=== PATIENT | male | born 1935 | race Caucasian/White ===

== ENCOUNTER 2017-08-23 09:46 | Emergency (ER) | payer MEDICARE, BC ==
[2017-08-23] MEDS ORDERED: Magnesium Citrate 300 ML BOT ONE (11:44)
[2017-08-23] MEDS ORDERED: Magnesium Citrate 300 ML BOT PO SCH (11:45)
== END 2017-08-23 13:17 | disposition home or self-care (01) ==
LOC: ERS 09:46
DX: K59.00 Constipation, unspecified (principal); I25.10 Atherosclerotic heart disease of native coronary artery without angina pectoris; I48.91 Unspecified atrial fibrillation; E03.9 Hypothyroidism, unspecified; E78.5 Hyperlipidemia, unspecified; I10 Essential (primary) hypertension; M19.90 Unspecified osteoarthritis, unspecified site; I49.9 Cardiac arrhythmia, unspecified; Z87.891 Personal history of nicotine dependence
CPT/HCPCS: 94640; J7620

== ENCOUNTER 2017-12-28 08:56 | Emergency (ER) | payer MEDICARE, BC ==
[2017-12-28 09:49] LABS: ALT (SGPT) 29 U/L (8-55); AST (SGOT) 28 U/L (5-34); Albumin 4.2 g/dL (3.4-4.8); Alkaline Phosphatase 105 U/L (40-150); Anion Gap 13 mmol/L (10-20); BUN (Urea Nitrogen) 25 mg/dL (8.4-25.7); Bilirubin, Total 0.7 mg/dL (0.2-1.2); CK (CPK) 53 U/L (30-200); Calc. Creatinine Clearance 0 mL/min (70-130); Calcium 9.9 mg/dL (7.8-10.44); Carbon Dioxide 31 mmol/L (23-31); Chloride 98 mmol/L (98-107); Estimated GFR-MDRD 57; Globulin 3.4 g/dL (2.4-3.5); Glucose 101 mg/dL (83-110); Potassium 5.4 mmol/L (3.5-5.1); Protein, Total 7.6 g/dL (5.8-8.1); Sodium 137 mmol/L (136-145)
[2017-12-28 09:52] LABS: CKMB 1.7 ng/mL (0-6.6); Troponin I Less than 0.010 ng/mL (< 0.028)
--- NOTE | 2017-12-28 09:54 | RAD ---
CHEST ONE VIEW: History: Dyspnea. Comparison: 05-05-16 FINDINGS: Heart size is enlarged. Tracheostomy is in place. Scarring in the right lung apex. Mild ectasia of the distal thoracic aorta. No acute osseous abnormality. IMPRESSION: Unchanged examination. No acute intrathoracic abnormality. POS: [facility]
== END 2017-12-28 10:39 | disposition home or self-care (01) ==
LOC: ERS 08:56
DX: J95.00 Unspecified tracheostomy complication (principal); E11.9 Type 2 diabetes mellitus without complications; J44.9 Chronic obstructive pulmonary disease, unspecified; E66.9 Obesity, unspecified; I25.10 Atherosclerotic heart disease of native coronary artery without angina pectoris; I48.91 Unspecified atrial fibrillation; E03.9 Hypothyroidism, unspecified; E78.5 Hyperlipidemia, unspecified; I10 Essential (primary) hypertension; M19.90 Unspecified osteoarthritis, unspecified site; G47.30 Sleep apnea, unspecified; Z87.891 Personal history of nicotine dependence
CPT/HCPCS: 71045; 80053; 82553; 83880; 84484; 93005; 94640; J7620

== ENCOUNTER 2018-05-09 21:20 | Inpatient (IN) | payer MEDICARE, BC ==
--- NOTE | 2018-05-09 22:23 | RAD ---
CHEST ONE VIEW: HISTORY: Dyspnea. COMPARISON: 12/28/2017 FINDINGS: Stable tracheostomy. Slight elongation of the aorta. There is an enlarged cardiac silhouette. The pulmonary vessels are slightly prominent. Partial obscuration of the right heart border, suggesting a middle lobe infiltrate. No pneumothorax or osseous abnormalities. IMPRESSION: Middle lobe infiltrate. POS: [facility]
[2018-05-09 22:36] LABS: #Eosinphils 0.1 thou/uL (0.0-0.7); #Lymphocytes 1.6 thou/uL (1.20-3.40); #Monocytes 0.8 thou/uL (0.11-0.59); #Neutrophils 5.2 thou/uL (1.40-6.50); %Basophils 0.3 % (0.0-1.0); %Eosinophils 1.7 % (0.0-10.0); %Lymphocytes 20.5 % (21.0-51.0); %Monocytes 9.9 % (0.0-10.0); %Neutrophils 67.7 % (42.0-75.0); Hemoglobin 14.4 g/dL (14.0-18.0); Mean Corpuscular HGB CONC 32.4 g/dL (32.0-36.0); Mean Corpuscular Hemoglobin 29.1 pg (27.0-31.0); Mean Corpuscular Volume 89.9 fL (78.0-98.0); Mean Platelet Volume 8.2 fL (7.4-10.4); Platelet Count 190 thou/uL (130-400); RBC Distribution Width 13.2 % (11.5-14.5); Red Blood Cell (RBC) Count 4.94 mill/uL (4.70-6.10); White Blood Cell (WBC) Count 7.6 thou/uL (4.8-10.8)
[2018-05-09 22:39] LABS: PTT 29.8 SEC (22.9-36.1); Prothrombin Time 13.7 SEC (12.0-14.7)
[2018-05-09 22:55] LABS: ALT (SGPT) 21 U/L (8-55); AST (SGOT) 26 U/L (5-34); Albumin 3.9 g/dL (3.4-4.8); Alkaline Phosphatase 116 U/L (40-150); Anion Gap 15 mmol/L (10-20); BUN (Urea Nitrogen) 23 mg/dL (8.4-25.7); Bilirubin, Total 0.3 mg/dL (0.2-1.2); Calc. Creatinine Clearance 0 mL/min (70-130); Calcium 9.7 mg/dL (7.8-10.44); Carbon Dioxide 25 mmol/L (23-31); Chloride 100 mmol/L (98-107); Estimated GFR-MDRD 38; Globulin 3.3 g/dL (2.4-3.5); Glucose 97 mg/dL (83-110); Potassium 4.8 mmol/L (3.5-5.1); Protein, Total 7.2 g/dL (5.8-8.1); Sodium 135 mmol/L (136-145)
[2018-05-09 22:59] LABS: CKMB 2.1 ng/mL (0-6.6); Troponin I Less than 0.010 ng/mL (< 0.028)
[2018-05-09] MEDS ORDERED: Senokot S 8.6-50 MG TAB PO PRN (23:07)
[2018-05-09] MEDS ORDERED: cloNIDine 0.1 MG TAB PO PRN (23:07)
[2018-05-09] MEDS ORDERED: Bisacodyl 5 MG TAB PO PRN (23:07)
[2018-05-09] MEDS ORDERED: Acetaminophen 325 MG TAB PO PRN (23:07)
[2018-05-09] MEDS ORDERED: hydrALAZINE 20 MG/ML VIAL SLOW IVP PRN (23:07)
[2018-05-09] MEDS ORDERED: Ondansetron PF 4 MG/2 ML Vial IVP PRN ×2 (23:07)
[2018-05-09] MEDS ORDERED: Diabetic Tussin 200 MG/10 ML UDCUP PO PRN (23:07)
[2018-05-09] MEDS ORDERED: Benzonatate 100 MG CAP PO PRN (23:07)
[2018-05-09] MEDS ORDERED: Bisacodyl 10 MG SUPP PR PRN (23:07)
[2018-05-09] MEDS ORDERED: Nitroglycerin 0.4 MG TAB (25 Tab Bottle) SL PRN (23:07)
[2018-05-09] MEDS ORDERED: cefTRIAXone\\ROCEPHIN 1 GM in Sodium Chloride 0.9% 100 ML IVPB SCH (23:15)
[2018-05-09] MEDS ORDERED: Azithromycin 500 MG in Sodium Chloride 0.9% 250 ML 250 ML IVPB SCH (23:59)
[2018-05-10] MEDS ORDERED: Docusate 100 MG CAP PO PRN (00:46)
--- NOTE | 2018-05-10 00:55 | PDOC.EVN ---
Event Note - Event Note Event Note: H&P dictated #[id number].
--- NOTE | 2018-05-10 01:53 | HP ---
DATE OF ADMISSION: 05/09/2018 PRIMARY CARE PHYSICIAN: Dr. Black. CHIEF COMPLAINT: Shortness of breath. HISTORY OF PRESENT ILLNESS: Mr. 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 History is mainly obtained by the patient himself and electronic medical records have been reviewed. Case has been discussed with admitting ER physician. Mr. Bailey reports that he has been having some worsening shortness of breath for the last day or so. Other than that, history is limited. The patient does not elaborate much and is having a hard time s peaking, because of the tracheostomy status. He also complains of constipation 2 of weeks' duration. He denies any chest pain. He denies any dysuria, frequency, or urgency. He denies any diarrhea. He denies any fever, chills, or sick contacts. He has some mild cough. Upon presentation to the emergency room, he was hemodynamically stable, otherwise, with oxygen satura tion of 93% on room air. His temperature was 98.1. He underwent a general evaluation, and the chest x-ray showed right middle lobe infiltrate. He received IV antibiotics in the form of azithromycin a nd Rocephin in the emergency room and is now being admitted for pneumonia. He is, otherwise, hemodyn amically stable. He has chronic respiratory failure and uses oxygen throughout the night, but is on room air in the da y. He also reports that he uses DuoNeb every 4 hours [id number] at home. He was noticed to have worsening swelling and lower extremity redness. He states that his legs are a lways swollen and somewhat red, but could not tell me if this is worse than his normal. He also reports that he sees Dr. Metzger in the Pul[facility]ology [facility] and feels that his tracheostomy also needs to be changed. PAST MEDICAL HISTORY: 1. Chronic respiratory failure on home oxygen that he uses at nighttime. 2. Status post tracheostomy in 2010 for obstructive sleep apnea. 3. Coronary artery disease, status post stent placement in 2003. 4. Hypertension. 5. Hypothyroidism. 6. Morbid obesity. 7. Paroxysmal atrial fibrillation. 8. History of NSVT secondary to electrolyte abnormality. 9. Anxiety. 10. Chronic venous stasis of the legs. 11. COPD. 12. History of Clostridium difficile in 2013. 13. Chronic kidney disease, stage 3. PAST SURGICAL HISTORY: 1. Tracheostomy. 2. PEG tube placement with subsequent removal. 3. Cholecystectomy. 4. Cardiac catheterization and stent placement in 2003. 5. Endoscopy. ALLERGIES: No known medication allergies. CURRENT HOME MEDICATIONS: Not updated. SOCIAL HISTORY: The patient does not have the medications with him and nothing in the computer. FAMILY HISTORY: No significant family history for premature coronary artery disease or stroke. He h as multiple family members with asthma and bronchitis. CODE STATUS: FULL CODE. Discussed with the patient. ALLERGIES: No known medication allergies. REVIEW OF SYSTEMS: The following complete review of systems was negative, unless otherwise mentioned in the HPI or below: Constitutional: Weight loss or gain, ability to conduct usual activities. Sk in: Rash, itching. Eyes: Double vision, pain. ENT/Mouth: Nose bleeding, neck stiffness, pain, te nderness. Cardiovascular: Palpitations, dyspnea on exertion, orthopnea. Respiratory: Shortness of breath, wheezing, cough, hemoptysis, fever, or night sweats. Gastrointestinal: Poor appetite, abdo evelyne pain, heartburn, nausea, vomiting, constipation, or diarrhea. Genitourinary: Urgency, frequen cy, dysuria, nocturia. Musculoskeletal: Pain, swelling. Neurologic/Psychiatric: Anxiety, depressi on. Allergy/Immunologic: Skin rash, bleeding tendency. A 12-point review of systems is done and it is negative except for those mentioned in the history and physical. LABORATORY EXAMINATION: CBC is unremarkable. PT, PTT, INR are unremarkable. Serum chemistry shows sodium of 135, BUN 23, creatinine 1.71. Lactic acid normal. Cardiac enzymes normal. BNP normal. C hest x-ray, by my review, shows right middle lobe infiltrate. PHYSICAL EXAMINATION: VITAL SIGNS: Upon presentation, blood pressure 110/75, pulse of 79, respirations 28, temperature 98. 1, saturating 93%-100% on room air after suctioning. GENERAL EXAMINATION: In no acute distress. Awake, alert, oriented x3. He has some thick secretions coming out from his tracheostomy. HEENT EXAMINATION: Mucous membrane is moist and pink. No oropharyngeal exudate or erythema. Head i s normocephalic and atraumatic. Pupils equal and reactive to light and accommodation. Extraocular m ovement intact. NECK: Supple without any lymphadenopathy, JVD, or bruit. Tracheostomy is in place, which looks tg n and healthy. CHEST: Clear to auscultation bilaterally with diffuse scant wheezes bilaterally. HEART: Rate and rhythm are regular without any murmurs, rubs, or gallops. ABDOMEN: Obese, soft, nontender, nondistended, positive bowel sounds. EXTREMITIES: Show bilateral nonpitting edema extending all the way up to his midcalf with extensive warmth and redness of bilateral lower extremities. Some superficial excoriations also noticed on the legs. NEUROLOGICAL EXAMINATION: Nonfocal. SKIN: Free of any rashes or bruises. Feels warm and dry to touch. PSYCHIATRIC: Normal affect. IMPRESSION AND PLAN: 1. Acute on chronic hypoxic respiratory failure. Mr. Bailey will be admitted for pneumonia as a cause of acute on chronic hypoxic respiratory failure. He will be given broad-spectrum IV antibiotics to cover for both pneumonia as well as possible lower extremity cellulitis. Blood cultures have been ob tained and we will follow the results. We will also obtain a viral PCR. We will continue him on Duo Neb as at home and add Dulera as well as p.r.n. nebulizers. We will consult his kinesiotherapist, Dr. Micky freire, while in the hospital. Frequent suctioning of the tracheostomy will be provided. He will be o n incentive spirometry, and we will add Mucinex as well. 2. Bilateral lower extremity cellulitis. We will start him on vancomycin and Zosyn. He does have c hronic lower extremity venostasis. 3. Acute on chronic renal insufficiency, mildly elevated troponin above the baseline. We will resus citate him gently with IV fluids. Avoid any nephrotoxic medications. 4. History of paroxysmal atrial fibrillation. Reconcile home medications once settled in. The khushboo ent, I think, was supposed to be on Multaq. 5. Chronic obstructive pulmonary disease without any acute exacerbation. Continue nebulizers every 4 hours as he does at home. 6. History of coronary artery disease. Restart home medications once confirmed. 7. History of hypertension. Restart home medications if the blood pressure starts to go up high. W e will use p.r.n. antihypertensives for now, as the home medications remain non-reconciled. 8. Code status: FULL CODE, discussed with the patient. 9. Deep venous thrombosis and gastrointestinal prophylaxis and supportive care and p.r.n. medication s. DISPOSITION: Mr. Bailey is hemodynamically stable and currently being admitted to the hospital for pne umonia and possible lower extremity cellulitis. Estimated length of stay at this time is at least 2- 3 midnights. Further management will depend upon his clinical course.
[2018-05-10] MEDS ORDERED: Piperacillin/Tazobactam 3.375 GM in Sodium Chloride 0.9% 100 ML IVPB SCH (02:00)
[2018-05-10] MEDS: Sodium Chloride 0.9% 1,000 ML IV SCH ×3 (02:55→21:48)
[2018-05-10 03:56] VITALS: BMI 39.2
[2018-05-10] MEDS ORDERED: VANCOMYCIN IVPB PRN (04:01)
[2018-05-10 05:02] LABS: #Eosinphils 0.1 thou/uL (0.0-0.7); #Lymphocytes 1.8 thou/uL (1.20-3.40); #Monocytes 0.7 thou/uL (0.11-0.59); #Neutrophils 4.3 thou/uL (1.40-6.50); %Basophils 0.3 % (0.0-1.0); %Eosinophils 1.8 % (0.0-10.0); %Lymphocytes 25.5 % (21.0-51.0); %Monocytes 10.4 % (0.0-10.0); Hemoglobin 12.5 g/dL (14.0-18.0); Mean Corpuscular HGB CONC 31.2 g/dL (32.0-36.0); Mean Corpuscular Hemoglobin 28.3 pg (27.0-31.0); Mean Corpuscular Volume 90.5 fL (78.0-98.0); Mean Platelet Volume 8.4 fL (7.4-10.4); Platelet Count 171 thou/uL (130-400); Red Blood Cell (RBC) Count 4.44 mill/uL (4.70-6.10)
[2018-05-10 05:20] LABS: Anion Gap 12 mmol/L (10-20); BUN (Urea Nitrogen) 22 mg/dL (8.4-25.7); Calc. Creatinine Clearance 76 mL/min (70-130); Calcium 8.9 mg/dL (7.8-10.44); Carbon Dioxide 28 mmol/L (23-31); Chloride 101 mmol/L (98-107); Estimated GFR-MDRD 48; Glucose 94 mg/dL (83-110); Potassium 3.7 mmol/L (3.5-5.1); Sodium 137 mmol/L (136-145)
[2018-05-10] MEDS: Mometasone/Formoterol 120 PUFF INHALER INH SCH ×2 (06:44→18:55)
[2018-05-10] MEDS: Famotidine 20 MG TAB PO SCH (08:02)
[2018-05-10] MEDS: guaiFENesin ER 600 MG TAB PO SCH ×2 (08:02→20:06)
[2018-05-10] MEDS: Amoxicillin/Potassium Clav 875 MG TAB PO SCH ×2 (08:02→20:05)
[2018-05-10] MEDS: Heparin 5,000 UNITS/ML VIAL SC SCH ×2 (08:02→20:06)
[2018-05-10] MEDS ORDERED: Vancomycin HCl 1 GM in Premix Bag 1 BAG IVPB SCH (09:00)
[2018-05-10] MEDS ORDERED: Albuterol Sulfate 2.5 mg/3 ml Neb NEB PRN (10:03)
[2018-05-10] MEDS ORDERED: Clindamycin/D5W 300 MG/50 ML BAG IVPB SCH ×2 (10:05→14:00)
[2018-05-10] MEDS ORDERED: Lorazepam 1 MG TAB PO PRN (10:06)
[2018-05-10] MEDS ORDERED: Polyethylene Glycol 3350 17 GM Packet PO SCH (10:15)
[2018-05-10] MEDS ORDERED: guaiFENesin ER 600 MG TAB PO SCH ×3 (10:15→21:00)
--- NOTE | 2018-05-10 12:27 | CON ---
DATE OF CONSULTATION: 05/10/2018 Mr. Bailey is an 82-year-old male I have known for many years. He presents with complaints of cough and chest congestion for 3 days. He has a chronic indwelling tracheostomy related to an episode of respiratory failure many years ago. We have tried capping his trachs and he does very poorly with dyspnea on exertion. He has a significant component of deconditioning. He actually did very well with exercise for quite some time, but has not been exercising as much over the last few years and has gained some of his weight back. His truly is the one that led to his survival once he was out of the Critical Care Unit as she was very supportive and encouraged him to build up his strength. PAST MEDICAL HISTORY: 1. Remarkable for obstructive sleep apnea. 2. Coronary artery disease. 3. Chronic indwelling tracheostomy after an episode of respiratory failure. 4. History of coronary stenting in 2003. 5. Hypothyroidism. 6. Hypertension. 7. Atrial fibrillation. 8. History of anxiety. 9. Chronic lower extremity edema. 10. History of Clostridium difficile colitis in 2012. 11. Chronic kidney disease. 12. History of a PEG, which has been removed. 13. History of a cholecystectomy. SOCIAL HISTORY: He is no longer a smoker, does not drink. Never used drugs. FAMILY HISTORY: Negative for lung disease at an early age. REVIEW OF SYSTEMS: Ten point review of systems completed, otherwise negative. He denies fever. PHYSICAL EXAMINATION: GENERAL: He presents with complaints of cough and chest congestion for 3 days. VITAL SIGNS: He is afebrile, heart rate 63, respiratory rate is 18, oximetry is 96. Blood pressure 100/63. HEENT: Pupils are equal. Sclerae is anicteric. NECK: Supple. His tracheostomy is without erythema. LUNGS: Remarkable for faint wheezes. HEART: Regular rhythm, no S3. There is a grade 2/6 systolic murmur. ABDOMEN: Soft and nontender. EXTREMITIES: Without clubbing, cyanosis, or edema. LABORATORY DATA: White count 7, hemoglobin 12.5, platelets 171,000. Sodium 137 , potassium 3.7, chloride 101, bicarbonate 20, BUN 22, creatinine 1.4. Chest radiograph is hazy on the cardiac border on the right, suggestive of either mucus plugging or pneumonia in this area. IMPRESSION: Asthmatic bronchitis versus pneumonia. His radiograph clears rapidly. This would argue for abnormalities related to mucus plugging. In any event, he will receive antibiotics, steroids, nebulizer treatments. His antibiotics can be switched to p.o. antibiotics given his rapid clinical improvement. We will change out his tracheostomy while he is in the hospital this admission. I do not feel that this is an MRSA infection, so his vancomycin will be discontinued. He will benefit from some Solu-Medrol for a day or two. This is a 50 minute consult, with greater than 50% of the time was spent coordinating care on the unit. LYDIA
[2018-05-10] MEDS: Clindamycin/D5W 900 MG in Premix Bag 1 BAG IVPB SCH ×2 (14:48→21:47)
[2018-05-10] MEDS: Atorvastatin Calcium 10 MG TAB PO SCH (20:06)
[2018-05-10] MEDS: Montelukast Sodium 10 mg Tablet PO SCH (20:06)
[2018-05-11] MEDS: Levothyroxine Sodium 25 MCG TAB PO SCH (04:58)
[2018-05-11] MEDS: Clindamycin/D5W 900 MG in Premix Bag 1 BAG IVPB SCH ×3 (04:58→20:15)
[2018-05-11 05:35] LABS: #Lymphocytes 1.1 thou/uL (1.20-3.40); #Monocytes 0.6 thou/uL (0.11-0.59); #Neutrophils 5.4 thou/uL (1.40-6.50); %Basophils 0.5 % (0.0-1.0); %Eosinophils 0.3 % (0.0-10.0); %Neutrophils 76.2 % (42.0-75.0); Hemoglobin 12.5 g/dL (14.0-18.0); Mean Corpuscular HGB CONC 30.6 g/dL (32.0-36.0); Mean Corpuscular Hemoglobin 27.9 pg (27.0-31.0); Mean Corpuscular Volume 91.2 fL (78.0-98.0); Mean Platelet Volume 8.7 fL (7.4-10.4); Platelet Count 186 thou/uL (130-400); RBC Distribution Width 13.1 % (11.5-14.5); Red Blood Cell (RBC) Count 4.47 mill/uL (4.70-6.10); White Blood Cell (WBC) Count 7.1 thou/uL (4.8-10.8)
[2018-05-11 05:41] LABS: Anion Gap 10 mmol/L (10-20); BUN (Urea Nitrogen) 17 mg/dL (8.4-25.7); Calc. Creatinine Clearance 111 mL/min (70-130); Calcium 9.3 mg/dL (7.8-10.44); Carbon Dioxide 29 mmol/L (23-31); Chloride 104 mmol/L (98-107); Estimated GFR-MDRD 75; Glucose 108 mg/dL (83-110); Magnesium 2.4 mg/dL (1.6-2.6); Potassium 4.1 mmol/L (3.5-5.1); Sodium 139 mmol/L (136-145)
[2018-05-11] MEDS: Mometasone/Formoterol 120 PUFF INHALER INH SCH ×2 (06:48→22:19)
[2018-05-11] MEDS ORDERED: Vancomycin HCl 1.5 GM in Sodium Chloride 0.9% 250 ML 300 ML IVPB SCH (08:00)
[2018-05-11] MEDS: Polyethylene Glycol 3350 17 GM Packet PO SCH (09:16)
[2018-05-11] MEDS: Furosemide 40 MG TAB PO SCH (09:17)
[2018-05-11] MEDS: guaiFENesin ER 600 MG TAB PO SCH ×2 (09:17→20:12)
[2018-05-11] MEDS: Aspirin 81 mg Enteric Coated Tablet PO SCH (09:18)
[2018-05-11] MEDS: Spironolactone 25 MG TAB PO SCH (09:18)
[2018-05-11] MEDS: Famotidine 20 MG TAB PO SCH (09:18)
[2018-05-11] MEDS: Amoxicillin/Potassium Clav 875 MG TAB PO SCH ×2 (09:18→20:12)
[2018-05-11] MEDS: Heparin 5,000 UNITS/ML VIAL SC SCH ×2 (09:19→20:20)
[2018-05-11] MEDS: Terbinafine 1% 30 GM TUBE TOP SCH (09:32)
--- NOTE | 2018-05-11 15:44 | PRG ---
DATE OF SERVICE: 05/11/2018 SUBJECTIVE: Mr. Bailey says he feels much better. OBJECTIVE: VITALS: He is afebrile, heart rate is in the 80s, respiratory rate is 20, oximetry is 100%. LUNGS: Clear today. HEART: Regular rhythm. ABDOMEN: Soft. EXTREMITIES: wrapped. LABORATORY DATA: White count 7.1, hemoglobin 12.5, platelets 186. Electrolytes are normal. IMPRESSION: 1. Asthmatic bronchitis. 2. Severe underlying obstructive lung disease. 3. Sleep apnea. 4. Status post tracheostomy. He will have this for life. 5. Obesity. He lost a significant amount of weight after his critical illness but has gained most o f it back. 6. Chronic lower extremity stasis plus or minus cellulitis. We will continue with supportive care. He does have diastolic dysfunction that combined with his obe sity and his COPD likely explains his lower extremity edema. This is aggravated by sedentary nature. He has a normal systolic ejection fraction. I will continue to follow him while he is in the [facility]. I will change his tracheostomy prior to discharge. He does have moderate mitral regurgitation but he will never be a candidate for valve replacement.
[2018-05-11] MEDS: Sodium Chloride 0.9% 1,000 ML IV SCH (17:26)
[2018-05-11] MEDS ORDERED: Clopidogrel Bisulfate 75 MG TAB ONE (19:16)
[2018-05-11] MEDS: Atorvastatin Calcium 10 MG TAB PO SCH (20:12)
[2018-05-11] MEDS: Montelukast Sodium 10 mg Tablet PO SCH (20:12)
[2018-05-12] MEDS: Levothyroxine Sodium 25 MCG TAB PO SCH (05:29)
[2018-05-12] MEDS: Clindamycin/D5W 900 MG in Premix Bag 1 BAG IVPB SCH ×3 (05:29→20:19)
[2018-05-12] MEDS: Sodium Chloride 0.9% 1,000 ML IV SCH ×3 (05:31→20:20)
[2018-05-12] MEDS: Mometasone/Formoterol 120 PUFF INHALER INH SCH ×2 (07:03→19:19)
[2018-05-12] MEDS: Heparin 5,000 UNITS/ML VIAL SC SCH ×2 (08:15→20:22)
[2018-05-12] MEDS: Polyethylene Glycol 3350 17 GM Packet PO SCH (08:15)
[2018-05-12] MEDS: Amoxicillin/Potassium Clav 875 MG TAB PO SCH ×2 (08:15→20:20)
[2018-05-12] MEDS: Spironolactone 25 MG TAB PO SCH (08:15)
[2018-05-12] MEDS: guaiFENesin ER 600 MG TAB PO SCH ×2 (08:15→20:20)
[2018-05-12] MEDS: Aspirin 81 mg Enteric Coated Tablet PO SCH (08:15)
[2018-05-12] MEDS: Furosemide 40 MG TAB PO SCH (08:16)
[2018-05-12] MEDS: Famotidine 20 MG TAB PO SCH (08:16)
[2018-05-12] MEDS: Terbinafine 1% 30 GM TUBE TOP SCH (08:17)
--- NOTE | 2018-05-12 09:15 | PRG ---
DATE OF SERVICE: 05/12/2018 Mr. Bailey says he is feeling better. We discussed calorie counting and weight loss again. PHYSICAL EXAMINATION: VITAL SIGNS: He is afebrile, heart rate 53, respiratory rate is 20, oximetry is 92, blood pressure 1 08/59. LUNGS: Clear. HEART: Regular rhythm. ABDOMEN: Protuberant, nontender. EXTREMITIES: Extremities are wrapped. LABORATORY: No new lab today. IMPRESSION: 1. Asthmatic bronchitis, clinically better. 2. Status post tracheostomy, which he will have for life. 3. Diastolic dysfunction. 4. Moderate mitral regurgitation. PLAN: Hopefully, home tomorrow. We will plan on changing his trach tomorrow prior to discharge.
--- NOTE | 2018-05-12 10:13 | PQF ---
CLINICAL DOCUMENTATION IMPROVEMENT CLARIFICATION FORM: ICD-10 Updated PLEASE DO AN ADDENDUM TO THE PROGRESS NOTE WITH ANY DOCUMENTATION UPDATES OR ADDITIONS AND CARRY THROUGH TO DC SUMMARY. THANK YOU. DATE: 05/12 ATTN: DR. RAVI WEBER Please exercise your independent, professional judgment in responding to the clarification form. Clinical indicators are provided on the bottom of this form for your review. Please check appropriate box(s): Conflicting documentation was noted in the Medical Record, please clarify if patient is being treated/monitored for: [ ] RML PNEUMONIA [ ] ASTHMATIC BRONCHITIS [ ] Other diagnosis [ ] Unable to determine For continuity of documentation, please document condition throughout progress notes and discharge summary. Thank You. CLINICAL INDICATORS - SIGNS / SYMPTOMS/ LABS ER PHYSICIAN DOCUMENTATION 05/09: PNEUMONIA, COPD H&P DOCUMENTATION 05/09: HX OF PRESENT ILLNESS: ...HE UNDERWENT A GENERAL EVALUATION IN ED, AND THE CXR SHOWED R MIDDLE LOBE INFILTRATE. IMPRESSION/ PLAN: 1) ...HE WILL BE ADMITTED FOR PNEUMONIA PULMONOLOGY CONSULT 05/10: ASTHMATIC BRONCHITIS VS PNEUMONIA; PN 05/11 & 05/12: ASTHMATIC BRONCHITIS CXR 05/09: FINDINGS: PARTIAL OBSCURATION OF RIGHT HEART BORDER, SUGGESTING MIDDLE LOBE INFILTRATE. IMPRESSION: MIDDLE LOBE INFILTRATE RISK FACTORS: TRACHEOSTOMY W/THICK SECRETIONS COPD TREATMENT: IV ANTIBIOTICS (CLINDAMYCIN 05/10- PRESENT; AZITHROMYCIN & ROCEPHIN 05/09; VANCOMYCIN & ZOSYN 05/10_ IVF (NS 05/10 - PRESENT) THANK YOU! Maureen (This form is maintained as a part of the permanent medical record) 2014 [employer]. All Rights Reserved Maureen Kemp RN, BSN [email or web address] Office: [phone] [facility]
--- NOTE | 2018-05-12 10:26 | PQF ---
CLINICAL DOCUMENTATION IMPROVEMENT CLARIFICATION FORM: ICD-10 Updated PLEASE DO AN ADDENDUM TO THE PROGRESS NOTE WITH ANY DOCUMENTATION UPDATES OR ADDITIONS AND CARRY THROUGH TO DC SUMMARY. THANK YOU. DATE: 05/12 ATTN: DR. RAVI WEBER Please exercise your independent, professional judgment in responding to the clarification form. Clinical indicators are provided on the bottom of this form for your review. Please check appropriate box(s): [ ] Acute on Chronic Renal Failure Stage 3 [ ] CKD Stage 3 without ARF/LEONA [ ] Other diagnosis [ ] Unable to determine Acute Renal Failure/Acute Kidney Failure defined as: Increases in SCr by (>) 0.3 mg/dl within 48 hours OR- Increases in SCr by (>) 1.5 times baseline, known or presumed to have occurred within the prior 7 days OR- Urine volume < 0.5 ml/kg/hour for 6 hours (KDIGO supplement 2012 for RIFLE/MORENA criteria) For continuity of documentation, please document condition throughout progress notes and discharge summary. Thank You. CLINICAL INDICATORS - SIGNS / SYMPTOMS / LABS BUN: 23 CR: 1.71 GFR: 38 (05/09) 22 1.40 48 (05/10) 17 0.96 75 (05/11) H&P DOCUMENTATION 05/09: PAST MEDICAL HX: 13) CKD STAGE 3; IMPRESSION & PLAN: 3) ACUTE ON CHRONIC RENAL INSUFFICIENCY. WE WILL RESUSCITATE HIM GENTLY WITH IVF RISK FACTORS: CKD 3 DM II, HTN TREATMENTS: IVF (NS 05/09 - PRESENT) SERIAL LAB THANK YOU! Maureen (This form is maintained as a part of the permanent medical record) 2014 [employer]. All Rights Reserved Maureen Kmep RN, BSN [email or web address] Office: [phone] [facility]
--- NOTE | 2018-05-12 10:42 | PQF ---
CLINICAL DOCUMENTATION IMPROVEMENT CLARIFICATION FORM: ICD-10 Updated PLEASE DO AN ADDENDUM TO THE PROGRESS NOTE WITH ANY DOCUMENTATION UPDATES OR ADDITIONS AND CARRY THROUGH TO DC SUMMARY. THANK YOU. DATE: 05/12 ATTN: DR. RAVI WEBER Please exercise your independent, professional judgment in responding to the clarification form. Clinical indicators are provided on the bottom of this form for your review. Please check appropriate box(s): [ ] Aspiration Pneumonia [ ] Aspiration Bronchitis [ ] Empirically treating Gram Negative Pneumonia [ ] Other diagnosis [ ] Unable to determine For continuity of documentation, please document condition throughout progress notes and discharge summary. Thank You. CLINICAL INDICATORS - SIGNS / SYMPTOMS / LABS ER PRESENTATION 05/09: INCREASING SOB W/NONPRODUCTIVE COUGH RR: 22-28 MODERATE RESPIRATORY DISTRESS, SPEAKING IN 2-3 WORD SENTENCES ER PHYSICIAN DIAGNOSES: PNEUMONIA, COPD CXR 05/09: FINDINGS: OBSCURATION OF RIGHT HEART BORDER, SUGGESTING A MIDDLE LOBE INFILTRATE. IMPRESSION: MIDDLE LOBE INFILTRATE H&P DOCUMENTATION 05/09: HX PRESENT ILLNESS: WORSENING SOB FOR LAST DAY OR SO. ...HE UNDERWENT A GENERAL EVAL IN ED & CXR SHOWED RIGHT MIDDLE LOBE INFILTRATE. PAST MEDICAL HX: S/P TRACHEOSTOMY FOR WALI PHYSICAL EXAM: HE HAS SOME THICK SECRETIONS COMING OUT FROM HIS TRACHEOSTOMY. IMPRESSION & PLAN: 1) ...WILL BE ADMITTED FOR PNEUMONIA CAUSE OF ACUTE ON CHRONIC HYPOXIC RESPIRATORY FAILURE RISK FACTORS: TRACHEOSTOMY W/THICK SECRETIONS OBESITY COPD TREATMENTS: IV ANTIBIOTICS (CLINDAMYCIN 05/10 -PRESENT; AZITHROMYCIN & ROCEPHIN IN ED; ZOSYN & VANCOMYCIN 05/10) PULMONARY CONSULT THANK YOU! Maureen (This form is maintained as a part of the permanent medical record) 2014 [employer]. All Rights Reserved Maureen Kemp RN, BSN [email or web address] Office: [phone] [facility]
[2018-05-12] MEDS: Montelukast Sodium 10 mg Tablet PO SCH (20:20)
[2018-05-12] MEDS: Atorvastatin Calcium 10 MG TAB PO SCH (20:20)
[2018-05-13] MEDS: Clindamycin/D5W 900 MG in Premix Bag 1 BAG IVPB SCH (05:29)
[2018-05-13] MEDS: Levothyroxine Sodium 25 MCG TAB PO SCH (05:29)
[2018-05-13] MEDS: Mometasone/Formoterol 120 PUFF INHALER INH SCH (07:53)
[2018-05-13] MEDS: Famotidine 20 MG TAB PO SCH (10:06)
[2018-05-13] MEDS: guaiFENesin ER 600 MG TAB PO SCH (10:07)
[2018-05-13] MEDS: Spironolactone 25 MG TAB PO SCH (10:07)
[2018-05-13] MEDS: Amoxicillin/Potassium Clav 875 MG TAB PO SCH (10:07)
[2018-05-13] MEDS: Aspirin 81 mg Enteric Coated Tablet PO SCH (10:07)
[2018-05-13] MEDS: Furosemide 40 MG TAB PO SCH (10:07)
[2018-05-13] MEDS: Heparin 5,000 UNITS/ML VIAL SC SCH (10:08)
[2018-05-13] MEDS: Terbinafine 1% 30 GM TUBE TOP SCH (10:09)
[2018-05-13] MEDS: Polyethylene Glycol 3350 17 GM Packet PO SCH (10:09)
[2018-05-13 12:41] VITALS: BP 108/68; TEMP 99.8
[2018-05-13] MEDS: Sodium Chloride 0.9% 1,000 ML IV SCH (14:33)
--- NOTE | 2018-05-13 17:06 | PRG ---
DATE OF SERVICE: 05/13/2018 SUBJECTIVE: Mr. Bailey is back to his baseline. He has no complaints. His tracheostomy was changed out to a new #6 nonfenestrated cuffless tracheostomy. OBJECTIVE: VITAL SIGNS: Temperature maximum is 99.8, heart rate is 53, respiratory rate 24, oximetry is 94. LUNGS: Clear. CARDIOVASCULAR: Regular rhythm. ABDOMEN: Soft. IMPRESSION: Asthmatic bronchitis with perhaps an early pneumonia, that would be community acquired. PLAN: Discharge home on prednisone taper, completed his course of antibiotics. His does a grea t job of taking care of him. I will see him in followup in 2-3 months. I have again encouraged him to lose weight, but he absolutely has an inability to do that. His decon ditioning is the biggest factor in his life at this point, in my opinion.
--- NOTE | 2018-05-23 16:11 | EKG ---
Test Reason : Blood Pressure : / mmHG Vent. Rate : 072 BPM Atrial Rate : 072 BPM P-R Int : 206 ms QRS Dur : 084 ms QT Int : 400 ms P-R-T Axes : 087 076 056 degrees QTc Int : 438 ms Normal sinus rhythm Normal ECG Confirmed by ULICES PINEDA ([id number]), story editor YOSEF URIAS ([id number]) on 05/23/2018 4:10:45 PM Referred By: NICHOLAS PINEDA Confirmed By:ULICES PINEDA
== END 2018-05-13 16:14 | disposition home or self-care (01) | DRG 193 ==
LOC: ERS 21:20 → T4-B 23:07
PROVIDERS: ADMIT Internal Medicine; ATTEND Internal Medicine
DX: J18.9 Pneumonia, unspecified organism (principal); J96.21 Acute and chronic respiratory failure with hypoxia; L03.116 Cellulitis of left lower limb; L03.115 Cellulitis of right lower limb; J44.0 Chronic obstructive pulmonary disease with (acute) lower respiratory infection; G47.33 Obstructive sleep apnea (adult) (pediatric); I25.10 Atherosclerotic heart disease of native coronary artery without angina pectoris; I48.0 Paroxysmal atrial fibrillation; Z93.0 Tracheostomy status; Z99.81 Dependence on supplemental oxygen; Z95.5 Presence of coronary angioplasty implant and graft; E03.9 Hypothyroidism, unspecified; E66.01 Morbid (severe) obesity due to excess calories; F41.9 Anxiety disorder, unspecified; I87.8 Other specified disorders of veins; I12.9 Hypertensive chronic kidney disease with stage 1 through stage 4 chronic kidney disease, or unspecified chronic kidney disease; N18.3 Chronic kidney disease, stage 3 (moderate); Z90.49 Acquired absence of other specified parts of digestive tract; N28.9 Disorder of kidney and ureter, unspecified; I05.1 Rheumatic mitral insufficiency
CPT/HCPCS: 36415; 71045; 80048; 80053; 82553; 83605; 83735; 83880; 84484; 85025; 85610; 85730; 87040; 87633; 93005; 93306; 94640; 94664; 96365; 96367; G8978-GP-CM; G8979-GP-CK; G8987-GO-CM; G8988-GO-CJ; J0456; J0696; J1644; J2543; J2920; J3370; J3490; J7050; J7620

== ENCOUNTER 2018-05-19 19:15 | Emergency (ER) | payer MEDICARE, BC ==
[~2018-05-19 19:15] MED LIST: ISOVUE-370 76%-LOCM 1 ML ONE
[2018-05-19 20:18] LABS: #Eosinphils 0.1 thou/uL (0.0-0.7); #Lymphocytes 1.2 thou/uL (1.20-3.40); #Monocytes 1.2 thou/uL (0.11-0.59); #Neutrophils 14.3 thou/uL (1.40-6.50); %Eosinophils 0.3 % (0.0-10.0); %Lymphocytes 7.3 % (21.0-51.0); %Monocytes 7.2 % (0.0-10.0); %Neutrophils 85.1 % (42.0-75.0); Hemoglobin 15.3 g/dL (14.0-18.0); Mean Corpuscular HGB CONC 31.7 g/dL (32.0-36.0); Mean Corpuscular Hemoglobin 28.7 pg (27.0-31.0); Mean Corpuscular Volume 90.5 fL (78.0-98.0); Platelet Count 183 thou/uL (130-400); RBC Distribution Width 13.5 % (11.5-14.5); Red Blood Cell (RBC) Count 5.34 mill/uL (4.70-6.10); White Blood Cell (WBC) Count 16.8 thou/uL (4.8-10.8)
[2018-05-19 20:39] LABS: ALT (SGPT) 19 U/L (8-55); AST (SGOT) 20 U/L (5-34); Albumin 3.9 g/dL (3.4-4.8); Alkaline Phosphatase 96 U/L (40-150); Anion Gap 16 mmol/L (10-20); BUN (Urea Nitrogen) 21 mg/dL (8.4-25.7); Bilirubin, Total 0.7 mg/dL (0.2-1.2); CK (CPK) 39 U/L (30-200); Calc. Creatinine Clearance 0 mL/min (70-130); Calcium 9.3 mg/dL (7.8-10.44); Carbon Dioxide 22 mmol/L (23-31); Chloride 97 mmol/L (98-107); Estimated GFR-MDRD 46; Globulin 3.4 g/dL (2.4-3.5); Glucose 111 mg/dL (83-110); Potassium 4.1 mmol/L (3.5-5.1); Protein, Total 7.3 g/dL (5.8-8.1); Sodium 131 mmol/L (136-145)
[2018-05-19 20:43] LABS: Troponin I 0.011 ng/mL (< 0.028)
--- NOTE | 2018-05-19 21:41 | RAD ---
CHEST TWO VIEWS: 05/19/18 INDICATION: History of pneumonia with fever and shortness of breath. COMPARISON: Prior two view chest radiograph dated 06/22/13 and a chest radiograph dated 05/09/18. FINDINGS: There is stable cardiomegaly. There is a stable tracheostomy tube. No air space consolidation is evid ent. Compression abnormality involving the mid thoracic spine is stable appearing. IMPRESSION: No air space consolidation to suggest pneumonia. Otherwise stable chronic findings as above. POS: [facility]
--- NOTE | 2018-05-19 23:22 | CT ---
CTA OF THE THORAX UTILIZING IV CONTRAST AND 3D REFORMATTED IMAGING 05/19/18 INDICATION: History of pneumonia with fever and shortness of breath. COMPARISON: No CT comparisons of the chest are available. FINDINGS: No central or segmental pulmonary embolus is evident. There are vascular calcifications involving the thoracic aorta and coronary arteries. There is a tracheostomy tube in place. No enlarged lymph nodes are evident. No focal consolidation is evident. There are areas of subsegmental volume loss seen sca ttered throughout both lungs but mostly within the lower lobes. No pleural effusion is evident. The visualized upper abdomen reveals a mild amount of retained stool within the colon. The gallbladde r is surgically absent. Adrenal glands are normal appearing. There is a small exophytic hyperdense le nahomi involving the superior pole left kidney measuring 1.6 cm. This is slightly larger than [facility] of the abdomen and pelvis dated 05/11/13. Compression abnormalities of T6 and T7 are stable to a comparison chest radiograph from 2013. IMPRESSION: 1. No central or segmental pulmonary embolus demonstrated. 2. No air space consolidation to suggest bacterial pneumonia. There are scattered subsegmental a telectasis. 3. Tracheostomy tube. 4. Exophytic hypodense lesion off the superior pole left kidney is incompletely characterized. F ollowup renal ultrasound is recommended for further characterization. POS: [facility]
[2018-05-19 23:57] LABS: Bilirubin Negative (Negative); Blood, Urine Small (Negative); Clarity CLEAR (Clear); Glucose, Urine (Dipstick) Negative (Negative); Leukocyte Moderate (Negative); Nitrite Negative (Negative); Protein, Urine (Dipstick) Trace mg/dL (Neg-Trace); Specific Gravity, Urine 1.036 (1.002-1.036); Urobilinogen 0.2 mg/dL (0.2-1.0); pH, Urine 5.5 (5.0-9.0)
[2018-05-19 23:59] LABS: Bacteria/HPF None Seen HPF (None Seen); Hyaline Casts/LPF 7-10 HYALINE CAST LPF (0-3 Hyaline); Pathc Cast-AUWi Flag 1.45 (0-2.49)
[2018-05-20 00:04] LABS: Renal Epithelial None Seen HPF (0-3); Transitional Epithelial NONE SEEN HPF (0-3)
== END 2018-05-20 00:41 | disposition home or self-care (01) ==
LOC: ERS 19:15
DX: R06.00 Dyspnea, unspecified (principal); E11.9 Type 2 diabetes mellitus without complications; E66.9 Obesity, unspecified; I25.10 Atherosclerotic heart disease of native coronary artery without angina pectoris; E03.9 Hypothyroidism, unspecified; M19.90 Unspecified osteoarthritis, unspecified site; G47.30 Sleep apnea, unspecified; I48.91 Unspecified atrial fibrillation; I10 Essential (primary) hypertension; Z87.891 Personal history of nicotine dependence; Z79.899 Other long term (current) drug therapy; Z79.82 Long term (current) use of aspirin
CPT/HCPCS: 36415; 71046; 71275; 80048; 80061; 80076; 81003; 81015; 82550; 82553; 83036; 83605; 84145; 84484; 85025; 87804; 93005; 94640; J7620

== ENCOUNTER 2018-06-06 06:15 | Inpatient (IN) | payer MEDICARE, BC ==
[2018-06-06] MEDS ORDERED: methylPREDNISolone Sod Succ/PF 125 MG/2 ML VIAL ONE (07:09)
[2018-06-06 07:10] LABS: #Eosinphils 0.1 thou/uL (0.0-0.7); #Lymphocytes 0.8 thou/uL (1.20-3.40); #Monocytes 0.7 thou/uL (0.11-0.59); #Neutrophils 6.2 thou/uL (1.40-6.50); %Basophils 0.2 % (0.0-1.0); %Eosinophils 0.9 % (0.0-10.0); %Lymphocytes 9.8 % (21.0-51.0); %Monocytes 9.1 % (0.0-10.0); %Neutrophils 80.1 % (42.0-75.0); Hemoglobin 14.2 g/dL (14.0-18.0); Mean Corpuscular HGB CONC 32.2 g/dL (32.0-36.0); Mean Corpuscular Hemoglobin 28.7 pg (27.0-31.0); Mean Corpuscular Volume 89.2 fL (78.0-98.0); Mean Platelet Volume 8.6 fL (7.4-10.4); Platelet Count 189 thou/uL (130-400); RBC Distribution Width 13.7 % (11.5-14.5); Red Blood Cell (RBC) Count 4.95 mill/uL (4.70-6.10); White Blood Cell (WBC) Count 7.7 thou/uL (4.8-10.8)
[2018-06-06 07:25] LABS: CKMB 1.4 ng/mL (0-6.6); Troponin I 0.011 ng/mL (< 0.028)
[2018-06-06 07:27] LABS: ALT (SGPT) 24 U/L (8-55); AST (SGOT) 29 U/L (5-34); Albumin 3.9 g/dL (3.4-4.8); Alkaline Phosphatase 114 U/L (40-150); Anion Gap 16 mmol/L (10-20); BUN (Urea Nitrogen) 18 mg/dL (8.4-25.7); Bilirubin, Total 0.7 mg/dL (0.2-1.2); CK (CPK) 82 U/L (30-200); Calc. Creatinine Clearance 0 mL/min (70-130); Calcium 9.2 mg/dL (7.8-10.44); Carbon Dioxide 25 mmol/L (23-31); Chloride 99 mmol/L (98-107); Estimated GFR-MDRD 54; Globulin 3.5 g/dL (2.4-3.5); Glucose 99 mg/dL (83-110); Potassium 4.9 mmol/L (3.5-5.1); Protein, Total 7.4 g/dL (5.8-8.1); Sodium 135 mmol/L (136-145)
[2018-06-06] MEDS ORDERED: Diltiazem 125 MG in Sodium Chloride 0.9% 100 ML IVPB SCH (07:30)
--- NOTE | 2018-06-06 08:43 | RAD ---
PORTABLE CHEST 1 VIEW: Date: 06/06/18 Time: 0653 hours HISTORY: Chest pain. FINDINGS: Comparison made with exam of 05/19/18. Tracheostomy tube remains in place. Heart size is normal. Aorta is tortuous. No focal areas of consol idation, pneumothorax, alton pulmonary edema, or pleural effusions are seen. IMPRESSION: No acute process. POS: [facility]
[2018-06-06 09:11] LABS: Bilirubin Negative (Negative); Blood, Urine Negative (Negative); Clarity CLEAR (Clear); Glucose, Urine (Dipstick) Negative (Negative); Leukocyte Negative (Negative); Nitrite Negative (Negative); Protein, Urine (Dipstick) Trace mg/dL (Neg-Trace); Specific Gravity, Urine 1.021 (1.002-1.036); Urobilinogen 0.2 mg/dL (0.2-1.0); pH, Urine 6.5 (5.0-9.0)
[2018-06-06] MEDS ORDERED: Piperacillin/Tazobactam 4.5 GM VIAL ONE (11:33)
--- NOTE | 2018-06-06 13:30 | CON ---
DATE OF CONSULTATION: 06/06/2018 CONSULTING PHYSICIAN: Hospitalist group. REASON FOR CONSULTATION: Bronchitis/pneumonia. The following encompassed 70 minutes time, of that time, greater than 50% of the time was spent with the patient and/or on the patient's unit in the hospital. HISTORY OF PRESENT ILLNESS: This is an 82-year-old male who sees Dr. Metzger. He was discharged from the hospital less than 1 month ago. Over the last 3 days, he has developed increasing shortness of b reath, mucus production from his tracheostomy, and chills. When he came to the emergency room, he wa s found to be in atrial fibrillation with a rapid ventricular response. I reviewed notes from his last hospitalization. At that time, he was treated with vancomycin and Zos yn for the bronchitis and was sent home with Augmentin. He did complete that prescription. PAST MEDICAL HISTORY: 1. Severe COPD requiring tracheostomy placement back in 2010. 2. WALI. 3. Coronary artery disease. 4. Coronary stent placement for coronary artery disease. 5. Hypothyroidism. 6. Hypertension. 7. Chronic atrial fibrillation. 8. Anxiety. 9. Lower extremity stasis. 10. Clostridium difficile colitis. 11. Chronic kidney disease. 12. History of PEG tube, which has been removed. 13. History of cholecystectomy. SOCIAL HISTORY: Former smoker, does not consume alcohol. Lives at home with his . FAMILY MEDICAL HISTORY: Unremarkable. REVIEW OF SYSTEMS: A 12-point review of systems is otherwise negative. CURRENT MEDICATIONS: Reviewed include albuterol nebulizer 4 times daily, aspirin 81 mg daily, levoth yroxine 25 mcg daily, Singulair 10 mg daily, spironolactone 25 mg daily, atorvastatin 10 mg daily, pr ednisone 20 mg daily, furosemide 40 mg daily, lorazepam 1 mg twice daily as needed. PHYSICAL EXAMINATION: VITAL SIGNS: Temperature 98.3, pulse now 111, blood pressure 141/95, O2 saturation 96%. At the time of his vital signs, he was on Cardizem drip 5 mg per hour. GENERAL: He is an elderly male who looks chronically ill. HEENT: Pupils are reactive. Sclerae anicteric. Oropharynx clear. NECK: Tracheostomy site clean, copious mucus being produced by patient. CARDIOVASCULAR: S1, S2, . No audible murmur. LUNGS: Coarse rhonchi bilaterally. ABDOMEN: Soft, nontender, very obese. EXTREMITIES: He has a bandage over his left anterior tibia where he says he recently bumped his leg getting into a truck. He has chronic venous stasis in both lower extremities from the knees downward . NEUROLOGIC: Grossly intact throughout. LABORATORY DATA: White blood cell count 7.7, hematocrit 44.1, platelet count 189. Sodium 135, potas sium 4.9, chloride 99, CO2 is 25, BUN 18, creatinine 1.3, glucose 99. Troponin 0.01. BNP 65. Album in 3.9. IMAGING: Chest x-ray shows trach in good position, no mass, effusion or infiltrate. ASSESSMENT: 1. Tracheitis. 2. Atrial fibrillation which is chronic, but probably a heightened ventricular response due to curre nt pulmonary issues. 3. Severe deconditioning. PLAN: 1. Given that he was treated with Zosyn during the last admission, I would go ahead and switch him o lilian to the fluoroquinolone such as Levaquin and given vancomycin. If cultures end up being negative, then these antibiotics could be simplified. 2. Add breathing treatments and steroids. 3. Rate control of atrial fibrillation with Cardizem, but I would assume that can be discontinued in the near future. Thank you for the referral. I will inform Dr. Metzger of the patient's admission.
[2018-06-06] MEDS ORDERED: Acetaminophen 325 MG TAB PO PRN (15:04)
[2018-06-06] MEDS ORDERED: Enoxaparin Sodium 80 MG/0.8 ML SYRINGE SC SCH (15:32)
[2018-06-06] MEDS ORDERED: Lorazepam 1 MG TAB PO PRN (15:33)
[2018-06-06 17:04] VITALS: BMI 40.4
[2018-06-06] MEDS: Enoxaparin Sodium 100 MG/ML SYRINGE SC SCH ×2 (17:18→20:54)
[2018-06-06] MEDS ORDERED: Enoxaparin Sodium 100 MG/ML SYRINGE SC SCH (17:30)
[2018-06-06] MEDS ORDERED: Enoxaparin Sodium 30 MG/0.3 ML SYRINGE SC SCH (17:30)
--- NOTE | 2018-06-06 19:24 | CON ---
DATE OF CONSULTATION: 06/06/2018 REASON FOR CONSULTATION: Atrial fibrillation. PRIMARY PROVIDER: . HISTORY OF PRESENT ILLNESS: Mr. Bailey is a pleasant 82-year-old woman who has been seen and evaluated by Dr. Roni Montano in the past. He has had a stent placement in 2003 for an intermediate ramus branch. He has been lost to followup. He recently presented with difficulty breathing. He has a history of a trach in addition to his COPD and severe obstructive sleep apnea. Upon my visit, he has converted back to sinus rhythm. He denie s palpitations or other associated symptoms. No chest pain or pressure noted. PAST MEDICAL HISTORY: COPD, CAD, status post stent placement, atrial fibrillation, chronic kidney di sease, PEG tube placement, cholecystectomy, hypothyroidism, hypertension. SOCIAL HISTORY: No current tobacco or alcohol use. MEDICATIONS: Include albuterol, aspirin, levothyroxine, Singulair, spironolactone, atorvastatin, pre dnisone, Lasix, and lorazepam. REVIEW OF SYSTEMS: Ten-point review of systems is reviewed and is as above, negative. PHYSICAL EXAMINATION: GENERAL: He is morbidly obese. The patient appears his/her stated age. VITAL SIGNS: Blood pressure 137/75, pulse 64, temperature afebrile. NEUROLOGIC: The patient is alert and oriented times 3 with no focal neurologic deficits. HEENT: Sclerae without icterus. Mouth has moist mucous membranes with normal pallor. NECK: No JVD. Carotid upstroke brisk. No bruits bilaterally. LUNGS: Rales and rhonchi noted bilaterally. BACK: No scoliosis or kyphosis. CARDIAC: Regular rate and rhythm with normal S1 and S2. No S3 or S4 noted. No significant rubs, murmurs, thrills, or gallops noted throughout the precordium. PMI is not displaced. There is no parasternal heave. ABDOMEN: Soft, nontender, nondistended. No peritoneal signs present. No hepatosplenomegaly. No abnormal striae. EXTREMITIES: Lower extremities, chronic stasis dermatitis present bilaterally. SKIN: No gross abnormalities. PERTINENT LABS: Hemoglobin 14.2, hematocrit 44.8, platelet count 189. IMPRESSION: 1. Atrial fibrillation, now sinus rhythm. 2. Tracheitis. 3. Pneumonia? 4. Respiratory failure, status post tracheostomy. RECOMMENDATIONS: He is currently on IV Cardizem. He has been supplemented with p.o. Cardizem which I would agree with. Would avoid beta heron therapy due to mild wheezing noted bilaterally. He has been on albuterol treatments in the past. May consider Eliquis. He likely has paroxysmal atrial fi brillation. May also consider a 3-week event recorder once he is improved to assess for paroxysmal a trial fibrillation, then have a medical decision making with patient on how to proceed. Echo with [facility] is currently pending.
[2018-06-06] MEDS: Arformoterol 15 MCG/2 ML NEB NEB SCH (20:03)
[2018-06-06] MEDS: Budesonide 0.5 MG/2 ML NEB INH SCH (20:08)
[2018-06-06] MEDS: Atorvastatin Calcium 10 MG TAB PO SCH (20:53)
[2018-06-06] MEDS: Vancomycin HCl 1 GM in Premix Bag 1 BAG IVPB SCH (20:54)
--- NOTE | 2018-06-06 22:47 | HP ---
CHIEF COMPLAINT: Shortness of breath. HISTORY OF PRESENT ILLNESS: Patient is a very pleasant 82-year-old male who presents to the hospital with complaints of increasing shortness of breath and thick mucus production. Patient stated that soni roberto denies any fevers; however, 03:30 this morning, he had some chills, so he came into the ER for furt her evaluation. When the patient came to the ER, he was found to be in atrial fibrillation with rapi d ventricular response. Patient was initially given IV Cardizem and then was put on a Cardizem drip. PAST MEDICAL HISTORY: 1. History of COPD requiring tracheostomy back in 2010. 2. Obstructive sleep apnea. 3. CAD with stent placement. 4. Hypothyroidism. 5. Hypertension. 6. Anxiety. 7. History of Clostridium difficile colitis. 8. CKD. PAST SURGICAL HISTORY: He has had a PEG tube placement and a cholecystectomy. He also has a history a surgical history of tracheostomy, and cardiac catheterization with stent placement in 2003 and end oscopy. SOCIAL HISTORY: He has a remote history of smoking, but the patient states that he smoked when he wa s younger and then quit 50 years ago. ALLERGIES: He denies any allergies. HOME MEDICATIONS: This is through the list. The patient does not have his home medications, whateve r is in the computer is noted and that is as of the followin. Patient is on Lasix 40 mg daily. 2. Guaifenesin 1200 mg b.i.d. 3. Synthroid 25 mcg daily. 4. Lorazepam 1 mg p.o. b.i.d. 5. Singulair 10 mg q.p.m. 6. Multivitamin 1 p.o. daily. 7. Prednisone 40 mg q.a.m. 8. Spironolactone 25 mg daily. 9. Aspirin 81 mg daily. 10. Atorvastatin 10 mg daily. CODE STATUS: The patient is a FULL CODE. PHYSICAL EXAMINATION: VITAL SIGNS: The patient's temperature is 98.8, heart rate is 69, blood pressure is 140/60. He is 9 3% on a facemask. GENERAL: Patient is awake, alert, oriented x3, does not appear in any distress. CARDIOVASCULAR: S1, S2 present, irregularly irregular. No murmurs or rubs heard. LUNGS: He has got mild expiratory wheezing and mild rhonchi all over. ABDOMEN: Soft. Bowel sounds are present x2. EXTREMITIES: Mild erythema and pedal pulses are present. He does have also lower extremity pitting edema. NEUROLOGIC: Neurologic torres, no focal deficits noted. SKIN: Again, as mentioned chronic bilateral lower extremity changes. LABORATORY DATA: As of the following, WBC of 7.7, hemoglobin of 14.2, hematocrit of 44.1, platelets of 189. Chemistry: Sodium of 135, potassium of 4.9, BUN of 18, creatinine of 1.27. His troponin x1 was negative. Lactic acid was 1.8. IMAGING: He also had a chest x-ray in the ER which did not indicate any acute process. ASSESSMENT AND PLAN: Patient is a very pleasant 82-year-old male who presents to the hospital with c omplaints of shortness of breath and increased thick sputum. 1. Shortness of breath most likely secondary to either a tracheitis. Patient last time was on Zosyn and vancomycin and was sent home on Augmentin. The patient states that he did take his medication a s prescribed. Pulmonology has seen this patient and recommended Levaquin and vancomycin, which I moises l continue, also continue DuoNebs. Also, they have added some prednisone which I agree since given t he patient's wheezing. 2. Atrial fibrillation. Patient's last EKG indicated sinus rhythm, this one indicates atrial fibril lation. The patient's CHADS-VASc score is about 3-4. We will put patient on anticoagulation. He is currently on Cardizem drip. His heart rate is well controlled. The drip is at 5. We will change t his to 120 mg oral Cardizem and turn of the drip and also Cardiology has been consulted. He did have an echocardiogram in April. I do not think I will repeat it. His ejection fraction of 50-55%. 3. Hypertension. We will continue his home medications.
[2018-06-07] MEDS: Levothyroxine Sodium 25 MCG TAB PO SCH (06:08)
[2018-06-07] MEDS: Arformoterol 15 MCG/2 ML NEB NEB SCH ×2 (06:42→19:11)
[2018-06-07] MEDS: Budesonide 0.5 MG/2 ML NEB INH SCH ×2 (06:48→19:10)
[2018-06-07] MEDS: Vancomycin HCl 1 GM in Premix Bag 1 BAG IVPB SCH ×2 (08:32→21:00)
[2018-06-07] MEDS: Enoxaparin Sodium 30 MG/0.3 ML SYRINGE SC SCH ×2 (08:33→21:00)
[2018-06-07] MEDS: Enoxaparin Sodium 100 MG/ML SYRINGE SC SCH ×2 (08:33→21:00)
[2018-06-07] MEDS: Aspirin 81 mg Enteric Coated Tablet PO SCH (08:33)
--- NOTE | 2018-06-07 12:27 | PDOC.PN ---
- Subjective Encounter Start Date: 06/07/18 Encounter Start Time: 11:00 Subjective: pt up in bed feels better today - Objective Resuscitation Status: 06/07/18 11:54 Resuscitation Status Routine Resuscitation Status: FULL: Full Resuscitation Discussed with: Per Physician Documentation Vital Signs & Weight: Vital Signs (12 hours) Temp Pulse Resp BP BP Pulse Ox 06/07/18 11:37 97.9 F 87 24 H 140/83 96 06/07/18 08:33 68 143/85 H 06/07/18 07:51 97.4 F L 61 20 145/85 H 93 L 06/07/18 06:50 93 L 06/07/18 06:49 68 20 93 L 06/07/18 06:48 68 20 93 L 06/07/18 06:42 68 20 93 L 06/07/18 04:00 98.5 F 72 22 H 100/70 92 L 06/07/18 02:44 20 95 Weight Weight 298 lb 4.8 oz I&O: 06/06/18 06/07/18 06/08/18 06:59 06:59 06:59 Intake Total 620 360 Output Total 1050 Balance -430 360 Result Diagrams: 06/06/18 06:32 06/06/18 06:32 Additional Labs: Accuchecks 06/06/18 17:02 POC Glucose 157 H Phys Exam - Physical Examination HEENT: PERRLA, moist MMs, sclera anicteric, TM's clear, oral pharynx no lesions , 2+ tonsils Neck: no nodes, no JVD, supple, full ROM mild exp wheezing Cardiovascular: RRR, no significant murmur, no rub, gallop, irregular Gastrointestinal: soft, non-tender, no distention, positive bowel sounds Dx/Plan (1) Acute and chronic respiratory failure with hypoxia Code(s): J96.21 - ACUTE AND CHRONIC RESPIRATORY FAILURE WITH HYPOXIA Status: Acute (2) CAD (coronary artery disease) Code(s): I25.10 - ATHSCL HEART DISEASE OF [place] CORONARY ARTERY W/O ANG PCTRS Status: Chronic (3) Atrial fibrillation Code(s): I48.91 - UNSPECIFIED ATRIAL FIBRILLATION Status: Acute (4) WALI (obstructive sleep apnea) Code(s): G47.33 - OBSTRUCTIVE SLEEP APNEA (ADULT) (PEDIATRIC) Status: Chronic (5) Tracheobronchitis Code(s): J40 - BRONCHITIS, NOT SPECIFIED ACUTE OR CHRONIC Status: Acute - Plan will continue abx for now -: pt converted to sinus, on lovonox for now will change to po eliquis * . Review of Systems - Review of Systems Cardiovascular: negative: chest pain, palpitations, orthopnea, paroxysmal nocturnal dyspnea, edema, light headedness, other Gastrointestinal: negative: Nausea, Vomiting, Abdominal Pain, Diarrhea, Constipation, Melena, Hematochezia, Other Genitourinary: negative: Dysuria, Frequency, Incontinence, Hematuria, Retention , Other - Medications/Allergies Allergies/Adverse Reactions: Allergies Allergy/AdvReac Type Severity Reaction Status Date / Time No Known Allergies Allergy Verified 06/06/18 16:39 Medications: Current Medications Acetaminophen (Tylenol) 650 mg PO Q4H PRN PRN Reason: Headache/Fever/Mild Pain (1-3) Albuterol/Ipratropium (Duoneb) 3 ml NEB [id number] PRN PRN Reason: SOB &/or Wheezing Last Admin: 06/07/18 06:49 Dose: 3 ml Arformoterol Tartrate (Brovana) 15 mcg NEB BID-RT [facility] Last Admin: 06/07/18 06:42 Dose: 15 mcg Aspirin (Ecotrin) 81 mg PO DAILY [facility] Last Admin: 06/07/18 08:33 Dose: 81 mg Atorvastatin Calcium (Lipitor) 10 mg PO HS [facility] Last Admin: 06/06/18 20:53 Dose: 10 mg Budesonide (Pulmicort Neb Solution) 0.5 mg INH BID-RT [facility] Last Admin: 06/07/18 06:48 Dose: 0.5 mg Diltiazem HCl (Cardizem Cd) 120 mg PO DAILY [facility] Last Admin: 06/07/18 08:33 Dose: 120 mg Enoxaparin Sodium (Lovenox) 100 mg SC 0900,2100 [facility] Last Admin: 06/07/18 08:33 Dose: 100 mg Enoxaparin Sodium (Lovenox) 30 mg SC 0900,2100 [facility] Last Admin: 06/07/18 08:33 Dose: 30 mg Diltiazem HCl 125 mg/ Sodium (Chloride) 125 mls @ 5 mls/hr IVPB INF [facility] Levofloxacin 750 mg/ Device 150 mls @ 100 mls/hr IVPB Q24HR [facility] Last Admin: 06/07/18 12:11 Dose: 150 mls Vancomycin HCl 1 gm/ Device 200 mls @ 200 mls/hr IVPB Q12HR [facility] Last Admin: 06/07/18 08:32 Dose: 200 mls Levothyroxine Sodium (Synthroid) 25 mcg PO 0600 [facility] Last Admin: 06/07/18 06:08 Dose: 25 mcg Lorazepam (Ativan) 1 mg PO BID PRN PRN Reason: Anxiety/Agitation Methylprednisolone Sodium Succinate (Solu-Medrol) 20 mg IVP Q6HR [facility] Last Admin: 06/07/18 12:11 Dose: 20 mg Propafenone HCl (Rythmol) 150 mg PO Q8HR [facility]
[2018-06-07] MEDS: Propafenone HCl 150 MG TAB PO SCH ×2 (14:56→20:59)
--- NOTE | 2018-06-07 18:53 | PRG ---
DATE OF SERVICE: 06/07/2018 SUBJECTIVE: Events have been reviewed. He is in no distress. He says he feels better than he felt yesterday when he came into the hospital. OBJECTIVE: VITAL SIGNS: He is afebrile. Heart rate is in the 60s, respiratory rate is 20, oxygen saturation 94% on a trach collar, blood pressure 123/67. LUNGS: Remarkable for mild rhonchi. HEART: Regular rhythm. ABDOMEN: Soft. EXTREMITIES: Without asymmetry or significant edema. LABORATORY DATA: Has no new lab today. IMPRESSION: 1. Tracheobronchitis. 2. Chronic atrial fibrillation. 3. Deconditioning. It looks like he is off his Cardizem drip. He does not need IV Levaquin after today's dose. He can probably switch to p.o. His steroids probably can be switched to p.o. tomorrow as well. He is on vancomycin. If his cultures remain negative, this will likely be discontinued. He has nothing on his chest radiograph to suggest that he has a pneumonia. I will continue to follow. Job ID: [id number]
[2018-06-07] MEDS: Atorvastatin Calcium 10 MG TAB PO SCH (20:59)
[2018-06-08] MEDS: Levothyroxine Sodium 25 MCG TAB PO SCH (05:43)
[2018-06-08] MEDS: Propafenone HCl 150 MG TAB PO SCH ×3 (05:44→20:52)
[2018-06-08 05:50] LABS: Hemoglobin 12.6 g/dL (14.0-18.0); Platelet Count 193 thou/uL (130-400)
[2018-06-08] MEDS: Arformoterol 15 MCG/2 ML NEB NEB SCH ×2 (07:15→18:25)
[2018-06-08] MEDS: Budesonide 0.5 MG/2 ML NEB INH SCH ×2 (07:16→18:25)
[2018-06-08] MEDS: Aspirin 81 mg Enteric Coated Tablet PO SCH (09:46)
[2018-06-08] MEDS: Enoxaparin Sodium 100 MG/ML SYRINGE SC SCH (09:47)
[2018-06-08] MEDS: Vancomycin HCl 1 GM in Premix Bag 1 BAG IVPB SCH (09:47)
[2018-06-08] MEDS: Enoxaparin Sodium 30 MG/0.3 ML SYRINGE SC SCH (09:47)
--- NOTE | 2018-06-08 14:07 | PDOC.PN ---
- Subjective Encounter Start Date: 06/08/18 Encounter Start Time: 11:15 Subjective: pt up in bed has some sob - Objective Resuscitation Status - Order Detail: 06/07/18 11:54 Resuscitation Status Routine Resuscitation Status: FULL: Full Resuscitation Discussed with: Per Physician Documentation Vital Signs & Weight: Vital Signs (12 hours) Temp Pulse Resp BP Pulse Ox 06/08/18 10:39 58 L 20 06/08/18 09:26 57 L 06/08/18 07:51 98.2 F 53 L 19 122/67 93 L 06/08/18 07:22 92 L 06/08/18 07:15 57 L 24 H 91 L 06/08/18 04:00 97.4 F L 54 L 22 H 132/63 92 L 06/08/18 03:39 94 L Weight Weight 296 lb 8.48 oz I&O: 06/07/18 06/08/18 06/09/18 06:59 06:59 06:59 Intake Total 620 2371 Output Total 1050 1575 Balance -430 796 Result Diagrams: 06/08/18 05:08 06/08/18 05:08 Phys Exam - Physical Examination Neck: no nodes, no JVD, supple, full ROM wheezing all over Cardiovascular: RRR, no significant murmur, no rub, gallop, irregular Gastrointestinal: soft, non-tender, no distention, positive bowel sounds Dx/Plan (1) Acute and chronic respiratory failure with hypoxia Code(s): J96.21 - ACUTE AND CHRONIC RESPIRATORY FAILURE WITH HYPOXIA Status: Acute (2) CAD (coronary artery disease) Code(s): I25.10 - ATHSCL HEART DISEASE OF [place] CORONARY ARTERY W/O ANG PCTRS Status: Chronic (3) Atrial fibrillation Code(s): I48.91 - UNSPECIFIED ATRIAL FIBRILLATION Status: Acute (4) WALI (obstructive sleep apnea) Code(s): G47.33 - OBSTRUCTIVE SLEEP APNEA (ADULT) (PEDIATRIC) Status: Chronic (5) Tracheobronchitis Code(s): J40 - BRONCHITIS, NOT SPECIFIED ACUTE OR CHRONIC Status: Acute - Plan pt is coughing up clear sputum most likely copd exab -: will continue abx and steroids. will discontinue vanco -: pt's lovonox has been changed to eliquis * . Review of Systems - Review of Systems Respiratory: Cough, Shortness of Breath Cardiovascular: negative: chest pain, palpitations, orthopnea, paroxysmal nocturnal dyspnea, edema, light headedness, other Gastrointestinal: negative: Nausea, Vomiting, Abdominal Pain, Diarrhea, Constipation, Melena, Hematochezia, Other Genitourinary: negative: Dysuria, Frequency, Incontinence, Hematuria, Retention , Other - Medications/Allergies Allergies/Adverse Reactions: Allergies Allergy/AdvReac Type Severity Reaction Status Date / Time No Known Allergies Allergy Verified 06/06/18 16:39 Medications: Current Medications Acetaminophen (Tylenol) 650 mg PO Q4H PRN PRN Reason: Headache/Fever/Mild Pain (1-3) Albuterol/Ipratropium (Duoneb) 3 ml NEB [id number] PRN PRN Reason: SOB &/or Wheezing Last Admin: 06/08/18 10:39 Dose: 3 ml Apixaban (Eliquis) 5 mg PO BID [facility] Arformoterol Tartrate (Brovana) 15 mcg NEB BID-RT [facility] Last Admin: 06/08/18 07:15 Dose: 15 mcg Aspirin (Ecotrin) 81 mg PO DAILY [facility] Last Admin: 06/08/18 09:46 Dose: 81 mg Atorvastatin Calcium (Lipitor) 10 mg PO HS [facility] Last Admin: 06/07/18 20:59 Dose: 10 mg Budesonide (Pulmicort Neb Solution) 0.5 mg INH BID-RT [facility] Last Admin: 06/08/18 07:16 Dose: 0.5 mg Diltiazem HCl (Cardizem Cd) 120 mg PO DAILY [facility] Last Admin: 06/08/18 09:26 Dose: 120 mg Levofloxacin 750 mg/ Device 150 mls @ 100 mls/hr IVPB Q24HR [facility] Last Admin: 06/07/18 12:11 Dose: 150 mls Vancomycin HCl 1 gm/ Device 200 mls @ 200 mls/hr IVPB Q12HR [facility] Last Admin: 06/08/18 09:47 Dose: 200 mls Levothyroxine Sodium (Synthroid) 25 mcg PO 0600 [facility] Last Admin: 06/08/18 05:43 Dose: 25 mcg Lorazepam (Ativan) 1 mg PO BID PRN PRN Reason: Anxiety/Agitation Methylprednisolone Sodium Succinate (Solu-Medrol) 20 mg IVP Q6HR [facility] Last Admin: 06/08/18 13:04 Dose: 20 mg Propafenone HCl (Rythmol) 150 mg PO Q8HR [facility] Last Admin: 06/08/18 05:44 Dose: 150 mg
--- NOTE | 2018-06-08 17:29 | PRG ---
DATE OF SERVICE: 06/08/2018 SUBJECTIVE: Mr. Bailey says he is doing better. OBJECTIVE: GENERAL: He is in no distress. VITAL SIGNS: Heart rate is in the 50s, respiratory rate in the teens, oximetry is 98% on trach collar, . LUNGS: Distant clear. HEART: Regular rhythm. ABDOMEN: Soft and nontender. EXTREMITIES: Stasis changes with no erythema. LABORATORY DATA: His cultures remain negative. Hemoglobin was 12.6 down from 14.2. Electrolytes are normal. IMPRESSION: 1. Severe chronic obstructive pulmonary disease. 2. Deconditioning. 3. Previously untreated sleep apnea. 4. Tracheobronchitis. 5. Permanent tracheostomy. 6. Chronic atrial fibrillation. Switching to p.o. medications. Hopefully, he will be a candidate for discharge at some point in the near future. Job ID: [id number] MTDD
[2018-06-08] MEDS: Atorvastatin Calcium 10 MG TAB PO SCH (20:52)
[2018-06-08] MEDS: Apixaban 5 MG TAB PO SCH (21:02)
[2018-06-09] MEDS: Levothyroxine Sodium 25 MCG TAB PO SCH (05:35)
[2018-06-09] MEDS: Propafenone HCl 150 MG TAB PO SCH ×2 (05:37→13:16)
[2018-06-09] MEDS: Budesonide 0.5 MG/2 ML NEB INH SCH (07:27)
[2018-06-09] MEDS: Arformoterol 15 MCG/2 ML NEB NEB SCH (07:29)
[2018-06-09] MEDS: Aspirin 81 mg Enteric Coated Tablet PO SCH (08:01)
[2018-06-09] MEDS: Apixaban 5 MG TAB PO SCH (08:01)
[2018-06-09 12:42] VITALS: TEMP 98.1
[2018-06-09 14:47] VITALS: BP 144/74
--- NOTE | 2018-06-09 23:53 | PRG ---
DATE OF SERVICE: 06/09/2018 SUBJECTIVE: Mr. Bailey looks ready to go home. His thinks he is ready as well. OBJECTIVE: LUNGS: Clear. He is not wheezing. HEART: Regular rhythm. ABDOMEN: Soft and nontender. EXTREMITIES: With stasis changes. PLAN: Recommend 5 more days of Levaquin. Follow up with me in a week to 10 days. He will take prednisone tapering over 2 weeks. Met with the and answered all of her questions. Job ID: [id number]
--- NOTE | 2018-06-10 12:31 | DIS ---
DATE OF ADMISSION: 06/06/2018 DATE OF DISCHARGE: 06/09/2018 DISCHARGE DIAGNOSES: 1. Acute on chronic respiratory failure, secondary to hypoxia, most likely to chronic obstructive pulmonary disease exacerbation. 2. Coronary artery disease. 3. Atrial fibrillation with rapid ventricular response. 4. Obstructive sleep apnea. 5. Possible tracheobronchitis. HOSPITAL COURSE: The patient is an 82-year-old male, who initially presented to the hospital with shortness of breath, increased sputum production, and was found to be mildly hypoxic. The patient has a trach for severe COPD. The patient was seen by Pulmonary, was initially put on broad-spectrum antibiotic, which was tapered down to oral antibiotics. The patient continued to improve throughout the hospital stay. The patient was found to be in AFib RVR, was initially put on a Cardizem drip, which was changed to p.o. Cardizem and was seen by Cardiology. The patient then was put on Rythmol and also put on Eliquis. Since the patient recently had an echo a month ago, echocardiogram was not repeated. His EF was 50% to 55%. The left atrium was mildly dilated and he had mild tricuspid regurgitation. The patient will be discharged home. He will follow up with his research dietitian and Pulmonary as outpatient. MEDICATIONS: His home medications are as of the following; He is on, 1. Eliquis 5 mg b.i.d. 2. Diltiazem 120 mg daily. 3. Levaquin 500 mg daily for 5 days. 4. Prednisone taper for about 2 weeks per Pulmonology. 5. Rythmol 150 mg q.8 hours. 6. Aspirin 81 mg daily. 7. Mucinex 1200 mg q.12 hours. 8. Synthroid 25 mcg daily. 9. DuoNeb 3 mL q.4 hours. 10. Spironolactone 25 mg daily. 11. Atorvastatin 10 mg at bedtime. 12. Lasix 80 mg q.a.m. 13. Singulair 10 mg daily. 14. Multivitamin 1 p.o. daily. 15. Lorazepam 1 p.o. b.i.d. p.r.n. PHYSICAL EXAMINATION: VITAL SIGNS: Temperature of 98.8, , blood pressure 156/70. GENERAL: He is awake, alert, and oriented x3. distress. CV: S1 and S2 present. No murmurs, rubs, or gallops. LUNGS: Mild wheezing heard all over. ABDOMEN: Soft and nontender. Bowel sounds are present x2. EXTREMITIES: Mild lower extremity edema. Pedal pulses are present x2. NEUROVASCULAR: No focal deficits. Again, the patient will be discharged home. He will follow up with his primary care doctor and Cardiology as outpatient. Job ID: [id number]
--- NOTE | 2018-06-11 17:36 | EKG ---
Test Reason : Blood Pressure : / mmHG Vent. Rate : 124 BPM Atrial Rate : 156 BPM P-R Int : 000 ms QRS Dur : 094 ms QT Int : 316 ms P-R-T Axes : 000 077 062 degrees QTc Int : 453 ms Atrial fibrillation with rapid ventricular response Abnormal ECG Confirmed by YOSI WASHINGTON [id number]), scientific editor YOSEF URIAS ([id number]) on 06/11/2018 5:35:47 PM Referred By: Confirmed By:YOSI WASHINGTON
== END 2018-06-09 15:50 | disposition home health service (06) | DRG 189 ==
LOC: ERS 06:15 → ERHOLD 09:00 → 2SE 16:36 → 2NO 06-07 19:46
PROVIDERS: ADMIT Internal Medicine; ATTEND Internal Medicine
DX: J96.21 Acute and chronic respiratory failure with hypoxia (principal); J44.1 Chronic obstructive pulmonary disease with (acute) exacerbation; I25.10 Atherosclerotic heart disease of native coronary artery without angina pectoris; G47.33 Obstructive sleep apnea (adult) (pediatric); E03.9 Hypothyroidism, unspecified; I12.9 Hypertensive chronic kidney disease with stage 1 through stage 4 chronic kidney disease, or unspecified chronic kidney disease; N18.9 Chronic kidney disease, unspecified; I48.0 Paroxysmal atrial fibrillation; Z87.891 Personal history of nicotine dependence; Z79.82 Long term (current) use of aspirin; Z79.899 Other long term (current) drug therapy; Z93.0 Tracheostomy status; Z95.5 Presence of coronary angioplasty implant and graft
CPT/HCPCS: 36415; 36416; 71045; 80053; 81003; 82550; 82553; 82565; 83605; 83880; 84484; 85014; 85018; 85025; 85049; 87040; 87070; 87149; 87205; 93005; 94640; 94760; G8978-GP-CL; G8978-GP-CM; G8979-GP-CJ; G8979-GP-CL; J1650; J1956; J2543; J2920; J2930; J3370; J7050; J7620; J7626

== ENCOUNTER 2018-06-22 16:39 | Inpatient (IN) | payer MEDICARE, BC ==
[2018-06-22 17:17] LABS: Bilirubin Negative (Negative); Blood, Urine Negative (Negative); Clarity CLEAR (Clear); Glucose, Urine (Dipstick) Negative (Negative); Leukocyte Negative (Negative); Nitrite Negative (Negative); Protein, Urine (Dipstick) Negative (Neg-Trace); Specific Gravity, Urine 1.012 (1.002-1.036); Urobilinogen 0.2 mg/dL (0.2-1.0)
[2018-06-22 17:24] LABS: #Eosinphils 0.1 thou/uL (0.0-0.7); #Lymphocytes 1.2 thou/uL (1.20-3.40); #Monocytes 1.1 thou/uL (0.11-0.59); %Basophils 0.1 % (0.0-1.0); %Eosinophils 0.5 % (0.0-10.0); %Lymphocytes 7.8 % (21.0-51.0); %Monocytes 7.3 % (0.0-10.0); %Neutrophils 84.3 % (42.0-75.0); Hemoglobin 10.9 g/dL (14.0-18.0); Mean Corpuscular HGB CONC 31.3 g/dL (32.0-36.0); Mean Corpuscular Hemoglobin 29.3 pg (27.0-31.0); Mean Corpuscular Volume 93.8 fL (78.0-98.0); Mean Platelet Volume 7.6 fL (7.4-10.4); Platelet Count 242 thou/uL (130-400); RBC Distribution Width 17.3 % (11.5-14.5); Red Blood Cell (RBC) Count 3.71 mill/uL (4.70-6.10); White Blood Cell (WBC) Count 15.4 thou/uL (4.8-10.8)
[2018-06-22 17:43] LABS: ALT (SGPT) 17 U/L (8-55); AST (SGOT) 22 U/L (5-34); Albumin 3.3 g/dL (3.4-4.8); Alkaline Phosphatase 68 U/L (40-150); Anion Gap 15 mmol/L (10-20); BUN (Urea Nitrogen) 25 mg/dL (8.4-25.7); Bilirubin, Total 1.1 mg/dL (0.2-1.2); Calc. Creatinine Clearance 0 mL/min (70-130); Calcium 9.1 mg/dL (7.8-10.44); Carbon Dioxide 26 mmol/L (23-31); Chloride 97 mmol/L (98-107); Estimated GFR-MDRD 52; Globulin 3.1 g/dL (2.4-3.5); Glucose 108 mg/dL (83-110); Potassium 4.8 mmol/L (3.5-5.1); Protein, Total 6.4 g/dL (5.8-8.1); Sodium 133 mmol/L (136-145)
[2018-06-22] MEDS ORDERED: cefTRIAXone\\ROCEPHIN 2 GM VIAL ONE (18:14)
[2018-06-22] MEDS ORDERED: Azithromycin 500 MG VIAL ONE (18:14)
[2018-06-22] MEDS ORDERED: Albuterol Sulfate 2.5 mg/3 ml Neb ONE ×2 (18:20→20:09)
--- NOTE | 2018-06-22 18:58 | RAD ---
UPRIGHT CHEST ONE VIEW: 06/22/18 HISTORY: 82-year-old male with history of cough and chest pain and shortness of breath with history of a-fib. COMPARISON: 06/06/18 FINDINGS: Tracheostomy tube in place. Old granulomatous disease. Mild stable increased markings bilaterally, ev idence for some chronic change. IMPRESSION: Mild stable linear and chronic lung changes. Old granulomatous disease. tracheostomy tube in place an d stable. Atherosclerosis of the aorta with ectasia. POS: [facility]
[2018-06-22] MEDS ORDERED: methylPREDNISolone Sod Succ/PF 125 MG/2 ML VIAL ONE (19:21)
[2018-06-22] MEDS ORDERED: Magnesium 2 GM/50 ML BAG (IN WATER) ONE (19:21)
[2018-06-22] MEDS ORDERED: Lorazepam 1 MG TAB PO PRN (21:46)
[2018-06-22] MEDS ORDERED: Senokot S 8.6-50 MG TAB PO PRN (21:47)
[2018-06-22] MEDS ORDERED: Zolpidem Tartrate 5 MG TAB PO PRN (21:47)
[2018-06-22] MEDS ORDERED: Bisacodyl 5 MG TAB PO PRN (21:47)
[2018-06-22] MEDS ORDERED: Calcium Carbonate 500 MG ChewTAB PO PRN (21:47)
[2018-06-22] MEDS ORDERED: Ondansetron ODT 4 MG TAB PO PRN (21:47)
[2018-06-22] MEDS ORDERED: Ondansetron PF 4 MG/2 ML Vial IVP PRN (21:47)
[2018-06-22 21:56] LABS: Troponin I 0.012 ng/mL (< 0.028)
[2018-06-22 22:41] VITALS: BMI 39.1
[2018-06-22] MEDS: Propafenone HCl 150 MG TAB PO SCH (22:41)
[2018-06-23 00:33] LABS: Troponin I Less than 0.010 ng/mL (< 0.028)
[2018-06-23 06:01] LABS: #Lymphocytes 0.5 thou/uL (1.20-3.40); #Monocytes 0.1 thou/uL (0.11-0.59); #Neutrophils 8.6 thou/uL (1.40-6.50); %Eosinophils 0.1 % (0.0-10.0); %Lymphocytes 5.4 % (21.0-51.0); %Monocytes 0.7 % (0.0-10.0); %Neutrophils 93.7 % (42.0-75.0); Hemoglobin 10.2 g/dL (14.0-18.0); Mean Corpuscular HGB CONC 32.1 g/dL (32.0-36.0); Mean Corpuscular Hemoglobin 30.2 pg (27.0-31.0); Mean Corpuscular Volume 93.8 fL (78.0-98.0); Mean Platelet Volume 7.5 fL (7.4-10.4); Platelet Count 228 thou/uL (130-400); RBC Distribution Width 17.5 % (11.5-14.5); White Blood Cell (WBC) Count 9.2 thou/uL (4.8-10.8)
[2018-06-23 06:03] LABS: Anion Gap 12 mmol/L (10-20); BUN (Urea Nitrogen) 21 mg/dL (8.4-25.7); BUN/Creatinine Ratio 21.65; Calc. Creatinine Clearance 110 mL/min (70-130); Calcium 8.8 mg/dL (7.8-10.44); Carbon Dioxide 29 mmol/L (23-31); Chloride 99 mmol/L (98-107); Estimated GFR-MDRD 74; Glucose 139 mg/dL (83-110); Phosphorus 3.2 mg/dL (2.3-4.7); Potassium 4.7 mmol/L (3.5-5.1); Sodium 135 mmol/L (136-145)
[2018-06-23] MEDS: Levothyroxine Sodium 25 MCG TAB PO SCH (06:19)
[2018-06-23] MEDS: Propafenone HCl 150 MG TAB PO SCH ×3 (06:19→21:37)
[2018-06-23] MEDS: guaiFENesin ER 600 MG TAB PO SCH ×2 (08:56→20:45)
[2018-06-23] MEDS: Famotidine 20 MG TAB PO SCH (08:56)
[2018-06-23] MEDS: Aspirin 81 mg Enteric Coated Tablet PO SCH (08:56)
[2018-06-23] MEDS: Multivit, Therapeutic 1 TAB PO SCH (08:56)
[2018-06-23] MEDS: Famotidine/PF 20 mg/2ml Vial SLOW IVP SCH (08:56)
[2018-06-23] MEDS ORDERED: Prevnar 13-Val Conj/PF 0.5 ML SYRINGE IM ONE (09:00)
[2018-06-23 09:09] LABS: Hemoglobin 10.8 g/dL (14.0-18.0)
--- NOTE | 2018-06-23 10:09 | HP ---
CHIEF COMPLAINT: Shortness of breath and chest discomfort. HISTORY OF PRESENT ILLNESS: This is an 82-year-old male with past medical history significant for COPD, type 2 diabetes mellitus, status post trach placement, coronary artery disease, cardiomyopathy, atrial fibrillation, status post stents x1, hypothyroidism, hyperlipidemia, hypertension, presenting with shortness of breath and chest discomfort. Per the patient, he has been having some chest tightness and severe shortness of breath. The patient stated that this has been ongoing throughout the day and normally, he uses his nebulizer treatments at home to help him get some relief. However, during this episode of shortness of breath and chest discomfort, he uses nebulizer treatment with little relief and this prompted the patient to come to the ED to be evaluated. The patient stated that the pain that he is experiencing is dull in nature, some tightness and it is associated with some cough productive and the patient states that nothing seem to make the shortness of breath and chest tightness better. Of note, the patient was recently in the hospital and the patient was seen, and the patient was diagnosed with acute on chronic respiratory failure secondary to hypoxia. During the visit, Pulmonology was consulted and the patient was started on broad-spectrum antibiotics. During the course of the visit, the patient also developed atrial fibrillation and RVR, and the patient was started on Cardizem drip. Cardiology was consulted to see the patient and the patient was started on Rythmol and Eliquis. An echo was done, which showed ejection fraction of 50% to 55% during the visit. REVIEW OF SYSTEMS: Positive for cough, shortness of breath, chest discomfort. Otherwise as documented in the HPI. All other systems were reviewed and are negative. PAST MEDICAL HISTORY: Significant for COPD, status post tracheostomy, obstructive sleep apnea, CAD with stents placement, hypothyroidism, hypertension, anxiety, and CKD. FAMILY HISTORY: Reviewed and noncontributory to this visit. PAST SURGICAL HISTORY: The patient had a PEG tube placement and a cholecystectomy, status post tracheostomy, cardiac catheterization with stent placement in 2013. SOCIAL HISTORY: The patient has a remote history of smoking and the patient quit 50 years ago. The patient denies any illicit drug use, and the patient denies any alcohol use. ALLERGIES: THE PATIENT DENIES ANY DRUG ALLERGIES. MEDICATIONS: The patient is on: 1. Lasix. 2. Guaifenesin. 3. Synthroid. 4. Lorazepam. 5. Singulair. 6. Multivitamins. 7. Prednisone. 8. Spironolactone. 9. Aspirin. 10. Atorvastatin. PHYSICAL EXAMINATION: VITAL SIGNS: The patient's blood pressure is 150/88, pulse of 71, respiratory rate of 20, temperature of 97.8, and O2 saturation is 100% on 2 L. GENERAL: The patient is alert and oriented x3, not in acute distress. The patient is lying comfortably in bed. HEENT: Normocephalic and atraumatic. Pupils are equally round and reactive to light. Extraocular movements are intact. No scleral icterus. No conjunctival pallor. Mucous membranes are moist. NECK: The patient has a tracheostomy tube in place. No JVD. Neck is supple. No dehiscence. No discharges. LUNGS: The patient has mild wheezes at the anterior lung haynes bilaterally. CARDIAC: The patient has irregularly irregular heart rate. No murmurs appreciated. ABDOMEN: Soft, nontender, and nondistended. Positive bowel sounds in all quadrants. EXTREMITIES: The patient has 5/5 upper extremity strength with good pulses bilaterally. In the lower extremities, the patient has bilateral lower extremity ecchymosis due to fall. Leg is warm. 3+ edema noted. NEUROLOGIC: Cranial nerves 2 through 12 grossly intact. No neurologic deficits noted. SKIN: The patient does have bilateral lower extremity ecchymosis and some erythema on the leg. LABORATORY DATA: The patient's WBC is 15.4, hemoglobin is 10.9, hematocrit is 34.8, platelet count is 242. Sodium is 133, potassium is 4.8, chloride is 97, creatinine is 1.31, BUN is 25. Troponin is negative at 0.010. Urinalysis is negative. ASSESSMENT AND PLAN: This is an 82-year-old male being admitted for: 1. Acute respiratory failure, hypoxemic. At this point, the patient has been started on DuoNebs and Solu-Medrol. We will continue oxygenation and we will continue to monitor the patient's respirations. 2. Chronic obstructive pulmonary disease exacerbation. Currently, the patient is receiving DuoNeb treatments and oxygenation. We will continue to monitor the patient. 3. Bilateral lower extremity cellulitis. We have started the patient on vancomycin. We will monitor the patient's lower extremities very closely, and we will decide if we want to continue anticoagulation since the patient do have some ecchymosis that is also noted at the lower extremities bilaterally. 4. History of atrial fibrillation, at this point controlled. We will continue the patient on home medications, and we will continue patient on anticoagulation. Cardiology has been consulted. We will follow up with Cardiology's recommendations. 5. Status post tracheostomy. At this point, we will continue the patient on DuoNeb treatments and we will continue to monitor the patient. 6. Coronary artery disease, status post stents, at this point stable. We will continue the patient on current management. 7. Deep venous thrombosis and gastrointestinal prophylaxis. Job ID: [id number]
[2018-06-23] MEDS: Apixaban 5 MG TAB PO SCH ×2 (10:40→20:46)
--- NOTE | 2018-06-23 14:19 | ULT ---
VENOUS DUPLEX SONOGRAM LEFT LOWER EXTREMITY: 06/23/18 HISTORY: Left leg pain and edema. FINDINGS: The left common femoral vein and greater saphenous junction are evaluated along with the femoral, sadia p femoral, popliteal, and posterior tibial veins. There is good color and spectral doppler flow, comp ression, and augmentation. IMPRESSION: No sonographic evidence of DVT left lower extremity. POS: HUGH
--- NOTE | 2018-06-23 14:28 | EKG ---
Test Reason : Blood Pressure : / mmHG Vent. Rate : 116 BPM Atrial Rate : 122 BPM P-R Int : 000 ms QRS Dur : 106 ms QT Int : 336 ms P-R-T Axes : 000 083 064 degrees QTc Int : 467 ms Atrial fibrillation with rapid ventricular response Nonspecific ST and T wave abnormality Abnormal ECG Confirmed by WILLOW KATZ, ELLIE Nolan ([id number]), assistant production editor YOSEF URIAS ([id number]) on 06/23/2018 2:27:48 PM Referred By: Confirmed By:ELLIE DAUGHERTY MD
--- NOTE | 2018-06-23 18:20 | PDOC.PN ---
- Subjective Encounter Start Date: 06/23/18 - Objective Resuscitation Status - Order Detail: 06/22/18 21:47 Resuscitation Status Routine Resuscitation Status: FULL: Full Resuscitation Vital Signs & Weight: Vital Signs (12 hours) Temp Pulse Resp BP BP Pulse Ox 06/23/18 17:01 98.3 F 63 22 H 124/61 95 06/23/18 14:37 79 20 06/23/18 11:49 97.7 F 65 24 H 106/58 L 97 06/23/18 10:41 60 24 H 96 06/23/18 08:13 92 L 06/23/18 08:10 58 L 20 92 L 06/23/18 07:46 96 06/23/18 07:43 96.6 F L 59 L 22 H 100/55 L 96 Weight Admit Weight 296 lb 5 oz Weight 296 lb 5 oz I&O: 06/22/18 06/23/18 06/24/18 06:59 06:59 06:59 Intake Total 800 1020 Output Total 500 625 Balance 300 395 Result Diagrams: 06/23/18 08:48 06/23/18 04:48 Dx/Plan - Plan * .
[2018-06-23] MEDS: Montelukast Sodium 10 mg Tablet PO SCH (20:45)
[2018-06-23] MEDS: Atorvastatin Calcium 10 MG TAB PO SCH (20:46)
--- NOTE | 2018-06-24 01:47 | CON ---
DATE OF CONSULTATION: HISTORY OF PRESENT ILLNESS: Justin Bailey is an 82-year-old white male who had been followed for many years; although, over the past 4 to 5 years, he has not been coming to the office. He was initially seen in October 2003 when he developed chest tightness associated with shortness of breath and fairly significant diaphoresis. His chest discomfort lasted approximately 30 minutes. He went to the emergency room in [place] and continued to have some unusual feelings in his chest. He was given sublingual nitroglycerin with relief of his pain. Pain recurred and he was again given sublingual nitroglycerin and aspirin and transferred for further evaluation. The total duration of his pain was anywhere from 1-1/2 to 2-1/2 hours. EKG revealed normal sinus rhythm with borderline first-degree AV block and borderline intraventricular conduction delay. The MB was 16.9 with the troponin of 5.5. LDL was 134 and he was placed on Zocor. He underwent cardiac catheterization and he had mild anterior hypokinesis with ejection fraction of 50% to 55%. There was diffuse plaquing in the LAD. There was a 99% ramus stenosis, small plaque in the circumflex and mild diffuse disease in the right coronary artery. Express II 2.25 x 8 mm stent was placed in the ramus with reduction from 99% to 0%. There was difficulty in lowering his LDL cholesterol. Simvastatin was increased. Zetia was added. In April 2005, he underwent dobutamine stress echo, which revealed no evidence of ischemia. In March 2006, he underwent adenosine Cardiolite testing, which was probably normal without evidence of ischemia or fixed defect. After that, he never did return to the office for followup and he was not seen from March 2006 until he was hospitalized here again in January 2011. At that time, he had a sodium of 110 and was found to be in atrial fibrillation with controlled ventricular response and over the first night converted to sinus rhythm. He denied any palpitations. Despite being on the CPAP, he continued to have progressive mental status changes, was upgraded to BiPAP, moved to the CCU. He continued to decline and had to be intubated. Ultimately, a tracheostomy was placed. He was placed on Multaq for suppression of his paroxysmal atrial fibrillation. In March 2011, he was hospitalized with acute lower gastrointestinal bleed and respiratory failure. He was hospitalized again in September 2011 with fever of 102, chills, pain in multiple joints, and was found to have methicillin-resistant Staph aureus joint sepsis. He again went into atrial fibrillation during that admission. Ejection fraction was 55% to 60% at that time. He ultimately was transferred to [facility]. He has been hospitalized since that time on multiple occasions for various infections and COPD exacerbation. He was not seen from September 2011 until his most recent admission on June 06, 2018. He developed atrial fibrillation with fast ventricular response and he apparently converted with IV Cardizem. He was still on Multaq at that time; however, his had been told that his insurance would no longer pay for that and during that hospitalization, he was transitioned to propafenone 150 mg t.i.d. and that appeared to suppress his atrial fibrillation. Also due to increased episodes of atrial fibrillation, he was placed on Eliquis 5 mg b.i.d. during that admission. Echo a month before revealed ejection fraction of 50% to 55%. He now is admitted with increased shortness of breath. To me, he denies any chest, arm, neck, or jaw discomfort or chest tightness; although, apparently he was complaining of that when he first arrived. He has also been having episodes of atrial fibrillation with fast ventricular response, although he denies any palpitations, and also on evaluation of his telemetry, he has episodes of atrial flutter and when he converts pauses up to 3.6 seconds. PAST MEDICAL HISTORY: Hypertension, hyperlipidemia, hypothyroidism, hypoventilation obesity, obstructive sleep apnea, COPD, status post tracheostomy, anxiety, and chronic kidney disease. PAST SURGICAL HISTORY: Cholecystectomy, PEG tube placement, stent placement in the ramus, tracheostomy. SOCIAL HISTORY: Smoked one pack per day, but stopped 45 years ago. He does not drink. 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 FAMILY HISTORY: Negative for coronary artery disease. REVIEW OF SYSTEMS: A 12-point review of systems otherwise is unremarkable. PHYSICAL EXAMINATION: VITAL SIGNS: Blood pressure 124/61, pulse of 63. HEENT: PERRL. NECK: Supple. CHEST: Reveals distant, but clear breath sounds. CARDIOVASCULAR: S1 and S2 are normal without any S3, S4, or murmurs. ABDOMEN: Obese. Normal bowel sounds. No tenderness. EXTREMITIES: Revealed chronic stasis changes with 1+ pretibial edema. NEUROLOGIC: Grossly intact. LABORATORY DATA: EKG on presentation revealed atrial fibrillation with fast ventricular response of 116 per minute. He has episodes of atrial flutter as noted above. Hemoglobin 10.8, hematocrit 33.9, white count 9200, platelets 228,000. Sodium 135, potassium 4.7, chloride 99, carbon dioxide 29, BUN 21, creatinine 0.97, glucose 139. Cardiac enzymes x3 are normal. BNP is 77.5. IMPRESSION: 1. Chronic obstructive pulmonary disease exacerbation. 2. Paroxysmal atrial fibrillation as well as now episodes of atrial flutter with a 3.6 second pause at the time of conversion. 3. No evidence of acute coronary syndrome. 4. History of bare-metal stent placement of the ramus in 2003. 5. Hypertension. 6. Hyperlipidemia. 7. Obesity. 8. Former smoker. 9. Obstructive sleep apnea. 10. History of lower gastrointestinal bleed in the past. PLAN: Multaq appeared to control his atrial fibrillation; however, apparently his insurance would no longer cover this. Propafenone will be increased to 225 mg t.i.d. If he continues to have episodes of atrial flutter, then consideration may be given to ablation of this arrhythmia. We will continue to follow the patient with you. Job ID: [id number]
[2018-06-24] MEDS: Acetaminophen 325 MG TAB PO PRN ×2 (01:48→21:08)
[2018-06-24] MEDS: Levothyroxine Sodium 25 MCG TAB PO SCH (05:33)
[2018-06-24] MEDS: Propafenone HCl 150 MG TAB PO SCH ×3 (05:33→21:08)
[2018-06-24] MEDS: Multivit, Therapeutic 1 TAB PO SCH (09:11)
[2018-06-24] MEDS: Apixaban 5 MG TAB PO SCH ×2 (09:11→21:07)
[2018-06-24] MEDS: Furosemide 80 MG TAB PO SCH (09:11)
[2018-06-24] MEDS: Aspirin 81 mg Enteric Coated Tablet PO SCH (09:12)
[2018-06-24] MEDS: guaiFENesin ER 600 MG TAB PO SCH ×2 (09:12→21:07)
[2018-06-24] MEDS: Famotidine/PF 20 mg/2ml Vial SLOW IVP SCH (09:12)
[2018-06-24] MEDS: Famotidine 20 MG TAB PO SCH (09:12)
[2018-06-24 14:19] LABS: #Lymphocytes 0.7 thou/uL (1.20-3.40); #Neutrophils 14.7 thou/uL (1.40-6.50); %Lymphocytes 4.5 % (21.0-51.0); %Monocytes 6.2 % (0.0-10.0); %Neutrophils 89.2 % (42.0-75.0); Hemoglobin 11.5 g/dL (14.0-18.0); Mean Corpuscular Hemoglobin 30.4 pg (27.0-31.0); Mean Corpuscular Volume 95.3 fL (78.0-98.0); Mean Platelet Volume 7.3 fL (7.4-10.4); Platelet Count 240 thou/uL (130-400); RBC Distribution Width 17.8 % (11.5-14.5); Red Blood Cell (RBC) Count 3.76 mill/uL (4.70-6.10); White Blood Cell (WBC) Count 16.5 thou/uL (4.8-10.8)
--- NOTE | 2018-06-24 14:40 | PDOC.PN ---
- Subjective Encounter Start Date: 06/24/18 Encounter Start Time: 10:15 Subjective: pt up in bed no complains - Objective Resuscitation Status - Order Detail: 06/22/18 21:47 Resuscitation Status Routine Resuscitation Status: FULL: Full Resuscitation Vital Signs & Weight: Vital Signs (12 hours) Temp Pulse Resp BP BP BP Pulse Ox 06/24/18 11:52 55 L 24 H 121/61 97 06/24/18 11:47 72 18 06/24/18 09:11 93 125/60 06/24/18 09:10 97.7 F 06/24/18 07:23 94 L 06/24/18 07:19 93 16 06/24/18 07:12 56 L 30 H 125/60 06/24/18 04:19 97.4 F L 55 L 22 H 116/69 93 L Weight Admit Weight 296 lb 5 oz Weight 296 lb 3 oz I&O: 06/23/18 06/24/18 06/25/18 06:59 06:59 06:59 Intake Total 800 1740 Output Total 500 1925 Balance 300 -185 Result Diagrams: 06/24/18 14:11 06/23/18 04:48 Additional Labs: Accuchecks 06/23/18 16:43 POC Glucose 136 H Phys Exam - Physical Examination Neck: no nodes, no JVD, supple, full ROM Cardiovascular: RRR, no significant murmur, no rub, gallop, irregular Gastrointestinal: soft, non-tender, no distention, positive bowel sounds Musculoskeletal: edema present significant ecchymosis to his left lower ext Neurological: non-focal, normal sensation, moves all 4 limbs Dx/Plan (1) Acute and chronic respiratory failure with hypoxia Code(s): J96.21 - ACUTE AND CHRONIC RESPIRATORY FAILURE WITH HYPOXIA Status: Acute (2) Atrial fibrillation Code(s): I48.91 - UNSPECIFIED ATRIAL FIBRILLATION Status: Acute (3) HTN (hypertension) Code(s): I10 - ESSENTIAL (PRIMARY) HYPERTENSION Status: Chronic Qualifiers: Hypertension type: essential hypertension Qualified Code(s): I10 - Essential (primary) hypertension (4) Obesity Code(s): E66.9 - OBESITY, UNSPECIFIED Status: Chronic - Plan will change iv abx to po for possible cellulitis to left lower ext -: doppler to left lower ext no dvt -: pt put on meds for his aflutter per cardio -: will continue his home meds * . Review of Systems - Review of Systems Respiratory: negative: Cough, Dry, Shortness of Breath, Hemoptysis, SOB with Excertion, Pleuritic Pain, Sputum, Wheezing Cardiovascular: negative: chest pain, palpitations, orthopnea, paroxysmal nocturnal dyspnea, edema, light headedness, other Gastrointestinal: negative: Nausea, Vomiting, Abdominal Pain, Diarrhea, Constipation, Melena, Hematochezia, Other Genitourinary: negative: Dysuria, Frequency, Incontinence, Hematuria, Retention , Other - Medications/Allergies Allergies/Adverse Reactions: Allergies Allergy/AdvReac Type Severity Reaction Status Date / Time No Known Allergies Allergy Verified 06/06/18 16:39 Medications: Current Medications Acetaminophen (Tylenol) 650 mg PO Q4H PRN PRN Reason: Headache/Fever/Mild Pain (1-3) Last Admin: 06/24/18 01:48 Dose: 650 mg Albuterol/Ipratropium (Duoneb) 3 ml NEB [id number] [facility] Last Admin: 06/24/18 14:45 Dose: 3 ml Albuterol/Ipratropium (Duoneb) 3 ml NEB Q2H PRN PRN Reason: SOB &/or Wheezing Apixaban (Eliquis) 5 mg PO BID [facility] Last Admin: 06/24/18 09:11 Dose: 5 mg Aspirin (Ecotrin) 81 mg PO DAILY [facility] Last Admin: 06/24/18 09:12 Dose: 81 mg Atorvastatin Calcium (Lipitor) 10 mg PO HS [facility] Last Admin: 06/23/18 20:46 Dose: 10 mg Bisacodyl (Dulcolax) 10 mg PO DAILYPRN PRN PRN Reason: Constipation Calcium Carbonate (Tums) 1,000 mg PO Q4H PRN PRN Reason: Heartburn or Indigestion Diltiazem HCl (Cardizem Cd) 120 mg PO DAILY [facility] Last Admin: 06/24/18 09:11 Dose: 120 mg Doxycycline Hyclate (Vibramycin) 100 mg PO BID [facility] Famotidine (Pepcid) 20 mg SLOW IVP QAM [facility] Last Admin: 06/24/18 09:12 Dose: Not Given Famotidine (Pepcid) 20 mg PO QAM [facility] Last Admin: 06/24/18 09:12 Dose: 20 mg Furosemide (Lasix) 80 mg PO QAM [facility] Last Admin: 06/24/18 09:11 Dose: 80 mg Guaifenesin (Mucinex) 1,200 mg PO Q12HR [facility] Last Admin: 06/24/18 09:12 Dose: 1,200 mg Levothyroxine Sodium (Synthroid) 25 mcg PO 0600 [facility] Last Admin: 06/24/18 05:33 Dose: 25 mcg Lorazepam (Ativan) 1 mg PO BID PRN PRN Reason: Anxiety/Agitation Miscellaneous Medication (Pharmacy To Dose) 1 each IVPB ASDIR PRN PRN Reason: Pharmacy to Dose VANCOMYCIN Montelukast Sodium (Singulair) 10 mg PO QPM [facility] Last Admin: 06/23/18 20:45 Dose: 10 mg Multivitamins (Theragran) 1 tab PO DAILY [facility] Last Admin: 06/24/18 09:11 Dose: 1 tab Ondansetron HCl (Zofran Odt) 4 mg PO Q6H PRN PRN Reason: Nausea/Vomiting Ondansetron HCl (Zofran) 4 mg IVP Q6H PRN PRN Reason: Nausea/Vomiting Prednisone (Prednisone) 40 mg PO QAM-[facility] Propafenone HCl (Rythmol) 225 mg PO Q8HR [facility] Last Admin: 06/24/18 05:33 Dose: 225 mg Senna/Docusate Sodium (Senokot S) 2 tab PO BID PRN PRN Reason: Constipation Sodium Chloride (Flush - Normal Saline) 10 ml IVF Q12HR PRN PRN Reason: Saline Flush Last Admin: 06/24/18 09:11 Dose: 10 ml Sodium Chloride (Flush - Normal Saline) 10 ml IVF PRN PRN PRN Reason: Saline Flush Zolpidem Tartrate (Ambien) 5 mg PO HSPRN PRN PRN Reason: Insomnia
[2018-06-24] MEDS: Atorvastatin Calcium 10 MG TAB PO SCH (21:07)
[2018-06-24] MEDS: Doxycycline 100 MG CAP PO SCH (21:07)
[2018-06-24] MEDS: Montelukast Sodium 10 mg Tablet PO SCH (21:08)
[2018-06-25] MEDS: Levothyroxine Sodium 25 MCG TAB PO SCH (05:33)
[2018-06-25] MEDS: Propafenone HCl 150 MG TAB PO SCH ×3 (05:34→21:49)
[2018-06-25] MEDS ORDERED: predniSONE 20 MG TAB PO SCH (08:00)
[2018-06-25] MEDS ORDERED: Furosemide 80 MG TAB PO SCH (09:00)
[2018-06-25] MEDS: Doxycycline 100 MG CAP PO SCH ×2 (10:28→21:51)
[2018-06-25] MEDS: Famotidine 20 MG TAB PO SCH (10:28)
[2018-06-25] MEDS: Apixaban 5 MG TAB PO SCH ×2 (10:29→21:48)
[2018-06-25] MEDS: Multivit, Therapeutic 1 TAB PO SCH (10:30)
[2018-06-25] MEDS: guaiFENesin ER 600 MG TAB PO SCH ×2 (10:30→21:50)
[2018-06-25] MEDS: Famotidine/PF 20 mg/2ml Vial SLOW IVP SCH (10:30)
[2018-06-25] MEDS: Aspirin 81 mg Enteric Coated Tablet PO SCH (10:30)
[2018-06-25] MEDS: Furosemide 80 MG TAB PO SCH (12:32)
--- NOTE | 2018-06-25 14:48 | PDOC.PN ---
- Subjective Encounter Start Date: 06/25/18 Encounter Start Time: 10:15 Subjective: pt up in bed wants to go home - Objective Resuscitation Status - Order Detail: 06/22/18 21:47 Resuscitation Status Routine Resuscitation Status: FULL: Full Resuscitation Vital Signs & Weight: Vital Signs (12 hours) Temp Pulse Resp BP BP Pulse Ox 06/25/18 14:11 70 18 06/25/18 10:46 60 18 06/25/18 08:00 97.5 F L 55 L 24 H 96/49 L 06/25/18 07:25 70 16 06/25/18 03:50 93 L 06/25/18 03:30 97.8 F 53 L 20 118/58 L 95 Weight Admit Weight 296 lb 5 oz Weight 296 lb I&O: 06/24/18 06/25/18 06/26/18 06:59 06:59 06:59 Intake Total 1740 1230 Output Total 1925 2700 Balance -185 -1470 Result Diagrams: 06/24/18 14:11 06/23/18 04:48 Phys Exam - Physical Examination Respiratory: no wheezing, no rales, no rhonchi, wheezing present, clear to auscultation bilateral Cardiovascular: RRR, no significant murmur, no rub, gallop, irregular Gastrointestinal: soft, non-tender, no distention, positive bowel sounds Musculoskeletal: edema present ecchymosis to bilateral lower ext Dx/Plan (1) Acute and chronic respiratory failure with hypoxia Code(s): J96.21 - ACUTE AND CHRONIC RESPIRATORY FAILURE WITH HYPOXIA Status: Acute (2) Atrial fibrillation Code(s): I48.91 - UNSPECIFIED ATRIAL FIBRILLATION Status: Acute (3) HTN (hypertension) Code(s): I10 - ESSENTIAL (PRIMARY) HYPERTENSION Status: Chronic Qualifiers: Hypertension type: essential hypertension Qualified Code(s): I10 - Essential (primary) hypertension (4) Obesity Code(s): E66.9 - OBESITY, UNSPECIFIED Status: Chronic - Plan pt on propafenone, per cardiology pt to be kept until wednesday -: will monitor hh since his ecchymosis area is significant to his left lower -: ext. doppler of left lower leg no DVT. will conitnue doxy for now for -: prophylactic since his left lower ext was warm on admission. * . Review of Systems - Review of Systems Respiratory: negative: Cough, Dry, Shortness of Breath, Hemoptysis, SOB with Excertion, Pleuritic Pain, Sputum, Wheezing Cardiovascular: negative: chest pain, palpitations, orthopnea, paroxysmal nocturnal dyspnea, edema, light headedness, other Gastrointestinal: negative: Nausea, Vomiting, Abdominal Pain, Diarrhea, Constipation, Melena, Hematochezia, Other Genitourinary: negative: Dysuria, Frequency, Incontinence, Hematuria, Retention , Other - Medications/Allergies Allergies/Adverse Reactions: Allergies Allergy/AdvReac Type Severity Reaction Status Date / Time No Known Allergies Allergy Verified 06/06/18 16:39 Medications: Current Medications Acetaminophen (Tylenol) 650 mg PO Q4H PRN PRN Reason: Headache/Fever/Mild Pain (1-3) Last Admin: 06/24/18 21:08 Dose: 650 mg Albuterol/Ipratropium (Duoneb) 3 ml NEB [id number] [facility] Last Admin: 06/25/18 14:11 Dose: 3 ml Albuterol/Ipratropium (Duoneb) 3 ml NEB Q2H PRN PRN Reason: SOB &/or Wheezing Apixaban (Eliquis) 5 mg PO BID [facility] Last Admin: 06/25/18 10:29 Dose: 5 mg Aspirin (Ecotrin) 81 mg PO DAILY [facility] Last Admin: 06/25/18 10:30 Dose: 81 mg Atorvastatin Calcium (Lipitor) 10 mg PO HS [facility] Last Admin: 06/24/18 21:07 Dose: 10 mg Bisacodyl (Dulcolax) 10 mg PO DAILYPRN PRN PRN Reason: Constipation Calcium Carbonate (Tums) 1,000 mg PO Q4H PRN PRN Reason: Heartburn or Indigestion Diltiazem HCl (Cardizem Cd) 120 mg PO DAILY [facility] Last Admin: 06/25/18 10:28 Dose: 120 mg Doxycycline Hyclate (Vibramycin) 100 mg PO BID [facility] Last Admin: 06/25/18 10:28 Dose: 100 mg Famotidine (Pepcid) 20 mg SLOW IVP QAM [facility] Last Admin: 06/25/18 10:30 Dose: Not Given Famotidine (Pepcid) 20 mg PO [facility] Last Admin: 06/25/18 10:28 Dose: 20 mg Furosemide (Lasix) 40 mg PO QAM [facility] Guaifenesin (Mucinex) 1,200 mg PO Q12HR [facility] Last Admin: 06/25/18 10:30 Dose: 1,200 mg Levothyroxine Sodium (Synthroid) 25 mcg PO 0600 [facility] Last Admin: 06/25/18 05:33 Dose: 25 mcg Lorazepam (Ativan) 1 mg PO BID PRN PRN Reason: Anxiety/Agitation Montelukast Sodium (Singulair) 10 mg PO QPM [facility] Last Admin: 06/24/18 21:08 Dose: 10 mg Multivitamins (Theragran) 1 tab PO DAILY [facility] Last Admin: 06/25/18 10:30 Dose: 1 tab Ondansetron HCl (Zofran Odt) 4 mg PO Q6H PRN PRN Reason: Nausea/Vomiting Ondansetron HCl (Zofran) 4 mg IVP Q6H PRN PRN Reason: Nausea/Vomiting Prednisone (Prednisone) 40 mg PO QAM[facility] Last Admin: 06/25/18 10:29 Dose: 40 mg Propafenone HCl (Rythmol) 225 mg PO Q8HR [facility] Last Admin: 06/25/18 05:34 Dose: 225 mg Senna/Docusate Sodium (Senokot S) 2 tab PO BID PRN PRN Reason: Constipation Sodium Chloride (Flush - Normal Saline) 10 ml IVF Q12HR PRN PRN Reason: Saline Flush Last Admin: 06/24/18 09:11 Dose: 10 ml Sodium Chloride (Flush - Normal Saline) 10 ml IVF PRN PRN PRN Reason: Saline Flush Zolpidem Tartrate (Ambien) 5 mg PO HSPRN PRN PRN Reason: Insomnia
[2018-06-25] MEDS: Montelukast Sodium 10 mg Tablet PO SCH (21:49)
[2018-06-25] MEDS: Atorvastatin Calcium 10 MG TAB PO SCH (21:50)
[2018-06-26] MEDS: Propafenone HCl 150 MG TAB PO SCH ×3 (05:38→21:07)
[2018-06-26] MEDS: Levothyroxine Sodium 25 MCG TAB PO SCH (05:38)
[2018-06-26] MEDS: Aspirin 81 mg Enteric Coated Tablet PO SCH (09:01)
[2018-06-26] MEDS: Apixaban 5 MG TAB PO SCH ×2 (09:01→21:05)
[2018-06-26] MEDS: predniSONE 20 MG TAB PO SCH (09:01)
[2018-06-26] MEDS: Famotidine 20 MG TAB PO SCH (09:02)
[2018-06-26] MEDS: Doxycycline 100 MG CAP PO SCH ×2 (09:02→21:05)
[2018-06-26] MEDS: Furosemide 40 MG TAB PO SCH (09:02)
[2018-06-26] MEDS: Multivit, Therapeutic 1 TAB PO SCH (09:03)
[2018-06-26] MEDS: guaiFENesin ER 600 MG TAB PO SCH ×2 (09:03→21:04)
--- NOTE | 2018-06-26 13:31 | PDOC.PN ---
- Subjective Encounter Start Date: 06/26/18 Encounter Start Time: 13:29 Subjective: BREATHING BETTER, BACK TO HIS BASELINE, ATE WELL AND HAD A GOOD BM - Objective Resuscitation Status - Order Detail: 06/22/18 21:47 Resuscitation Status Routine Resuscitation Status: FULL: Full Resuscitation Vital Signs & Weight: Vital Signs (12 hours) Temp Pulse Resp BP BP Pulse Ox 06/26/18 11:50 97.1 F L 57 L 20 109/56 L 96 06/26/18 10:53 60 16 06/26/18 09:01 130 H 06/26/18 08:45 96 06/26/18 08:00 97.7 F 72 20 142/68 H 97 06/26/18 07:05 60 16 06/26/18 04:00 97.3 F L 61 18 149/70 H 97 06/26/18 02:32 97 Weight Admit Weight 296 lb 5 oz Weight 289 lb 3.2 oz I&O: 06/25/18 06/26/18 06/27/18 06:59 06:59 06:59 Intake Total 1230 480 Output Total 2700 1935 Balance -1470 -1455 Result Diagrams: 06/24/18 14:11 06/23/18 04:48 Phys Exam - Physical Examination HEENT: PERRLA, moist MMs, sclera anicteric, TM's clear, oral pharynx no lesions , 2+ tonsils +TRACH COLLAR DECREASED AIR ENTRY ALL OVER Cardiovascular: no significant murmur, irregular Gastrointestinal: soft, non-tender, no distention, positive bowel sounds Musculoskeletal: edema present Neurological: non-focal, normal sensation, moves all 4 limbs Psychiatric: normal affect, A&O x 3 Skin: no rash, normal turgor, cap refill <2 seconds Dx/Plan (1) Atrial flutter Code(s): I48.92 - UNSPECIFIED ATRIAL FLUTTER Status: Acute Comment: Afib, aflutter, rate control with Propafenone, Diltiazem, continue Eliquis (2) Acute and chronic respiratory failure with hypoxia Code(s): J96.21 - ACUTE AND CHRONIC RESPIRATORY FAILURE WITH HYPOXIA Status: Acute Comment: better now, continue nebs, trach collar (3) Atrial fibrillation Code(s): I48.91 - UNSPECIFIED ATRIAL FIBRILLATION Status: Acute Comment: as aobe, ablation if rate on well controlled (4) COPD exacerbation Code(s): J44.1 - CHRONIC OBSTRUCTIVE PULMONARY DISEASE W (ACUTE) EXACERBATION Status: Acute (5) CAD (coronary artery disease) Code(s): I25.10 - ATHSCL HEART DISEASE OF [place] CORONARY ARTERY W/O ANG PCTRS Status: Chronic Qualifiers: Coronary Disease-Associated Artery/Lesion type: [place] artery Comment: continue statin (6) HTN (hypertension) Code(s): I10 - ESSENTIAL (PRIMARY) HYPERTENSION Status: Chronic Qualifiers: Hypertension type: essential hypertension Qualified Code(s): I10 - Essential (primary) hypertension (7) Obesity Code(s): E66.9 - OBESITY, UNSPECIFIED Status: Chronic (8) Status post tracheostomy Code(s): Z93.0 - TRACHEOSTOMY STATUS Status: Chronic - Plan cont current plan of care, continue antibiotics, respiratory therapy * .
[2018-06-26] MEDS: Montelukast Sodium 10 mg Tablet PO SCH (21:05)
[2018-06-26] MEDS: Atorvastatin Calcium 10 MG TAB PO SCH (21:05)
[2018-06-27] MEDS: Acetaminophen 325 MG TAB PO PRN (00:24)
[2018-06-27] MEDS: Propafenone HCl 150 MG TAB PO SCH ×2 (05:21→15:18)
[2018-06-27] MEDS: Levothyroxine Sodium 25 MCG TAB PO SCH (05:21)
[2018-06-27] MEDS: Apixaban 5 MG TAB PO SCH (09:19)
[2018-06-27] MEDS: predniSONE 20 MG TAB PO SCH (09:19)
[2018-06-27] MEDS: Aspirin 81 mg Enteric Coated Tablet PO SCH (09:19)
[2018-06-27] MEDS: Multivit, Therapeutic 1 TAB PO SCH (09:20)
[2018-06-27] MEDS: Furosemide 40 MG TAB PO SCH (09:20)
[2018-06-27] MEDS: Famotidine 20 MG TAB PO SCH (09:20)
[2018-06-27] MEDS: Doxycycline 100 MG CAP PO SCH (09:20)
[2018-06-27] MEDS: guaiFENesin ER 600 MG TAB PO SCH (09:20)
[2018-06-27 13:20] VITALS: BP 114/59; TEMP 96.4
== END 2018-06-27 20:05 | disposition home or self-care (01) | DRG 189 ==
LOC: ERS 16:39 → 2NO 21:47
PROVIDERS: ADMIT Internal Medicine; ATTEND Internal Medicine
DX: J96.01 Acute respiratory failure with hypoxia (principal); J44.1 Chronic obstructive pulmonary disease with (acute) exacerbation; I48.92 Unspecified atrial flutter; I48.0 Paroxysmal atrial fibrillation; I10 Essential (primary) hypertension; E78.5 Hyperlipidemia, unspecified; Z87.891 Personal history of nicotine dependence; G47.33 Obstructive sleep apnea (adult) (pediatric); J96.21 Acute and chronic respiratory failure with hypoxia; E66.9 Obesity, unspecified; Z68.37 Body mass index [BMI] 37.0-37.9, adult; I25.10 Atherosclerotic heart disease of native coronary artery without angina pectoris; E03.9 Hypothyroidism, unspecified; E78.00 Pure hypercholesterolemia, unspecified; Z93.0 Tracheostomy status
CPT/HCPCS: 36415; 36416; 71045; 80053; 80069; 81003; 83605; 83880; 84484; 85025; 87040; 87804; 90471; 90670; 93005; 93010; 94640; 94644; 94760; 96361; 96365; 96366; 96367; 96375; G0009; J0456; J0696; J2920; J2930; J3370; J7050; J7506; J7611; J7620; S0028

== ENCOUNTER 2018-07-08 12:43 | Emergency (ER) | payer MEDICARE, BC ==
[2018-07-08 13:16] LABS: #Eosinphils 0.2 thou/uL (0.0-0.7); #Lymphocytes 0.9 thou/uL (1.20-3.40); #Monocytes 0.4 thou/uL (0.11-0.59); #Neutrophils 3.5 thou/uL (1.40-6.50); %Basophils 0.2 % (0.0-1.0); %Eosinophils 3.1 % (0.0-10.0); %Lymphocytes 18.4 % (21.0-51.0); %Monocytes 8.5 % (0.0-10.0); %Neutrophils 69.8 % (42.0-75.0); Hemoglobin 10.5 g/dL (14.0-18.0); Mean Corpuscular HGB CONC 32.4 g/dL (32.0-36.0); Mean Corpuscular Hemoglobin 30.8 pg (27.0-31.0); Mean Corpuscular Volume 95.1 fL (78.0-98.0); Mean Platelet Volume 6.6 fL (7.4-10.4); Platelet Count 225 thou/uL (130-400); RBC Distribution Width 16.1 % (11.5-14.5); Red Blood Cell (RBC) Count 3.41 mill/uL (4.70-6.10)
[2018-07-08 13:44] LABS: ALT (SGPT) 11 U/L (8-55); AST (SGOT) 14 U/L (5-34); Albumin 3.1 g/dL (3.4-4.8); Alkaline Phosphatase 92 U/L (40-150); Anion Gap 9 mmol/L (10-20); BUN (Urea Nitrogen) 11 mg/dL (8.4-25.7); Bilirubin, Total 0.5 mg/dL (0.2-1.2); Calc. Creatinine Clearance 0 mL/min (70-130); Calcium 8.8 mg/dL (7.8-10.44); Carbon Dioxide 32 mmol/L (23-31); Chloride 90 mmol/L (98-107); Estimated GFR-MDRD 65; Glucose 91 mg/dL (83-110); Potassium 4.8 mmol/L (3.5-5.1); Protein, Total 6.1 g/dL (5.8-8.1); Sodium 126 mmol/L (136-145)
--- NOTE | 2018-07-08 14:04 | RAD ---
SINGLE VIEW OF THE CHEST: Comparison: 06-22-18 History: Shortness of breath. FINDINGS: Single view of the chest shows an enlarged cardiomediastinal silhouette. The patient is status post t racheostomy which appears in good position. There is no evidence of consolidation, mass, or pleural e ffusion. IMPRESSION: Stable cardiomegaly. POS: [facility]
[2018-07-08] MEDS ORDERED: Levofloxacin 500 mg/D5W 100 ml Premix Bag ONE (14:52)
[2018-07-08] MEDS ORDERED: Furosemide 40 MG/4 ML VIAL ONE (14:52)
--- NOTE | 2018-07-08 18:14 | ULT ---
ULTRASOUND LEFT LOWER EXTREMITY VENOUS DOPPLER: 07/08/18 HISTORY: Pain, swelling, edema. COMPARISON: Ultrasound 06/23/18. TECHNIQUE: Real time alonzo scale, color doppler, and spectral analysis left lower extremity venous system is perf ormed. The common femoral, femoral, proximal portion of the greater saphenous and deep femoral veins were interrogated as well as the popliteal and posterior tibial veins. Normal flow augmentation and compression. IMPRESSION: No deep venous thrombosis. POS: [facility]
== END 2018-07-08 19:46 | disposition home or self-care (01) ==
LOC: ERS 12:43
DX: J44.9 Chronic obstructive pulmonary disease, unspecified (principal); L03.116 Cellulitis of left lower limb; E78.5 Hyperlipidemia, unspecified; E11.9 Type 2 diabetes mellitus without complications; I25.10 Atherosclerotic heart disease of native coronary artery without angina pectoris; I48.91 Unspecified atrial fibrillation; E03.9 Hypothyroidism, unspecified; I10 Essential (primary) hypertension; G47.30 Sleep apnea, unspecified; Z87.891 Personal history of nicotine dependence; Z79.899 Other long term (current) drug therapy; Z79.51 Long term (current) use of inhaled steroids; Z79.82 Long term (current) use of aspirin
CPT/HCPCS: 36415; 71045; 80053; 83605; 83880; 84484; 85025; 93005; 94640; 94760; 96365; 96375; J1940; J1956; J7620

== ENCOUNTER 2018-07-23 21:44 | Inpatient (IN) | payer MEDICARE, BC ==
[2018-07-23 22:12] LABS: #Eosinphils 0.1 thou/uL (0.0-0.7); #Lymphocytes 1.4 thou/uL (1.20-3.40); #Monocytes 0.8 thou/uL (0.11-0.59); #Neutrophils 5.6 thou/uL (1.40-6.50); %Basophils 0.3 % (0.0-1.0); %Eosinophils 0.7 % (0.0-10.0); %Neutrophils 71.1 % (42.0-75.0); Hemoglobin 13.1 g/dL (14.0-18.0); Mean Corpuscular HGB CONC 32.5 g/dL (32.0-36.0); Mean Corpuscular Hemoglobin 30.2 pg (27.0-31.0); Mean Corpuscular Volume 92.9 fL (78.0-98.0); Mean Platelet Volume 7.1 fL (7.4-10.4); Platelet Count 234 thou/uL (130-400); RBC Distribution Width 15.2 % (11.5-14.5); Red Blood Cell (RBC) Count 4.34 mill/uL (4.70-6.10); White Blood Cell (WBC) Count 7.9 thou/uL (4.8-10.8)
[2018-07-23 22:31] LABS: ALT (SGPT) 14 U/L (8-55); AST (SGOT) 15 U/L (5-34); Albumin 3.8 g/dL (3.4-4.8); Alkaline Phosphatase 117 U/L (40-150); Anion Gap 14 mmol/L (10-20); BUN (Urea Nitrogen) 14 mg/dL (8.4-25.7); Bilirubin, Total 0.5 mg/dL (0.2-1.2); Calc. Creatinine Clearance 0 mL/min (70-130); Calcium 9.5 mg/dL (7.8-10.44); Carbon Dioxide 32 mmol/L (23-31); Chloride 84 mmol/L (98-107); Estimated GFR-MDRD 48; Globulin 2.9 g/dL (2.4-3.5); Glucose 103 mg/dL (83-110); Protein, Total 6.7 g/dL (5.8-8.1); Sodium 125 mmol/L (136-145)
--- NOTE | 2018-07-23 22:39 | RAD ---
FRONTAL RADIOGRAPH CHEST: 07/23/18 COMPARISON: 07/08/18 HISTORY: Shortness of breath. FINDINGS: The heart and mediastinal contours stable. Increased liner interstitial density bilaterally. Stable t racheostomy tube. No pneumothorax, pleural fluid, focal consolidation or alveolar edema. Mild elevati on of the left hemidiaphragm. There is atherosclerotic calcification in the aortic arch. IMPRESSION: Chronic findings as detailed above. No focal consolidation or alveolar edema. POS: [facility]
[2018-07-23] MEDS ORDERED: Magnesium 2 GM/50 ML BAG (IN WATER) ONE (23:05)
[2018-07-24 01:50] VITALS: BMI 36.6
[2018-07-24] MEDS ORDERED: Spironolactone 25 MG TAB PO SCH (09:00)
[2018-07-24] MEDS ORDERED: Furosemide 40 MG TAB PO SCH (09:00)
[2018-07-24] MEDS ORDERED: Mometasone/Formoterol 120 PUFF INHALER INH SCH (09:00)
[2018-07-24] MEDS: Apixaban 5 MG TAB PO SCH ×2 (09:48→20:21)
[2018-07-24] MEDS: Aspirin 81 mg Enteric Coated Tablet PO SCH (09:48)
[2018-07-24] MEDS ORDERED: guaiFENesin ER 600 MG TAB PO SCH ×2 (11:04→11:30)
[2018-07-24] MEDS ORDERED: Calcium Carbonate 500 MG ChewTAB PO PRN (11:21)
[2018-07-24] MEDS ORDERED: Senokot S 8.6-50 MG TAB PO PRN (11:21)
[2018-07-24] MEDS ORDERED: Nitroglycerin 0.4 MG TAB (25 Tab Bottle) SL PRN (11:21)
[2018-07-24] MEDS ORDERED: hydrALAZINE 20 MG/ML VIAL SLOW IVP PRN (11:21)
[2018-07-24] MEDS ORDERED: Ondansetron PF 4 MG/2 ML Vial IVP PRN (11:21)
[2018-07-24] MEDS ORDERED: Diabetic Tussin 200 MG/10 ML UDCUP PO PRN (11:21)
[2018-07-24] MEDS ORDERED: Benzonatate 100 MG CAP PO PRN (11:21)
[2018-07-24] MEDS ORDERED: cloNIDine 0.1 MG TAB PO PRN (11:21)
[2018-07-24] MEDS ORDERED: Acetaminophen 500 MG TAB PO PRN (11:21)
[2018-07-24] MEDS ORDERED: Bisacodyl 5 MG TAB PO PRN (11:21)
[2018-07-24] MEDS ORDERED: Sodium Chloride 0.9% 1,000 ML IV SCH (11:30)
--- NOTE | 2018-07-24 12:04 | HP ---
PRIMARY CARE PHYSICIAN: Finesse Black MD CHIEF COMPLAINT: Worsening shortness of breath. HISTORY OF PRESENTING ILLNESS: Mr. Bailey is a very pleasant 82-year-old male with chronic hypoxic respiratory failure with chronic tracheostomy with history of congestive heart failure, COPD, sleep apnea, and coronary artery disease, who presented to the emergency room with 1-day duration of shortness of breath. History is mainly obtained by the patient himself and largely supplemented by his at bedside. The patient is unable to provide most of the history given tracheostomy status. His reported that he has been feeling fine up until yesterday. Yesterday, he started to get more and more short of breath and to help with his breathing, he sat up in his chair all day long. They started to notice that his legs are getting swollen up and they have started to turn red. He denies any increased secretions from his tracheostomy. He denies any fever, chills, or cough. He has been having some wheezing as well. He recently was in the emergency room 10 days ago with complaints of chest pain and coughing up a mucous plug via his tracheostomy. At that ER visit, he was given Levaquin IV and Solu-Medrol as well as Lasix and nebulizers. At that time, he was prescribed Bactroban topical ointment and oral levofloxacin and was diagnosed with left leg cellulitis. He also received a prescription of prednisone at that time. He was discharged from the ER. He had a negative left lower extremity ultrasound done on 07/08/2018. His notices that his left leg redness is improved, but his right leg is more red. However, she also states that his legs are always red. He does have a bruise on the anterior tomlinson just above the erythema when he bumped his foot into something at home. In the emergency room last night, he received IV levofloxacin, vancomycin, inhalers and is now being admitted for respiratory distress, most likely COPD. His chest x-ray was negative for any evidence of infiltrate. PAST MEDICAL HISTORY: 1. Chronic respiratory failure, on home oxygen. 2. Status post tracheostomy in 2010 for sleep apnea. 3. Coronary artery disease, status post stenting in 2003. 4. Hypertension. 5. Hypothyroidism. 6. Morbid obesity. 7. Paroxysmal atrial fibrillation on chronic anticoagulation. 8. Anxiety. 9. Chronic venous stasis of the legs. 10. COPD. 11. History of C. diff in 2012. 12. Chronic kidney disease, stage 3. PAST SURGICAL HISTORY: 1. Tracheostomy. 2. PEG tube placement with subsequent removal. 3. Cholecystectomy. 4. Cardiac catheterization and stenting in 2003. 5. Endoscopy. ALLERGIES: INCLUDE TAMIFLU. HOME MEDICATIONS: As follows; 1. Mucinex 1200 mg p.o. b.i.d. 2. Prednisone 40 mg daily. 3. Singulair 10 mg daily. 4. Eliquis 5 mg p.o. b.i.d. 5. Diltiazem 120 mg daily. 6. Atorvastatin 10 mg daily. 7. Aspirin 81 mg daily. 8. Lasix 80 mg daily. 9. DuoNeb every 2 hours p.r.n. 10. Aldactone 25 mg daily. 11. Propafenone 225 mg every 8 hours. 12. Levothyroxine 25 mcg daily. 13. Lorazepam 1 mg p.o. b.i.d. p.r.n. CODE STATUS: Full code discussed with the patient and his at bedside in detail. REVIEW OF SYSTEMS: A 12-point review of system is done, it is negative except for those mentioned in the history and physical. LABORATORY DATA: CBC shows WBCs of 7.9, hemoglobin 13.1, and platelet count of 234, 71% neutrophils. Serum chemistries; sodium of 125, chloride 84, bicarb 32, and creatinine 1.42. Troponin 0.010 and BNP is 63. DIAGNOSTIC DATA: Chest x-ray by my review shows no evidence of pleural effusion, edema, or infiltrate. A 12-lead EKG by my review shows sinus bradycardia with heart rate of [address] or T-wave changes. PHYSICAL EXAMINATION: VITAL SIGNS: Most recent vital signs; temperature 97.8, pulse of 74, respirations 16, saturating 97% on trach collar, and blood pressure 143/71. GENERAL: No acute distress. Awake, alert, and oriented x3. He is able to talk in small sentences with monosyllabic conversation due to the tracheostomy status. is at bedside. He is awake, alert, and oriented x3. HEENT: Mucous membrane is moist and pink. No oropharyngeal exudate or erythema. Head is normocephalic and atraumatic. Pupils are equal and reactive to light and accommodation. Extraocular movement intact. NECK: Supple without any lymphadenopathy or JVD. Trach collar is in place. Chest shows decreased breath sound at bases. Difficult to auscultate because of body habitus and body position. No obvious wheezes or crackles heard. Rate rhythm is regular without any murmurs or gallops. ABDOMEN: Obese, soft, nontender, and nondistended. Positive bowel sounds. EXTREMITIES: Less erythema to the left lower leg anteriorly, but more erythema and warmth to the right lower extremity. He has +1 pitting edema bilaterally extending mainly in the feet. PSYCHIATRIC: Normal affect. NEUROLOGIC: Nonfocal. IMPRESSION AND PLAN: 1. Acute on chronic hypoxic respiratory failure. I do not see any evidence of fluid overload or pneumonia in this patient. He has history of tracheitis in the past, but at this time he is not exhibiting excessive secretions and was recently treated with oral steroids and oral levofloxacin 10 days ago. At this time, most likely he is having an acute exacerbation of his COPD. We will treat him with IV steroids, Mucinex, incentive spirometry, tracheostomy care as well as nebulizers scheduled and p.r.n. Add Dulera b.i.d. as well. Continue with Singulair. We will request consultation with his cyber security administrator, Dr. Metzger in the morning. 2. Hyponatremia, most likely a sign of dehydration as his creatinine is also bumped up from baseline. We will provide him a gentle IV fluids at a slow rate and hold his Aldactone and Lasix for dehydration for now. Repeat labs in the morning. 3. Acute on chronic kidney insufficiency. Once again, sign and symptom of dehydration for this patient. We will hold the Lasix and provide IV fluids. 4. History of paroxysmal atrial fibrillation. Continue Eliquis and propafenone for now. He appears to be in sinus rhythm on my examination for now. 5. Chronic hypoxic respiratory failure. We will continue the tracheostomy care while in the hospital with oxygen as needed. 6. Right lower extremity cellulitis. His right extremity is definitely warm than his left, and a possibility of cellulitis cannot be excluded. We will treat him with a short course of IV antibiotics and monitor the clinical response. He is not showing any signs or symptoms to suggest sepsis for now. 7. History of coronary artery disease. We will restart his home medications. He is currently on aspirin and statin. 8. Hypothyroidism. Restart levothyroxine. 9. Deep venous thrombosis and gastrointestinal prophylaxis. 10. Code status. Full code discussed with the patient. DISPOSITION: Mr. Bailey is currently being admitted to the hospital with acute COPD exacerbation and right lower extremity cellulitis. Estimated length of stay at this time is at least 2 to 3 midnights. Further management will depend upon his clinical course. Job ID: [id number]
[2018-07-24] MEDS: Piperacillin/Tazobactam 3.375 GM in Sodium Chloride 0.9% 100 ML IVPB SCH ×3 (12:10→23:33)
--- NOTE | 2018-07-24 12:10 | CON ---
DATE OF CONSULTATION: HISTORY OF PRESENT ILLNESS: An 82-year-old morbidly obese gentleman, BMI 36, weight 293, pulse 63, presented to the hospital with increased shortness of breath and cough, unresponsive to usual medications. He has a permanent trach in place. He sees Dr. Metzger in our office on a regular basis. He had a chest x-ray obtained last night, which showed that his trach was in adequate position, but no acute infiltrates were seen. His is at the bedside. He was just recently discharged from the hospital no more than about a month ago. PAST MEDICAL HISTORY: COPD, trach, diabetes, obesity, coronary artery disease, cardiac arrhythmias, hypothyroidism, hyperlipidemia, high cholesterol, hypertension, and sleep apnea. PREVIOUS SURGERIES: Including a PEG and cholecystectomy. HOME MEDICATIONS: 1. Prednisone. 2. Spironolactone 25. 3. Singulair 10. 4. Synthroid 25. 5. Ativan p.r.n. 6. Neb treatments p.r.n. 7. Lasix 80. 8. Cardizem CD 120. 9. Aspirin 81. 10. Eliquis 5 mg. REVIEW OF SYSTEMS: Otherwise, 10-point negative. SOCIAL HISTORY: Alcohol, none; tobacco, none at this stage. PHYSICAL EXAMINATION: GENERAL: He appears to be in no acute distress, sitting in the side of the bed. VITAL SIGNS: Saturations are 95%, pulse 80, temperature 97, and blood pressure 143/75. CHEST: Decreased breath sounds. No wheezing. CARDIAC: Normal S1 and S2. No gallops. ABDOMEN: No masses. LABORATORY DATA: White count 7.9, H and H 13 and 40, and platelet count is normal. Sodium 125, otherwise creatinine 1.42. Lytes normal. Chest x-ray: No acute infiltrates were seen. IMPRESSION: Chronic obstructive pulmonary disease exacerbation, bronchitis, severe deconditioning, major anxiety, and permanent tracheostomy. PLAN: He was started on broad-spectrum antibiotics, which includes vancomycin and Zosyn for presumed cellulitis. He has chronic stasis. I do not see any evidence of cellulitis. On steroids. Notify Dr. Metzger. I will start tapering and deescalate antibiotics over the next several days. Consultation note, 70 minutes, 50% direct patient care. Job ID: [id number]
[2018-07-24] MEDS ORDERED: VANCOMYCIN IVPB PRN (12:49)
--- NOTE | 2018-07-24 14:20 | ULT ---
BILATERAL LOWER EXREMITY ARTERIAL DOPPLER STUDY: Ultrasound Doppler study is performed of the arteries of both lower extremities with color Doppler, s pectral analysis, and velocity recordings. INDICATION: Chronic lower extremity cellulitis with pain and edema. Interrogated arteries of both lower extremities all show normal triphasic waveform with symmetric elise ocities bilaterally. Interrogated arteries include common femoral artery, profunda femoral, superfic ial femoral artery, popliteal artery anterior tibia artery, posterior tibial artery, and proximal destinee ous artery. IMPRESSION: Normal arterial Doppler study to both lower extremities. POS: [facility]
[2018-07-24] MEDS: Propafenone HCl 150 MG TAB PO SCH ×2 (14:42→21:13)
[2018-07-24] MEDS: Mometasone/Formoterol 120 PUFF INHALER INH SCH (18:46)
[2018-07-24] MEDS: Atorvastatin Calcium 10 MG TAB PO SCH (20:21)
[2018-07-24] MEDS: guaiFENesin ER 600 MG TAB PO SCH (20:21)
[2018-07-24] MEDS: Montelukast Sodium 10 mg Tablet PO SCH (20:21)
[2018-07-24] MEDS: Lorazepam 1 MG TAB PO PRN (20:23)
[2018-07-24] MEDS ORDERED: Vancomycin HCl 1 GM in Premix Bag 1 BAG IVPB SCH (21:00)
[2018-07-25] MEDS: Piperacillin/Tazobactam 3.375 GM in Sodium Chloride 0.9% 100 ML IVPB SCH ×4 (05:11→23:45)
[2018-07-25] MEDS: Levothyroxine Sodium 25 MCG TAB PO SCH (05:11)
[2018-07-25] MEDS: Propafenone HCl 150 MG TAB PO SCH ×3 (05:12→21:14)
[2018-07-25] MEDS: Mometasone/Formoterol 120 PUFF INHALER INH SCH ×2 (07:08→18:47)
[2018-07-25] MEDS: Apixaban 5 MG TAB PO SCH ×2 (09:22→21:14)
[2018-07-25] MEDS: guaiFENesin ER 600 MG TAB PO SCH ×2 (09:22→21:14)
[2018-07-25] MEDS: Saccharomyces boulardii 250 MG CAP PO SCH (09:22)
[2018-07-25] MEDS: Aspirin 81 mg Enteric Coated Tablet PO SCH (09:22)
[2018-07-25] MEDS: Lorazepam 1 MG TAB PO PRN (11:44)
--- NOTE | 2018-07-25 15:42 | PDOC.PN ---
- Subjective Encounter Start Date: 07/25/18 Encounter Start Time: 15:30 Subjective: f/u for RLE cellulitis and chronic hypoxic resp failure with trach. Overall -: feels ok. No fever or chills. - Objective Resuscitation Status - Order Detail: 07/24/18 11:16 Resuscitation Status Routine Resuscitation Status: FULL: Full Resuscitation Discussed with: discussed w pt MAR Reviewed: Yes Vital Signs & Weight: Vital Signs (12 hours) Temp Pulse Resp BP BP Pulse Ox Pulse Ox 07/25/18 12:51 65 20 93 L 07/25/18 11:53 97.8 F 67 20 167/86 H 99 07/25/18 11:25 97 07/25/18 09:22 59 L 110/69 07/25/18 08:00 95 07/25/18 07:52 98.5 F 52 L 20 110/69 95 07/25/18 06:57 95 07/25/18 06:54 55 L 20 92 L Pulse Ox 07/25/18 12:51 07/25/18 11:53 07/25/18 11:25 92 L 07/25/18 09:22 07/25/18 08:00 07/25/18 07:52 07/25/18 06:57 07/25/18 06:54 Weight Weight 293 lb 7 oz I&O: 07/24/18 07/25/18 07/26/18 06:59 06:59 06:59 Intake Total 200 660 240 Output Total 800 Balance -600 660 240 Result Diagrams: 07/23/18 22:03 07/23/18 22:03 Additional Labs: Microbiology 12/09/15 03:23 Tracheal Respiratory Culture - Preliminary 12/08/15 20:15 Venous blood - Left Hand Blood Culture - Preliminary Specimen has been received and culture in progress. No Growth to date. 12/08/15 20:04 Venous blood - Right Hand Blood Culture - Preliminary Specimen has been received and culture in progress. No Growth to date. 07/23/18 23:00 Venous blood - Right Hand Blood Culture - Preliminary NO GROWTH AT 48 HOURS 07/23/18 22:55 Venous blood - Right Arm Blood Culture - Preliminary NO GROWTH AT 48 HOURS Laboratory Tests 12/08/15 12/09/15 07/08/18 20:04 04:51 13:04 Sodium 126 L Creatinine 1.09 Phosphorus 4.0 Magnesium 2.4 B-Natriuretic Peptide 80.2 07/23/18 07/23/18 22:03 22:14 Sodium 125 L Creatinine 1.42 H Phosphorus Magnesium B-Natriuretic Peptide 63.7 Radiology Reviewed by me: Yes (LE art dopp - negative) Phys Exam - Physical Examination Constitutional: NAD alert, responsive HEENT: PERRLA, sclera anicteric, oral pharynx no lesions + trach in place Neck: no nodes, no JVD, supple, full ROM diminished in bases, occ wheeze S1, S2 with distant heart sounds Cardiovascular: RRR, no significant murmur, no rub, gallop obese Gastrointestinal: soft, non-tender, no distention, positive bowel sounds R>LLE edema, + erythema bilat, mild warmth Musculoskeletal: pulses present, edema present Neurological: normal sensation, moves all 4 limbs Psychiatric: A&O x 3 Skin: normal turgor, cap refill <2 seconds Dx/Plan (1) Cellulitis of both lower extremities Code(s): L03.115 - CELLULITIS OF RIGHT LOWER LIMB; L03.116 - CELLULITIS OF LEFT LOWER LIMB Status: Acute Comment: Continue Vanc/Zosyn another 24h then de- escalate regimen, elevate LE's while seated (2) Hyponatremia Code(s): E87.1 - HYPO-OSMOLALITY AND HYPONATREMIA Status: Acute Comment: Likley iatrogenic, hold Aldactone, serial monitoring (3) Venous stasis dermatitis of both lower extremities Code(s): I87.2 - VENOUS INSUFFICIENCY (CHRONIC) (PERIPHERAL) Status: Chronic Comment: edema mgmt, Lasix as outpt, local skin care (4) Acute and chronic respiratory failure with hypoxia Code(s): J96.21 - ACUTE AND CHRONIC RESPIRATORY FAILURE WITH HYPOXIA Status: Acute Comment: Stable, continue O2 via trach collar, Duonebs, pulmonary support (5) CKD (chronic kidney disease), stage III Status: Chronic Comment: Avoid nephrotoxic meds and limit contrast exposure, serial creatinine (6) HTN (hypertension) Code(s): I10 - ESSENTIAL (PRIMARY) HYPERTENSION Status: Chronic Qualifiers: Hypertension type: essential hypertension Qualified Code(s): I10 - Essential (primary) hypertension Comment: Resume home BP regimen (7) WALI (obstructive sleep apnea) Code(s): G47.33 - OBSTRUCTIVE SLEEP APNEA (ADULT) (PEDIATRIC) Status: Chronic (8) Status post tracheostomy Code(s): Z93.0 - TRACHEOSTOMY STATUS Status: Chronic Comment: Local trach care - Plan plan discussed w/ family, continue antibiotics, PT/OT, forensic social worker, respiratory therapy Stable currently -: Continue Solumedrol another 24h then de-escalate -: Continue Vanc/Zosyn -: Local wound care to LE's -: AM lab: BMP, CBC * .
--- NOTE | 2018-07-25 20:39 | PRG ---
DATE OF SERVICE: 07/25/2018 SUBJECTIVE: Mr. Bailey says he is feeling better. He wants to know if he can go home. OBJECTIVE: VITAL SIGNS: He is afebrile. Heart rate 64, respiratory rates are in the 20s, oximetry is 95%, on his trach collar, blood pressure 149/77. LUNGS: Clear and distant. HEART: Regular rhythm. ABDOMEN: Soft. IMPRESSION: 1. Chronic obstructive pulmonary disease. 2. Permanent tracheostomy secondary to sleep apnea and severe chronic obstructive pulmonary disease. 3. Chronic obstructive pulmonary disease exacerbation with bronchitis. 4. Severe deconditioning. 5. Significant obesity. His weight plays a major role in his limited reserve and decompensation. This has been explained to him multiple times over the years. He will hopefully be stable for discharge home tomorrow. Job ID: [id number]
[2018-07-25] MEDS: Montelukast Sodium 10 mg Tablet PO SCH (21:14)
[2018-07-25] MEDS: Atorvastatin Calcium 10 MG TAB PO SCH (21:14)
[2018-07-26] MEDS: Propafenone HCl 150 MG TAB PO SCH ×3 (05:21→20:26)
[2018-07-26] MEDS: Levothyroxine Sodium 25 MCG TAB PO SCH (05:21)
[2018-07-26] MEDS: Piperacillin/Tazobactam 3.375 GM in Sodium Chloride 0.9% 100 ML IVPB SCH ×4 (05:21→23:51)
[2018-07-26 07:38] LABS: Anion Gap 10 mmol/L (10-20); BUN (Urea Nitrogen) 15 mg/dL (8.4-25.7); Calc. Creatinine Clearance 125 mL/min (70-130); Carbon Dioxide 32 mmol/L (23-31); Chloride 96 mmol/L (98-107); Estimated GFR-MDRD 87; Glucose 121 mg/dL (83-110); Potassium 4.7 mmol/L (3.5-5.1); Sodium 133 mmol/L (136-145)
[2018-07-26 07:43] LABS: Hemoglobin 11.9 g/dL (14.0-18.0); Mean Corpuscular HGB CONC 31.6 g/dL (32.0-36.0); Mean Corpuscular Hemoglobin 29.7 pg (27.0-31.0); Mean Platelet Volume 7.2 fL (7.4-10.4); Platelet Count 217 thou/uL (130-400); RBC Distribution Width 15.2 % (11.5-14.5); Red Blood Cell (RBC) Count 4.02 mill/uL (4.70-6.10); White Blood Cell (WBC) Count 10.6 thou/uL (4.8-10.8)
[2018-07-26 08:06] LABS: Band 8 % (5-11); Eosinophils 1 % (0-10); Lymphocytes 9 % (21-51); MDiff Complete? YES; Monocytes 4 % (0-10); Neutrophil 76 % (42-75); Platelet Morphology Comment Appears Adequate; Polychromasia SLIGHT = 2-3 cells (100X) (0-2/hpf); Reactive Lymphocytes 2 % (0-10)
[2018-07-26] MEDS: Mometasone/Formoterol 120 PUFF INHALER INH SCH ×2 (09:01→19:22)
[2018-07-26] MEDS: Saccharomyces boulardii 250 MG CAP PO SCH (09:29)
[2018-07-26] MEDS: guaiFENesin ER 600 MG TAB PO SCH ×2 (09:29→20:26)
[2018-07-26] MEDS: Apixaban 5 MG TAB PO SCH ×2 (09:29→20:26)
[2018-07-26] MEDS: Aspirin 81 mg Enteric Coated Tablet PO SCH (09:31)
[2018-07-26] MEDS: Lorazepam 1 MG TAB PO PRN ×2 (10:40→20:27)
--- NOTE | 2018-07-26 10:48 | PRG ---
DATE OF SERVICE: 07/26/2018 SUBJECTIVE: Mr. Bailey says he is ready to go home, although he is more bronchospastic this morning by my exam. OBJECTIVE: VITAL SIGNS: His heart rate is 60, he is afebrile, respiratory rate is 20, oximetry is 95% on trach collar, blood pressure 137/87. LUNGS: Remarkable for diffuse wheezes. HEART: Regular rhythm. ABDOMEN: Soft. LABORATORY DATA: White count 10.6, hemoglobin 11.9, platelets 217,000. Sodium 133, potassium 4.7, chloride 96, bicarb 32, BUN 15, and creatinine 0.84. IMPRESSION: 1. Chronic obstructive pulmonary disease exacerbation, slow to resolve. 2. Hyponatremia, improved. 3. Acute on chronic respiratory failure. 4. Chronic indwelling tracheostomy for both sleep apnea and advanced obstructive lung disease. We capped his trach years ago attempting to decannulate him and he could not tolerate it secondary to increased work of breathing. 5. Obesity and deconditioning, remain a big factor. He probably needs to stay in the hospital another day. His steroid dose will be decreased today. Job ID: [id number]
--- NOTE | 2018-07-26 13:38 | PDOC.PN ---
- Subjective Encounter Start Date: 07/26/18 Encounter Start Time: 13:30 Subjective: f/u for LE cellulitis/venous stasis and hypoxic resp failure with trach. -: States feeling better overall but weak. Appetite ok. No fever. - Objective Resuscitation Status - Order Detail: 07/24/18 11:16 Resuscitation Status Routine Resuscitation Status: FULL: Full Resuscitation Discussed with: discussed w pt MAR Reviewed: Yes Vital Signs & Weight: Vital Signs (12 hours) Temp Pulse Resp BP BP Pulse Ox 07/26/18 12:44 57 L 20 97 07/26/18 12:16 98.6 F 63 20 134/71 97 07/26/18 09:29 62 137/87 07/26/18 08:50 96 07/26/18 08:46 62 16 63 L 07/26/18 08:00 96 07/26/18 07:41 97.9 F 59 L 20 137/87 95 Weight Weight 293 lb 7 oz I&O: 07/25/18 07/26/18 07/27/18 06:59 06:59 06:59 Intake Total 660 480 240 Balance 660 480 240 Result Diagrams: 07/26/18 06:51 07/26/18 06:51 Additional Labs: Microbiology 07/23/18 23:00 Venous blood - Right Hand Blood Culture - Preliminary NO GROWTH AT 48 HOURS 07/23/18 22:55 Venous blood - Right Arm Blood Culture - Preliminary NO GROWTH AT 48 HOURS Laboratory Tests 07/23/18 07/23/18 07/23/18 22:03 22:03 22:14 Hgb 13.1 L Sodium 125 L Creatinine 1.42 H B-Natriuretic Peptide 63.7 Phys Exam - Physical Examination Constitutional: NAD HEENT: PERRLA, sclera anicteric, oral pharynx no lesions trach in place Neck: no nodes, no JVD, supple, full ROM diminished in bases, diffuse wheezes S1, S2 distant Cardiovascular: RRR, no significant murmur, no rub, gallop obese Gastrointestinal: soft, non-tender, no distention, positive bowel sounds Musculoskeletal: pulses present, edema present Neurological: normal sensation, moves all 4 limbs Psychiatric: A&O x 3 Deviation from normal: chronic venous stasis of bilat LE's Skin: normal turgor, cap refill <2 seconds Dx/Plan (1) Cellulitis of both lower extremities Code(s): L03.115 - CELLULITIS OF RIGHT LOWER LIMB; L03.116 - CELLULITIS OF LEFT LOWER LIMB Status: Acute Comment: Continue Vanc/Zosyn another 24h then de- escalate regimen, elevate LE's while seated (2) Hyponatremia Code(s): E87.1 - HYPO-OSMOLALITY AND HYPONATREMIA Status: Acute Comment: Likley iatrogenic, hold Aldactone, serial monitoring (3) Venous stasis dermatitis of both lower extremities Code(s): I87.2 - VENOUS INSUFFICIENCY (CHRONIC) (PERIPHERAL) Status: Chronic Comment: edema mgmt, Lasix as outpt, local skin care (4) Acute and chronic respiratory failure with hypoxia Code(s): J96.21 - ACUTE AND CHRONIC RESPIRATORY FAILURE WITH HYPOXIA Status: Acute Comment: Stable, continue O2 via trach collar, Duonebs, pulmonary support (5) CKD (chronic kidney disease), stage III Status: Chronic Comment: Avoid nephrotoxic meds and limit contrast exposure, serial creatinine (6) HTN (hypertension) Code(s): I10 - ESSENTIAL (PRIMARY) HYPERTENSION Status: Chronic Qualifiers: Hypertension type: essential hypertension Qualified Code(s): I10 - Essential (primary) hypertension Comment: Resume home BP regimen (7) WALI (obstructive sleep apnea) Code(s): G47.33 - OBSTRUCTIVE SLEEP APNEA (ADULT) (PEDIATRIC) Status: Chronic (8) Status post tracheostomy Code(s): Z93.0 - TRACHEOSTOMY STATUS Status: Chronic Comment: Local trach care - Plan continue antibiotics, PT/OT, 7th grade social studies 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
[2018-07-26 13:54] LABS: Vancomycin, Trough 11.5 ug/mL
[2018-07-26] MEDS: Montelukast Sodium 10 mg Tablet PO SCH (20:26)
[2018-07-26] MEDS: Atorvastatin Calcium 10 MG TAB PO SCH (20:26)
[2018-07-27] MEDS: Levothyroxine Sodium 25 MCG TAB PO SCH (05:36)
[2018-07-27] MEDS: Propafenone HCl 150 MG TAB PO SCH ×2 (05:36→14:40)
[2018-07-27] MEDS: Piperacillin/Tazobactam 3.375 GM in Sodium Chloride 0.9% 100 ML IVPB SCH ×2 (05:37→13:35)
[2018-07-27] MEDS: Mometasone/Formoterol 120 PUFF INHALER INH SCH (06:14)
[2018-07-27 07:33] LABS: Anion Gap 10 mmol/L (10-20); BUN (Urea Nitrogen) 15 mg/dL (8.4-25.7); Calc. Creatinine Clearance 132 mL/min (70-130); Calcium 9.2 mg/dL (7.8-10.44); Carbon Dioxide 31 mmol/L (23-31); Chloride 97 mmol/L (98-107); Estimated GFR-MDRD Greater than 90; Glucose 107 mg/dL (83-110); Potassium 4.7 mmol/L (3.5-5.1); Sodium 133 mmol/L (136-145)
[2018-07-27 08:37] VITALS: TEMP 97.4
[2018-07-27] MEDS: Saccharomyces boulardii 250 MG CAP PO SCH (09:36)
[2018-07-27] MEDS: guaiFENesin ER 600 MG TAB PO SCH (09:36)
[2018-07-27] MEDS: Apixaban 5 MG TAB PO SCH (09:51)
[2018-07-27] MEDS: Aspirin 81 mg Enteric Coated Tablet PO SCH (09:51)
[2018-07-27 13:36] VITALS: BP 153/80
[2018-07-27] MEDS ORDERED: Vancomycin HCl 1 GM in Premix Bag 1 BAG IVPB SCH (14:00)
--- NOTE | 2018-07-27 17:40 | PRG ---
DATE OF SERVICE: 07/27/2018 SUBJECTIVE: Mr. Bailey says he is ready to go home, but he always says he is ready to go home. I actually believe he probably is. OBJECTIVE: VITAL SIGNS: He is afebrile. Heart rate is 64, blood pressure stable, respiratory rate 16. LUNGS: Clear today, much better than he sounded yesterday. HEART: Regular rhythm. ABDOMEN: Soft. LABORATORY DATA: His sodium 133, potassium 4.7, chloride 97, bicarb 31, BUN 15 , and creatinine 0.8. IMPRESSION: 1. Respiratory failure, acute on chronic. 2. Status post tracheostomy with chronic indwelling trach. 3. Advanced obstructive lung disease. 4. Obesity. 5. Sleep apnea. 6. Deconditioning. PLAN: Discharge home with prednisone taper and antibiotics. He will follow up with me in the office in 2 to 3 weeks. He will be due for tracheostomy tube change at that time. Job ID: [id number] MTDD
--- NOTE | 2018-07-28 05:33 | DIS ---
DATE OF ADMISSION: 07/24/2018 DATE OF DISCHARGE: 07/27/2018 DISCHARGE DIAGNOSES: 1. Bilateral lower extremity cellulitis, improved. 2. Hyponatremia, iatrogenic secondary to Aldactone. 3. Chronic venous stasis dermatitis of bilateral lower extremities. 4. Acute on chronic hypoxic respiratory failure. 5. Chronic kidney disease, stage 3. 6. Hypertension, stable. 7. Obstructive sleep apnea with chronic tracheostomy. CONSULTATIONS: Dr. Metzger and Dr. Howell with Pulmonology Service. PERTINENT LAB AND X-RAY FINDINGS: Include sodium ranged between 125 to 133, creatinine ranged between 0.80 to 1.42. Estimated GFR ranged between 48 to greater than 90. BNP 64. CBC showed a hemoglobin ranging between 12 to 13.1. Blood cultures x2 dated 07/23/2018 showed no growth at 48 hours. Portable chest x-ray dated 07/23/2018 showed chronic changes in bilateral lung haynes without focal consolidation. Bilateral lower extremity arterial Doppler studies dated 07/24/2018 showed no evidence for thrombosis. HOSPITAL COURSE: Patient was initially admitted after presenting with increased shortness of breath and lower extremity erythema concerning for cellulitis. Patient underwent initial exam including arterial Doppler studies of the lower extremities showing no evidence for acute thrombosis. The patient with a known history of chronic venous stasis dermatitis with likely mild worsening and lower extremity cellulitis. Patient was placed on IV Zosyn and vancomycin and monitored for clinical response. The patient did have overall improvement in diffuse erythema with chronic venous stasis changes persistent. Patient also received general pulmonary supportive measures in the context of known chronic hypoxic respiratory failure. Patient is placed on IV Solu-Medrol as well as given bronchodilator therapy and oxygen support through trach collar. Patient was evaluated by the Pulmonology Service with recommendations for general supportive management without further acute intervention. Patient remained afebrile throughout the hospital course and clinically stable. I have examined the patient at the time of discharge and discussed followup instructions. Patient verbalized understanding and in agreement and ready for discharge on 07/27/2018. DISCHARGE MEDICATIONS: 1. Lipitor 10 mg p.o. at bedtime. 2. Lasix 80 mg p.o. daily. 3. Lorazepam 1 mg p.o. b.i.d. p.r.n. 4. Prednisone 40 mg p.o. daily. 5. Augmentin 875 mg/125 mg 1 tab p.o. b.i.d. x5 days. 6. Eliquis 5 mg p.o. b.i.d. 7. Enteric-coated aspirin 81 mg p.o. daily. 8. Cardizem CD 120 mg p.o. daily. 9. Mucinex ER 1200 mg p.o. b.i.d. 10. DuoNeb 3 mL nebulized q.2 hours p.r.n. 11. Levothyroxine 25 mcg p.o. daily. 12. Singulair 10 mg p.o. at bedtime. 13. Propafenone 225 mg p.o. t.i.d. 14. Spironolactone 25 mg p.o. daily, hold until followup with primary care provider. FOLLOWUP: Patient to follow up with Dr. Finesse Black within 7 days of discharge. Patient may follow up with Dr. Jai Metzger with Pulmonology Service. CONDITION ON DISCHARGE: Fair. ACTIVITY: Ad-lindsay. DIET: Heart healthy. CODE STATUS: Full. SPECIAL INSTRUCTIONS: Patient to continue home health services with [facility] for senior living and respiratory management including tracheostomy care. DISPOSITION: Discharged home with [facility] on 07/27/2018. Total time preparing and coordinating discharge is 39 minutes. Job ID: [id number]
== END 2018-07-27 17:45 | disposition home or self-care (01) | DRG 189 ==
LOC: ERS 21:44 → T4-B 07-24 01:02
PROVIDERS: ADMIT Internal Medicine; ATTEND Internal Medicine
DX: J96.21 Acute and chronic respiratory failure with hypoxia (principal); L03.115 Cellulitis of right lower limb; E87.1 Hypo-osmolality and hyponatremia; Z99.81 Dependence on supplemental oxygen; N18.3 Chronic kidney disease, stage 3 (moderate); I12.9 Hypertensive chronic kidney disease with stage 1 through stage 4 chronic kidney disease, or unspecified chronic kidney disease; I25.10 Atherosclerotic heart disease of native coronary artery without angina pectoris; I87.2 Venous insufficiency (chronic) (peripheral); G47.33 Obstructive sleep apnea (adult) (pediatric); Z93.0 Tracheostomy status; E66.01 Morbid (severe) obesity due to excess calories; Z68.36 Body mass index [BMI] 36.0-36.9, adult
CPT/HCPCS: 36415; 71045; 80048; 80053; 80202; 83880; 84484; 85007; 85025; 85027; 87040; 93005; 93923; 94640; 96365; 96367; 96368; J1956; J2543; J2920; J3370; J7050; J7620

== ENCOUNTER 2018-08-09 15:24 | Inpatient (IN) | payer MEDICARE, BC ==
[2018-08-09 16:08] LABS: #Eosinphils 0.1 thou/uL (0.0-0.7); #Lymphocytes 1.2 thou/uL (1.20-3.40); #Monocytes 0.7 thou/uL (0.11-0.59); #Neutrophils 4.6 thou/uL (1.40-6.50); %Basophils 0.3 % (0.0-1.0); %Lymphocytes 18.6 % (21.0-51.0); %Monocytes 9.9 % (0.0-10.0); %Neutrophils 69.2 % (42.0-75.0); Hemoglobin 11.8 g/dL (14.0-18.0); Mean Corpuscular HGB CONC 31.4 g/dL (32.0-36.0); Mean Corpuscular Hemoglobin 29.8 pg (27.0-31.0); Mean Corpuscular Volume 94.9 fL (78.0-98.0); Mean Platelet Volume 7.3 fL (7.4-10.4); Platelet Count 192 thou/uL (130-400); RBC Distribution Width 15.1 % (11.5-14.5); Red Blood Cell (RBC) Count 3.98 mill/uL (4.70-6.10); White Blood Cell (WBC) Count 6.7 thou/uL (4.8-10.8)
[2018-08-09 16:27] LABS: ALT (SGPT) 9 U/L (8-55); AST (SGOT) 12 U/L (5-34); Albumin 3.2 g/dL (3.4-4.8); Alkaline Phosphatase 90 U/L (40-150); Anion Gap 9 mmol/L (10-20); BUN (Urea Nitrogen) 11 mg/dL (8.4-25.7); Bilirubin, Total 0.3 mg/dL (0.2-1.2); Calc. Creatinine Clearance 0 mL/min (70-130); Calcium 8.8 mg/dL (7.8-10.44); Carbon Dioxide 31 mmol/L (23-31); Chloride 95 mmol/L (98-107); Estimated GFR-MDRD 70; Globulin 2.8 g/dL (2.4-3.5); Glucose 95 mg/dL (83-110); Potassium 4.1 mmol/L (3.5-5.1); Sodium 131 mmol/L (136-145)
[2018-08-09 17:29] LABS: Bilirubin Negative (Negative); Blood, Urine Small (Negative); Clarity CLEAR (Clear); Glucose, Urine (Dipstick) Negative (Negative); Leukocyte Negative (Negative); Nitrite Negative (Negative); Protein, Urine (Dipstick) Negative (Neg-Trace); Specific Gravity, Urine 1.016 (1.002-1.036); Urobilinogen 0.2 mg/dL (0.2-1.0)
[2018-08-09 17:31] LABS: Bacteria/HPF None Seen HPF (None Seen); Hyaline Casts/LPF 0-3 HYALINE CAST LPF (0-3 Hyaline); Squamous Epithelial 0-3 HPF (0-3); WBC/HPF 0-3 HPF (0-3)
--- NOTE | 2018-08-09 18:33 | ULT ---
BILATERAL LOWER EXTREMITY VENOUS DOPPLER WITH SPECTRAL ANALYSIS AND COLOR FLOW EVALUATION: Date: 08/09/18 HISTORY: Bilateral lower extremity pain. TECHNIQUE: Rivera scale, color flow, Doppler evaluation, and spectral analysis of the bilateral lower extremity ve nous structures is performed with 2D imaging. The bilateral lower extremity common femoral, superfici al femoral, popliteal, posterior tibial, most proximal greater saphenous, and profunda femoral veins are imaged. FINDINGS: There is limited evaluation of the popliteal veins in Rivera scale imaging bilaterally, as well as the distal right lower extremity superficial femoral vein on Rivera scale imaging as well due to depth of t he venous structures below the skin surface. This limits evaluation for evaluation of nonocclusive de ep venous thrombosis, but there is normal flow within these venous structures. There is otherwise nor mal lumen compressibility, flow, and augmentation throughout the visualized deep venous structures of the bilateral lower extremities. IMPRESSION: Limited evaluation of the popliteal veins, as well as distal right superficial femoral vein on Rivera s lucy imaging due to depth of the venous structures below the skin surface as described above. While t his limits evaluation for nonocclusive deep venous thrombosis, there is certainly no occlusive deep v enous thrombosis at these levels. There is no evidence of a deep venous thrombosis involving the rem aining visualized deep venous structures of the bilateral lower extremities. POS: [facility]
--- NOTE | 2018-08-09 18:35 | RAD ---
PORTABLE AP CHEST: Date: 08/09/18 HISTORY: Dyspnea and shortness of breath. COMPARISON: 07/23/18. FINDINGS: Tracheostomy device remains in place. Cardiac silhouette is magnified by projection, but is stable in size. Linear densities are again seen at the left lung base, which may be related to either scarring or atelectasis. Mild increase in perihilar interstitial densities are again seen. No consolidation o r pleural fluid is appreciated. Vascular calcifications seen in thoracic aorta. There is bilateral gl enohumeral osteoarthropathy, more severe on the right. IMPRESSION: 1. Mild prominence of interstitial markings, similar to prior studies, including study on 06/22/18. This may be related to mild chronic lung changes. 2. Atelectasis left lung base. 3. Evidence of prior granulomatous disease with calcified bilateral hilar lymph nodes. POS: [facility]
[2018-08-09] MEDS ORDERED: Acetaminophen 650 MG Suppository PR PRN (20:01)
[2018-08-09] MEDS ORDERED: Acetaminophen 325 MG TAB PO PRN (20:01)
[2018-08-09] MEDS ORDERED: Melatonin 3 MG TAB PO PRN (20:30)
[2018-08-09] MEDS: Famotidine 20 MG TAB PO SCH (22:06)
[2018-08-09] MEDS: Montelukast Sodium 10 mg Tablet PO SCH (22:06)
[2018-08-09] MEDS: Apixaban 5 MG TAB PO SCH (22:06)
[2018-08-09] MEDS: guaiFENesin ER 600 MG TAB PO SCH (22:06)
[2018-08-09] MEDS: Atorvastatin Calcium 10 MG TAB PO SCH (22:06)
[2018-08-09] MEDS: Piperacillin/Tazobactam 4.5 GM in Sodium Chloride 0.9% 100 ML IVPB SCH (22:07)
[2018-08-09] MEDS: Propafenone HCl 150 MG TAB PO SCH (22:07)
[2018-08-09 23:18] VITALS: BMI 37.8
[2018-08-10] MEDS: Vancomycin HCl 1.5 GM in Sodium Chloride 0.9% 250 ML 300 ML IVPB SCH ×2 (02:22→14:53)
[2018-08-10] MEDS: Lorazepam 1 MG TAB PO PRN ×2 (05:39→18:21)
[2018-08-10] MEDS: Piperacillin/Tazobactam 4.5 GM in Sodium Chloride 0.9% 100 ML IVPB SCH ×3 (05:39→21:48)
[2018-08-10] MEDS: Propafenone HCl 150 MG TAB PO SCH ×3 (05:39→21:47)
[2018-08-10] MEDS: Levothyroxine Sodium 25 MCG TAB PO SCH (05:39)
[2018-08-10] MEDS ORDERED: Loratadine 10 MG TAB PO PRN (07:44)
[2018-08-10] MEDS ORDERED: Cepastat Lozenges 1 LOZ PO PRN (07:44)
[2018-08-10] MEDS ORDERED: hydrALAZINE 20 MG/ML VIAL SLOW IVP PRN (07:44)
[2018-08-10] MEDS ORDERED: Diabetic Tussin 200 MG/10 ML UDCUP PO PRN (07:44)
[2018-08-10] MEDS ORDERED: Metoclopramide HCl 10 MG/2 ML VIAL IVP PRN (07:44)
[2018-08-10] MEDS ORDERED: Senokot S 8.6-50 MG TAB PO PRN (07:44)
[2018-08-10] MEDS ORDERED: Sodium Chloride 0.65% Nasal 44 ML BOT EA NARE PRN (07:44)
[2018-08-10] MEDS ORDERED: Eucerin (Mineral Oil/Petrolatum,White) 30 gm Jar TOP PRN (07:44)
[2018-08-10] MEDS ORDERED: Loperamide HCl 2 MG CAP PO PRN (07:44)
[2018-08-10] MEDS ORDERED: Artificial Tears 18 DROP/0.9 ML EA EYE PRN (07:44)
[2018-08-10] MEDS ORDERED: Spironolactone 25 MG TAB PO SCH (09:00)
[2018-08-10] MEDS ORDERED: Prevnar 13-Val Conj/PF 0.5 ML SYRINGE IM ONE (09:00)
[2018-08-10 09:50] LABS: #Lymphocytes 0.4 thou/uL (1.20-3.40); %Basophils 0.9 % (0.0-1.0); %Eosinophils 0.1 % (0.0-10.0); %Lymphocytes 10.7 % (21.0-51.0); %Monocytes 0.8 % (0.0-10.0); %Neutrophils 87.4 % (42.0-75.0); Hemoglobin 11.9 g/dL (14.0-18.0); Mean Corpuscular HGB CONC 30.9 g/dL (32.0-36.0); Mean Corpuscular Hemoglobin 29.2 pg (27.0-31.0); Mean Corpuscular Volume 94.7 fL (78.0-98.0); Mean Platelet Volume 7.6 fL (7.4-10.4); Platelet Count 199 thou/uL (130-400); RBC Distribution Width 14.9 % (11.5-14.5); Red Blood Cell (RBC) Count 4.07 mill/uL (4.70-6.10); White Blood Cell (WBC) Count 3.5 thou/uL (4.8-10.8)
[2018-08-10] MEDS: Apixaban 5 MG TAB PO SCH ×2 (09:52→20:12)
[2018-08-10] MEDS: guaiFENesin ER 600 MG TAB PO SCH ×2 (09:52→20:13)
[2018-08-10] MEDS: Famotidine 20 MG TAB PO SCH ×2 (09:52→20:12)
[2018-08-10] MEDS: Furosemide 80 MG TAB PO SCH (09:52)
[2018-08-10] MEDS: Aspirin 81 mg Enteric Coated Tablet PO SCH (09:53)
--- NOTE | 2018-08-10 10:05 | HP ---
CHIEF COMPLAINT: Shortness of breath. HISTORY OF PRESENT ILLNESS AND REVIEW OF SYSTEMS: Mr. Bailey is an 82-year-old man who presents with increased shortness of breath. He is known to have COPD with tracheostomy and requiring home oxygen. The patient states for the last week he has noted increasing difficulty breathing. He has also noted increased swelling and redness of his lower extremities. He was recently admitted to the hospital and treated for bilateral lower extremity cellulitis. He was discharged on oral antibiotics; however, more recently he has noted increased redness and swelling of both lower extremities without any severe pain. The patient underwent an ECG showing first-degree AV block and nonspecific ST abnormality with right axis. He underwent a venogram showing no evidence of DVT. LABORATORY STUDIES: Demonstrated a normal white blood count of 6.7 and a BNP of 109. He is known to have a sodium of 131, but is chronically low. Last BNP checked 07/23/2018 showed a level of 63.7. Urinalysis was done which showed a small amount of blood, otherwise negative. He underwent a chest x-ray showing mild prominence of interstitial markings similar to prior studies and likely reflect mild chronic lung changes. There was atelectasis in the left lung base. There was also evidence of prior granulomatous disease with calcified bilateral hilar lymph nodes. The patient remains afebrile. He denies having any chest pain. He is complaining of feeling as if he is choking on his tracheostomy secretions, asking to have it removed. Respiratory Therapy was consulted and have removed his trach/suction secretions. The patient denies having any abdominal pain or cramping. No nausea or vomiting. Denies having any urinary symptoms. Denies any bowel changes. All other review of systems are negative. PAST MEDICAL HISTORY: 1. Hyperlipidemia. 2. Diabetes type 2. 3. COPD. 4. Trach placement. 5. Obesity. 6. Coronary artery disease. 7. Cardiomyopathy. 8. Atrial fibrillation. 9. Stent placement x1. 10. Hypothyroidism. 11. History of prostatitis. 12. Sleep apnea. SURGICAL HISTORY: 1. .. 2. Cholecystectomy. 3. Trach placed, 02/24/2011. 4. Cardiac stent x1,15 years ago. SOCIAL HISTORY: The patient lives at home with his family. Denies any heavy alcohol use. He is a former smoker, but quit smoking more than 10 years ago. Denies any illicit drug use. ALLERGIES: 1. OSELTAMIVIR. 2. TAMIFLU CAUSES ITCHING. CURRENT MEDICATIONS: 1. Aspirin 81 mg p.o. daily. 2. Levothyroxine 25 mcg p.o. daily. 3. Montelukast 10 mg p.o. daily. 4. Atorvastatin 10 mg p.o. daily. 5. Prednisone 40 mg p.o. daily. 6. Furosemide 80 mg p.o. daily. 7. Lorazepam 1 mg b.i.d. p.r.n. 8. Mucinex 1200 mg p.o. b.i.d. 9. Eliquis 5 mg p.o. b.i.d. 10. Cardizem 120 mg p.o. daily. 11. Propafenone extended-release 325 mg p.o. every 8 hours. 12. Albuterol/ipratropium nebulizer treatments 3 mL every 2 hours p.r.n. PHYSICAL EXAMINATION: GENERAL: The patient is obese and appears to be in some discomfort due to secretions in his tracheostomy. VITAL SIGNS: Stable. Temperature 98, pulse 61, respirations 30, sats 96% on 3 L of O2. Blood pressure 138/77. HEENT: Normocephalic and atraumatic. Pupils are equal, round, reactive to light. Sclerae without icterus. Oropharynx is clear. NECK: Supple without lymphadenopathy. LUNGS: The patient appears tachypneic attempting to clear his secretions; however, sats remain on 98% on 3 L of oxygen. The patient seemed to settle when advised to take a deep breath and attempt to relax as he waits for respiratory therapy to clear his secretions. CARDIAC: S1, S2. No murmurs, rubs, or gallops. ABDOMEN: Soft, obese, nontender, nondistended. EXTREMITIES: Notable for bilateral lower extremity erythema and significant edema. No tenderness. There is a small wound to the left anterior lower leg with dressing in place. He has been receiving wound care. INVESTIGATIONS: As mentioned above in the HPI. IMPRESSION AND PLAN: Mr. Bailey will be admitted for management of the following conditions. 1. Severe bilateral lower extremity cellulitis, failed on p.o. antibiotics. Continue IV antibiotics. Monitor all white blood count. Repeat laboratory studies in the morning. 2. Shortness of breath. The patient tachypneic and seems to be panicking regarding secretions in his trach. Respiratory Therapy did come and clear his tracheostomy. Per respiratory therapist, there was a foul smell once trach removed. Trach care requested. Nebs and steroids prescribed. Continue to monitor. 3. Gastrointestinal prophylaxis. 4. Venous thromboembolism prophylaxis. We will continue his normal dose of Eliquis 5 mg p.o. b.i.d. The patient's case was discussed with Dr. Urban, who agrees with plan of care as described above. Job ID: [id number]
[2018-08-10 10:07] LABS: ALT (SGPT) 8 U/L (8-55); AST (SGOT) 12 U/L (5-34); Albumin 3.2 g/dL (3.4-4.8); Alkaline Phosphatase 92 U/L (40-150); Anion Gap 14 mmol/L (10-20); BUN (Urea Nitrogen) 7 mg/dL (8.4-25.7); Bilirubin, Total 0.2 mg/dL (0.2-1.2); Calc. Creatinine Clearance 122 mL/min (70-130); Calcium 9.1 mg/dL (7.8-10.44); Carbon Dioxide 27 mmol/L (23-31); Chloride 97 mmol/L (98-107); Estimated GFR-MDRD 87; Globulin 2.8 g/dL (2.4-3.5); Glucose 145 mg/dL (83-110); Potassium 4.2 mmol/L (3.5-5.1); Sodium 134 mmol/L (136-145)
--- NOTE | 2018-08-10 10:47 | PDOC.PN ---
- Subjective Encounter Start Date: 08/10/18 Encounter Start Time: 08:00 -: old records requested/rev Patient seen and examined. No new complaints. No overnight events - Objective MAR Reviewed: Yes Vital Signs & Weight: Vital Signs (12 hours) Temp Pulse Resp BP BP Pulse Ox 08/10/18 09:53 69 133/78 08/10/18 07:26 96 08/10/18 07:17 69 20 95 08/10/18 04:32 96.9 F L 64 18 144/74 H 91 L 08/10/18 02:01 65 20 92 L 08/10/18 01:31 97 Weight Weight 286 lb 8 oz I&O: 08/09/18 08/10/18 08/11/18 06:59 06:59 06:59 Intake Total 740 Output Total 250 Balance 490 Result Diagrams: 08/10/18 08:58 08/10/18 08:58 Additional Labs: Accuchecks 08/10/18 04:25 POC Glucose 118 H EKG Reviewed by me: Yes Phys Exam - Physical Examination Constitutional: NAD HEENT: PERRLA, moist MMs, sclera anicteric Neck: no JVD, supple tracheostomy+ Respiratory: no wheezing, no rales, no rhonchi Cardiovascular: RRR, no significant murmur, no rub Gastrointestinal: soft, non-tender, no distention, positive bowel sounds bilateral venous stasis, right leg cellulitis Neurological: non-focal, normal sensation, moves all 4 limbs Lymphatic: no nodes Psychiatric: normal affect, A&O x 3 Skin: no rash, normal turgor Dx/Plan (1) Cellulitis of right lower extremity Code(s): L03.115 - CELLULITIS OF RIGHT LOWER LIMB Status: Acute (2) CAD (coronary artery disease) Code(s): I25.10 - ATHSCL HEART DISEASE OF [place] CORONARY ARTERY W/O ANG PCTRS Status: Chronic Comment: (3) CKD (chronic kidney disease), stage III Status: Chronic Comment: (4) Chronic anticoagulation Code(s): Z79.01 - LEATHER GRAINER (CURRENT) USE OF ANTICOAGULANTS Status: Chronic (5) Chronic respiratory failure with hypercapnia Code(s): J96.12 - CHRONIC RESPIRATORY FAILURE WITH HYPERCAPNIA Status: Chronic (6) Dyslipidemia Code(s): E78.5 - HYPERLIPIDEMIA, UNSPECIFIED Status: Chronic (7) HTN (hypertension) Code(s): I10 - ESSENTIAL (PRIMARY) HYPERTENSION Status: Chronic Qualifiers: Comment: (8) Hypothyroidism Code(s): E03.9 - HYPOTHYROIDISM, UNSPECIFIED Status: Chronic Qualifiers: (9) WALI (obstructive sleep apnea) Code(s): G47.33 - OBSTRUCTIVE SLEEP APNEA (ADULT) (PEDIATRIC) Status: Chronic (10) Obesity (BMI 30-39.9) Code(s): E66.9 - OBESITY, UNSPECIFIED Status: Chronic (11) Tracheostomy status Code(s): Z93.0 - TRACHEOSTOMY STATUS Status: Chronic (12) Venous stasis dermatitis of both lower extremities Code(s): I87.2 - VENOUS INSUFFICIENCY (CHRONIC) (PERIPHERAL) Status: Chronic Comment: - Plan cont current plan of care, continue antibiotics * will continue vancomycin and zosyn * monitor clinical response * medication reviewed as below * symptomatic treatment * home medication reconciled. Review of Systems - Review of Systems ENT: negative: Ear Pain, Ear Discharge, Nose Pain, Nose Discharge, Nose Congestion, Mouth Pain, Mouth Swelling, Throat Pain, Throat Swelling, Other Respiratory: negative: Cough, Dry, Shortness of Breath, Hemoptysis, SOB with Excertion, Pleuritic Pain, Sputum, Wheezing Cardiovascular: negative: chest pain, palpitations, orthopnea, paroxysmal nocturnal dyspnea, edema, light headedness, other Gastrointestinal: negative: Nausea, Vomiting, Abdominal Pain, Diarrhea, Constipation, Melena, Hematochezia, Other Genitourinary: negative: Dysuria, Frequency, Incontinence, Hematuria, Retention , Other Musculoskeletal: negative: Neck Pain, Shoulder Pain, Arm Pain, Back Pain, Hand Pain, Leg Pain, Foot Pain, Other Skin: negative: Rash, Lesions, Bridger, Bruising, Other - Medications/Allergies Allergies/Adverse Reactions: Allergies Allergy/AdvReac Type Severity Reaction Status Date / Time oseltamivir [From Tamiflu] Allergy Verified 07/24/18 06:48 Medications: Current Medications Acetaminophen (Tylenol) 650 mg PO Q4H PRN PRN Reason: Headache/Fever/Mild Pain (1-3) Acetaminophen (Tylenol) 650 mg [place] Q4H PRN PRN Reason: Headache/Fever/Mild Pain (1-3) Albuterol/Ipratropium (Duoneb) 3 ml NEB [id number] [facility] Last Admin: 08/10/18 07:17 Dose: 3 ml Apixaban (Eliquis) 5 mg PO BID [facility] Last Admin: 08/10/18 09:52 Dose: 5 mg Artificial Tears (Tears Naturale) 2 drop EA EYE PRN PRN PRN Reason: Dry Eyes Aspirin (Ecotrin) 81 mg PO DAILY [facility] Last Admin: 08/10/18 09:53 Dose: 81 mg Atorvastatin Calcium (Lipitor) 10 mg PO HS [facility] Last Admin: 08/09/18 22:06 Dose: 10 mg Budesonide (Pulmicort Neb Solution) 0.5 mg INH BID-RT [facility] Diltiazem HCl (Cardizem Cd) 120 mg PO DAILY [facility] Last Admin: 08/10/18 09:53 Dose: 120 mg Famotidine (Pepcid) 20 mg PO BID [facility] Last Admin: 08/10/18 09:52 Dose: 20 mg Furosemide (Lasix) 80 mg PO QAM [facility] Last Admin: 08/10/18 09:52 Dose: 80 mg Guaifenesin (Mucinex) 1,200 mg PO Q12HR [facility] Last Admin: 08/10/18 09:52 Dose: 1,200 mg Guaifenesin (Robitussin Sf) 200 mg PO Q4H PRN PRN Reason: Cough Hydralazine HCl (Apresoline) 10 mg SLOW IVP Q4H PRN PRN Reason: SBP > 180 and HR < 70 Piperacillin Sod/Tazobactam (Sod 4.5 gm/ Sodium Chloride) 100 mls @ 200 mls/hr IVPB Q8HR [facility] Last Admin: 08/10/18 05:39 Dose: 100 mls Vancomycin HCl 1.5 gm/ Sodium (Chloride) 300 mls @ 200 mls/hr IVPB 0100,1300 [facility] Last Admin: 08/10/18 02:22 Dose: 300 mls Levothyroxine Sodium (Synthroid) 25 mcg PO 0600 [facility] Last Admin: 08/10/18 05:39 Dose: 25 mcg Loperamide HCl (Imodium) 2 mg PO PRN PRN PRN Reason: Diarrhea/Loose Stools Loratadine (Claritin) 10 mg PO DAILYPRN PRN PRN Reason: Sinus Symptoms Lorazepam (Ativan) 1 mg PO BID PRN PRN Reason: Anxiety/Agitation Last Admin: 08/10/18 05:39 Dose: 1 mg Melatonin (Melatonin) 3 mg PO HS PRN PRN Reason: Insomnia Last Admin: 08/09/18 22:06 Dose: 3 mg Methylprednisolone Sodium Succinate (Solu-Medrol) 40 mg IVP Q6HR [facility] Last Admin: 08/10/18 05:38 Dose: 40 mg Metoclopramide HCl (Reglan) 5 mg IVP Q4H PRN PRN Reason: Nausea Mineral Oil/White Petrolatum (Eucerin Cream) 0 gm TOP BIDPRN PRN PRN Reason: Dry Skin Miscellaneous Medication (Pharmacy To Dose) 1 each IVPB PRN PRN PRN Reason: Pharmacy to dose Montelukast Sodium (Singulair) 10 mg PO QPM [facility] Last Admin: 08/09/18 22:06 Dose: 10 mg Propafenone HCl (Rythmol) 225 mg PO Q8HR [facility] Last Admin: 08/10/18 05:39 Dose: 225 mg Senna/Docusate Sodium (Senokot S) 2 tab PO BID PRN PRN Reason: Constipation Sodium Chloride (Flush - Normal Saline) 10 ml IVF Q12HR PRN PRN Reason: Saline Flush Sodium Chloride (Flush - Normal Saline) 10 ml IVF PRN PRN PRN Reason: Saline Flush Sodium Chloride ([place] Nasal [place] 0.65%) 0 ml EA NARE QIDPRN PRN PRN Reason: Nasal Congestion Spironolactone (Aldactone) 25 mg PO DAILY [facility] Throat Lozenges (Cepastat Lozenges) 1 khoi PO Q2H PRN PRN Reason: Sore Throat
[2018-08-10] MEDS ORDERED: HumaLOG 300 UNITS/3 ML VIAL SC PRN (12:49)
[2018-08-10] MEDS ORDERED: Dextrose 5% in Water 1,000 ML IV PRN (12:49)
[2018-08-10] MEDS ORDERED: Dextrose 50% Abboject 50 ML SYRINGE IVP PRN (12:49)
[2018-08-10] MEDS: Budesonide 0.5 MG/2 ML NEB INH SCH (19:08)
[2018-08-10] MEDS: Atorvastatin Calcium 10 MG TAB PO SCH (20:12)
[2018-08-10] MEDS: Montelukast Sodium 10 mg Tablet PO SCH (20:12)
[2018-08-11 00:43] LABS: Vancomycin, Trough 17.7 ug/mL
[2018-08-11] MEDS: Vancomycin HCl 1.5 GM in Sodium Chloride 0.9% 250 ML 300 ML IVPB SCH ×2 (00:57→14:21)
[2018-08-11] MEDS: Levothyroxine Sodium 25 MCG TAB PO SCH (05:50)
[2018-08-11] MEDS: Propafenone HCl 150 MG TAB PO SCH ×3 (05:50→22:09)
[2018-08-11] MEDS: Piperacillin/Tazobactam 4.5 GM in Sodium Chloride 0.9% 100 ML IVPB SCH ×3 (05:55→22:10)
[2018-08-11] MEDS: Budesonide 0.5 MG/2 ML NEB INH SCH ×2 (06:40→18:07)
[2018-08-11 08:26] LABS: #Lymphocytes 0.7 thou/uL (1.20-3.40); #Monocytes 0.2 thou/uL (0.11-0.59); #Neutrophils 7.3 thou/uL (1.40-6.50); %Basophils 0.6 % (0.0-1.0); %Eosinophils 0.1 % (0.0-10.0); %Lymphocytes 8.6 % (21.0-51.0); %Monocytes 1.9 % (0.0-10.0); %Neutrophils 88.8 % (42.0-75.0); Hemoglobin 11.6 g/dL (14.0-18.0); Mean Corpuscular HGB CONC 30.9 g/dL (32.0-36.0); Mean Corpuscular Hemoglobin 29.2 pg (27.0-31.0); Mean Corpuscular Volume 94.5 fL (78.0-98.0); Mean Platelet Volume 7.3 fL (7.4-10.4); Platelet Count 203 thou/uL (130-400); RBC Distribution Width 14.7 % (11.5-14.5); Red Blood Cell (RBC) Count 3.98 mill/uL (4.70-6.10); White Blood Cell (WBC) Count 8.2 thou/uL (4.8-10.8)
[2018-08-11] MEDS: Aspirin 81 mg Enteric Coated Tablet PO SCH (08:36)
[2018-08-11] MEDS: Apixaban 5 MG TAB PO SCH ×2 (08:36→19:55)
[2018-08-11] MEDS: Famotidine 20 MG TAB PO SCH ×2 (08:36→19:55)
[2018-08-11] MEDS: guaiFENesin ER 600 MG TAB PO SCH ×2 (08:36→19:55)
[2018-08-11] MEDS: Furosemide 80 MG TAB PO SCH (08:37)
[2018-08-11 08:57] LABS: ALT (SGPT) 12 U/L (8-55); AST (SGOT) 15 U/L (5-34); Albumin 3.2 g/dL (3.4-4.8); Alkaline Phosphatase 81 U/L (40-150); Anion Gap 14 mmol/L (10-20); BUN (Urea Nitrogen) 11 mg/dL (8.4-25.7); Bilirubin, Total 0.2 mg/dL (0.2-1.2); Calc. Creatinine Clearance 122 mL/min (70-130); Calcium 8.9 mg/dL (7.8-10.44); Carbon Dioxide 30 mmol/L (23-31); Chloride 94 mmol/L (98-107); Estimated GFR-MDRD 87; Globulin 2.7 g/dL (2.4-3.5); Glucose 133 mg/dL (83-110); Potassium 3.7 mmol/L (3.5-5.1); Protein, Total 5.9 g/dL (5.8-8.1); Sodium 134 mmol/L (136-145)
--- NOTE | 2018-08-11 10:56 | PDOC.PN ---
- Subjective Encounter Start Date: 08/11/18 Encounter Start Time: 08:05 Patient seen and examined. No new complaints. No overnight events - Objective MAR Reviewed: Yes Vital Signs & Weight: Vital Signs (12 hours) Temp Pulse Resp BP BP Pulse Ox 08/11/18 10:35 83 20 91 L 08/11/18 08:36 61 116/70 08/11/18 08:33 97.6 F 61 20 116/70 93 L 08/11/18 06:40 82 22 H 92 L 08/11/18 06:35 82 22 H 92 L 08/11/18 02:15 20 Weight Admit Weight 286 lb 8 oz Weight 286 lb 8 oz I&O: 08/10/18 08/11/18 08/12/18 06:59 06:59 06:59 Intake Total 740 1300 Output Total 250 950 Balance 490 350 Result Diagrams: 08/11/18 08:04 08/11/18 08:04 Additional Labs: Accuchecks 08/11/18 08/10/18 08/10/18 05:50 20:14 16:24 POC Glucose 142 H 169 H 163 H 08/10/18 11:16 POC Glucose 211 H Phys Exam - Physical Examination Constitutional: NAD HEENT: PERRLA, moist MMs, sclera anicteric, oral pharynx no lesions Neck: no JVD, supple tracheostomy+ Respiratory: no wheezing, no rales, no rhonchi Cardiovascular: RRR, no significant murmur, no rub Gastrointestinal: soft, non-tender, no distention, positive bowel sounds chronic stasis changes, cellulitis improving Neurological: non-focal, normal sensation, moves all 4 limbs Lymphatic: no nodes Psychiatric: normal affect, A&O x 3 Skin: no rash, normal turgor Dx/Plan (1) Cellulitis of right lower extremity Code(s): L03.115 - CELLULITIS OF RIGHT LOWER LIMB Status: Acute (2) CAD (coronary artery disease) Code(s): I25.10 - ATHSCL HEART DISEASE OF [place] CORONARY ARTERY W/O ANG PCTRS Status: Chronic Comment: (3) CKD (chronic kidney disease), stage III Status: Chronic Comment: (4) Chronic anticoagulation Code(s): Z79.01 - ACCELERATOR SYSTEMS DIRECTOR (CURRENT) USE OF ANTICOAGULANTS Status: Chronic (5) Chronic respiratory failure with hypercapnia Code(s): J96.12 - CHRONIC RESPIRATORY FAILURE WITH HYPERCAPNIA Status: Chronic (6) Dyslipidemia Code(s): E78.5 - HYPERLIPIDEMIA, UNSPECIFIED Status: Chronic (7) HTN (hypertension) Code(s): I10 - ESSENTIAL (PRIMARY) HYPERTENSION Status: Chronic Qualifiers: Comment: (8) Hypothyroidism Code(s): E03.9 - HYPOTHYROIDISM, UNSPECIFIED Status: Chronic Qualifiers: (9) WALI (obstructive sleep apnea) Code(s): G47.33 - OBSTRUCTIVE SLEEP APNEA (ADULT) (PEDIATRIC) Status: Chronic (10) Obesity (BMI 30-39.9) Code(s): E66.9 - OBESITY, UNSPECIFIED Status: Chronic (11) Tracheostomy status Code(s): Z93.0 - TRACHEOSTOMY STATUS Status: Chronic (12) Venous stasis dermatitis of both lower extremities Code(s): I87.2 - VENOUS INSUFFICIENCY (CHRONIC) (PERIPHERAL) Status: Chronic Comment: - Plan cont current plan of care, continue antibiotics * continue one more day iv antibiotics * medication reviewed as below * symptomatic treatment * overall stable and improving. Review of Systems - Review of Systems ENT: negative: Ear Pain, Ear Discharge, Nose Pain, Nose Discharge, Nose Congestion, Mouth Pain, Mouth Swelling, Throat Pain, Throat Swelling, Other Respiratory: negative: Cough, Dry, Shortness of Breath, Hemoptysis, SOB with Excertion, Pleuritic Pain, Sputum, Wheezing Cardiovascular: negative: chest pain, palpitations, orthopnea, paroxysmal nocturnal dyspnea, edema, light headedness, other Gastrointestinal: negative: Nausea, Vomiting, Abdominal Pain, Diarrhea, Constipation, Melena, Hematochezia, Other Genitourinary: negative: Dysuria, Frequency, Incontinence, Hematuria, Retention , Other Musculoskeletal: negative: Neck Pain, Shoulder Pain, Arm Pain, Back Pain, Hand Pain, Leg Pain, Foot Pain, Other Skin: negative: Rash, Lesions, Bridger, Bruising, Other - Medications/Allergies Allergies/Adverse Reactions: Allergies Allergy/AdvReac Type Severity Reaction Status Date / Time oseltamivir [From Tamiflu] Allergy Verified 07/24/18 06:48 Medications: Current Medications Acetaminophen (Tylenol) 650 mg PO Q4H PRN PRN Reason: Headache/Fever/Mild Pain (1-3) Last Admin: 08/11/18 00:59 Dose: 650 mg Acetaminophen (Tylenol) 650 mg [place] Q4H PRN PRN Reason: Headache/Fever/Mild Pain (1-3) Albuterol/Ipratropium (Duoneb) 3 ml NEB [id number] [facility] Last Admin: 08/11/18 10:35 Dose: 3 ml Apixaban (Eliquis) 5 mg PO BID [facility] Last Admin: 08/11/18 08:36 Dose: 5 mg Artificial Tears (Tears Naturale) 2 drop EA EYE PRN PRN PRN Reason: Dry Eyes Aspirin (Ecotrin) 81 mg PO DAILY [facility] Last Admin: 08/11/18 08:36 Dose: 81 mg Atorvastatin Calcium (Lipitor) 10 mg PO HS [facility] Last Admin: 08/10/18 20:12 Dose: 10 mg Budesonide (Pulmicort Neb Solution) 0.5 mg INH BID-RT [facility] Last Admin: 08/11/18 06:40 Dose: 0.5 mg Dextrose/Water (Dextrose 50%) 25 gm IVP PRN PRN PRN Reason: HYPOGLYCEMIA PROTOCOL Diltiazem HCl (Cardizem Cd) 120 mg PO DAILY [facility] Last Admin: 08/11/18 08:36 Dose: 120 mg Famotidine (Pepcid) 20 mg PO BID [facility] Last Admin: 08/11/18 08:36 Dose: 20 mg Furosemide (Lasix) 80 mg PO QAM [facility] Last Admin: 08/11/18 08:37 Dose: 80 mg Glucagon (Glucagon) 1 mg IM PRN PRN PRN Reason: HYPOGLYCEMIA PROTOCOL Guaifenesin (Mucinex) 1,200 mg PO Q12HR [facility] Last Admin: 08/11/18 08:36 Dose: 1,200 mg Guaifenesin (Robitussin Sf) 200 mg PO Q4H PRN PRN Reason: Cough Hydralazine HCl (Apresoline) 10 mg SLOW IVP Q4H PRN PRN Reason: SBP > 180 and HR < 70 Piperacillin Sod/Tazobactam (Sod 4.5 gm/ Sodium Chloride) 100 mls @ 200 mls/hr IVPB Q8HR [facility] Last Admin: 08/11/18 05:55 Dose: 100 mls Vancomycin HCl 1.5 gm/ Sodium (Chloride) 300 mls @ 200 mls/hr IVPB 0100,1300 [facility] Last Admin: 08/11/18 00:57 Dose: 300 mls Dextrose/Water (D5w) 1,000 mls @ 0 mls/hr IV INF PRN PRN Reason: HYPOGLYCEMIA PROTOCOL Insulin Human Lispro (Humalog) 0 units SC .MODERATE SLIDING SC PRN; Protocol PRN Reason: MODERATE SLIDING SCALE Last Admin: 08/10/18 12:57 Dose: 4 unit Levothyroxine Sodium (Synthroid) 25 mcg PO 0600 [facility] Last Admin: 08/11/18 05:50 Dose: 25 mcg Loperamide HCl (Imodium) 2 mg PO PRN PRN PRN Reason: Diarrhea/Loose Stools Loratadine (Claritin) 10 mg PO DAILYPRN PRN PRN Reason: Sinus Symptoms Lorazepam (Ativan) 1 mg PO BID PRN PRN Reason: Anxiety/Agitation Last Admin: 08/10/18 18:21 Dose: 1 mg Melatonin (Melatonin) 3 mg PO HS PRN PRN Reason: Insomnia Last Admin: 08/09/18 22:06 Dose: 3 mg Methylprednisolone Sodium Succinate (Solu-Medrol) 40 mg IVP Q6HR [facility] Last Admin: 08/11/18 05:52 Dose: 40 mg Metoclopramide HCl (Reglan) 5 mg IVP Q4H PRN PRN Reason: Nausea Mineral Oil/White Petrolatum (Eucerin Cream) 0 gm TOP BIDPRN PRN PRN Reason: Dry Skin Miscellaneous Medication (Pharmacy To Dose) 1 each IVPB PRN PRN PRN Reason: Pharmacy to dose Montelukast Sodium (Singulair) 10 mg PO QPM [facility] Last Admin: 08/10/18 20:12 Dose: 10 mg Propafenone HCl (Rythmol) 225 mg PO Q8HR [facility] Last Admin: 08/11/18 05:50 Dose: 225 mg Senna/Docusate Sodium (Senokot S) 2 tab PO BID PRN PRN Reason: Constipation Sodium Chloride (Flush - Normal Saline) 10 ml IVF Q12HR PRN PRN Reason: Saline Flush Sodium Chloride (Flush - Normal Saline) 10 ml IVF PRN PRN PRN Reason: Saline Flush Sodium Chloride ([place] Nasal [place] 0.65%) 0 ml EA NARE QIDPRN PRN PRN Reason: Nasal Congestion Spironolactone (Aldactone) 25 mg PO DAILY [facility] Throat Lozenges (Cepastat Lozenges) 1 khoi PO Q2H PRN PRN Reason: Sore Throat
[2018-08-11] MEDS: Lorazepam 1 MG TAB PO PRN (17:46)
[2018-08-11] MEDS: Atorvastatin Calcium 10 MG TAB PO SCH (19:55)
[2018-08-11] MEDS: Montelukast Sodium 10 mg Tablet PO SCH (19:55)
[2018-08-12] MEDS: Vancomycin HCl 1.5 GM in Sodium Chloride 0.9% 250 ML 300 ML IVPB SCH ×2 (00:50→12:19)
[2018-08-12] MEDS: Piperacillin/Tazobactam 4.5 GM in Sodium Chloride 0.9% 100 ML IVPB SCH ×2 (05:35→14:54)
[2018-08-12] MEDS: Levothyroxine Sodium 25 MCG TAB PO SCH (05:35)
[2018-08-12] MEDS: Budesonide 0.5 MG/2 ML NEB INH SCH (06:45)
[2018-08-12] MEDS: Apixaban 5 MG TAB PO SCH (08:12)
[2018-08-12] MEDS: Propafenone HCl 150 MG TAB PO SCH ×2 (08:12→14:56)
[2018-08-12] MEDS: Famotidine 20 MG TAB PO SCH (08:12)
[2018-08-12] MEDS: Furosemide 80 MG TAB PO SCH (08:13)
[2018-08-12] MEDS: Aspirin 81 mg Enteric Coated Tablet PO SCH (08:13)
[2018-08-12] MEDS: guaiFENesin ER 600 MG TAB PO SCH (08:13)
[2018-08-12 08:45] VITALS: TEMP 97.5
--- NOTE | 2018-08-12 11:02 | PDOC.PN ---
- Subjective Encounter Start Date: 08/12/18 Encounter Start Time: 08:20 Patient seen and examined. No new complaints. No overnight events - Objective MAR Reviewed: Yes Vital Signs & Weight: Vital Signs (12 hours) Temp Pulse Resp BP BP BP Pulse Ox 08/12/18 08:44 97.5 F L 58 L 20 159/95 H 93 L 08/12/18 08:12 68 153/81 H 08/12/18 06:45 70 16 08/12/18 04:00 98.0 F 68 22 H 152/89 H 92 L 08/12/18 02:18 73 18 94 L 08/12/18 01:34 92 L Weight Admit Weight 286 lb 8 oz Weight 286 lb 8 oz I&O: 08/11/18 08/12/18 08/13/18 06:59 06:59 06:59 Intake Total 1300 Output Total 950 Balance 350 Result Diagrams: 08/11/18 08:04 08/11/18 08:04 Additional Labs: Accuchecks 08/12/18 08/11/18 08/11/18 05:52 21:16 16:20 POC Glucose 129 H 132 H 137 H 08/11/18 11:38 POC Glucose 134 H Phys Exam - Physical Examination Constitutional: NAD HEENT: PERRLA, moist MMs, sclera anicteric Neck: no JVD, supple Respiratory: no wheezing, no rales, no rhonchi Cardiovascular: RRR, no significant murmur, no rub Gastrointestinal: soft, non-tender, no distention, positive bowel sounds Musculoskeletal: no edema, pulses present chronic change, cellulitis better Neurological: non-focal, normal sensation, moves all 4 limbs Lymphatic: no nodes Psychiatric: normal affect, A&O x 3 Skin: no rash, normal turgor Dx/Plan (1) Cellulitis of right lower extremity Code(s): L03.115 - CELLULITIS OF RIGHT LOWER LIMB Status: Acute (2) CAD (coronary artery disease) Code(s): I25.10 - ATHSCL HEART DISEASE OF [place] CORONARY ARTERY W/O ANG PCTRS Status: Chronic Comment: (3) CKD (chronic kidney disease), stage III Status: Chronic Comment: (4) Chronic anticoagulation Code(s): Z79.01 - PLATFORM BEATER (CURRENT) USE OF ANTICOAGULANTS Status: Chronic (5) Chronic respiratory failure with hypercapnia Code(s): J96.12 - CHRONIC RESPIRATORY FAILURE WITH HYPERCAPNIA Status: Chronic (6) Dyslipidemia Code(s): E78.5 - HYPERLIPIDEMIA, UNSPECIFIED Status: Chronic (7) HTN (hypertension) Code(s): I10 - ESSENTIAL (PRIMARY) HYPERTENSION Status: Chronic Qualifiers: Comment: (8) Hypothyroidism Code(s): E03.9 - HYPOTHYROIDISM, UNSPECIFIED Status: Chronic Qualifiers: (9) WALI (obstructive sleep apnea) Code(s): G47.33 - OBSTRUCTIVE SLEEP APNEA (ADULT) (PEDIATRIC) Status: Chronic (10) Obesity (BMI 30-39.9) Code(s): E66.9 - OBESITY, UNSPECIFIED Status: Chronic (11) Tracheostomy status Code(s): Z93.0 - TRACHEOSTOMY STATUS Status: Chronic (12) Venous stasis dermatitis of both lower extremities Code(s): I87.2 - VENOUS INSUFFICIENCY (CHRONIC) (PERIPHERAL) Status: Chronic Comment: - Plan cont current plan of care, continue antibiotics, PT/OT, social worker health services * medication reviewed as below * symptomatic treatment * see discharge aristides. Review of Systems - Review of Systems ENT: negative: Ear Pain, Ear Discharge, Nose Pain, Nose Discharge, Nose Congestion, Mouth Pain, Mouth Swelling, Throat Pain, Throat Swelling, Other Respiratory: negative: Cough, Dry, Shortness of Breath, Hemoptysis, SOB with Excertion, Pleuritic Pain, Sputum, Wheezing Cardiovascular: negative: chest pain, palpitations, orthopnea, paroxysmal nocturnal dyspnea, edema, light headedness, other Gastrointestinal: negative: Nausea, Vomiting, Abdominal Pain, Diarrhea, Constipation, Melena, Hematochezia, Other Genitourinary: negative: Dysuria, Frequency, Incontinence, Hematuria, Retention , Other Musculoskeletal: negative: Neck Pain, Shoulder Pain, Arm Pain, Back Pain, Hand Pain, Leg Pain, Foot Pain, Other - Medications/Allergies Allergies/Adverse Reactions: Allergies Allergy/AdvReac Type Severity Reaction Status Date / Time oseltamivir [From Tamiflu] Allergy Verified 07/24/18 06:48 Medications: Current Medications Acetaminophen (Tylenol) 650 mg PO Q4H PRN PRN Reason: Headache/Fever/Mild Pain (1-3) Last Admin: 08/11/18 00:59 Dose: 650 mg Acetaminophen (Tylenol) 650 mg [place] Q4H PRN PRN Reason: Headache/Fever/Mild Pain (1-3) Albuterol/Ipratropium (Duoneb) 3 ml NEB [id number] [facility] Last Admin: 08/12/18 06:45 Dose: 3 ml Apixaban (Eliquis) 5 mg PO BID [facility] Last Admin: 08/12/18 08:12 Dose: 5 mg Artificial Tears (Tears Naturale) 2 drop EA EYE PRN PRN PRN Reason: Dry Eyes Aspirin (Ecotrin) 81 mg PO DAILY [facility] Last Admin: 08/12/18 08:13 Dose: 81 mg Atorvastatin Calcium (Lipitor) 10 mg PO HS [facility] Last Admin: 08/11/18 19:55 Dose: 10 mg Budesonide (Pulmicort Neb Solution) 0.5 mg INH BID-RT [facility] Last Admin: 08/12/18 06:45 Dose: 0.5 mg Dextrose/Water (Dextrose 50%) 25 gm IVP PRN PRN PRN Reason: HYPOGLYCEMIA PROTOCOL Diltiazem HCl (Cardizem Cd) 120 mg PO DAILY [facility] Last Admin: 08/12/18 08:12 Dose: 120 mg Famotidine (Pepcid) 20 mg PO BID [facility] Last Admin: 08/12/18 08:12 Dose: 20 mg Furosemide (Lasix) 80 mg PO QAM [facility] Last Admin: 08/12/18 08:13 Dose: 80 mg Glucagon (Glucagon) 1 mg IM PRN PRN PRN Reason: HYPOGLYCEMIA PROTOCOL Guaifenesin (Mucinex) 1,200 mg PO Q12HR [facility] Last Admin: 08/12/18 08:13 Dose: 1,200 mg Guaifenesin (Robitussin Sf) 200 mg PO Q4H PRN PRN Reason: Cough Hydralazine HCl (Apresoline) 10 mg SLOW IVP Q4H PRN PRN Reason: SBP > 180 and HR < 70 Piperacillin Sod/Tazobactam (Sod 4.5 gm/ Sodium Chloride) 100 mls @ 200 mls/hr IVPB Q8HR [facility] Last Admin: 08/12/18 05:35 Dose: 100 mls Vancomycin HCl 1.5 gm/ Sodium (Chloride) 300 mls @ 200 mls/hr IVPB 0100,1300 [facility] Last Admin: 08/12/18 00:50 Dose: 300 mls Dextrose/Water (D5w) 1,000 mls @ 0 mls/hr IV INF PRN PRN Reason: HYPOGLYCEMIA PROTOCOL Insulin Human Lispro (Humalog) 0 units SC .MODERATE SLIDING SC PRN; Protocol PRN Reason: MODERATE SLIDING SCALE Last Admin: 08/10/18 12:57 Dose: 4 unit Levothyroxine Sodium (Synthroid) 25 mcg PO 0600 [facility] Last Admin: 08/12/18 05:35 Dose: 25 mcg Loperamide HCl (Imodium) 2 mg PO PRN PRN PRN Reason: Diarrhea/Loose Stools Loratadine (Claritin) 10 mg PO DAILYPRN PRN PRN Reason: Sinus Symptoms Lorazepam (Ativan) 1 mg PO BID PRN PRN Reason: Anxiety/Agitation Last Admin: 08/11/18 17:46 Dose: 1 mg Melatonin (Melatonin) 3 mg PO HS PRN PRN Reason: Insomnia Last Admin: 08/09/18 22:06 Dose: 3 mg Methylprednisolone Sodium Succinate (Solu-Medrol) 40 mg IVP Q6HR [facility] Last Admin: 08/12/18 05:35 Dose: 40 mg Metoclopramide HCl (Reglan) 5 mg IVP Q4H PRN PRN Reason: Nausea Mineral Oil/White Petrolatum (Eucerin Cream) 0 gm TOP BIDPRN PRN PRN Reason: Dry Skin Miscellaneous Medication (Pharmacy To Dose) 1 each IVPB PRN PRN PRN Reason: Pharmacy to dose Montelukast Sodium (Singulair) 10 mg PO QPM [facility] Last Admin: 08/11/18 19:55 Dose: 10 mg Propafenone HCl (Rythmol) 225 mg PO Q8HR [facility] Last Admin: 08/12/18 08:12 Dose: 225 mg Senna/Docusate Sodium (Senokot S) 2 tab PO BID PRN PRN Reason: Constipation Last Admin: 08/11/18 14:25 Dose: 2 tab Sodium Chloride (Flush - Normal Saline) 10 ml IVF Q12HR PRN PRN Reason: Saline Flush Sodium Chloride (Flush - Normal Saline) 10 ml IVF PRN PRN PRN Reason: Saline Flush Sodium Chloride ([place] Nasal [place] 0.65%) 0 ml EA NARE QIDPRN PRN PRN Reason: Nasal Congestion Spironolactone (Aldactone) 25 mg PO DAILY [facility] Throat Lozenges (Cepastat Lozenges) 1 khoi PO Q2H PRN PRN Reason: Sore Throat
--- NOTE | 2018-08-12 12:09 | DIS ---
DATE OF ADMISSION: 08/09/2018 DATE OF DISCHARGE: 08/12/2018 PRIMARY CARE PHYSICIAN: Finesse Black MD DISCHARGE DISPOSITION: [facility]. PRIMARY DISCHARGE DIAGNOSIS: Right lower extremity cellulitis. SECONDARY DISCHARGE DIAGNOSES: 1. Chronic venous stasis dermatitis of both lower extremity. 2. Tracheostomy status. 3. Obstructive sleep apnea. 4. Obesity with BMI 37. 5. Hypothyroidism. 6. Hypertension. 7. Dyslipidemia. 8. Chronic kidney disease, stage 3. 9. Chronic respiratory failure with hypoxia and hypercapnia. 10. Chronic anticoagulation. 11. Coronary artery disease. PRIMARY PROCEDURE/OPERATION: None. RADIOLOGICAL INVESTIGATION: Ultrasound lower extremity negative for DVT. Chest x-ray normal. SIGNIFICANT LABORATORY DATA: WBC 8.2, hemoglobin 11.6, platelet 203, sodium 134, potassium 3.7, chloride 94, carbon dioxide 30, BUN 11, creatinine 0.84, glucose 133, calcium 8.9. LFT normal. Urinalysis unremarkable. Blood culture negative. DISCHARGE MEDICATION: 1. Lipitor 10 mg p.o. at bedtime. 2. Lasix 80 mg p.o. daily. 3. Lorazepam 1 mg p.o. b.i.d. p.r.n. 4. Mucinex 1200 mg p.o. b.i.d. 5. Eliquis 5 mg p.o. b.i.d. 6. Aspirin 81 mg daily. 7. Keflex 500 mg t.i.d. for 7 days. 8. Cardizem CD 120 mg daily. 9. DuoNeb q.2 hourly p.r.n. 10. Synthroid 25 mcg p.o. daily. 11. Singulair 10 mg daily. 12. Rythmol 225 mg q.8 hourly. 13. Aldactone 25 mg p.o. daily. CONTRAINDICATION: None. CODE STATUS: Full code. INPATIENT HEALTH UNDERWRITER: None. ALLERGIES: TAMIFLU. DISCHARGE PLAN: Posthospital, the patient is discharged to [facility], subsequently patient will follow up with primary care physician. HOSPITAL COURSE: An 82-year-old male with above-mentioned medical problem, who was admitted by AGAPITO Major. Please see her H and P for further details. The patient was admitted for cellulitis. The patient has bilateral lower extremity stasis dermatitis, but right lower extremity was having predominant cellulitis. He was treated with broad-spectrum antibiotic therapy while in hospital with Rocephin and vancomycin. His culture remained negative. He required wound care while in the hospital. The patient was doing very well. By the time of discharge, we changed to Keflex upon discharge. Overall patient is medically stable for discharge, but the patient was requiring placement to swing bed and that is why with help of case management manager, we are discharging to [facility] swing bed. Paperwork for discharge done. Discharge medication reconciliation done. I spoke with the patient's and plan of care discussed with her as well. Total time spent on discharge day, 31 minutes. Job ID: [id number]
[2018-08-12 12:41] LABS: Vancomycin, Trough 22.9 ug/mL
[2018-08-12 14:58] VITALS: BP 170/92
[2018-08-13] MEDS ORDERED: Vancomycin HCl 1.25 GM in Sodium Chloride 0.9% 250 ML 250 ML IVPB SCH (01:00)
== END 2018-08-12 16:45 | disposition swing bed (61) | DRG 603 ==
LOC: ERS 15:24 → T4-A 19:48
PROVIDERS: ADMIT Internal Medicine; ATTEND Internal Medicine
DX: L03.115 Cellulitis of right lower limb (principal); J96.12 Chronic respiratory failure with hypercapnia; J96.11 Chronic respiratory failure with hypoxia; I42.9 Cardiomyopathy, unspecified; Z93.0 Tracheostomy status; G47.33 Obstructive sleep apnea (adult) (pediatric); I12.9 Hypertensive chronic kidney disease with stage 1 through stage 4 chronic kidney disease, or unspecified chronic kidney disease; I48.91 Unspecified atrial fibrillation; N18.3 Chronic kidney disease, stage 3 (moderate); I25.10 Atherosclerotic heart disease of native coronary artery without angina pectoris; I87.2 Venous insufficiency (chronic) (peripheral); J44.9 Chronic obstructive pulmonary disease, unspecified; E66.9 Obesity, unspecified; E78.5 Hyperlipidemia, unspecified; E03.9 Hypothyroidism, unspecified; Z68.37 Body mass index [BMI] 37.0-37.9, adult; Z79.01 Long term (current) use of anticoagulants; Z99.81 Dependence on supplemental oxygen; Z79.52 Long term (current) use of systemic steroids; Z87.891 Personal history of nicotine dependence
CPT/HCPCS: 36415; 36416; 71045; 80053; 80202; 81003; 81015; 83605; 83880; 85025; 87040; 93005; 93970; 94640; 96365; 96366; J2543; J2920; J3370; J7050; J7620; J7626

== ENCOUNTER 2018-08-28 09:23 | Emergency (ER) | payer MEDICARE, BC ==
[2018-08-28] MEDS ORDERED: Ondansetron PF 4 MG/2 ML Vial ONE (10:03)
[2018-08-28 10:06] LABS: #Eosinphils 0.1 thou/uL (0.0-0.7); #Lymphocytes 1.8 thou/uL (1.20-3.40); #Monocytes 0.5 thou/uL (0.11-0.59); #Neutrophils 3.8 thou/uL (1.40-6.50); %Basophils 0.6 % (0.0-1.0); %Lymphocytes 29.6 % (21.0-51.0); %Monocytes 7.2 % (0.0-10.0); %Neutrophils 60.7 % (42.0-75.0); Hemoglobin 12.5 g/dL (14.0-18.0); Mean Corpuscular HGB CONC 31.4 g/dL (32.0-36.0); Mean Corpuscular Hemoglobin 29.4 pg (27.0-31.0); Mean Corpuscular Volume 93.5 fL (78.0-98.0); Platelet Count 184 thou/uL (130-400); RBC Distribution Width 14.7 % (11.5-14.5); Red Blood Cell (RBC) Count 4.26 mill/uL (4.70-6.10); White Blood Cell (WBC) Count 6.2 thou/uL (4.8-10.8)
[2018-08-28 10:29] LABS: ALT (SGPT) 10 U/L (8-55); AST (SGOT) 17 U/L (5-34); Albumin 3.6 g/dL (3.4-4.8); Alkaline Phosphatase 98 U/L (40-150); Anion Gap 9 mmol/L (10-20); BUN (Urea Nitrogen) 13 mg/dL (8.4-25.7); Bilirubin, Total 0.5 mg/dL (0.2-1.2); CK (CPK) 21 U/L (30-200); Calc. Creatinine Clearance 0 mL/min (70-130); Calcium 9.4 mg/dL (7.8-10.44); Carbon Dioxide 33 mmol/L (23-31); Chloride 95 mmol/L (98-107); Estimated GFR-MDRD 63; Globulin 2.7 g/dL (2.4-3.5); Glucose 98 mg/dL (83-110); Lipase 13 U/L (8-78); Potassium 4.3 mmol/L (3.5-5.1); Protein, Total 6.3 g/dL (5.8-8.1); Sodium 133 mmol/L (136-145)
--- NOTE | 2018-08-28 10:55 | RAD ---
PORTABLE AP CHEST: Date: 08/28/18 HISTORY: Dyspnea. History of COPD. COMPARISON: 08/09/18. FINDINGS: Tracheostomy device remains in place. Cardiac silhouette is magnified by projection, but stable in si ze and does appear mildly enlarged. There is mild pulmonary vascular congestion present. No consolida tion or pleural fluid is seen. No other interval change. IMPRESSION: 1. Cardiomegaly and mild pulmonary vascular congestion. Clinical correlation for mild CHF is recomme nded. 2. Prominent bilateral glenohumeral osteoarthropathy. POS: [facility]
[2018-08-28] MEDS ORDERED: Azithromycin 250 MG TAB ONE (11:43)
== END 2018-08-28 12:43 | disposition home or self-care (01) ==
LOC: ERS 09:23
DX: J44.1 Chronic obstructive pulmonary disease with (acute) exacerbation (principal); E11.9 Type 2 diabetes mellitus without complications; I25.10 Atherosclerotic heart disease of native coronary artery without angina pectoris; I48.91 Unspecified atrial fibrillation; E03.9 Hypothyroidism, unspecified; G47.30 Sleep apnea, unspecified; I12.9 Hypertensive chronic kidney disease with stage 1 through stage 4 chronic kidney disease, or unspecified chronic kidney disease; N18.9 Chronic kidney disease, unspecified; Z87.891 Personal history of nicotine dependence; Z79.899 Other long term (current) drug therapy; Z79.51 Long term (current) use of inhaled steroids; Z79.82 Long term (current) use of aspirin
CPT/HCPCS: 36415; 71045; 80053; 82550; 83690; 83880; 84484; 85025; 93005; 94640; 96374; J2405; J7620

== ENCOUNTER 2018-09-13 13:55 | Inpatient (IN) | payer MEDICARE, BC ==
[2018-09-13] MEDS ORDERED: Sodium Chloride For Inhalation 0.9% 3 ML NEB ONE (14:43)
[2018-09-13] MEDS ORDERED: Albuterol Sulfate 2.5 mg/0.5 ml Neb ONE (14:43)
[2018-09-13] MEDS ORDERED: Furosemide 40 MG/4 ML VIAL ONE (15:09)
[2018-09-13] MEDS ORDERED: Dexamethasone 10 MG/ML VIAL ONE (15:09)
[2018-09-13] MEDS ORDERED: Aspirin Chewable 81 MG TAB ONE (15:09)
[2018-09-13] MEDS ORDERED: Ondansetron ODT 4 MG TAB SL PRN (19:20)
[2018-09-13] MEDS ORDERED: Acetaminophen 325 MG TAB PO PRN (19:20)
[2018-09-13] MEDS ORDERED: Ondansetron PF 4 MG/2 ML Vial IVP PRN ×2 (19:20→19:23)
[2018-09-13] MEDS ORDERED: Lorazepam 1 MG TAB PO PRN (19:23)
[2018-09-13] MEDS ORDERED: Dextrose 5% in Water 1,000 ML IV PRN (19:23)
[2018-09-13] MEDS ORDERED: HumaLOG 300 UNITS/3 ML VIAL SC PRN ×2 (19:23)
[2018-09-13] MEDS ORDERED: Dextrose 50% Abboject 50 ML SYRINGE SLOW IVP PRN (19:23)
[2018-09-13] MEDS ORDERED: Acetaminophen 500 MG TAB PO PRN (19:23)
[2018-09-13] MEDS ORDERED: Ondansetron ODT 4 MG TAB PO PRN (19:23)
[2018-09-13 19:51] VITALS: BMI 36.9
[2018-09-13] MEDS: guaiFENesin ER 600 MG TAB PO SCH (20:30)
[2018-09-13] MEDS: Piperacillin/Tazobactam 3.375 GM in Sodium Chloride 0.9% 100 ML IVPB SCH (20:30)
[2018-09-13] MEDS: Famotidine 20 MG TAB PO SCH (20:30)
[2018-09-13] MEDS: Montelukast Sodium 10 mg Tablet PO SCH (20:30)
[2018-09-13] MEDS: Propafenone HCl 150 MG TAB PO SCH (20:31)
[2018-09-13] MEDS: methylPREDNISolone Sod Succ 40 MG VIAL IVP SCH (20:31)
[2018-09-13] MEDS: Vancomycin HCl 1 GM in Premix Bag 1 BAG IVPB SCH (21:41)
--- NOTE | 2018-09-14 01:10 | HP ---
PRIMARY CARE PROVIDER: Finesse Black MD CHIEF COMPLAINT: Shortness of breath and left lower extremity pain. HISTORY OF PRESENT ILLNESS: This is an 82-year-old male, who presents to [facility] Emergency Department complaining of persistent swelling, redness, and open ulceration to the tomlinson on the left lower extremity. The patient was recently admitted to [facility] from 08/09/2018 through 08/12/2018 for right lower extremity cellulitis after recent leg trauma. The patient was treated with IV antibiotic therapy and discharged to [facility] for approximate 10-day hospital stay to complete antibiotic therapy with Keflex as well as receiving aggressive physical therapy. The patient was released home on 08/22/2018 with home health services and states he had been doing fairly well over the last several weeks. The patient noted increased swelling, redness, as well as open ulceration with drainage to the left tomlinson and states this progressed rapidly in the last 24 hours. The patient presented to the emergency room for further evaluation with open ulceration noted on the left lower extremity with purulent discharge. In the emergency room, the patient received IV Rocephin and vancomycin as well as Decadron and Lasix for shortness of breath. The patient's history is significant for chronic tracheostomy with chronic hypoxic respiratory failure, on oxygen supplementation by trach collar at 2 to 3 L/minute. The patient does admit to some increased shortness of breath over the last 24 to 48 hours due to weather changes. The patient underwent chest imaging in the emergency room showing pulmonary vascular prominence, but no acute infiltrate. The patient also underwent plain radiographs of the tibia and fibula of the left lower extremity showing subcutaneous edema consistent with cellulitis. PAST MEDICAL HISTORY: 1. Recurrent bilateral lower extremity cellulitis. 2. Generalized weakness with gait abnormality. 3. History of severe deconditioning. 4. Severe chronic obstructive pulmonary disease status post tracheostomy placement. 5. Chronic hypoxic respiratory failure with tracheostomy. 6. Obstructive sleep apnea. 7. Morbid obesity. 8. Prolonged hospitalization from 08/09/2018 through 08/22/2018 for bilateral lower extremity cellulitis. 9. Paroxysmal atrial fibrillation/atrial flutter. 10. Coronary artery disease, status post cardiac stent placement. 11. Morbid obesity. 12. Severe chronic venous insufficiency, bilateral lower extremities with chronic venous stasis dermatitis. 13. Hypertension. 14. Hypothyroidism. 15. Chronic kidney disease, stage 3. 16. Anxiety disorder. 17. Chronic anticoagulation with Eliquis. PAST SURGICAL HISTORY: 1. Status post cardiac catheterization with bare-metal stent placement. 2. Status post tracheostomy. 3. Status post cholecystectomy. CURRENT MEDICATIONS: 1. Lipitor 10 mg p.o. daily. 2. Lasix 80 mg p.o. daily. 3. Lorazepam 1 mg p.o. b.i.d. p.r.n. 4. Mucinex 1200 mg p.o. b.i.d. 5. Eliquis 5 mg p.o. b.i.d. 6. Aspirin 81 mg p.o. daily. 7. Cardizem CD 120 mg p.o. daily. 8. DuoNeb q.i.d. p.r.n. 9. Synthroid 25 mcg p.o. daily. 10. Singulair 10 mg p.o. daily. 11. Rythmol 225 mg p.o. t.i.d. 12. Aldactone 25 mg p.o. daily. 13. MiraLAX 17 g in 8 ounces of water daily. 14. Tylenol 500 mg p.o. q.6 hours p.r.n. 15. Spironolactone 25 mg p.o. daily. ALLERGIES: TO TAMIFLU CAUSING SKIN RASH. FAMILY HISTORY: Positive for hypertension and diabetes. SOCIAL HISTORY: The patient is , resides at home, but receives home health services with [facility]. Ambulates with a rolling walker. No current alcohol, tobacco, or illicit drug use. Remote tobacco use. REVIEW OF SYSTEMS: CONSTITUTIONAL: Negative for weight loss or gain, ability to conduct usual activities. SKIN: Negative for rash, itching. EYES: Negative for double vision, pain. ENT/MOUTH: Negative for nose bleeding, neck stiffness, pain, tenderness. CARDIOVASCULAR: Negative for palpitations, dyspnea on exertion, orthopnea. RESPIRATORY: Negative for shortness of breath, wheezing, cough, hemoptysis, fever or night sweats. GASTROINTESTINAL: Negative for poor appetite, abdominal pain, heartburn, nausea, vomiting, constipation, or diarrhea. GENITOURINARY: Negative for urgency, frequency, dysuria, nocturia. MUSCULOSKELETAL: Negative for pain, swelling. NEUROLOGIC/PSYCHIATRIC: Negative for anxiety, depression. ALLERGY/IMMUNOLOGIC: Negative for skin rash, bleeding tendency. Otherwise negative except as stated per HPI. PHYSICAL EXAMINATION: VITAL SIGNS: Currently, blood pressure 97/60, pulse 84, respiratory rate 30, temperature 97.8 degrees Fahrenheit, O2 saturation 90% on 3 L by trach collar. GENERAL APPEARANCE: This is an 82-year-old male alert, responsive, in [id number] respiratory distress. HEENT: Pupils are equal, round, reactive to light and accommodation. Extraocular muscles are intact. No scleral icterus. No conjunctival injection. Nares patent. OP is clear. NECK: Supple. Tracheostomy in place. Accessory muscle use noted. No palpable neck mass. Cervical spine with full active and passive range of motion. No meningeal signs noted. CHEST: Diminished breath sounds bilaterally. Expiratory wheeze occasionally noted. CARDIOVASCULAR: S1 and S2 with distant heart sounds. ABDOMEN: Obese, soft. Landmarks are difficult to palpate due to the patient's body habitus. No rebound or guarding noted. EXTREMITIES: Bilateral lower extremity edema, left greater than right. Left lower extremity with large area of erythema with two linear ulcerations exposing subcutaneous tissue with purulent drainage. Each linear open ulceration approximately 4-5 cm in length. Positive tenderness to palpation with fluctuance and edema noted to the knees bilaterally. Pulses are diminished distally at the dorsalis pedis and posterior tibial arteries. Chronic venous stasis changes noted at the dorsum of the feet as well as all toes. NEUROLOGIC: Cranial nerves 2 through 12 are grossly intact. No focal or lateralizing signs noted. PERTINENT LAB AND X-RAY FINDINGS: Sodium 134, potassium is 4.4, chloride 91, CO2 of 35, BUN 12, creatinine 1.12, estimated GFR of 63, glucose 93. LFTs within normal limits. BNP 58.3. TSH 3.15, 01/25/2018. CBC showed a white blood cell count of 7.5, hemoglobin 12, hematocrit 39, platelet count 215, with 69% neutrophils. Portable chest x-ray dated 09/13/2018, showed pulmonary vascular prominence. Tracheostomy in appropriate position. Left lower extremity tibia and fibula. Plain radiographs showed subcutaneous edema consistent with cellulitis. 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 EKG dated 09/13/2018, by my interpretation shows sinus rhythm with heart rates in the 60s. First-degree AV block noted. Normal axis. ST-segment flattening in leads V5 and V6. ASSESSMENT/PLAN: 1. Left lower extremity ulceration with cellulitis. The patient will be admitted to the medical floor. Open ulcerations noted x2 to the mid tomlinson. Continue vancomycin 1 g IV q.12 hours with additional Zosyn 3.375 g IV q.8 hours. Consult General Surgery Service in the a.m. for consideration of local debridement. Consult Wound Care Services for local care and dressing changes. 2. Acute on chronic hypoxic respiratory failure. We will continue oxygen supplementation to maintain O2 saturation greater than or equal to 90%. DuoNeb q.4 hours. Add Solu-Medrol 20 mg IV q.8 hours. Consult Pulmonology Service for any further recommendations and comanagement. 3. Chronic venous insufficiency with chronic venous stasis dermatitis. See #1 above. Wound Care Services for local care. Elevate lower extremity while in bed. Continue Lasix 20 mg IV daily. 4. Chronic anticoagulation. Hold Eliquis x24 hours pending general surgery evaluation and consideration for local debridement of left lower extremity. 5. Chronic kidney disease, stage 3. Avoid nephrotoxic agents and limit contrast exposure. Repeat creatinine. 6. Prophylaxis. Hold SCDs due to lower extremity edema. PT evaluation in the a.m. Respiratory therapy for tracheostomy maintenance. 7. Code status is full. Surrogate medical decision maker is the patient's spouse. Job ID: [id number]
[2018-09-14] MEDS: Piperacillin/Tazobactam 3.375 GM in Sodium Chloride 0.9% 100 ML IVPB SCH ×4 (01:48→19:48)
[2018-09-14 05:53] LABS: Anion Gap 12 mmol/L (10-20); BUN (Urea Nitrogen) 12 mg/dL (8.4-25.7); Calc. Creatinine Clearance 102 mL/min (70-130); Calcium 9.6 mg/dL (7.8-10.44); Carbon Dioxide 35 mmol/L (23-31); Chloride 93 mmol/L (98-107); Estimated GFR-MDRD 75; Glucose 144 mg/dL (83-110); Potassium 4.2 mmol/L (3.5-5.1); Sodium 136 mmol/L (136-145)
[2018-09-14 05:54] LABS: Band 8 % (5-11); Hemoglobin 11.7 g/dL (14.0-18.0); Lymphocytes 14 % (21-51); MDiff Complete? YES; Mean Corpuscular HGB CONC 31.4 g/dL (32.0-36.0); Mean Corpuscular Hemoglobin 29.2 pg (27.0-31.0); Mean Corpuscular Volume 92.9 fL (78.0-98.0); Mean Platelet Volume 7.3 fL (7.4-10.4); Neutrophil 78 % (42-75); Platelet Count 203 thou/uL (130-400); RBC Distribution Width 14.2 % (11.5-14.5); Red Blood Cell (RBC) Count 4.02 mill/uL (4.70-6.10); White Blood Cell (WBC) Count 6.2 thou/uL (4.8-10.8)
[2018-09-14] MEDS: Propafenone HCl 150 MG TAB PO SCH ×3 (05:58→21:13)
[2018-09-14] MEDS: methylPREDNISolone Sod Succ 40 MG VIAL IVP SCH ×3 (05:58→21:13)
[2018-09-14] MEDS: Levothyroxine Sodium 25 MCG TAB PO SCH (05:58)
[2018-09-14] MEDS: Furosemide 20 MG/2 ML VIAL SLOW IVP SCH (08:01)
[2018-09-14] MEDS: Vancomycin HCl 1 GM in Premix Bag 1 BAG IVPB SCH ×2 (08:01→21:12)
--- NOTE | 2018-09-14 09:58 | CON ---
DATE OF CONSULTATION: 09/14/2018 CONSULTING PHYSICIAN: Hospitalist Group. REASON FOR CONSULTATION: COPD. TIME SPENT: This encompassed 50 minutes OF time, of that time, greater than 50% was spent with the patient and/or the patient's unit in the hospital. HISTORY OF PRESENT ILLNESS: This IS AN 82-year-old male, who presented to the hospital with swelling and skin changes of his left lower leg consistent with cellulitis. Apparently, he was in the hospital in July for the same thing on the right and necessitated IV antibiotics as well as stay in swing bed at [facility] before being converted over to Keflex. Last night, he received Rocephin and vancomycin for the cellulitis. He says he has been coughing a little worse through his tracheostomy over the last 24 to 48 hours. He is also requesting that his tracheostomy be changed out. PAST MEDICAL HISTORY: 1. Cellulitis. 2. Severe chronic obstructive pulmonary disease. 3. Status post tracheostomy placement. 4. WALI. 5. Obesity. 6. Atrial fibrillation/flutter. 7. Coronary artery disease. 8. Chronic venous insufficiency. 9. Hypertension. 10. Hypothyroidism. 11. Chronic kidney disease, stage 3. 12. Anxiety disorder. PAST SURGICAL HISTORY: 1. Cardiac catheterization with stent placement. 2. Tracheostomy. 3. Cholecystectomy. MEDICATIONS: Prior to admission; 1. Lipitor 10 mg daily. 2. Lasix 80 mg daily. 3. Lorazepam 1 mg b.i.d. as needed. 4. Mucinex 1200 mg b.i.d. 5. Eliquis 5 mg b.i.d. 6. Aspirin 81 mg daily. 7. Cardizem CD 120 mg daily. 8. DuoNeb 4 times daily as needed. 9. Synthroid 25 mcg daily. 10. Singulair 10 mg daily. 11. Rythmol 225 mg t.i.d. 12. Aldactone 25 mg daily. 13. MiraLAX 17 g daily as needed. 14. Tylenol 500 mg every 6 hours as needed. ALLERGIES: TAMIFLU CAUSES A RASH. FAMILY MEDICAL HISTORY: Remarkable for hypertension and diabetes. SOCIAL HISTORY: Currently living at home with his and ambulates with a walker. Does not smoke, but did smoke heavily in the past. Does not use illicit drugs. Does not drink alcohol. REVIEW OF SYSTEMS: Remarkable for cough, congestion, low-grade fever, and leg swelling. Otherwise, 12-point review of systems negative. PHYSICAL EXAMINATION: VITAL SIGNS: Temperature 98.1, pulse 76, respirations 20, O2 sat 91% on trach collar, and blood pressure 123/57. GENERAL: He is a chronically ill-appearing male, who was in no overt distress. HEENT: Pupils are reactive. Sclerae are anicteric. Oropharynx is clear. NECK: No JVD. Tracheostomy in good position, looks clean. LUNGS: Good air movement. No wheezing. CARDIAC: S1 and S2. Irregularly irregular. No murmur. ABDOMEN: Obese, soft, and nontender. EXTREMITIES: He has a purplish decoloration from about his mid tomlinson level downward on the left. He also has discoloration on the right, but not to that extent. He has a well-healed necrotic lesion to the anterior tibial on the right. LABORATORY DATA: White blood cell count 6.2, hematocrit 37.4, and platelet count 203. Sodium 136, potassium 4.2, chloride 93, CO2 of 35, BUN 12, creatinine 0.9, and glucose 144. ASSESSMENT: 1. Left lower extremity cellulitis. 2. Chronic obstructive pulmonary disease. 3. Perhaps mild tracheitis. 4. Other medical problems as listed above. PLAN: 1. I have reviewed the orders, agree with antibiotics. I would encourage quick taper of the steroids. Continue breathing treatments as needed. 2. I will discuss with Dr. Metzger about changing the tracheostomy out. Thank you for the referral. Job ID: [id number]
[2018-09-14] MEDS: Famotidine 20 MG TAB PO SCH ×2 (14:22→19:49)
[2018-09-14] MEDS: Aspirin 81 mg Enteric Coated Tablet PO SCH (14:22)
[2018-09-14] MEDS: guaiFENesin ER 600 MG TAB PO SCH ×2 (14:22→19:50)
[2018-09-14] MEDS: Polyethylene Glycol 3350 17 GM Packet PO SCH (14:23)
--- NOTE | 2018-09-14 15:40 | CON ---
DATE OF CONSULTATION: 09/14/2018 CONSULTING PHYSICIAN: Dr. Dwight Bailey. REASON FOR CONSULTATION: Left leg cellulitis. HISTORY OF PRESENT ILLNESS: The patient is an 82-year-old morbidly obese white male. He was apparently recently treated for right lower extremity cellulitis here in this hospital from August 09 to August 12 and then in [place] until August 22. He was on IV antibiotics during that time. He was discharged home shortly thereafter. Sometime a couple of weeks ago, he fell and banged his left tomlinson against the door of his truck. He sustained a couple of lacerations to that area. I guess it is being treated at home until he presented to the emergency room yesterday. There was concern for further infection regarding this and for this reason, the patient was given IV antibiotics, admitted to the hospital by the hospitalist service and I am consulted. It is noted that since admission, the patient has been afebrile with his pulse between 68 and 85. He denies pain in the leg. Although, there was reference to purulent material coming from the wounds, no cultures were obtained (the reasons are not clear). PAST MEDICAL HISTORY: Extensive and includes obesity, deconditioning, COPD, morbid obesity, coronary artery disease, severe chronic venous insufficiency, hypertension, and chronic kidney disease. PAST SURGICAL HISTORY: Includes cholecystectomy and tracheostomy. MEDICATIONS: Extensive and are listed in the chart. He is apparently on Eliquis currently. His current antibiotics include Zosyn and vancomycin. ALLERGIES: TAMIFLU. PERSONAL AND SOCIAL HISTORY: He is . His son is present at bedside. He apparently lives in [place]. PHYSICAL EXAMINATION: VITAL SIGNS: He is afebrile. Vital signs within normal limits. GENERAL: He is an elderly obese male, resting in bed. He has a tracheostomy in place. Oxygen be delivered per tracheostomy. EXTREMITIES: Examination is limited to his left lower extremity. He has easily palpable pulse of his left femur. He has chronic venous insufficiency on his bilateral lower extremities from the knee distally. This may produce some brawny edema that makes it difficult to palpate pedal pulses. His feet, however, both warm. On the anterior aspect of his left tomlinson, there are a couple of transverse lacerations that are somewhat stellate, somewhat open. These appeared to be very superficial wounds. There is no purulence that I can discern. There is no evidence of acute infection of this. LABORATORY DATA: CBC is normal with a white blood cell count of 6 and hemoglobin of 11.7. ASSESSMENT AND PLAN: The patient with superficial lacerations to his anterior left lower leg. His skin is very thin at this area and is diseased secondary to his chronic venous insufficiency and morbid obesity. There does not appear to be any acute infectious problem. No debridement is necessary. This wound should be cleaned daily and dressed appropriately. They will have to be healing by secondary intention. This healing will likely take a lengthy period of time secondary to the diseased nature of the tissue. Job ID: [id number]
--- NOTE | 2018-09-14 16:13 | PDOC.PN ---
- Subjective Encounter Start Date: 09/14/18 Encounter Start Time: 16:05 Subjective: f/u LLE cellulitis on Zosyn/Vancomycin. Received local WCT with -: new dressings applied. States doing better overall. - Objective Resuscitation Status - Order Detail: 09/13/18 19:11 Resuscitation Status Routine Resuscitation Status: FULL: Full Resuscitation MAR Reviewed: Yes Vital Signs & Weight: Vital Signs (12 hours) Temp Pulse Resp BP BP Pulse Ox 09/14/18 14:29 80 20 09/14/18 11:00 98.1 F 68 20 104/65 92 L 09/14/18 10:19 85 20 94 L 09/14/18 08:14 91 L 09/14/18 07:38 98.1 F 76 20 123/57 L 91 L 09/14/18 06:26 81 24 H 95 09/14/18 05:19 98.1 F 75 20 121/85 95 Weight Admit Weight 272 lb 9 oz Weight 272 lb 9 oz I&O: 09/13/18 09/14/18 09/15/18 06:59 06:59 06:59 Intake Total 800 Output Total 1280 Balance -480 Result Diagrams: 09/14/18 05:20 09/14/18 05:20 Additional Labs: Accuchecks 09/14/18 09/14/18 09/13/18 11:22 05:19 19:50 POC Glucose 142 H 139 H 198 H Microbiology 09/13/18 11:10 Nasal swab Influenza Types A,B Direct EIA - Final 09/13/18 11:20 Venous blood - Right Arm Blood Culture - Preliminary Specimen has been received and culture in progress. No Growth to date. 09/13/18 11:15 Venous blood - Right Arm Blood Culture - Preliminary Specimen has been received and culture in progress. No Growth to date. 07/23/18 23:00 Venous blood - Right Hand Blood Culture - Preliminary NO GROWTH AT 48 HOURS 07/23/18 22:55 Venous blood - Right Arm Blood Culture - Preliminary NO GROWTH AT 48 HOURS Laboratory Tests 07/23/18 07/23/18 07/23/18 22:03 22:03 22:14 Hgb 13.1 L Sodium 125 L Creatinine 1.42 H B-Natriuretic Peptide 63.7 Phys Exam - Physical Examination alert, responsive, mild resp distress HEENT: PERRLA, sclera anicteric, oral pharynx no lesions + trach in place Neck: no nodes, no JVD, supple, full ROM diminished in bases distant heart sounds Cardiovascular: RRR, no significant murmur, no rub, gallop + obese Gastrointestinal: soft, non-tender, no distention, positive bowel sounds bilat LE edema and erythema, wound dressings in place LLE Musculoskeletal: pulses present, edema present Neurological: normal sensation, moves all 4 limbs Psychiatric: A&O x 3 Skin: normal turgor, cap refill <2 seconds Dx/Plan (1) Cellulitis of left lower extremity Code(s): L03.116 - CELLULITIS OF LEFT LOWER LIMB Status: Acute Comment: Acute/chronic cellulitis with chronic venous stasis changes, continue Zosyn/ Vancomycin, WCT for local care, elevate LE's while seated/bed (2) Laceration of left lower extremity Code(s): S81.812A - LACERATION WITHOUT FOREIGN BODY, LEFT LOWER LEG, INIT ENCNTR Status: Acute Comment: WCT for local care, no acute surgical intervention currently (3) Acute and chronic respiratory failure with hypoxia Code(s): J96.21 - ACUTE AND CHRONIC RESPIRATORY FAILURE WITH HYPOXIA Status: Acute Comment: Continue O2 via T-collar, appreciate Pulmonology assistance, continue Solumedrol, Duonebs (4) Venous stasis dermatitis of both lower extremities Code(s): I87.2 - VENOUS INSUFFICIENCY (CHRONIC) (PERIPHERAL) Status: Chronic Comment: Lasix daily, local care of LE's, WCT (5) Chronic anticoagulation Code(s): Z79.01 - SENIOR CARE (CURRENT) USE OF ANTICOAGULANTS Status: Chronic Comment: Continue Eliquis 5mg BID (6) CKD (chronic kidney disease), stage III Status: Chronic Comment: Avoid nephrotoxic meds and limit contrast exposure - Plan continue antibiotics, 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
[2018-09-14] MEDS: Apixaban 5 MG TAB PO SCH (19:49)
[2018-09-14] MEDS: Montelukast Sodium 10 mg Tablet PO SCH (19:50)
[2018-09-15] MEDS: Piperacillin/Tazobactam 3.375 GM in Sodium Chloride 0.9% 100 ML IVPB SCH ×4 (01:24→20:07)
[2018-09-15] MEDS: Levothyroxine Sodium 25 MCG TAB PO SCH (05:05)
[2018-09-15] MEDS: methylPREDNISolone Sod Succ 40 MG VIAL IVP SCH ×3 (05:06→21:50)
[2018-09-15] MEDS: Propafenone HCl 150 MG TAB PO SCH ×3 (05:07→21:07)
[2018-09-15 08:46] LABS: Hemoglobin 11.5 g/dL (14.0-18.0); Mean Corpuscular HGB CONC 31.3 g/dL (32.0-36.0); Mean Corpuscular Hemoglobin 28.7 pg (27.0-31.0); Mean Corpuscular Volume 91.7 fL (78.0-98.0); Mean Platelet Volume 7.3 fL (7.4-10.4); Platelet Count 230 thou/uL (130-400); RBC Distribution Width 14.3 % (11.5-14.5); Red Blood Cell (RBC) Count 4.02 mill/uL (4.70-6.10); White Blood Cell (WBC) Count 9.9 thou/uL (4.8-10.8)
[2018-09-15] MEDS: Famotidine 20 MG TAB PO SCH ×2 (08:55→20:07)
[2018-09-15] MEDS: guaiFENesin ER 600 MG TAB PO SCH ×2 (08:55→20:07)
[2018-09-15] MEDS: Furosemide 20 MG/2 ML VIAL SLOW IVP SCH (08:55)
[2018-09-15] MEDS: Aspirin 81 mg Enteric Coated Tablet PO SCH (08:55)
[2018-09-15] MEDS: Apixaban 5 MG TAB PO SCH ×2 (08:55→20:07)
[2018-09-15] MEDS: Polyethylene Glycol 3350 17 GM Packet PO SCH (08:59)
[2018-09-15] MEDS: Vancomycin HCl 1 GM in Premix Bag 1 BAG IVPB SCH (09:00)
[2018-09-15 09:04] LABS: Anion Gap 12 mmol/L (10-20); BUN (Urea Nitrogen) 15 mg/dL (8.4-25.7); Calc. Creatinine Clearance 103 mL/min (70-130); Calcium 9.3 mg/dL (7.8-10.44); Carbon Dioxide 33 mmol/L (23-31); Chloride 94 mmol/L (98-107); Estimated GFR-MDRD 76; Glucose 112 mg/dL (83-110); Potassium 4.2 mmol/L (3.5-5.1); Sodium 135 mmol/L (136-145); Vancomycin, Trough 13.6 ug/mL
[2018-09-15] MEDS: Vancomycin HCl 1.25 GM in Sodium Chloride 0.9% 250 ML 250 ML IVPB SCH ×2 (10:11→21:44)
[2018-09-15 11:23] LABS: Band 2 % (5-11); Eosinophils 1 % (0-10); Lymphocytes 12 % (21-51); MDiff Complete? YES; Neutrophil 85 % (42-75); RBC Morphology Normal
--- NOTE | 2018-09-15 12:07 | PDOC.PN ---
- Subjective Encounter Start Date: 09/15/18 Encounter Start Time: 12:05 Patient seen and examined, no family at bedside, no major issues per nursing staff. - Objective Resuscitation Status - Order Detail: 09/13/18 19:11 Resuscitation Status Routine Resuscitation Status: FULL: Full Resuscitation Vital Signs & Weight: Vital Signs (12 hours) Temp Pulse Resp BP Pulse Ox 09/15/18 09:33 64 18 92 L 09/15/18 09:12 93 L 09/15/18 07:26 98.2 F 67 20 137/71 93 L 09/15/18 06:16 69 20 93 L 09/15/18 06:00 93 L 09/15/18 05:36 98 F 69 16 122/73 92 L 09/15/18 02:45 62 20 92 L 09/15/18 00:38 98 F 65 16 109/66 92 L Weight Admit Weight 272 lb 9 oz Weight 272 lb 9 oz I&O: 09/14/18 09/15/18 09/16/18 06:59 06:59 06:59 Intake Total 800 1750 Output Total 1280 1430 Balance -480 320 Result Diagrams: 09/15/18 08:10 09/15/18 08:10 Additional Labs: Accuchecks 09/15/18 09/15/18 09/15/18 11:23 05:16 00:38 POC Glucose 130 H 120 H 116 H 09/14/18 09/14/18 09/14/18 22:05 16:51 11:22 POC Glucose 129 H 149 H 142 H Phys Exam - Physical Examination Constitutional: NAD HEENT: PERRLA, moist MMs, sclera anicteric Respiratory: wheezing present cparse breath sounds tachycardic faint murmur appreciated Gastrointestinal: soft, non-tender, no distention Musculoskeletal: pulses present, edema present (trace) Dx/Plan (1) Acute and chronic respiratory failure with hypoxia Code(s): J96.21 - ACUTE AND CHRONIC RESPIRATORY FAILURE WITH HYPOXIA Status: Acute Comment: Continue O2 via T-collar, appreciate Pulmonology assistance, continue Solumedrol, Duonebs (2) Cellulitis of left lower extremity Code(s): L03.116 - CELLULITIS OF LEFT LOWER LIMB Status: Acute Comment: Acute/chronic cellulitis with chronic venous stasis changes, continue Zosyn/ Vancomycin, WCT for local care, elevate LE's while seated/bed (3) Laceration of left lower extremity Code(s): S81.812A - LACERATION WITHOUT FOREIGN BODY, LEFT LOWER LEG, INIT ENCNTR Status: Acute Comment: WCT for local care, no acute surgical intervention currently (4) HTN (hypertension) Code(s): I10 - ESSENTIAL (PRIMARY) HYPERTENSION Status: Chronic Qualifiers: Comment: (5) WALI (obstructive sleep apnea) Code(s): G47.33 - OBSTRUCTIVE SLEEP APNEA (ADULT) (PEDIATRIC) Status: Chronic (6) Obesity (BMI 30-39.9) Code(s): E66.9 - OBESITY, UNSPECIFIED Status: Chronic (7) Venous stasis dermatitis of both lower extremities Code(s): I87.2 - VENOUS INSUFFICIENCY (CHRONIC) (PERIPHERAL) Status: Chronic Comment: Rohan daily, local care of LE's, WCT - Plan * cont current management * DC plans to swing bed in [place] per family request in AM if possible to arrange * no other changes in plan of care * plan d/w CM * no family at bedside.
--- NOTE | 2018-09-15 16:29 | PRG ---
DATE OF SERVICE: 09/15/2018 SUBJECTIVE: Justin Bailey has no new complaints today. OBJECTIVE: VITAL SIGNS: He is afebrile. Heart rate is in the 60s, respiratory rate is 20, oximetry is 95% on trach collar, blood pressure 123/91. LUNGS: Clear. HEART: Regular rhythm. ABDOMEN: Soft. EXTREMITIES: His ulcer on his lower extremities bandaged. IMPRESSION: 1. Chronic obstructive pulmonary disease. 2. Obesity and deconditioning. 3. Status post tracheostomy in place since an episode of respiratory failure several years back. 4. Chronic stasis changes in both lower extremities. Surgery is consulted and did not feel that his lower extremity needed debridement. A dressing is in place. PLAN: We will continue to follow. He needs to have his tracheostomy tube changed while he is here. He only has a cuffed tube in the room. I will order a trach to the bedside. Job ID: [id number]
[2018-09-15] MEDS: Montelukast Sodium 10 mg Tablet PO SCH (20:07)
[2018-09-16] MEDS: Piperacillin/Tazobactam 3.375 GM in Sodium Chloride 0.9% 100 ML IVPB SCH ×3 (01:58→14:14)
[2018-09-16] MEDS: methylPREDNISolone Sod Succ 40 MG VIAL IVP SCH ×2 (05:22→14:14)
[2018-09-16] MEDS: Propafenone HCl 150 MG TAB PO SCH ×2 (05:22→14:12)
[2018-09-16] MEDS: Levothyroxine Sodium 25 MCG TAB PO SCH (05:23)
[2018-09-16 06:55] LABS: #Basophils 0.1 thou/uL (0.0-0.2); #Lymphocytes 1.5 thou/uL (1.20-3.40); #Monocytes 0.6 thou/uL (0.11-0.59); #Neutrophils 6.8 thou/uL (1.40-6.50); %Basophils 1.3 % (0.0-1.0); %Eosinophils 0.2 % (0.0-10.0); %Monocytes 7.1 % (0.0-10.0); %Neutrophils 75.5 % (42.0-75.0); Hemoglobin 11.5 g/dL (14.0-18.0); Mean Corpuscular HGB CONC 31.1 g/dL (32.0-36.0); Mean Corpuscular Hemoglobin 29.3 pg (27.0-31.0); Mean Corpuscular Volume 94.4 fL (78.0-98.0); Mean Platelet Volume 7.3 fL (7.4-10.4); Platelet Count 225 thou/uL (130-400); RBC Distribution Width 14.3 % (11.5-14.5); Red Blood Cell (RBC) Count 3.91 mill/uL (4.70-6.10); White Blood Cell (WBC) Count 9.1 thou/uL (4.8-10.8)
[2018-09-16 07:06] LABS: Anion Gap 8 mmol/L (10-20); BUN (Urea Nitrogen) 17 mg/dL (8.4-25.7); Calc. Creatinine Clearance 108 mL/min (70-130); Calcium 9.4 mg/dL (7.8-10.44); Carbon Dioxide 37 mmol/L (23-31); Chloride 95 mmol/L (98-107); Estimated GFR-MDRD 80; Glucose 107 mg/dL (83-110); Potassium 4.3 mmol/L (3.5-5.1); Sodium 136 mmol/L (136-145)
[2018-09-16] MEDS: Apixaban 5 MG TAB PO SCH (08:18)
[2018-09-16] MEDS: Polyethylene Glycol 3350 17 GM Packet PO SCH (08:18)
[2018-09-16] MEDS: Aspirin 81 mg Enteric Coated Tablet PO SCH (08:18)
[2018-09-16] MEDS: Famotidine 20 MG TAB PO SCH (08:18)
[2018-09-16] MEDS: Furosemide 20 MG/2 ML VIAL SLOW IVP SCH (08:18)
[2018-09-16] MEDS: guaiFENesin ER 600 MG TAB PO SCH (08:19)
--- NOTE | 2018-09-16 09:57 | PRG ---
DATE OF SERVICE: 09/16/2018 SUBJECTIVE: Justin Bailey has no complaints. He is tentatively scheduled to go to rehab today. OBJECTIVE: VITAL SIGNS: He is afebrile. Heart rate 66, respiratory rate is 20, oximetry is 94%, he has been on his trach collar. Blood pressure 133/89. LUNGS: Clear. HEART: Regular rhythm. ABDOMEN: Soft. EXTREMITIES: Wounds are bandaged. LABORATORY DATA: White count 9.1, hemoglobin 11.5, and platelets 325. Sodium 136, potassium 4.3, chloride 95, bicarb 37, BUN 17, and creatinine 0.91. IMPRESSION: 1. Chronic obstructive pulmonary disease. 2. Status post respiratory failure years ago with a permanent tracheostomy. He never did tolerate capping his trach or downsizing his trach from shortness of breath standpoint. 3. Obesity. 4. Sleep apnea that was untreated prior to placement of his trach. 5. Chronic stasis changes in his lower extremities with wounds related to that, but are not felt to be acutely infected per Dr. Amezcua' note. He is stable for transfer to [facility]. He will have his tracheostomy tube exchanged today. He has a matured tract, so there should be no issues. Job ID: [id number]
[2018-09-16] MEDS: Vancomycin HCl 1.25 GM in Sodium Chloride 0.9% 250 ML 250 ML IVPB SCH (10:03)
--- NOTE | 2018-09-16 11:00 | PDOC.EVN ---
Event Note - Event Note Event Note: DC SUMMARY #[id number]
--- NOTE | 2018-09-16 13:14 | DIS ---
DATE OF ADMISSION: 09/13/2018 DATE OF DISCHARGE: 09/16/2018 ADMITTING DIAGNOSES: 1. Chronic obstructive pulmonary disease. 2. Hypertension. 3. Hyperlipidemia. 4. Atrial fibrillation. 5. Coronary artery disease. 6. Chronic venous insufficiency. 7. Hypothyroidism. 8. Chronic kidney disease, stage 3. 9. Cellulitis. DISCHARGE DIAGNOSES: 1. Chronic obstructive pulmonary disease. 2. Hypertension. 3. Hyperlipidemia. 4. Atrial fibrillation. 5. Coronary artery disease. 6. Chronic venous insufficiency. 7. Hypothyroidism. 8. Chronic kidney disease, stage 3. 9. Cellulitis. HOSPITAL COURSE: This is an 82-year-old male, who was admitted to the hospital given cellulitic skin changes in the left lower extremity, was admitted to Internal Medicine Team, followed also very closely by Surgery and Pulmonary team. The patient had trach collar, which was replaced during his admission here. The patient was started on IV antibiotics with Zosyn and vancomycin. The patient had significant improvement of his white count as well as vital signs being stable. No fevers noted. The patient's vanc trough was noted to be at 14, therapeutic for his body size and medical condition. Plan at time of discharge to swing bed, per request of family, patient was stable. Denied any nausea, vomiting, diarrhea, constipation, chest pain, fevers, or shortness of breath. The patient was to continue with Zosyn and vanc at the outpatient swing bed to be discontinued upon approval of the PCP at that facility. Case and plan discussed with the patient at length. He understood and agreed with this plan. Patient's trach collar was also exchanged prior to discharge. DISPOSITION: To swing bed at [place] per family request. CONDITION: Stable. PROGNOSIS: Guarded. FOLLOWUP: Follow up with PCP and Pulmonary within 1 to 2 weeks. DIET: Low-fat, low-calorie, high-fiber diet. ACTIVITY: As tolerated with assistance as needed. MEDICATIONS: See MAR. Case and plan discussed with patient at length. He understood and agreed with this plan. Job ID: [id number]
[2018-09-16 16:42] VITALS: BP 128/75; TEMP 98
== END 2018-09-16 17:18 | disposition swing bed (61) | DRG 602 ==
LOC: ERS 13:55 → ERHOLD 15:50 → T4-A 18:57 → OBSVTOIN 19:23
PROVIDERS: ADMIT Family Medicine; ATTEND Family Medicine
DX: L03.116 Cellulitis of left lower limb (principal); J96.21 Acute and chronic respiratory failure with hypoxia; I87.8 Other specified disorders of veins; I12.9 Hypertensive chronic kidney disease with stage 1 through stage 4 chronic kidney disease, or unspecified chronic kidney disease; N18.3 Chronic kidney disease, stage 3 (moderate); E03.9 Hypothyroidism, unspecified; F41.9 Anxiety disorder, unspecified; E66.01 Morbid (severe) obesity due to excess calories; Z68.37 Body mass index [BMI] 37.0-37.9, adult; I25.10 Atherosclerotic heart disease of native coronary artery without angina pectoris; I48.0 Paroxysmal atrial fibrillation; G47.33 Obstructive sleep apnea (adult) (pediatric); J04.10 Acute tracheitis without obstruction; Z79.01 Long term (current) use of anticoagulants; S81.812A Laceration without foreign body, left lower leg, initial encounter
CPT/HCPCS: 36415; 36416; 80048; 80202; 85007; 85025; 85027; 93005; 94640; 94644; 94760; J1100; J1940; J2543; J2920; J3370; J7050; J7611; J7620

== ENCOUNTER 2019-02-18 12:22 | Inpatient (IN) | payer MEDICARE, BC ==
[2019-02-18] MEDS ORDERED: Piperacillin/Tazobactam 4.5 GM VIAL ONE (13:32)
[2019-02-18] MEDS ORDERED: Magnesium 2 GM/50 ML BAG (IN WATER) ONE (13:32)
[2019-02-18 13:35] LABS: Actual Bicarbonate (HCO3a) 29.1 mEq/L (22-28); Analyzer IN Cardio ER; Base Excess (BEa) 2.2 mEq/L (-2.0 to +3.0); CO2 Tension 54.6 mmHg (35.0-45.0); Carboxyhemoglobin (COHb) 0.8 gm% (0.0-3.0); O2 Tension (PaO2) 80.8 mmHg (> 60.0); Potassium - ABG Lab 3.89 mmol/L (3.70-5.30); pH, Arterial 7.34 (7.35-7.45)
[2019-02-18 13:36] LABS: Puncture Site RR
[2019-02-18] MEDS ORDERED: Ondansetron PF 4 MG/2 ML Vial IVP PRN (14:37)
[2019-02-18] MEDS ORDERED: HYDROcodone/Acetaminophen 5/325 mg Tablet PO PRN (14:37)
[2019-02-18] MEDS ORDERED: Acetaminophen 325 MG TAB PO PRN (14:37)
[2019-02-18] MEDS ORDERED: Ondansetron ODT 4 MG TAB PO PRN (14:37)
--- NOTE | 2019-02-18 15:17 | CT ---
EXAM: CTA of the chest HISTORY: Shortness of breath COMPARISON: 05/19/2018 TECHNIQUE: Multiple contiguous axial images were obtained a CTA of the chest with contrast per pulmon kylah embolism protocol. 3-D oblique MIP reformats and direct coronal reformats were performed. FINDINGS: HEART: Normal in size without focal cardiac abnormality. PULMONARY ARTERIES: Normal in caliber without filling defects to suggest pulmonary emboli. MEDIASTINUM: No hilar or mediastinal lymphadenopathy. LUNGS: Atelectasis is seen in the lung bases. A superimposed left lower lobe infiltrate cannot be ent irely excluded. A tracheostomy is seen with its tip in good position within the trachea. PLEURAL SPACE: No pleural effusion or pneumothorax. CHEST WALL SOFT TISSUES: Unremarkable VISUALIZED OSSEOUS STRUCTURES: Degenerative changes in the spine and shoulders. VISUALIZED SUBDIAPHRAGMATIC STRUCTURES: Status post cholecystectomy. The visualized structures are un remarkable. IMPRESSION: 1. No evidence of pulmonary thromboembolism 2. Bibasilar atelectasis with possible superimposed left lower lobe infiltrate
--- NOTE | 2019-02-18 15:23 | CT ---
EXAM: CT neck with contrast HISTORY: Respiratory distress and sore throat COMPARISON: None TECHNIQUE: Multiple contiguous axial images were obtained and a CT of the neck with contrast. Sagitta l and coronal reformats were performed. FINDINGS: No mucosal abnormality is seen in the nasopharynx, oropharynx, hypopharynx, or subglottic regions. Th e bilateral parapharyngeal spaces are symmetric. No cervical adenopathy is seen. The salivary glands are symmetric thousand focal abnormality. Hypodensities are seen in both thyroid lobes measuring up to 9 mm in size which may represent small n odules or cysts. A tracheostomy is seen in good position with its tip in the trachea. Calcifications are seen in the carotid arteries. Degenerative changes are seen in the spine. The visualized intracranial structures are unremarkable. IMPRESSION: 1. No evidence of acute soft tissue abnormality of the neck. 2. Thyroid hypodensities may represent small nodules or cysts.
[2019-02-18] MEDS ORDERED: ISOVUE-370 76%-LOCM 1 ML ONE (16:15)
[2019-02-18] MEDS ORDERED: Chloraseptic Spray 180 ml Bottle PO PRN (17:35)
[2019-02-18 17:54] VITALS: BMI 32.5
[2019-02-18] MEDS ORDERED: Azithromycin 500 MG in Sodium Chloride 0.9% 250 ML 250 ML IVPB SCH (18:00)
[2019-02-18 18:11] LABS: Hemoglobin 13.6 g/dL (14.0-18.0); Mean Corpuscular HGB CONC 32.4 g/dL (32.0-36.0); Mean Corpuscular Hemoglobin 28.2 pg (27.0-31.0); Mean Corpuscular Volume 86.9 fL (78.0-98.0); Mean Platelet Volume 7.2 fL (7.4-10.4); Platelet Count 215 thou/uL (130-400); RBC Distribution Width 14.5 % (11.5-14.5); Red Blood Cell (RBC) Count 4.84 mill/uL (4.70-6.10); White Blood Cell (WBC) Count 4.3 thou/uL (4.8-10.8)
[2019-02-18] MEDS ORDERED: hydrALAZINE 20 MG/ML VIAL SLOW IVP PRN (18:21)
[2019-02-18 18:33] LABS: Albumin 3.6 g/dL (3.4-4.8); Anion Gap 13 mmol/L (10-20); BUN (Urea Nitrogen) 15 mg/dL (8.4-25.7); BUN/Creatinine Ratio 14.71; Calc. Creatinine Clearance 85 mL/min (70-130); Calcium 9.5 mg/dL (7.8-10.44); Carbon Dioxide 32 mmol/L (23-31); Chloride 92 mmol/L (98-107); Estimated GFR-MDRD 70; Glucose 139 mg/dL (83-110); Phosphorus 4.1 mg/dL (2.3-4.7); Potassium 3.8 mmol/L (3.5-5.1); Sodium 133 mmol/L (136-145)
--- NOTE | 2019-02-18 19:19 | HP ---
CHIEF COMPLAINT: Shortness of breath. HISTORY OF PRESENT ILLNESS: Mr. Bailey is a very pleasant 83-year-old white male with past medical history of COPD, chronic tracheostomy since 2010, atrial fibrillation, coronary artery disease, elevated BMI, sleep apnea, chronic kidney disease, hyperlipidemia, and degenerative disk disease/osteoarthritis, who presents on 02/18/2019 to [facility] for shortness of breath. The patient initially presenting to [facility] and was transferred to higher level of care. The patient with tracheostomy. There was concern for acute pulmonary embolism and a CT angiography of the chest was performed, please see full report for details. There is no acute pulmonary embolism; however, it does demonstrate bibasilar atelectasis with possible superimposed left lower lobe infiltrate. This is consistent with acute COPD exacerbation. The patient does endorse worsening cough with productive sputum, wheezing, and he has had a sore throat. The patient also endorsing some neck discomfort, tracheostomy. There was concern for tracheal pathology and a CT of the neck was performed, please see full report for details. There is no acute evidence of acute soft tissue abnormality of the neck. The patient was seen and examined in the emergency department. He is lying flat, in no apparent distress. The patient is now saturating well with oxygen being supplied to his tracheostomy via a nasal cannula with an aerosolized adaptor in between. The patient is alert and oriented x3 and has good insight into his clinical condition. The patient is able to talk with tracheostomy, though some words are difficult to hear. When the patient does repeat himself, a thorough history was obtained. The patient's brother at bedside able to aid in history. The patient was admitted to medical unit with telemetry for further evaluation and treatment. The patient was started on pulmonary-specific antibiotics; DuoNeb nebulizer therapy, scheduled on p.r.n.; and IV steroids for acute COPD exacerbation. Pulmonology consultation has been requested for further recommendations. The patient does endorse worsening lower extremity edema over the past several days. The patient states that left leg has been more swollen than the right and it does have some redness and irritation. The patient does state that he bumped his leg getting out of the truck and that is what the skin lesion is from. PAST MEDICAL HISTORY: 1. COPD. 2. Tracheostomy since 2010. 3. Coronary artery disease. 4. Atrial fibrillation. 5. Elevated BMI. 6. Obstructive sleep apnea. 7. Chronic kidney disease. 8. Osteoarthritis. MEDICATIONS: Please see full home medication list for details. ALLERGIES: OSELTAMIVIR. REVIEW OF SYSTEMS: A 10-point review of systems was obtained and negative aside from history of present illness. PHYSICAL EXAMINATION: GENERAL: The patient is alert and oriented, no apparent distress. Saturating well on nasal cannula, which is sitting in front of the patient's tracheostomy site. VITAL SIGNS: Blood pressure 128/77, pulse 76, O2 saturations 96% on 3L nasal cannula, respirations 26, temperature 97.5. HEENT: Oral mucosa is moist. There are no lesions on the tongue. There are no exudates on the back of the throat. There is no erythema or inflammation on the back of the throat. Trach is in position and there is no obvious bleeding or infection around tracheostomy site. NECK: Supple. Tracheostomy in place. CARDIAC: The patient has an irregularly irregular rhythm with S1 and S2 present with a normal rate. There is no appreciated murmurs, rubs, or gallops. LUNGS: The patient has diffusely wheezes in all lung haynes. Poor air movement secondary to body habitus. Few scattered rhonchi. No rales appreciated. ABDOMEN: Obese, soft, nontender, nondistended. No guarding or rigidity. BACK: Paraspinal muscles are tender to palpation in the lumbar area; however, there is no significant abnormality to palpation. NEUROLOGIC: The patient is alert and oriented x3 with fair insight into his clinical condition. The patient does have difficulty with ambulation secondary to chronic tracheostomy; however, he does get out words and his words are understandable for the most part. EXTREMITIES: +2 LE edema on the right with a small superficial lesion on the lateral leg that has a bandage which is clean and dry. +1 LE edema on the left. ASSESSMENT: 1. Shortness of breath with hypoxia. 2. Acute on chronic respiratory failure. 3. Chronic obstructive pulmonary disease with acute exacerbation. 4. Atrial fibrillation. 5. Coronary artery disease. 6. Elevated BMI. 7. Obstructive sleep apnea. 8. Chronic kidney disease. 9. Chronic tracheostomy since 2010 PLAN: 1. Admit to medical/ surgical unit 2. Pulmonary-specific antibiotics. 3. IV steroids. 4. Small volume nebulizers, scheduled and as needed. 5. Symptomatic therapy for cough. 6. Symptomatic therapy for sore throat. 7. Pulmonology consultation, recommendations appreciated. 8. Resume the patient's home medications as able. 9. Ultrasound of lower extremity to rule out acute DVT. 10. The patient does have worsening swelling in the left leg. 11. CTA chest negative for acute PE 12. CT neck negative for acute pathology 13. GI and DVT PPX Job ID: [id number] [facility]
[2019-02-18 19:23] LABS: Bacteria/HPF None Seen HPF (None Seen); Bilirubin Negative (Negative); Blood, Urine Negative (Negative); Clarity Clear (Clear); Glucose, Urine (Dipstick) Normal (Negative); Leukocyte Negative Leu/uL (Negative); Nitrite Negative (Negative); Protein, Urine (Dipstick) Negative (Neg-Trace); RBC/HPF 0-3 HPF (0-3); Squamous Epithelial 0-3 HPF (0-3); Urobilinogen Normal mg/dL (Less than 2); WBC/HPF None Seen HPF (0-3)
[2019-02-18] MEDS: cefTRIAXone\\ROCEPHIN 2 GM in Sodium Chloride 0.9% 100 ML IVPB SCH (19:33)
[2019-02-18] MEDS: Azithromycin 500 MG in Sodium Chloride 0.9% 250 ML 250 ML IVPB SCH (20:37)
--- NOTE | 2019-02-18 21:39 | ULT ---
US Venous Doppler Bilat History: Lower extremity edema and redness Comparison: Ultrasound July 2018 Findings: Real-time grayscale, color, and spectral analysis of the bilateral lower extremity venous s ystem was performed. The common femoral, femoral, proximal portions greater saphenous and deep femoral veins as well as the popliteal and posterior tibial veins were interrogated. Normal flow, augmentation, and compression. Impression: No deep venous thrombosis.
[2019-02-19 06:05] LABS: #Lymphocytes 1.3 thou/uL (1.20-3.40); #Monocytes 0.6 thou/uL (0.11-0.59); %Lymphocytes 16.3 % (21.0-51.0); %Monocytes 7.8 % (0.0-10.0); %Neutrophils 75.9 % (42.0-75.0); Hemoglobin 13.1 g/dL (14.0-18.0); Mean Corpuscular HGB CONC 32.1 g/dL (32.0-36.0); Mean Corpuscular Hemoglobin 27.6 pg (27.0-31.0); Mean Corpuscular Volume 86.2 fL (78.0-98.0); Mean Platelet Volume 7.6 fL (7.4-10.4); Platelet Count 198 thou/uL (130-400); RBC Distribution Width 14.5 % (11.5-14.5); Red Blood Cell (RBC) Count 4.74 mill/uL (4.70-6.10); White Blood Cell (WBC) Count 7.8 thou/uL (4.8-10.8)
[2019-02-19 06:28] LABS: Anion Gap 12 mmol/L (10-20); BUN (Urea Nitrogen) 17 mg/dL (8.4-25.7); Calc. Creatinine Clearance 100 mL/min (70-130); Calcium 9.8 mg/dL (7.8-10.44); Carbon Dioxide 30 mmol/L (23-31); Chloride 95 mmol/L (98-107); Estimated GFR-MDRD 84; Glucose 118 mg/dL (83-110); Potassium 3.8 mmol/L (3.5-5.1); Sodium 133 mmol/L (136-145)
[2019-02-19] MEDS ORDERED: Acetaminophen 325 MG TAB PO PRN (07:42)
[2019-02-19] MEDS ORDERED: guaiFENesin ER 600 MG TAB PO PRN (07:42)
[2019-02-19] MEDS ORDERED: Lorazepam 1 MG TAB PO PRN (07:42)
[2019-02-19] MEDS ORDERED: Senokot S 8.6-50 MG TAB PO PRN (07:42)
[2019-02-19] MEDS ORDERED: Milk Of Magnesia 30 ML UDCUP PO PRN (07:42)
[2019-02-19] MEDS: Propafenone HCl 150 MG TAB PO SCH ×3 (08:37→23:48)
[2019-02-19] MEDS: Apixaban 5 MG TAB PO SCH ×2 (08:37→20:08)
[2019-02-19] MEDS: Furosemide 40 MG TAB PO SCH (08:37)
[2019-02-19] MEDS: Aspirin 81 mg Enteric Coated Tablet PO SCH (08:37)
[2019-02-19] MEDS: methylPREDNISolone Sod Succ 40 MG VIAL IVP SCH (08:42)
[2019-02-19] MEDS: Ketoconazole 2% Cream 15 gm Tube TOP SCH (08:42)
[2019-02-19] MEDS: Multivit, Therapeutic 1 TAB PO SCH (08:45)
[2019-02-19] MEDS: Polyethylene Glycol 3350 17 GM Packet PO PRN (11:24)
--- NOTE | 2019-02-19 12:02 | PDOC.HOSPP ---
- Subjective Subjective: Seen and examined. Clinically significantly improved from yesterday. Sitting up in bed breathing comfortably with NC at trach site. Patient states he is breathing much better and feels "100% better than yesterday". - Objective Vital Signs & Weight: Vital Signs (12 hours) Temp Pulse Resp BP Pulse Ox 02/19/19 11:27 97.5 F L 56 L 18 100/63 95 02/19/19 10:37 64 16 02/19/19 08:37 64 02/19/19 08:00 96 02/19/19 07:17 98.0 F 64 16 108/67 96 02/19/19 07:03 94 L 02/19/19 07:00 66 16 02/19/19 04:00 98.1 F 66 18 105/66 94 L Weight Weight 246 lb 11.2 oz I&O: 02/18/19 02/19/19 02/20/19 06:59 06:59 06:59 Intake Total 1300 480 Output Total 1300 Balance 0 480 Result Diagrams: 02/19/19 05:46 02/19/19 05:46 ROS - Medication Medications: Active Medications Generic Name Dose Route Start Last Admin Trade Name Freq PRN Reason Stop Dose Admin Albuterol/Ipratropium 3 ml 02/19/19 10:30 02/19/19 10:37 Duoneb NEB 3 ml [id number] LIANE Administration Apixaban 5 mg 02/19/19 09:00 02/19/19 08:37 Eliquis PO 5 mg BID LIANE Administration Aspirin 81 mg 02/19/19 09:00 02/19/19 08:37 Ecotrin PO 81 mg DAILY LIANE Administration Diltiazem HCl 120 mg 02/19/19 09:00 02/19/19 08:37 Cardizem Cd PO 120 mg DAILY LIANE Administration Furosemide 40 mg 02/19/19 09:00 02/19/19 08:37 Lasix PO 40 mg QAM LIANE Administration Ceftriaxone Sodium 2 gm/ 100 mls @ 200 mls/hr 02/18/19 18:00 02/18/19 19:33 Sodium Chloride IVPB 02/25/19 18:01 100 mls Q24HR LIANE Administration Azithromycin 500 mg/ Sodium 250 mls @ 250 mls/hr 02/18/19 20:00 02/18/19 20: 37 Chloride IVPB 02/23/19 20:01 250 mls 1999 LIANE Administration Ketoconazole 15 gm 02/19/19 09:00 02/19/19 08:42 Nizoral 2% Cream TOP 15 gm DAILY LIANE Administration Magnesium Hydroxide 30 ml 02/19/19 07:42 02/19/19 11:24 Milk Of Magnesium PO 30 ml DAILY PRN Administration Constipation Methylprednisolone Sodium Succinate 40 mg 02/19/19 09:00 02/19/19 08:42 Solu-Medrol IVP 40 mg DAILY LIANE Administration Multivitamins 1 tab 02/19/19 09:00 02/19/19 08:45 Theragran PO 1 tab DAILY LIANE Administration Pantoprazole Sodium 40 mg 02/19/19 09:00 02/19/19 08:45 Protonix PO 40 mg DAILY LIANE Administration Polyethylene Glycol 17 gm 02/19/19 07:42 02/19/19 11:24 Miralax PO 17 gm DAILY PRN Administration Constipation Propafenone HCl 225 mg 02/19/19 08:00 02/19/19 08:37 Rythmol PO 225 mg 0800,1600,2359 LIANE Administration - Exam NAD, awake alert Eye: PERRL, anicteric sclera ENT: moist mucosa ENT - other findings: Copious secretions from trach leaking onto his chest. Trach in position. Neck: supple Heart: no gallops, no rubs, irregular Heart - other findings: Irregularly irregular rhythm with a regular rate. Respiratory: no ronchi, wheezes. negative: no rales, normal chest expansion ( Diminished breath sounds in lower lung haynes) Respiratory - other findings: Improved airation of the lungs, remains with difuse wheezing Extremities: 2+ LE edema Skin: normal turgor. negative: no lesions Skin - other findings: Break in the skin on left lateral leg Neurological: CN's grossly intact, normal sensation to touch, no focal deficits , speech deficit (Secondary to trach it is dificult for him to get words out at times) Psychiatric: normal affect, normal behavior, A&O x 3 Hosp A/P (1) COPD exacerbation Code(s): J44.1 - CHRONIC OBSTRUCTIVE PULMONARY DISEASE W (ACUTE) EXACERBATION Status: Acute (2) Acute and chronic respiratory failure with hypoxia Code(s): J96.21 - ACUTE AND CHRONIC RESPIRATORY FAILURE WITH HYPOXIA Status: Acute (3) Cellulitis of left lower extremity Code(s): L03.116 - CELLULITIS OF LEFT LOWER LIMB Status: Acute (4) Laceration of left lower extremity Code(s): S81.812A - LACERATION WITHOUT FOREIGN BODY, LEFT LOWER LEG, INIT ENCNTR Status: Acute (5) CAD (coronary artery disease) Code(s): I25.10 - ATHSCL HEART DISEASE OF [place] CORONARY ARTERY W/O ANG PCTRS Status: Chronic (6) CKD (chronic kidney disease), stage III Status: Chronic (7) Chronic anticoagulation Code(s): Z79.01 - ASSISTED (CURRENT) USE OF ANTICOAGULANTS Status: Chronic (8) Chronic respiratory failure with hypercapnia Code(s): J96.12 - CHRONIC RESPIRATORY FAILURE WITH HYPERCAPNIA Status: Acute (9) Dyslipidemia Code(s): E78.5 - HYPERLIPIDEMIA, UNSPECIFIED Status: Chronic (10) HTN (hypertension) Code(s): I10 - ESSENTIAL (PRIMARY) HYPERTENSION Status: Chronic Qualifiers: (11) Hypothyroidism Code(s): E03.9 - HYPOTHYROIDISM, UNSPECIFIED Status: Chronic Qualifiers: (12) WALI (obstructive sleep apnea) Code(s): G47.33 - OBSTRUCTIVE SLEEP APNEA (ADULT) (PEDIATRIC) Status: Chronic (13) Obesity (BMI 30-39.9) Code(s): E66.9 - OBESITY, UNSPECIFIED Status: Chronic (14) Tracheostomy status Code(s): Z93.0 - TRACHEOSTOMY STATUS Status: Chronic (15) Venous stasis dermatitis of both lower extremities Code(s): I87.2 - VENOUS INSUFFICIENCY (CHRONIC) (PERIPHERAL) Status: Chronic - Plan old records reviewed/req Plan: Patient significantly improved on maximum medical therapy Pulm specific ABX IV steroids Duonebs scheduled and PRN IS Q1 hour while awake Pulmonology consultation, recommendation appreciated Wound care Continue home meds as able GI PPX DVT PPX - on Eliquis for afib
[2019-02-19] MEDS: cefTRIAXone\\ROCEPHIN 2 GM in Sodium Chloride 0.9% 100 ML IVPB SCH (18:36)
[2019-02-19] MEDS: Azithromycin 500 MG in Sodium Chloride 0.9% 250 ML 250 ML IVPB SCH (20:08)
[2019-02-19] MEDS: Atorvastatin Calcium 10 MG TAB PO SCH (20:08)
[2019-02-19] MEDS: Montelukast Sodium 10 mg Tablet PO SCH (20:09)
[2019-02-20] MEDS: Levothyroxine Sodium 25 MCG TAB PO SCH (05:31)
[2019-02-20 06:48] LABS: #Lymphocytes 1.6 thou/uL (1.20-3.40); #Monocytes 0.7 thou/uL (0.11-0.59); #Neutrophils 6.3 thou/uL (1.40-6.50); %Basophils 0.2 % (0.0-1.0); %Eosinophils 0.3 % (0.0-10.0); %Lymphocytes 18.5 % (21.0-51.0); %Monocytes 7.7 % (0.0-10.0); %Neutrophils 73.3 % (42.0-75.0); Hemoglobin 12.7 g/dL (14.0-18.0); Mean Corpuscular HGB CONC 31.6 g/dL (32.0-36.0); Mean Corpuscular Hemoglobin 27.2 pg (27.0-31.0); Mean Corpuscular Volume 86.1 fL (78.0-98.0); Mean Platelet Volume 7.2 fL (7.4-10.4); Platelet Count 213 thou/uL (130-400); RBC Distribution Width 14.4 % (11.5-14.5); Red Blood Cell (RBC) Count 4.66 mill/uL (4.70-6.10); White Blood Cell (WBC) Count 8.6 thou/uL (4.8-10.8)
[2019-02-20 07:10] LABS: Anion Gap 11 mmol/L (10-20); BUN (Urea Nitrogen) 18 mg/dL (8.4-25.7); Calc. Creatinine Clearance 104 mL/min (70-130); Calcium 9.8 mg/dL (7.8-10.44); Carbon Dioxide 33 mmol/L (23-31); Chloride 96 mmol/L (98-107); Estimated GFR-MDRD 87; Glucose 101 mg/dL (83-110); Potassium 4.1 mmol/L (3.5-5.1); Sodium 136 mmol/L (136-145)
[2019-02-20] MEDS: methylPREDNISolone Sod Succ 40 MG VIAL IVP SCH (09:29)
[2019-02-20] MEDS: Apixaban 5 MG TAB PO SCH ×2 (09:29→20:11)
[2019-02-20] MEDS: Furosemide 40 MG TAB PO SCH (09:29)
[2019-02-20] MEDS: Aspirin 81 mg Enteric Coated Tablet PO SCH (09:29)
[2019-02-20] MEDS: Multivit, Therapeutic 1 TAB PO SCH (09:29)
[2019-02-20] MEDS: Ketoconazole 2% Cream 15 gm Tube TOP SCH (09:29)
[2019-02-20] MEDS ORDERED: Clopidogrel Bisulfate 75 MG TAB ONE (09:38)
[2019-02-20] MEDS: Propafenone HCl 150 MG TAB PO SCH ×3 (09:39→23:47)
[2019-02-20] MEDS: Polyethylene Glycol 3350 17 GM Packet PO PRN (09:46)
--- NOTE | 2019-02-20 14:19 | PDOC.HOSPP ---
- Subjective Subjective: Patient seen and examine. Clinically improving. Breathing better. Patient again tells me he feels 100% better. Patient moving bowels. Tolerating diet. He is excited to see pulmonology. - Objective Vital Signs & Weight: Vital Signs (12 hours) Temp Pulse Resp BP Pulse Ox 02/20/19 12:00 97.6 F 59 L 20 101/63 92 L 02/20/19 10:12 59 L 16 96 02/20/19 09:29 51 L 02/20/19 08:00 93 L 02/20/19 07:39 98.1 F 51 L 20 100/63 93 L 02/20/19 06:58 81 16 95 02/20/19 02:25 77 16 Weight Admit Weight 246 lb 11.2 oz Weight 246 lb 11.2 oz I&O: 02/19/19 02/20/19 02/21/19 06:59 06:59 06:59 Intake Total 1300 2140 960 Output Total 1300 850 Balance 0 1290 960 Result Diagrams: 02/20/19 06:25 02/20/19 06:26 ROS - Medication Medications: Active Medications Generic Name Dose Route Start Last Admin Trade Name Freq PRN Reason Stop Dose Admin Albuterol/Ipratropium 3 ml 02/19/19 10:30 02/20/19 10:12 Duoneb NEB 3 ml [id number] LIANE Administration Apixaban 5 mg 02/19/19 09:00 02/20/19 09:29 Eliquis PO 5 mg BID LIANE Administration Aspirin 81 mg 02/19/19 09:00 02/20/19 09:29 Ecotrin PO 81 mg DAILY LIANE Administration Atorvastatin Calcium 10 mg 02/19/19 21:00 02/19/19 20:08 Lipitor PO 10 mg HS LIANE Administration Diltiazem HCl 120 mg 02/19/19 09:00 02/20/19 09:29 Cardizem Cd PO 120 mg DAILY LIANE Administration Furosemide 40 mg 02/19/19 09:00 02/20/19 09:29 Lasix PO 40 mg QAM LIANE Administration Ceftriaxone Sodium 2 gm/ 100 mls @ 200 mls/hr 02/18/19 18:00 02/19/19 18:36 Sodium Chloride IVPB 02/25/19 18:01 100 mls Q24HR LIANE Administration Azithromycin 500 mg/ Sodium 250 mls @ 250 mls/hr 02/18/19 20:00 02/19/19 20: 08 Chloride IVPB 02/23/19 20:01 250 mls 2000 LIANE Administration Ketoconazole 15 gm 02/19/19 09:00 02/20/19 09:29 Nizoral 2% Cream TOP 15 gm DAILY LIANE Administration Levothyroxine Sodium 25 mcg 02/20/19 06:00 02/20/19 05:31 Synthroid PO 25 mcg 0600 LIANE Administration Magnesium Hydroxide 30 ml 02/19/19 07:42 02/19/19 11:24 Milk Of Magnesium PO 30 ml DAILY PRN Administration Constipation Montelukast Sodium 10 mg 02/19/19 21:00 02/19/19 20:09 Singulair PO 10 mg QPM LIANE Administration Multivitamins 1 tab 02/19/19 09:00 02/20/19 09:29 Theragran PO 1 tab DAILY LIANE Administration Pantoprazole Sodium 40 mg 02/19/19 09:00 02/20/19 09:29 Protonix PO 40 mg DAILY LIANE Administration Propafenone HCl 225 mg 02/19/19 08:00 02/20/19 09:39 Rythmol PO 225 mg 0800,1600,2359 LIANE Administration - Exam NAD, awake alert Eye: PERRL, anicteric sclera ENT: normocephalic atraumatic, moist mucosa Neck: supple, symmetric Heart: no murmur, no gallops, no rubs, irregular Heart - other findings: Regular rate Respiratory: no ronchi, normal chest expansion, wheezes Respiratory - other findings: Improving wheezing, better air movement. Gastrointestinal: soft, non-tender, non-distended, normal bowel sounds Extremities: 1+ LE edema Skin: normal turgor Neurological: CN's grossly intact, no weakness, no focal deficits Psychiatric: normal affect, normal behavior, A&O x 3 Hosp A/P (1) COPD exacerbation Code(s): J44.1 - CHRONIC OBSTRUCTIVE PULMONARY DISEASE W (ACUTE) EXACERBATION Status: Acute (2) Acute and chronic respiratory failure with hypoxia Code(s): J96.21 - ACUTE AND CHRONIC RESPIRATORY FAILURE WITH HYPOXIA Status: Acute (3) Cellulitis of left lower extremity Code(s): L03.116 - CELLULITIS OF LEFT LOWER LIMB Status: Acute (4) Laceration of left lower extremity Code(s): S81.812A - LACERATION WITHOUT FOREIGN BODY, LEFT LOWER LEG, INIT ENCNTR Status: Acute (5) CAD (coronary artery disease) Code(s): I25.10 - ATHSCL HEART DISEASE OF [place] CORONARY ARTERY W/O ANG PCTRS Status: Chronic (6) CKD (chronic kidney disease), stage III Status: Chronic (7) Chronic anticoagulation Code(s): Z79.01 - SENIOR CARE (CURRENT) USE OF ANTICOAGULANTS Status: Chronic (8) Chronic respiratory failure with hypercapnia Code(s): J96.12 - CHRONIC RESPIRATORY FAILURE WITH HYPERCAPNIA Status: Acute (9) Dyslipidemia Code(s): E78.5 - HYPERLIPIDEMIA, UNSPECIFIED Status: Chronic (10) HTN (hypertension) Code(s): I10 - ESSENTIAL (PRIMARY) HYPERTENSION Status: Chronic Qualifiers: (11) Hypothyroidism Code(s): E03.9 - HYPOTHYROIDISM, UNSPECIFIED Status: Chronic Qualifiers: (12) WALI (obstructive sleep apnea) Code(s): G47.33 - OBSTRUCTIVE SLEEP APNEA (ADULT) (PEDIATRIC) Status: Chronic (13) Obesity (BMI 30-39.9) Code(s): E66.9 - OBESITY, UNSPECIFIED Status: Chronic (14) Tracheostomy status Code(s): Z93.0 - TRACHEOSTOMY STATUS Status: Chronic (15) Venous stasis dermatitis of both lower extremities Code(s): I87.2 - VENOUS INSUFFICIENCY (CHRONIC) (PERIPHERAL) Status: Chronic - Plan Plan: Patient significantly improved on maximum medical therapy Pulm specific ABX, will transition to oral on D/c IV steroids, transition to oral Duonebs scheduled and PRN IS Q1 hour while awake Pulmonology consultation, recommendation appreciated Wound care Continue home meds as able GI PPX DVT PPX - on Eliquis for afib
--- NOTE | 2019-02-20 15:20 | CON ---
DATE OF CONSULTATION: 02/20/2019 SERVICE: Pulmonary Medicine. REASON FOR CONSULT: Shortness of breath. HISTORY OF PRESENT ILLNESS: The patient is a very pleasant 83-year-old white male with past medical history significant for chronic tracheostomy secondary to very severe respiratory failure, remotely. He has longstanding tracheostomy in place. Over the period of two days, he had increasing dysphagia, as well as shortness of breath. This happens whenever he gets lower extremity swelling. He was also getting swelling in his legs. He presented to the Emergency Department, and was given a dose of Lasix. Overnight, his respiratory issues resolved. He denies any current fevers, chills, nausea, or vomiting. The sputum has been more copious, but has not changed in color significantly and has a frothy white material. Otherwise, he is returning to his usual state of health and he has no specific complaints. He has not had his tracheostomy exchanged and "quite some time." He could not tell me if it was more or less than three months. Either way, we would exchanged device today. PAST MEDICAL HISTORY: 1. COPD. 2. Chronic hypoxic respiratory failure. 3. Tracheostomy, placed in 2010. 4. Coronary artery disease. 5. Atrial fibrillation. 6. Chronic kidney disease. 7. Osteoarthritis. 8. Obstructive sleep apnea. 9. Obesity. PAST SURGICAL HISTORY: 1. Tracheostomy. 2. PEG tube placement with subsequent removal. 3. Colonoscopy. 4. Cholecystectomy. SOCIAL HISTORY: Negative for current alcohol, tobacco, or illicit drug use. He has a remote history of smoking. He denies any chemicals, dust, asbestos, or tuberculosis exposure. FAMILY HISTORY: Noncontributory. ALLERGIES: OSELTAMIVIR. MEDICATIONS: List of the patient's inpatient medications were reviewed. Multiple small updates were made. REVIEW OF SYSTEMS: General, head, ears, eyes, nose, throat, cardiovascular, respiratory, GI, , musculoskeletal, neurologic, and skin are negative except as mentioned is the HPI. PHYSICAL EXAMINATION: VITAL SIGNS: Afebrile, pulse 72, respirations 15, and saturation 94% on room air. GENERAL: The patient is awake and alert, in no apparent distress. LUNGS: Decent air entry. Crackles are present. There is a prolonged expiratory phase, but no wheezing is appreciated. HEART: Normal rate. Regular. ABDOMEN: Soft, nontender, and nondistended. Bowel sounds are positive. MUSCULOSKELETAL: No cyanosis or clubbing. There is 2+ pitting in the bilateral lower extremities. NEUROLOGIC: Grossly nonfocal. LABORATORY DATA: WBC 8.6, hemoglobin 12.7, and platelets 213,000. A pH of 7.34 , pCO2 of 54, pO2 of 81, and corresponding to a saturation 94% at that time, on 3 L nasal cannula. Basic metabolic profile is otherwise unremarkable. Liver function studies are unremarkable. BNP was normal on presentation. Troponin is unremarkable. Urinalysis is unremarkable. IMAGIN. CT of the neck demonstrates no evidence of acute soft tissue abnormality of the neck. Thyroid hypodensities are present. 2. CTA of the chest and thorax demonstrates no evidence of a pulmonary embolism. The ostomy tube is seated quite well. He has a very patulous esophagus, with an air-fluid level suggestive of severe reflux changes. Small streaky infiltrates are present in bibasilar regions that are more consistent with a touch of atelectasis. ASSESSMENT: 1. Acute on chronic hypoxic and hypercapnic respiratory failure, resolved to baseline. 2. Community-acquired pneumonia, likely secondary to aspiration. 3. Patulous esophagus with gastroesophageal reflux disease based on recent CT. 4. Chronic obstructive pulmonary disease with acute exacerbation, resolving. 5. Obstructive sleep apnea, status post tracheostomy. DISCUSSION AND PLAN: I will switch his steroids over to p.o. Tomorrow, his antibiotics can be switched over to p.o. I performed a tracheostomy exchange. I put in the fenestrated inner cannula. As such, he can cap during the daytime, but at night, he will still need to leave it open given his sleep apnea. His nebulized therapy will be dropped to q.6 hours. Pulmonary/Critical Care will continue to follow along while the patient remains inhouse. Dr. Metzger will resume care in the morning as he has an established relationship with Mr. Bailey. 70 minutes have been devoted to this patient in various activities. I personally reviewed all imaging studies and laboratory data noted within this document. For fifty percent of this time, I was interacting with the patient at the bedside or coordinating care with the care team. For the remainder of the time I was immediately available to the patient in the hospital unit. Job ID: [id number] [facility]
--- NOTE | 2019-02-20 17:55 | OP ---
DATE OF PROCEDURE: 02/20/2019 SERVICE: Pulmonary Medicine. PROCEDURE PERFORMED: Tracheostomy exchange. CONSENT: Consent was discussed with the patient immediately prior to initiating the procedure. As he has gone through this procedure multiple times, he voiced no objections. MEDICATIONS: None. PREOPERATIVE DIAGNOSIS: Chronic tracheostomy state. POSTOPERATIVE DIAGNOSIS: Chronic tracheostomy state. DESCRIPTION OF PROCEDURE: The ties were loosened. The existing tracheostomy was removed. The skin was clean, dry, and intact. There was no breakdown or erythema noted. A 6.0 fenestrated cuffless Shiley tracheostomy tube was secured. The trach ties were once again placed. The patient tolerated the procedure very well without immediate complication. ESTIMATED BLOOD LOSS: None. COMPLICATIONS: None. Job ID: [id number]
[2019-02-20] MEDS: cefTRIAXone\\ROCEPHIN 2 GM in Sodium Chloride 0.9% 100 ML IVPB SCH (18:14)
[2019-02-20] MEDS: Azithromycin 500 MG in Sodium Chloride 0.9% 250 ML 250 ML IVPB SCH (20:10)
[2019-02-20] MEDS: Atorvastatin Calcium 10 MG TAB PO SCH (20:11)
[2019-02-20] MEDS: Montelukast Sodium 10 mg Tablet PO SCH (20:11)
[2019-02-21] MEDS: Levothyroxine Sodium 25 MCG TAB PO SCH (05:13)
[2019-02-21] MEDS ORDERED: predniSONE 20 MG TAB PO SCH (08:00)
[2019-02-21] MEDS ORDERED: Spironolactone 25 MG TAB PO SCH (08:00)
[2019-02-21 08:35] VITALS: TEMP 97.8
[2019-02-21] MEDS: Apixaban 5 MG TAB PO SCH (08:42)
[2019-02-21] MEDS: Propafenone HCl 150 MG TAB PO SCH (08:42)
[2019-02-21] MEDS: Aspirin 81 mg Enteric Coated Tablet PO SCH (08:42)
[2019-02-21] MEDS: Multivit, Therapeutic 1 TAB PO SCH (08:42)
[2019-02-21] MEDS: Ketoconazole 2% Cream 15 gm Tube TOP SCH (08:43)
[2019-02-21] MEDS: Furosemide 40 MG TAB PO SCH (08:43)
[2019-02-21] MEDS ORDERED: Polyethylene Glycol 3350 17 GM Packet PO SCH (09:00)
[2019-02-21 12:08] VITALS: BP 112/70
--- NOTE | 2019-02-22 11:07 | DIS ---
DATE OF ADMISSION: 02/18/2019 DATE OF DISCHARGE: 02/21/2019 REASON FOR HOSPITALIZATION: Shortness of breath. SIGNIFICANT FINDINGS: Patient was found to have acute COPD exacerbation. PROCEDURES PERFORMED AND TREATMENTS RENDERED: Patient was seen by Pulmonology, who performed tracheostomy exchange. Patient also received maximal medical therapy for acute COPD exacerbation including IV antibiotics, IV steroids, and inhaled breathing treatments. CONDITION ON DISCHARGE: Stable. SPECIFIC INSTRUCTIONS FOR THE PATIENT/FAMILY: 1. Patient to follow up with primary care physician in the next 5 to 7 days. 2. Patient to follow up with Pulmonology in 1 to 2 weeks. 3. Patient to follow up with shell press operator in the next 1 to 2 months. Patient to take a full course of oral antibiotics and steroids for resolution. 4. COPD exacerbation. HOME MEDICATIONS: Please see the entire home medication list for details, the following medications were sent to the patient's preferred pharmacy. 1. Prednisone 40 mg one tab p.o. daily for five days. 2. Cefpodoxime 200 mg one tab p.o. b.i.d. for five days. 3. Azithromycin 250 mg one tab p.o. daily for three days. HISTORY OF PRESENT ILLNESS: Mr. Bailey is a very pleasant 83-year-old gentleman, past medical history of chronic tracheostomy since 2010, COPD, atrial fibrillation, coronary artery disease, elevated BMI, obstructive sleep apnea, chronic kidney disease, hyperlipidemia, and osteoarthritis who presents to [facility]18[facility]2019 with shortness of breath. Patient initially presented to [place], [place], was transferred for higher level of care. With patient's shortness of breath initially presenting to the emergency department, a CT angiography of the chest was performed, please see full report for details. There was no acute pulmonary embolism, however, there were changes consistent with acute COPD exacerbation. Patient has been experiencing worsening cough with productive sputum that is dark in color. Patient was admitted to medical unit for further evaluation and treatment. Pulmonology consultation requested, please see full consultation and progress notes for details. The patient was placed on IV antibiotics, IV steroids, and small volume nebulizers with a good improvement. [employer] changed of his tracheostomy tube, see operative report for details as this has not been done in "quite some time." Patient recommended safe for discharge with close followup in the outpatient setting. Patient was written prescriptions for oral antibiotics and oral steroids and recommended to complete a full course for resolution of symptoms. Patient is recommended to return to hospital emergency department immediately if signs or symptoms return, worsen, or any other new symptoms occur. Greater than 36 minutes spent and discharge and coordinating care. Job ID: [id number] [facility]
--- NOTE | 2019-02-23 06:55 | PQF ---
BLANCA GUTIERREZ ERIK [id number] CLINICAL DOCUMENTATION CLARIFICATION FORM: POST DISCHARGE Addendum to original discharge summary date: ____ Late entry note date: __ DATE: 02/23/2019 ATTN: Denzel Montez Please exercise your independent, professional judgment in responding to the clarification form. Clinical indicators are provided on the bottom of this form for your review Can you please further specify the patient diagnosis? Please check appropriate box(s): [ ] Aspiration Pneumonia [XX ] Community-acquired pneumonia [ ] Atelectasis [ ] Pneumonia of unknown etiology [ ] Other diagnosis please specify [ ] Unable to determine In addition, please specify: Present on Admission (POA): [ XX ] Yes [ ] No [ ] Unable to determine For continuity of documentation, please document condition throughout progress notes and discharge summary. Thank You. CLINICAL INDICATORS H and P 8 pg1- "It does demonstrate bibasilar atelectasis with possible superimposed left lower lobe infiltrate. This is consistent with cute COPD exacerbation." H and P 8 pg1- "The patient endorse worsening cough with productive sputum, wheezing and he has had a sore throat." Consult 02/20 Dr. Hess pg.2- "Infiltrates are present i bibasilar regions hat are more consistent with a touch of atelectasis" Consult 02/20 Dr. Hess pg.3- "Community-acquired pneumonia, likely secondary to aspiration" RISK FACTORS COPD- H and P 810 pg1 Tracheostomy since 2010- H and P 8/10 pg1 CAD- H and P 8/10 pg2 Acute on chronic respiratory failure- H and P 810 pg3 Obstructive sleep apnea- Consult 02/20 Dr. Hess pg.3 TREATMENTS: On 3L nasal canula-Consult 02/20 Dr. Hess pg.1 Chest/Thorax CTA- 02/18 Tracheostomy exchange- OP Report 02/20 Dr. Hess Piperacillin (Zosyn) 4.5gm IV- SEP 16 Vancomycin HCl 2gm IV- SEP 16 Azithromycin (zithromax)500mg- SEP 16 (This form is maintained as a part of the permanent medical record) 2014 [employer]. All Rights Reserved Landry [email or web address] [not provided] MTDD
== END 2019-02-21 16:14 | disposition home health service (06) | DRG 193 ==
LOC: ERS 12:22 → T4-B 14:41
PROVIDERS: ADMIT Internal Medicine; ATTEND Internal Medicine
PROC: 0B21XFZ Change Tracheostomy Device in Trachea, External Approach (ICD-10-PCS; principal; 2019-02-20)
DX: J18.9 Pneumonia, unspecified organism (principal); J96.21 Acute and chronic respiratory failure with hypoxia; J44.1 Chronic obstructive pulmonary disease with (acute) exacerbation; J44.0 Chronic obstructive pulmonary disease with (acute) lower respiratory infection; L03.116 Cellulitis of left lower limb; I48.91 Unspecified atrial fibrillation; I25.10 Atherosclerotic heart disease of native coronary artery without angina pectoris; G47.33 Obstructive sleep apnea (adult) (pediatric); E78.5 Hyperlipidemia, unspecified; N18.3 Chronic kidney disease, stage 3 (moderate); I12.9 Hypertensive chronic kidney disease with stage 1 through stage 4 chronic kidney disease, or unspecified chronic kidney disease; M19.90 Unspecified osteoarthritis, unspecified site; E66.9 Obesity, unspecified; K21.9 Gastro-esophageal reflux disease without esophagitis; I87.2 Venous insufficiency (chronic) (peripheral); Z93.0 Tracheostomy status; Z90.49 Acquired absence of other specified parts of digestive tract; Z88.8 Allergy status to other drugs, medicaments and biological substances; Z79.899 Other long term (current) drug therapy; Z79.82 Long term (current) use of aspirin; Z79.01 Long term (current) use of anticoagulants; Z68.32 Body mass index [BMI] 32.0-32.9, adult
CPT/HCPCS: 36415; 70491; 71275; 80048; 81001; 82805; 83605; 85025; 87040; 93970; 94640; 96365; 96366; 96367; 96368; J0456; J0696; J2543; J2920; J3370; J3475; J3490; J7050; J7512; J7620; Q9966

== ENCOUNTER 2019-03-04 21:54 | Inpatient (IN) | payer MEDICARE, BC ==
[2019-03-04 22:19] LABS: #Lymphocytes 1.2 thou/uL (1.20-3.40); #Monocytes 1.2 thou/uL (0.11-0.59); #Neutrophils 14.5 thou/uL (1.40-6.50); %Eosinophils 0.3 % (0.0-10.0); %Lymphocytes 7.1 % (21.0-51.0); %Monocytes 7.2 % (0.0-10.0); %Neutrophils 85.5 % (42.0-75.0); Hemoglobin 14.3 g/dL (14.0-18.0); Mean Corpuscular HGB CONC 32.3 g/dL (32.0-36.0); Mean Corpuscular Hemoglobin 28.1 pg (27.0-31.0); Mean Corpuscular Volume 87.2 fL (78.0-98.0); Platelet Count 187 thou/uL (130-400); RBC Distribution Width 15.2 % (11.5-14.5)
--- NOTE | 2019-03-04 22:19 | RAD ---
EXAM: CHEST ONE VIEW HISTORY: Dyspnea and shortness of breath. Recent diagnosis of pneumonia. COMPARISON: 02/18/2019 and CTA chest on 02/18/2019. FINDINGS: Cardiac silhouette is magnified by projection. There is nodular prominence in the hilar regions bilat erally, but this is a stable finding and related to prominence of the central pulmonary artery segments seen on recent CTA chest. Pulmonary vasculature is otherwise within normal limits. Calcified right hilar lymph nodes are seen. Calcified granuloma is seen in the right upper lobe. The lungs otherwise appear clear. There is bilateral glenohumeral osteoarthropathy. Tracheostomy device remains in place. IMPRESSION: Stable chest without evidence of an acute cardiopulmonary process.
[2019-03-04 22:40] LABS: ALT (SGPT) 25 U/L (8-55); AST (SGOT) 24 U/L (5-34); Albumin 3.8 g/dL (3.4-4.8); Alkaline Phosphatase 114 U/L (40-150); Anion Gap 14 mmol/L (10-20); BUN (Urea Nitrogen) 18 mg/dL (8.4-25.7); Bilirubin, Total 0.9 mg/dL (0.2-1.2); Calc. Creatinine Clearance 0 mL/min (70-130); Calcium 9.2 mg/dL (7.8-10.44); Carbon Dioxide 27 mmol/L (23-31); Chloride 94 mmol/L (98-107); Estimated GFR-MDRD 67; Globulin 2.9 g/dL (2.4-3.5); Glucose 103 mg/dL (83-110); Potassium 4.5 mmol/L (3.5-5.1); Protein, Total 6.7 g/dL (5.8-8.1); Sodium 130 mmol/L (136-145)
[2019-03-04] MEDS ORDERED: Magnesium 2 GM/50 ML BAG (IN WATER) ONE (22:51)
[2019-03-04] MEDS ORDERED: methylPREDNISolone Sod Succ/PF 125 MG/2 ML VIAL ONE (22:51)
[2019-03-04] MEDS ORDERED: Albuterol Sulfate 2.5 mg/3 ml Neb ONE (22:58)
[2019-03-04] MEDS ORDERED: Sodium Chloride 0.9% 100 ML ONE (23:36)
[2019-03-04] MEDS ORDERED: Piperacillin/Tazobactam 4.5 GM VIAL ONE (23:36)
[2019-03-05 02:52] VITALS: BMI 34.4
[2019-03-05] MEDS ORDERED: Milk Of Magnesia 30 ML UDCUP PO PRN (07:19)
[2019-03-05] MEDS ORDERED: Acetaminophen 325 MG TAB PO PRN (07:19)
[2019-03-05] MEDS ORDERED: HYDROcodone/Acetaminophen 5/325 mg Tablet PO PRN (07:22)
[2019-03-05] MEDS ORDERED: Ondansetron PF 4 MG/2 ML Vial IVP PRN (07:23)
[2019-03-05] MEDS ORDERED: hydrALAZINE 20 MG/ML VIAL SLOW IVP PRN (07:24)
[2019-03-05] MEDS ORDERED: PROPAFENONE HCL 225 MG PO SCH (07:30)
[2019-03-05] MEDS: Apixaban 5 MG TAB PO SCH ×2 (08:13→20:13)
[2019-03-05] MEDS: Aspirin 81 mg Enteric Coated Tablet PO SCH (08:13)
[2019-03-05] MEDS: Multivit, Therapeutic 1 TAB PO SCH (08:13)
[2019-03-05] MEDS: Furosemide 40 MG TAB PO SCH (08:14)
[2019-03-05] MEDS: methylPREDNISolone Sod Succ 40 MG VIAL IVP SCH (08:14)
[2019-03-05] MEDS: Spironolactone 25 MG TAB PO SCH (08:14)
[2019-03-05] MEDS: Polyethylene Glycol 3350 17 GM Packet PO SCH (08:15)
[2019-03-05 08:38] LABS: Hemoglobin 14.3 g/dL (14.0-18.0); Platelet Count 185 thou/uL (130-400)
[2019-03-05] MEDS ORDERED: Non-Formulary Item 1 EACH (Multivitamin [Daily Multiple Vitamin] 1 TAB) PO SCH (09:00)
[2019-03-05] MEDS ORDERED: Furosemide 40 MG TAB PO SCH (09:00)
[2019-03-05] MEDS: Propafenone HCl 150 MG TAB PO SCH ×3 (10:27→23:41)
--- NOTE | 2019-03-05 11:17 | CON ---
DATE OF CONSULTATION: HISTORY OF PRESENT ILLNESS: Justin Bailey is an 83-year-old gentleman with permanent trach, sees Dr. Metzger, presented with increasing shortness of breath, unresponsive to his home medication. His stated he was running fever. He is coughing stuff, which appears relatively clear. Though this morning, he is much improved. He has a permanent trach because of sleep apnea. PAST MEDICAL HISTORY: Morbid obesity, chronic stasis, permanent trach, atrial fibrillation, hypertension, and severe deconditioning. PAST SURGICAL HISTORY: Previous surgeries; gallbladder, trach, cardiac stent, and surgery. SOCIAL HISTORY: Tobacco, none. Alcohol, none. HOME MEDICATIONS: 1. Guaifenesin. 2. Aldactone 25. 3. Singulair 10. 4. Magnesium. 5. Synthroid 25. 6. DuoNeb. 7. Lasix 80. 8. Cardizem 120. 9. Aspirin. 10. Eliquis 5 b.i.d. ALLERGIES: TAMIFLU. REVIEW OF SYSTEMS: Otherwise, negative 10-point. PHYSICAL EXAMINATION: GENERAL: He is awake, alert, responsive, appears to be in no distress. VITAL SIGNS: His saturations are 97% on a trach collar, , and blood pressure 130/80. CHEST: Decreased breath sounds. No wheezing. CARDIAC: Normal S1 and S2. No gallops. ABDOMEN: No masses. LABORATORY DATA: X-ray was reviewed, which I do not see any obvious infiltrates. His white count was 17,000, H and H 14 and 44, and platelet count is normal. Sodium 130. IMPRESSION AND PLAN: Acute on chronic respiratory failure, bronchitis, and sleep apnea. Probably can switch over to oral antibiotics tomorrow. Unclear why he is hyponatremic, it is probably from the Lasix. Recheck lab. We will follow. Notify Dr. Metzger. Consultation note, 70 minutes, 50% direct patient care. Job ID: [id number]
--- NOTE | 2019-03-05 15:17 | HP ---
CHIEF COMPLAINT: Shortness of breath. HISTORY OF PRESENT ILLNESS: Mr. Bailey is a very pleasant 83-year-old white gentleman with past medical history of COPD, chronic tracheostomy, cardiomyopathy, hypertension, atrial fibrillation, and hypothyroidism, who presents with worsening shortness of breath. Over the past several days, the patient has been having low-grade fever at home, worsening cough with clear productive sputum, and worsening shortness of breath. The patient is well known at [facility] and was recently discharged just 2 weeks ago for COPD exacerbation. The patient chronically follows up with Dr. 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 The patient states that he also suffered a fall yesterday and it took him roughly 30 minutes for him and his to get him standing up again. The patient thinks that his fall was related to his blood pressure as it has been running low lately. I find Mr. Bailey in the medical unit, sitting upright, breathing comfortably on low-flow oxygen near his trach cannula. The patient does have lower extremity edema, which is chronic for him and not worsened. The patient overall states that he is feeling better since arriving to the hospital and being started on breathing treatments, antibiotics, and steroids. We will consult Pulmonology for further recommendations. PAST MEDICAL HISTORY: 1. COPD. 2. Chronic tracheostomy. 3. Cardiomyopathy. 4. Atrial fibrillation. 5. Chronic kidney disease. 6. Hyperlipidemia. 7. Hypothyroidism. 8. Osteoarthritis. HOME MEDICATIONS: 1. Aspirin 81 mg one tablet p.o. daily. 2. Levothyroxine 25 mcg one tablet p.o. q.a.m. 3. Atorvastatin 10 mg, one tablet, p.o. at bedtime. 4. Singulair 10 mg one tablet p.o. daily. 5. Eliquis 5 mg 1 tablet p.o. b.i.d. 6. Diltiazem CD 120 mg one tablet p.o. daily. 7. Lasix 80 mg one tablet p.o. q.a.m. 8. MiraLAX 17 g p.o. daily. 9. Propafenone 225 mg one tablet p.o. q.8 hours. 10. Spironolactone 25 mg one tablet p.o. daily. 11. Milk of magnesia 30 mL p.o. daily p.r.n. 12. Ipratropium/albuterol 3 mL nebulizer q.2 hours p.r.n. shortness of breath. 13. Multivitamin one tablet p.o. daily. ALLERGIES: TAMIFLU. SOCIAL HISTORY: The patient is retired. Denies daily alcohol use, no tobacco, no illicit. REVIEW OF SYSTEMS: A 10-point review of systems was conducted and negative aside from what mentioned in history of present illness. PHYSICAL EXAMINATION: VITAL SIGNS: Temperature 98.2, pulse 74, respirations 20, O2 saturation 97% on trach collar 2 L nasal cannula, and blood pressure 119/66. GENERAL: The patient is alert and oriented, in no apparent distress. Breathing well with trach collar. Oxygen on low-flow rate. HEENT: Head is normocephalic and atraumatic. Pupils are equally round and reactive to light and accommodation. No appreciated exudates or erythema on the tonsils. The patient does have chronic tracheostomy which, is in adequate position without surrounding erythema or signs of infection. CARDIAC: S1 and S2 present. Regular rate. Irregular rhythm with chronic atrial fibrillation. No appreciated murmurs, rubs, or gallops. LUNGS: There is diffuse scattered wheezing, no rhonchi, no rales. ABDOMEN: Soft, nontender, and nondistended. No guarding or rigidity. MUSCULOSKELETAL: Adequate alignment of the spine. Range of motion intact. EXTREMITIES: 2+ edema in lower extremity bilaterally, which the patient states is chronic for him. NEUROLOGIC: Cranial nerves 2 through 12 are grossly intact. Strength and sensation are symmetric and intact throughout. SKIN: There are chronic venous stasis changes in the lower extremity bilaterally. PSYCHIATRIC: The patient is alert and oriented x3 with fair insight into his clinical condition. The patient with normal affect and pleasant demeanor. LABORATORY DATA: WBC 17.0, RBC 5.1, hemoglobin 14.3, hematocrit 44.4, MCV 87.2, and platelets 187. Sodium 130, potassium 4.5, chloride 94, carbon dioxide 27, anion gap 14, BUN 18, creatinine 1.0, estimated GFR 67, glucose 103, lactic acid 0.8, calcium 9.2, total bilirubin 0.9, AST 24, ALT 25, alkaline phosphatase 114. Troponin less than 0.010. Serum total protein 6.7, albumin 3.8. IMAGING STUDIES: Chest [id number] see full report for details- Impression, STABLE chest without evidence of an acute cardiopulmonary process. ASSESSMENT/PLAN: 1. Shortness of breath secondary to chronic obstructive pulmonary disease with acute exacerbation. The patient with elevated WBC count 17,000, with subjective fevers in the home setting. The patient with sepsis on admission. The patient is started on pulmonary specific antibiotics, IV steroids, scheduled and as needed breathing treatments. Pulmonology consultation requested for further recommendations. The patient with chronic tracheostomy and has had frequent chronic obstructive pulmonary disease exacerbations in the past. 2. Acute on chronic respiratory failure with chronic tracheostomy in place. Maximal medical therapy for chronic obstructive pulmonary disease exacerbation. Pulmonology consultation, recommendations appreciated. 3. Fall. The patient states that he fell yesterday and he was having low blood pressure at the same time. Place holding parameters on blood pressure medications. Avoid giving all blood pressure medications in the morning to avoid bottoming the patient's blood pressure out. If the patient's blood pressure remains chronically low, recommend adjusting medications that affect blood pressure and discontinuing some if able. 4. Hyponatremia. The patient with sodium 130 on arrival. The patient with no symptoms of hyponatremia. The patient is on diuretic therapy and does chronically run on the low side on prior admissions being as low as 125 within the past [address] the patient on fluid restrictions. Continue Lasix and spironolactone therapy. If sodium does not improve, would consider Nephrology consultation. 5. Atrial fibrillation with rapid ventricular response. Continue the patient's home medications. 6. Hypertension, the patient's blood pressure medications may be too high of a dose and may need to be adjusted to avoid hypotension and falls. 7. Hypothyroidism, continue home medications. 8. Osteoarthritis, symptomatic control. Job ID: [id number]
[2019-03-05] MEDS: Atorvastatin Calcium 10 MG TAB PO SCH (20:13)
[2019-03-05] MEDS: Montelukast Sodium 10 mg Tablet PO SCH (20:13)
[2019-03-06] MEDS: Levothyroxine Sodium 25 MCG TAB PO SCH (05:41)
[2019-03-06] MEDS: Polyethylene Glycol 3350 17 GM Packet PO SCH (08:55)
[2019-03-06] MEDS: Apixaban 5 MG TAB PO SCH ×2 (08:56→20:57)
[2019-03-06] MEDS: Multivit, Therapeutic 1 TAB PO SCH (08:56)
[2019-03-06] MEDS: Propafenone HCl 150 MG TAB PO SCH ×2 (08:57→17:15)
[2019-03-06] MEDS: Spironolactone 25 MG TAB PO SCH (08:57)
[2019-03-06] MEDS: Furosemide 40 MG TAB PO SCH (08:57)
[2019-03-06] MEDS: Aspirin 81 mg Enteric Coated Tablet PO SCH (08:57)
[2019-03-06] MEDS: methylPREDNISolone Sod Succ 40 MG VIAL IVP SCH (08:59)
[2019-03-06 11:50] LABS: #Monocytes 1.2 thou/uL (0.11-0.59); #Neutrophils 13.2 thou/uL (1.40-6.50); %Eosinophils 0.1 % (0.0-10.0); %Lymphocytes 6.6 % (21.0-51.0); %Monocytes 7.8 % (0.0-10.0); %Neutrophils 85.6 % (42.0-75.0); Hemoglobin 13.4 g/dL (14.0-18.0); Mean Corpuscular HGB CONC 32.4 g/dL (32.0-36.0); Mean Corpuscular Hemoglobin 28.5 pg (27.0-31.0); Mean Corpuscular Volume 87.9 fL (78.0-98.0); Mean Platelet Volume 8.6 fL (7.4-10.4); Platelet Count 175 thou/uL (130-400); RBC Distribution Width 15.3 % (11.5-14.5); White Blood Cell (WBC) Count 15.4 thou/uL (4.8-10.8)
[2019-03-06 12:15] LABS: Albumin 3.6 g/dL (3.4-4.8); Anion Gap 14 mmol/L (10-20); BUN (Urea Nitrogen) 19 mg/dL (8.4-25.7); BUN/Creatinine Ratio 20.88; Calc. Creatinine Clearance 98 mL/min (70-130); Calcium 9.3 mg/dL (7.8-10.44); Carbon Dioxide 23 mmol/L (23-31); Chloride 99 mmol/L (98-107); Estimated GFR-MDRD 79; Glucose 112 mg/dL (83-110); Phosphorus 3.5 mg/dL (2.3-4.7); Potassium 4.6 mmol/L (3.5-5.1); Sodium 131 mmol/L (136-145)
[2019-03-06 12:21] LABS: Troponin I Less than 0.010 ng/mL (< 0.028)
[2019-03-06 12:47] LABS: Bacteria/HPF None Seen HPF (None Seen); Bilirubin Negative (Negative); Blood, Urine Negative (Negative); Clarity Clear (Clear); Glucose, Urine (Dipstick) Normal (Negative); Leukocyte 250 Leu/uL (Negative); Nitrite Negative (Negative); Protein, Urine (Dipstick) Negative (Neg-Trace); RBC/HPF 0-3 HPF (0-3); Squamous Epithelial 0-3 HPF (0-3); Urobilinogen Normal mg/dL (Less than 2); WBC/HPF 21-50 HPF (0-3)
[2019-03-06 12:49] LABS: Urine Culture Reflex Yes Yes
--- NOTE | 2019-03-06 14:15 | PDOC.HOSPP ---
- Subjective Encounter Date: 03/06/19 Encounter Time: 14:14 Subjective: 83 y/o male with permanent trach for WALI amongst others admitted due to worsening SOB associated with generalized weakness. Feeling better.tolerating oral intake. - Objective Vital Signs & Weight: Vital Signs (12 hours) Temp Pulse Resp BP BP BP Pulse Ox 03/06/19 13:14 80 20 92 L 03/06/19 11:27 97.5 F L 63 20 105/69 92 L 03/06/19 09:55 108/68 03/06/19 08:58 60 100/62 03/06/19 08:00 93 L 03/06/19 07:50 97.4 F L 60 20 100/62 93 L 03/06/19 06:28 71 18 91 L Pulse Ox 03/06/19 13:14 03/06/19 11:27 03/06/19 09:55 95 03/06/19 08:58 03/06/19 08:00 03/06/19 07:50 03/06/19 06:28 Weight Weight 254 lb I&O: 03/05/19 03/06/19 03/07/19 06:59 06:59 06:59 Intake Total 100 950 Output Total 750 Balance -650 950 Result Diagrams: 03/06/19 11:18 03/06/19 11:18 ROS - Medication Medications: Active Medications Generic Name Dose Route Start Last Admin Trade Name Freq PRN Reason Stop Dose Admin Albuterol/Ipratropium 3 ml 03/05/19 13:00 03/06/19 13:14 Duoneb NEB 3 ml [id number] LIANE Administration Apixaban 5 mg 03/05/19 09:00 03/06/19 08:56 Eliquis PO 5 mg BID LIANE Administration Aspirin 81 mg 03/05/19 09:00 03/06/19 08:57 Ecotrin PO 81 mg DAILY LIANE Administration Atorvastatin Calcium 10 mg 03/05/19 21:00 03/05/19 20:13 Lipitor PO 10 mg HS LIANE Administration Diltiazem HCl 120 mg 03/05/19 09:00 03/06/19 08:58 Cardizem Cd PO Not Given DAILY LIANE Furosemide 40 mg 03/05/19 09:00 03/06/19 08:57 Lasix PO 40 mg QAM LIANE Administration Levofloxacin 750 mg/ Device 150 mls @ 100 mls/hr 03/05/19 08:00 03/06/19 08: 55 IVPB 150 mls Q24HR LIANE Administration Levothyroxine Sodium 25 mcg 03/06/19 06:00 03/06/19 05:41 Synthroid PO 25 mcg 0600 LIANE Administration Methylprednisolone Sodium Succinate 40 mg 03/05/19 09:00 03/06/19 08:59 Solu-Medrol IVP 40 mg DAILY LIANE Administration Montelukast Sodium 10 mg 03/05/19 21:00 03/05/19 20:13 Singulair PO 10 mg QPM LIANE Administration Multivitamins 1 tab 03/05/19 09:00 03/06/19 08:56 Theragran PO 1 tab DAILY LIANE Administration Polyethylene Glycol 17 gm 03/05/19 09:00 03/06/19 08:55 Miralax PO 17 gm DAILY LIANE Administration Propafenone HCl 225 mg 03/05/19 08:00 03/06/19 08:57 Rythmol PO 225 mg Q8H LIANE Administration Sodium Chloride 10 ml 03/05/19 09:00 03/06/19 08:59 Flush - Normal Saline IVF 10 ml Q12HR LIANE Administration Spironolactone 25 mg 03/05/19 09:00 03/06/19 08:57 Aldactone PO 25 mg DAILY LIANE Administration - Exam awake alert General - other findings: obese Eye: anicteric sclera ENT: normocephalic atraumatic Neck: supple, symmetric Neck - other findings: Tracheostomy noted Heart: RRR Respiratory: no wheezes, no ronchi Respiratory - other findings: fair air entry bilaterally with few transmitted sound Gastrointestinal: soft, non-tender, non-distended, normal bowel sounds Gastrointestinal - other findings: obese Extremeties - other findings: moderate bilaateral leg edema with chronic venous stasis changes Neurological: CN's grossly intact, no focal deficits Psychiatric: normal affect, A&O x 3 Hosp A/P (1) Acute and chronic respiratory failure with hypoxia Code(s): J96.21 - ACUTE AND CHRONIC RESPIRATORY FAILURE WITH HYPOXIA Status: Acute (2) COPD exacerbation Code(s): J44.1 - CHRONIC OBSTRUCTIVE PULMONARY DISEASE W (ACUTE) EXACERBATION Status: Acute (3) Hyponatremia Code(s): E87.1 - HYPO-OSMOLALITY AND HYPONATREMIA Status: Acute (4) Physical deconditioning Code(s): R53.81 - OTHER MALAISE Status: Acute (5) HTN (hypertension) Code(s): I10 - ESSENTIAL (PRIMARY) HYPERTENSION Status: Chronic Qualifiers: (6) Hypothyroidism Code(s): E03.9 - HYPOTHYROIDISM, UNSPECIFIED Status: Chronic Qualifiers: (7) WALI (obstructive sleep apnea) Code(s): G47.33 - OBSTRUCTIVE SLEEP APNEA (ADULT) (PEDIATRIC) Status: Chronic (8) Obesity (BMI 30-39.9) Code(s): E66.9 - OBESITY, UNSPECIFIED Status: Chronic (9) Tracheostomy status Code(s): Z93.0 - TRACHEOSTOMY STATUS Status: Chronic (10) Venous stasis dermatitis of both lower extremities Code(s): I87.2 - VENOUS INSUFFICIENCY (CHRONIC) (PERIPHERAL) Status: Chronic (11) Acute on chronic diastolic (congestive) heart failure Code(s): I50.33 - ACUTE ON CHRONIC DIASTOLIC (CONGESTIVE) HEART FAILURE Status : Acute - Plan Continue bronchodilators, steroid, antibiotocs. continue reduced lasix dose PT/OT eval and treat Get urine and serum osmolality and urine sodiu
[2019-03-06] MEDS: Atorvastatin Calcium 10 MG TAB PO SCH (20:57)
[2019-03-06] MEDS: Montelukast Sodium 10 mg Tablet PO SCH (20:57)
[2019-03-07] MEDS: Propafenone HCl 150 MG TAB PO SCH ×2 (00:50→10:18)
[2019-03-07] MEDS: Levothyroxine Sodium 25 MCG TAB PO SCH (06:00)
[2019-03-07 06:28] LABS: #Lymphocytes 1.2 thou/uL (1.20-3.40); #Monocytes 0.9 thou/uL (0.11-0.59); #Neutrophils 9.4 thou/uL (1.40-6.50); %Basophils 0.1 % (0.0-1.0); %Eosinophils 0.1 % (0.0-10.0); %Monocytes 7.7 % (0.0-10.0); %Neutrophils 82.1 % (42.0-75.0); Hemoglobin 12.9 g/dL (14.0-18.0); Mean Corpuscular Hemoglobin 28.1 pg (27.0-31.0); Mean Corpuscular Volume 87.8 fL (78.0-98.0); Mean Platelet Volume 8.5 fL (7.4-10.4); Platelet Count 190 thou/uL (130-400); RBC Distribution Width 15.6 % (11.5-14.5); Red Blood Cell (RBC) Count 4.61 mill/uL (4.70-6.10); White Blood Cell (WBC) Count 11.5 thou/uL (4.8-10.8)
[2019-03-07 06:54] LABS: Albumin 3.3 g/dL (3.4-4.8); Anion Gap 13 mmol/L (10-20); BUN (Urea Nitrogen) 18 mg/dL (8.4-25.7); BUN/Creatinine Ratio 19.57; Calc. Creatinine Clearance 97 mL/min (70-130); Calcium 9.5 mg/dL (7.8-10.44); Carbon Dioxide 26 mmol/L (23-31); Chloride 101 mmol/L (98-107); Estimated GFR-MDRD 78; Glucose 90 mg/dL (83-110); Phosphorus 3.7 mg/dL (2.3-4.7); Potassium 4.4 mmol/L (3.5-5.1); Sodium 136 mmol/L (136-145)
[2019-03-07] MEDS: Spironolactone 25 MG TAB PO SCH (10:12)
[2019-03-07] MEDS: methylPREDNISolone Sod Succ 40 MG VIAL IVP SCH (10:12)
[2019-03-07] MEDS: Apixaban 5 MG TAB PO SCH (10:13)
[2019-03-07] MEDS: Aspirin 81 mg Enteric Coated Tablet PO SCH (10:13)
[2019-03-07] MEDS: Multivit, Therapeutic 1 TAB PO SCH (10:13)
[2019-03-07] MEDS: Furosemide 40 MG TAB PO SCH (10:13)
[2019-03-07] MEDS: Polyethylene Glycol 3350 17 GM Packet PO SCH (10:14)
--- NOTE | 2019-03-07 13:37 | DIS ---
DATE OF ADMISSION: 03/05/2019 DATE OF DISCHARGE: 03/07/2019 PRIMARY CARE PHYSICIAN: Dr. Finesse Black. DISCHARGE DIAGNOSES: 1. Acute on chronic respiratory failure. 2. Chronic obstructive pulmonary disease exacerbation. 3. Hyponatremia. 4. Acute on chronic diastolic heart failure. 5. Presence of permanent tracheostomy. 6. Obstructive sleep apnea, status post tracheostomy. 7. Morbid obesity. 8. Hypothyroidism. 9. Hypertension. 10. Physical deconditioning. 11. Chronic venous stasis with dermatitis of both lower extremities. 12. Physical deconditioning. 13. Chronic anticoagulation with Eliquis. 14. Chronic kidney disease, stage 3. 15. Paroxysmal atrial fibrillation. 16. Coronary artery disease. 17. Hyperlipidemia. 18. Osteoarthritis. HOSPITAL COURSE: An 83-year-old male with permanent tracheostomy for obstructive sleep apnea, who was recently discharged from this hospital, admitted due to increasing shortness of breath despite home bronchodilators. Impression of acute respiratory failure due to COPD exacerbation and acute on chronic diastolic heart failure was made. The patient was treated with steroids and bronchodilators, antibiotics as well as oxygen supplementation with improvement. The patient with chronic bilateral leg edema and chronic diastolic heart failure, was noted to have hyponatremia, which was felt to be due to excessive diuresis, hence diuretic was be escalated. Sodium level returned back to normal and the patient improved and remained stable and was subsequently discharged home. PHYSICAL EXAMINATION: VITAL SIGNS: Temperature 97.6, pulse 60, respiratory rate 20, SpO2 of 98% on room air, and blood pressure is 118/73. GENERAL: Obese male, in no obvious distress. Afebrile. Anicteric. HEENT: Normocephalic and atraumatic. Oral mucosa is moist. NECK: Tracheostomy, reports valve in place noted. CARDIOVASCULAR: Regular rhythm and rate with normal heart sounds 1 and 2. RESPIRATORY: Fair air entry bilaterally with no obvious rhonchi or wheezing or respiratory distress. A few transmitted sounds noted. GI: Obese, soft, nontender, and nondistended with normal bowel sounds. EXTREMITIES: Chronic bilateral leg edema with venous stasis changes noted. NEUROLOGIC: Conscious, alert, and oriented x3 with appropriate mental status. Cranial nerves 2 through 12 are grossly intact. The patient is ambulant with a walker on assistance. DISCHARGE DISPOSITION: Home with home health. DISCHARGE CONDITION: Improved. FOLLOWUP: With PCP in 3 days. With hard rock miner in 1 to 2 weeks. The patient was also advised to follow up with regular nursing resident. DISCHARGE MEDICATIONS: See discharge med rec. The patient was discharged home on 5 days of Levaquin and 5 days of prednisone 40 mg daily. Other home medications were restarted at discharge. TIME SPENT WITH PATIENT: Discharge took more than 36 minutes. Job ID: [id number]
[2019-03-07 13:57] VITALS: BP 102/64; TEMP 97.5
== END 2019-03-07 14:54 | disposition home health service (06) | DRG 291 ==
LOC: ERS 21:54 → T4-A 03-05 01:56
PROVIDERS: ADMIT Hospitalist; ATTEND Hospitalist
DX: I13.0 Hypertensive heart and chronic kidney disease with heart failure and stage 1 through stage 4 chronic kidney disease, or unspecified chronic kidney disease (principal); J96.21 Acute and chronic respiratory failure with hypoxia; I50.33 Acute on chronic diastolic (congestive) heart failure; J44.1 Chronic obstructive pulmonary disease with (acute) exacerbation; E87.1 Hypo-osmolality and hyponatremia; I42.9 Cardiomyopathy, unspecified; F41.9 Anxiety disorder, unspecified; F32.9 Major depressive disorder, single episode, unspecified; G47.33 Obstructive sleep apnea (adult) (pediatric); E66.01 Morbid (severe) obesity due to excess calories; M19.90 Unspecified osteoarthritis, unspecified site; E03.9 Hypothyroidism, unspecified; I87.2 Venous insufficiency (chronic) (peripheral); N18.3 Chronic kidney disease, stage 3 (moderate); I25.10 Atherosclerotic heart disease of native coronary artery without angina pectoris; I48.0 Paroxysmal atrial fibrillation; Z79.01 Long term (current) use of anticoagulants; Z88.8 Allergy status to other drugs, medicaments and biological substances; Z93.0 Tracheostomy status; Z79.82 Long term (current) use of aspirin; Z87.01 Personal history of pneumonia (recurrent); Z79.899 Other long term (current) drug therapy; Z68.34 Body mass index [BMI] 34.0-34.9, adult; Z90.49 Acquired absence of other specified parts of digestive tract; Z95.5 Presence of coronary angioplasty implant and graft; Z91.81 History of falling
CPT/HCPCS: 36415; 71045; 80053; 80069; 81001; 82565; 83605; 83880; 83930; 83935; 84484; 85014; 85018; 85025; 85049; 87040; 87086; 93005; 94640; 96365; 96367; 96375; J1956; J2543; J2920; J2930; J3370; J3475; J3490; J7611; J7620

== ENCOUNTER 2019-05-31 08:06 | Inpatient (IN) | payer MEDICARE, BC ==
[2019-05-31 09:01] LABS: #Eosinphils 0.1 thou/uL (0.0-0.7); #Lymphocytes 2.1 thou/uL (1.20-3.40); #Monocytes 0.9 thou/uL (0.11-0.59); #Neutrophils 5.8 thou/uL (1.40-6.50); %Basophils 0.2 % (0.0-1.0); %Eosinophils 0.6 % (0.0-10.0); %Lymphocytes 23.9 % (21.0-51.0); %Monocytes 10.4 % (0.0-10.0); %Neutrophils 64.8 % (42.0-75.0); Hemoglobin 13.2 g/dL (14.0-18.0); Mean Corpuscular HGB CONC 32.2 g/dL (32.0-36.0); Mean Corpuscular Hemoglobin 30.1 pg (27.0-31.0); Mean Corpuscular Volume 93.5 fL (78.0-98.0); Mean Platelet Volume 8.2 fL (7.4-10.4); Platelet Count 179 thou/uL (130-400); RBC Distribution Width 13.9 % (11.5-14.5); Red Blood Cell (RBC) Count 4.38 mill/uL (4.70-6.10); White Blood Cell (WBC) Count 8.9 thou/uL (4.8-10.8)
--- NOTE | 2019-05-31 09:06 | RAD ---
XR Chest 1 View Portable HISTORY: Shortness of breath COMPARISON: 05/29/2019 FINDINGS: The heart size is normal. Tracheostomy tube remains in place. The lungs are well expanded w ithout focal areas of consolidation, pneumothorax or pleural effusions. IMPRESSION: No radiographic evidence of acute cardiopulmonary process.
[2019-05-31 09:20] LABS: Lactic Acid 0.9 mmol/L (0.5-2.2)
[2019-05-31 09:25] LABS: ALT (SGPT) 11 U/L (8-55); AST (SGOT) 14 U/L (5-34); Albumin 3.7 g/dL (3.4-4.8); Alkaline Phosphatase 91 U/L (40-110); Anion Gap 12 mmol/L (10-20); BUN (Urea Nitrogen) 20 mg/dL (8.4-25.7); Bilirubin, Total 0.6 mg/dL (0.2-1.2); Calc. Creatinine Clearance 0 mL/min (70-130); Calcium 9.6 mg/dL (7.8-10.44); Carbon Dioxide 32 mmol/L (23-31); Chloride 100 mmol/L (98-107); Estimated GFR-MDRD 65; Globulin 2.8 g/dL (2.4-3.5); Glucose 91 mg/dL (83-110); Potassium 3.9 mmol/L (3.5-5.1); Protein, Total 6.5 g/dL (5.8-8.1); Sodium 140 mmol/L (136-145)
[2019-05-31 12:32] LABS: Troponin I Less than 0.010 ng/mL (< 0.028)
[2019-05-31] MEDS ORDERED: Ondansetron PF 4 MG/2 ML Vial IVP PRN (13:12)
[2019-05-31] MEDS ORDERED: Ondansetron ODT 4 MG TAB SL PRN (13:12)
[2019-05-31] MEDS ORDERED: Acetaminophen 325 MG TAB PO PRN (13:12)
[2019-05-31] MEDS ORDERED: HYDROcodone/Acetaminophen 5/325 mg Tablet PO PRN (13:54)
[2019-05-31] MEDS ORDERED: Senokot S 8.6-50 MG TAB PO PRN (13:54)
[2019-05-31] MEDS ORDERED: Dextrose 5% in Water 1,000 ML IV PRN (13:54)
[2019-05-31] MEDS ORDERED: Bisacodyl 10 MG SUPP PR PRN (13:54)
[2019-05-31] MEDS ORDERED: HumaLOG 300 UNITS/3 ML VIAL SC PRN (13:54)
[2019-05-31] MEDS ORDERED: Dextrose 50% Abboject 50 ML SYRINGE SLOW IVP PRN (13:54)
[2019-05-31] MEDS ORDERED: Enoxaparin Sodium 40 MG/0.4 ML SYRINGE SC SCH (14:00)
[2019-05-31 14:13] VITALS: BMI 33.6
[2019-05-31] MEDS ORDERED: Prevnar 13-Val Conj/PF 0.5 ML SYRINGE IM ONE (14:30)
[2019-05-31] MEDS ORDERED: FLU VACC TS2019-20(65YR UP)/PF 180 MCG/0.5 ML SYRINGE IM ONE (14:30)
[2019-05-31 15:15] LABS: Troponin I Less than 0.010 ng/mL (< 0.028)
[2019-05-31] MEDS ORDERED: Furosemide 40 MG/4 ML VIAL SLOW IVP SCH (15:30)
--- NOTE | 2019-05-31 15:37 | HP ---
PRIMARY CARE PHYSICIAN: Finesse Black MD CHIEF COMPLAINT: Worsening cough and shortness of breath. HISTORY OF PRESENT ILLNESS: An 83-year-old male with past medical history significant for COPD, obstructive sleep apnea, status post permanent tracheostomy, cardiomyopathy with ejection fraction of 50% to 55%, chronic diastolic heart failure with chronic bilateral leg edema as well as moderate mitral regurgitation and others, admitted with worsening shortness of breath and cough, associated with bloody sputum production. Symptom reportedly started about a few days ago; hence, the patient presented to [facility] where he was treated with steroids and bronchodilators and sent home. However, symptoms continued to worsen, associated with orthopnea as well as postnasal drip, making it difficult to breathe or sleep, hence re-presentation to the ER. There was no associated fever, chest pain, chills, rigors, abdominal pain, worsening leg edema, dysuria, hematuria, nausea, vomiting, hematochezia, or change in bowel habit. The patient also denied focal weakness or mental status change. On presentation to the ER, the patient was found to be saturating at 92 on room air and was treated with bronchodilators with improvement to 94. The patient was to receive levofloxacin by mouth, but he complained that in the last 2 days, he has been having difficulty swallowing solids, hence decision was made to admit the patient for further evaluation and treatment. PAST MEDICAL HISTORY: 1. COPD. 2. Obstructive sleep apnea, on CPAP. Status post permanent tracheostomy. 3. Atrial fibrillation, on chronic anticoagulation with Eliquis. 4. Chronic kidney disease. 5. Hyperlipidemia. 6. Hypothyroidism. 7. Osteoarthritis. 8. Obesity. 9. Moderate mitral regurgitation. 10. Coronary artery disease. 11. Chronic diastolic heart failure. PAST SURGICAL HISTORY: 1. Tracheostomy placement. 2. Gallbladder resection. 3. Cardiac stent placement. FAMILY HISTORY: Reviewed, but noncontributory. SOCIAL HISTORY: Lives with spouse. Denied alcohol or tobacco use. ALLERGIES: REPORTED ALLERGIC REACTION TO TAMIFLU. CURRENT HOME MEDICATIONS: 1. Lipitor 10 mg p.o. daily at bedtime. 2. Lasix 40 mg p.o. daily. 3. Prednisone tapering course. 4. Protonix 40 mg p.o. daily. 5. Eliquis 5 mg p.o. b.i.d. 6. Diltiazem 120 mg p.o. daily. Note that, home med rec is not complete as the patient was unable to tell us exactly what he takes at home and is not here to give us a full list. REVIEW OF SYSTEMS: 12-point review of systems performed was negative other than pertinent positives and negatives included in the History of Present Illness. PHYSICAL EXAMINATION: VITAL SIGNS: Temperature 97.6, pulse 64, respiratory rate 28, SpO2 93% on room air, and blood pressure is 133/63. GENERAL: Obese male, in mild respiratory distress. Afebrile. Anicteric. Acyanotic. HEENT: Normocephalic, atraumatic. Oral mucosa is moist. NECK: Tracheostomy noted. CARDIOVASCULAR: Regular rhythm and rate with normal heart sounds 1 and 2. Systolic murmur noted. RESPIRATORY: Fair air entry bilaterally with scattered transmitted breath sounds. Some rhonchi also were appreciated. Use of accessory muscles was not appreciated. GI: Obese, soft, nontender, nondistended with normal bowel sounds. EXTREMITIES: Mild bilateral leg edema with chronic venous stasis changes noted. UX ARCHITECT: Conscious, alert, and oriented x3 with appropriate mental status. Cranial nerves 2 through 12 are grossly intact. The patient moves all extremities, but weakly. DIAGNOSTIC DATA: CBC showed WBC count of 8.9, hemoglobin of 13.2, and platelets of 179. CMP showed sodium 140, potassium 3.9, chloride 100, CO2 of 32, BUN 20, creatinine 1.09, glucose 91, calcium 9.6, total bilirubin 0.6, AST 14, ALT 11, alkaline phosphatase 91, total protein 6.5, albumin 3.7, and globulin 2.8. Cardiac markers showed initial troponin of less than 0.010 and BNP of 57.8. Lactic acid is 0.9. Chest x-ray showed normal heart size with tracheostomy in place. The lungs are well expanded without focal area of consolidation, pneumothorax, or pleural effusion. ASSESSMENT: 1. Acute respiratory insufficiency. 2. Chronic obstructive pulmonary disease exacerbation. 3. Acute bronchitis. 4. Paroxysmal atrial fibrillation with controlled rate. 5. Chronic diastolic heart failure without acute exacerbation. 6. Diabetes mellitus. 7. Obstructive sleep apnea, status post tracheostomy. PLAN: 1. We will start the patient on antibiotic therapy with Levaquin. We will also start bronchodilators as well as mucolytics. Oxygen supplementation will be provided as needed. We may use noninvasive respiratory support if indicated. 2. We will continue anticoagulation with Eliquis. 3. We will also continue diuretics. 4. Steroid therapy also will be provided. 5. We will keep the patient n.p.o. to be cleared by Speech Therapy given oropharyngeal dysphagia. 6. We will consult Pulmonary and Critical Care to help with management of this patient. 7. Code status is full code. 8. Spouse is the surrogate decision maker. Further treatment to follow depending on hospital course. Job ID: [id number]
[2019-05-31] MEDS ORDERED: Acetylcysteine 20% 200 MG/ML 30 ML VIAL INH SCH (19:00)
[2019-05-31] MEDS: Apixaban 5 MG TAB PO SCH (20:37)
[2019-05-31] MEDS: Atorvastatin Calcium 10 MG TAB PO SCH (20:37)
[2019-05-31] MEDS ORDERED: Montelukast Sodium 10 mg Tablet PO SCH (21:00)
[2019-05-31] MEDS ORDERED: methylPREDNISolone Sod Succ 40 MG VIAL IVP SCH (21:00)
--- NOTE | 2019-05-31 21:14 | CON ---
DATE OF CONSULTATION: 05/31/2019 SERVICE: Pulmonary Medicine. REASON FOR CONSULTATION: Tracheostomy. HISTORY OF PRESENT ILLNESS: The patient is an 83-year-old white male with past medical history significant for increasing dyspnea that limits his activity over a period of couple of weeks. He also notes increasing lower extremity swelling and increasingly productive cough. He is bringing up red, frothy sputum. He denies any fevers, chills, nausea, or vomiting. He has been coughing up some much sputum at one point, got choked up on mucus. He was able to liberate some of that and his breathing has improved. That being said, whenever he lies down, he has once again increasing cough and sputum production. He believes he has had a lot more drainage from his nose in the back of his throat. He has also had a sore throat but otherwise, denies having any headaches, fevers, chills, nausea, vomiting, diarrhea, or abdominal discomfort. He has had a little bit of lack of appetite, but he is starting to feel little bit better since being here. PAST MEDICAL HISTORY: 1. COPD. 2. Chronic hypoxic respiratory failure. 3. Tracheostomy, placed in 2010. 4. Coronary artery disease. 5. Atrial fibrillation. 6. Chronic kidney disease. 7. Osteoarthritis. 8. Obstructive sleep apnea, status post trach. 9. Obesity. PAST SURGICAL HISTORY: 1. Tracheostomy. 2. PEG tube placement with subsequent removal. 3. Colonoscopy. 4. Cholecystectomy. SOCIAL HISTORY: Currently negative for alcohol, tobacco, or illicit drug use. He has remote history of smoking. Denies any chemicals, dust or asbestos. FAMILY HISTORY: Noncontributory. ALLERGIES: OSELTAMIVIR. MEDICATIONS: List of his inpatient medications was reviewed. No updates were made at this time. REVIEW OF SYSTEMS: General; head, ears, eyes, nose, throat; cardiovascular; respiratory; GI; ; musculoskeletal; neurologic; and skin are negative except as mentioned in the HPI. PHYSICAL EXAMINATION: VITAL SIGNS: Afebrile, pulse 64, blood pressure 133/63, respirations 18, saturation 96%, currently on room air. GENERAL: The patient is awake and alert, in no apparent distress. LUNGS: Good air entry. There is a slightly prolonged expiratory phase. Extensive rhonchi and crackles are both present, though I do not hear any wheezing. HEART: Normal rate, regular. ABDOMEN: Soft, nontender, and nondistended. Bowel sounds are positive. MUSCULOSKELETAL: No cyanosis or clubbing. There is 2 to 3+ pitting in the left lower extremity and 2+ pitting in the right lower extremity. NEUROLOGIC: Grossly nonfocal. LABORATORY DATA: WBC 8.9, hemoglobin 13.2, platelets 179,000. INR 1.0. D- dimer 0.61. PH 7.34, pCO2 of 54, PO2 of 81. Basic metabolic profile and liver function studies, troponin x2, BNP, and lactate are all unremarkable today. Urinalysis is unremarkable. IMAGING: Chest x-ray demonstrates: 1. Acute on chronic hypoxic respiratory failure. 2. Chronic hypercapnic respiratory failure. 3. Acute on chronic diastolic heart failure. 4. Chronic obstructive pulmonary disease with mild exacerbation. DISCUSSION AND PLAN: We will continue to diurese the patient down to euvolemia. We will continue his antibiotics, nebulized medications, and steroids directed at lung issues. We will put a 6.0 fenestrated cuffless Shiley tracheostomy at bedside. Hopefully, this can be exchanged before the patient is discharged home. He is volume overloaded and will require multiple doses of Lasix through time in order to get back to euvolemia. Pulmonary/Critical Care will follow along. Dr. Metzger has a well established relationship with Mr. Bailey and will assume coverage tomorrow. 70 minutes have been devoted to this patient in various activities. I personally reviewed all imaging studies and laboratory data noted within this document. For fifty percent of this time, I was interacting with the patient at the bedside or coordinating care with the care team. For the remainder of the time I was immediately available to the patient in the hospital unit. Job ID: [id number] [facility]
[2019-06-01 04:45] LABS: #Basophils 0.1 thou/uL (0.0-0.2); #Eosinphils 0.1 thou/uL (0.0-0.7); #Lymphocytes 2.1 thou/uL (1.20-3.40); #Monocytes 0.7 thou/uL (0.11-0.59); #Neutrophils 3.3 thou/uL (1.40-6.50); %Basophils 0.9 % (0.0-1.0); %Eosinophils 1.1 % (0.0-10.0); %Lymphocytes 33.1 % (21.0-51.0); %Monocytes 11.7 % (0.0-10.0); %Neutrophils 53.1 % (42.0-75.0); Mean Corpuscular HGB CONC 32.8 g/dL (32.0-36.0); Mean Corpuscular Hemoglobin 30.4 pg (27.0-31.0); Mean Corpuscular Volume 92.6 fL (78.0-98.0); Mean Platelet Volume 8.5 fL (7.4-10.4); Platelet Count 175 thou/uL (130-400); RBC Distribution Width 13.8 % (11.5-14.5); Red Blood Cell (RBC) Count 4.28 mill/uL (4.70-6.10); White Blood Cell (WBC) Count 6.2 thou/uL (4.8-10.8)
[2019-06-01 05:03] LABS: Anion Gap 11 mmol/L (10-20); BUN (Urea Nitrogen) 20 mg/dL (8.4-25.7); Calc. Creatinine Clearance 79 mL/min (70-130); Calcium 9.6 mg/dL (7.8-10.44); Carbon Dioxide 32 mmol/L (23-31); Chloride 100 mmol/L (98-107); Estimated GFR-MDRD 61; Glucose 76 mg/dL (83-110); Phosphorus 4.3 mg/dL (2.3-4.7); Potassium 3.8 mmol/L (3.5-5.1); Sodium 139 mmol/L (136-145)
[2019-06-01] MEDS: Furosemide 40 MG/4 ML VIAL SLOW IVP SCH ×2 (06:13→13:00)
[2019-06-01] MEDS: Propafenone HCl 150 MG TAB PO SCH ×3 (08:23→23:42)
[2019-06-01] MEDS: Apixaban 5 MG TAB PO SCH ×2 (08:24→19:53)
[2019-06-01] MEDS: predniSONE 20 MG TAB PO SCH (08:26)
[2019-06-01] MEDS: Aspirin 81 mg Enteric Coated Tablet PO SCH (08:27)
[2019-06-01] MEDS: Montelukast Sodium 10 mg Tablet PO SCH (08:27)
--- NOTE | 2019-06-01 10:17 | RAD ---
Modified barium swallow with speech therapist: DATE: 06/01/2019 HISTORY: 83-year-old male with dysphagia, unspecified, and feeding difficulties. Tracheostomy tube. FINDINGS: There is penetration after swallowing all consistencies. There is alton aspiration with thin liquids. There is alton aspiration with nectar by cup with chin neutral position. No aspiration with nectar and honey thick by cup during chin tuck. Premature spillage. IMPRESSION: 1. Significant dysphagia. 2. penetration with all consistencies 3. Alton aspiration. 4. See complete separate report by speech therapist.
[2019-06-01] MEDS: Polyethylene Glycol 3350 17 GM Packet PO SCH (12:01)
--- NOTE | 2019-06-01 12:42 | PDOC.HOSPP ---
- Subjective Encounter Date: 06/01/19 Encounter Time: 09:39 Subjective: 83 y/o male with permanent Tracheostomy for WALI, chronic diastolic heart failure , COPD and others admitted with worsening cough and SOB associated with sputum production. [place] to have COPD and CHF exacerbation and was started on antibiotics, diuretic and steroid with good interval improvement. Also has dysphagia and was made NPO. MBS is planned for today. NO fever, chest pain or worsening edema. - Objective Vital Signs & Weight: Vital Signs (12 hours) Temp Pulse Resp BP BP BP Pulse Ox 06/01/19 11:47 97.4 F L 74 20 106/65 93 L 06/01/19 08:25 73 105/61 06/01/19 07:42 97.7 F 72 18 101/63 92 L 06/01/19 07:11 80 20 91 L 06/01/19 03:45 98.2 F 72 18 102/52 L 94 L Weight Weight 255 lb I&O: 05/31/19 06/01/19 06/02/19 06:59 06:59 06:59 Output Total 1550 200 Balance -1550 -200 Result Diagrams: 06/01/19 04:08 06/01/19 04:08 Additional Labs: Accuchecks 06/01/19 06/01/19 05/31/19 10:41 06:19 22:17 POC Glucose 101 79 89 05/31/19 16:39 POC Glucose 97 Hospitalist ROS - Medication Medications: Active Medications Generic Name Dose Route Start Last Admin Trade Name Freq PRN Reason Stop Dose Admin Hydrocodone Bitart/Acetaminophen 1 tab 05/31/19 13:54 05/31/19 20:51 [place] 5/325 PO 1 tab Q4H PRN Administration Moderate Pain (4-6) Albuterol/Ipratropium 3 ml 05/31/19 19:00 06/01/19 07:11 Duoneb NEB 3 ml [id number] LIANE Administration Albuterol/Ipratropium 3 ml 05/31/19 13:54 05/31/19 16:24 Duoneb NEB 3 ml Q4H PRN Administration SOB &/or Wheezing Apixaban 5 mg 05/31/19 21:00 06/01/19 08:24 Eliquis PO 5 mg BID LIANE Administration Aspirin 81 mg 06/01/19 09:00 06/01/19 08:27 Ecotrin PO 81 mg DAILY LIANE Administration Atorvastatin Calcium 10 mg 05/31/19 21:00 05/31/19 20:37 Lipitor PO 10 mg HS LIANE Administration Diltiazem HCl 120 mg 06/01/19 09:00 06/01/19 08:25 Cardizem Cd PO 120 mg DAILY LIANE Administration Furosemide 40 mg 06/01/19 06:00 06/01/19 06:13 Lasix SLOW IVP 40 mg 0600,1400 LIANE Administration Levofloxacin 750 mg/ Device 150 mls @ 100 mls/hr 06/01/19 08:00 06/01/19 08: 22 IVPB 150 mls Q24HR LIANE Administration Montelukast Sodium 10 mg 06/01/19 09:00 06/01/19 08:27 Singulair PO 10 mg DAILY LIANE Administration Pantoprazole Sodium 40 mg 06/01/19 09:00 06/01/19 08:24 Protonix PO 40 mg DAILY LIANE Administration Polyethylene Glycol 17 gm 06/01/19 09:00 06/01/19 12:01 Miralax PO 17 gm DAILY LIANE Administration Prednisone 40 mg 06/01/19 08:00 06/01/19 08:26 Prednisone PO 06/05/19 08:01 40 mg QAM-WM LIANE Administration Propafenone HCl 225 mg 06/01/19 08:00 06/01/19 08:23 Rythmol PO 225 mg Q8H LIANE Administration Sodium Chloride 10 ml 06/01/19 09:00 06/01/19 08:27 Flush - Normal Saline IVF Not Given Q12HR LIANE - Exam General Appearance: awake alert General - other findings: obese ENT: normocephalic atraumatic, moist mucosa Neck: supple Neck - other findings: tracheostomy in place Heart: RRR Respiratory - other findings: fair air entry with transmitted sound. No rhonchi or crackles Gastrointestinal: soft, non-tender, non-distended, normal bowel sounds Gastrointestinal - other findings: obese Extremities: no cyanosis Extremities - other findings: mild edema with chronic venous stasis changes Neurological: cranial nerve grossly intact, no focal deficits Psychiatric: A&O x 3 Hosp A/P (1) COPD exacerbation Code(s): J44.1 - CHRONIC OBSTRUCTIVE PULMONARY DISEASE W (ACUTE) EXACERBATION Status: Acute (2) Dysphagia Code(s): R13.10 - DYSPHAGIA, UNSPECIFIED Status: Acute (3) Acute on chronic diastolic (congestive) heart failure Code(s): I50.33 - ACUTE ON CHRONIC DIASTOLIC (CONGESTIVE) HEART FAILURE Status : Acute (4) CKD (chronic kidney disease), stage III Status: Chronic (5) HTN (hypertension) Code(s): I10 - ESSENTIAL (PRIMARY) HYPERTENSION Status: Chronic Qualifiers: (6) Hypothyroidism Code(s): E03.9 - HYPOTHYROIDISM, UNSPECIFIED Status: Chronic Qualifiers: (7) WALI (obstructive sleep apnea) Code(s): G47.33 - OBSTRUCTIVE SLEEP APNEA (ADULT) (PEDIATRIC) Status: Chronic (8) Obesity (BMI 30-39.9) Code(s): E66.9 - OBESITY, UNSPECIFIED Status: Chronic (9) Tracheostomy status Code(s): Z93.0 - TRACHEOSTOMY STATUS Status: Chronic (10) Venous stasis dermatitis of both lower extremities Code(s): I87.2 - VENOUS INSUFFICIENCY (CHRONIC) (PERIPHERAL) Status: Chronic (11) Paroxysmal atrial fibrillation Code(s): I48.0 - PAROXYSMAL ATRIAL FIBRILLATION Status: Acute (12) CAD (coronary artery disease) Code(s): I25.10 - ATHSCL HEART DISEASE OF [place] CORONARY ARTERY W/O ANG PCTRS Status: Chronic - Plan Continue antibiotic, bronchodilators, steroid and diuretics. Monitor renal function and electrolytes Await sputum culture swallow eval as per speech therapy. NPO for now. Continue anticoagulation, antiarrhytmic and antihypertensives
[2019-06-01] MEDS: Atorvastatin Calcium 10 MG TAB PO SCH (19:53)
[2019-06-02 05:08] LABS: Phosphorus 4.1 mg/dL (2.3-4.7)
[2019-06-02] MEDS: Furosemide 40 MG/4 ML VIAL SLOW IVP SCH ×2 (06:39→14:49)
[2019-06-02] MEDS: Levothyroxine Sodium 25 MCG TAB PO SCH (06:41)
[2019-06-02] MEDS: Propafenone HCl 150 MG TAB PO SCH ×2 (08:36→15:11)
[2019-06-02] MEDS: predniSONE 20 MG TAB PO SCH (08:37)
[2019-06-02] MEDS: Apixaban 5 MG TAB PO SCH ×2 (08:37→20:37)
[2019-06-02] MEDS: Aspirin 81 mg Enteric Coated Tablet PO SCH (08:37)
[2019-06-02] MEDS: Polyethylene Glycol 3350 17 GM Packet PO SCH (08:38)
[2019-06-02] MEDS: Montelukast Sodium 10 mg Tablet PO SCH (08:38)
[2019-06-02 09:53] LABS: Anion Gap 17 mmol/L (10-20); BUN (Urea Nitrogen) 27 mg/dL (8.4-25.7); Calc. Creatinine Clearance 75 mL/min (70-130); Calcium 9.5 mg/dL (7.8-10.44); Carbon Dioxide 26 mmol/L (23-31); Chloride 99 mmol/L (98-107); Estimated GFR-MDRD 58; Glucose 92 mg/dL (83-110); Potassium 4.2 mmol/L (3.5-5.1); Sodium 138 mmol/L (136-145)
--- NOTE | 2019-06-02 11:47 | PQF ---
DATE: 06-02-19 ATTN: DR. ORALIA LOPEZ Please exercise your independent, professional judgment in responding to the clarification form. Clinical indicators are provided on the bottom of this form for your review Please check appropriate box(s): Conflicting documentation was noted in the Medical Record, please clarify if patient is being treated/monitored for: [ ] CHRONIC DIASTOLIC HEART FAILURE WITHOUT ACUTE EXACERBATION [ x ] ACUTE ON CHRONIC DIASTOLIC CONGESTIVE HEART FAILURE [ ] Other diagnosis [ ] Unable to determine In addition, please specify: Present on Admission (POA): [ x ] Yes [ ] No [ ] Unable to determine For continuity of documentation, please document condition throughout progress notes and discharge summary. Thank You. CLINICAL INDICATORS - SIGNS / SYMPTOMS/ LABS / RESULTS AND LOCATION IN EMR: H&P 05-31-19: CHRONIC DIASTOLIC HEART FAILURE WITHOUT ACUTE EXACERBATION CONSULT NOTE DR. MARISCAL 05-31-19: ACUTE ON CHRONIC DIASTOLIC HEART FAILURE PN DR. LOPEZ 06-01-19: ACUTE ON CHRONIC DIASTOLIC HEART FAILURE RISK FACTORS / RESULTS AND LOCATION IN EMR: H&P 05-31-19: HX CHRONIC DIASTOLIC HEART FAILURE WITHOUT ACUTE EXACERBATION TREATMENT / RESULTS AND LOCATION IN EMR: H&P 05-31-19: WE WILL ALSO CONTINUE DIURETICS CONSULT NOTE DR. MARISCAL 05-31-19: WE WILL CONTINUE TO DIURESE THE PATIENT DOWN TO [place]. HE IS VOLUME OVERLOADED AND WILL REQUIRE MULTIPLE DOSED OF LASIX THROUGH TIME IN ORDER TO GET BACK TO [place]. (This form is maintained as a part of the permanent medical record) 2014 [employer], [email or web address]. All Rights Reserved [email or web address] Office: [phone] LYDIA
--- NOTE | 2019-06-02 15:33 | PRG ---
DATE OF SERVICE: 06/02/2019 SUBJECTIVE: Mr. Bailey wants to go home. Unfortunately, his cannot come out in this weather to come get him. He had a modified barium swallow yesterday. This showed alton aspiration. Unfortunately, Mr. Bailey is not exercising at home. OBJECTIVE: VITAL SIGNS: He is afebrile, heart rate 70, respiratory rate 19, oximetry is 91% on trach collar, blood pressure 118/56. LUNGS: Remarkable for distant breath sounds. He has no wheezes that I can hear. HEART: Regular rhythm. ABDOMEN: Soft. IMPRESSION: 1. Chronic obstructive pulmonary disease exacerbation. 2. Aspiration and swallowing dysfunction. This will need to be discussed with his if it has not been. She is not here and cannot come get him. I may be able to discharge him home in the morning, but the swallowing is a big issue for him. His COPD is stable. His trach will be changed prior to discharge. Job ID: [id number]
--- NOTE | 2019-06-02 17:31 | PDOC.HOSPP ---
- Subjective Encounter Date: 06/02/19 Encounter Time: 17:27 Subjective: 83 y/o male with permanent Tracheostomy for WALI, chronic diastolic heart failure , COPD and others admitted with worsening cough and SOB associated with sputum production and increased bilateral leg edema. [place] to have COPD and CHF exacerbation and was started on antibiotics, diuretic and steroid with good interval improvement. Also has dysphagia and was started on dysphagic diet after MBS. NO fever, chest pain or worsening edema. - Objective Vital Signs & Weight: Vital Signs (12 hours) Temp Pulse Pulse Pulse Resp BP BP 06/02/19 15:09 97.4 F L 70 19 06/02/19 14:23 74 69 129/67 98/57 L 06/02/19 13:34 73 20 06/02/19 12:53 06/02/19 11:47 97.5 F L 62 16 06/02/19 07:44 97.5 F L 62 17 06/02/19 07:38 61 20 BP BP Pulse Ox 06/02/19 15:09 118/56 L 91 L 06/02/19 14:23 06/02/19 13:34 94 L 06/02/19 12:53 96 06/02/19 11:47 111/61 95 06/02/19 07:44 121/68 96 06/02/19 07:38 94 L Weight Weight 255 lb I&O: 06/01/19 06/02/19 06/03/19 06:59 06:59 06:59 Intake Total 420 Output Total 1550 450 Balance -1550 -30 Result Diagrams: 06/01/19 04:08 06/02/19 04:25 Additional Labs: Accuchecks 06/02/19 06/02/19 06/01/19 11:01 05:08 20:23 POC Glucose 114 H 99 124 H Hospitalist ROS - Medication Medications: Active Medications Generic Name Dose Route Start Last Admin Trade Name Freq PRN Reason Stop Dose Admin Hydrocodone Bitart/Acetaminophen 1 tab 05/31/19 13:54 05/31/19 20:51 [place] 5/325 PO 1 tab Q4H PRN Administration Moderate Pain (4-6) Albuterol/Ipratropium 3 ml 05/31/19 19:00 06/02/19 13:34 Duoneb NEB 3 ml [id number] LIANE Administration Albuterol/Ipratropium 3 ml 05/31/19 13:54 05/31/19 16:24 Duoneb NEB 3 ml Q4H PRN Administration SOB &/or Wheezing Apixaban 5 mg 05/31/19 21:00 06/02/19 08:37 Eliquis PO 5 mg BID LIANE Administration Aspirin 81 mg 06/01/19 09:00 06/02/19 08:37 Ecotrin PO 81 mg DAILY LIANE Administration Atorvastatin Calcium 10 mg 05/31/19 21:00 06/01/19 19:53 Lipitor PO 10 mg HS LIANE Administration Diltiazem HCl 120 mg 06/01/19 09:00 06/02/19 08:38 Cardizem Cd PO 120 mg DAILY LIANE Administration Furosemide 40 mg 06/01/19 06:00 06/02/19 14:49 Lasix SLOW IVP 40 mg 0600,1400 LIANE Administration Levofloxacin 750 mg/ Device 150 mls @ 100 mls/hr 06/01/19 08:00 06/02/19 08: 35 IVPB 150 mls Q24HR LIANE Administration Levothyroxine Sodium 25 mcg 06/02/19 06:00 06/02/19 06:41 Synthroid PO 25 mcg 0600 LIANE Administration Montelukast Sodium 10 mg 06/01/19 09:00 06/02/19 08:38 Singulair PO 10 mg DAILY LIANE Administration Pantoprazole Sodium 40 mg 06/01/19 09:00 06/02/19 08:38 Protonix PO 40 mg DAILY LIANE Administration Polyethylene Glycol 17 gm 06/01/19 09:00 06/02/19 08:38 Miralax PO 17 gm DAILY LIANE Administration Prednisone 40 mg 06/01/19 08:00 06/02/19 08:37 Prednisone PO 06/05/19 08:01 40 mg QAM-WM LIANE Administration Propafenone HCl 225 mg 06/01/19 08:00 06/02/19 15:11 Rythmol PO 225 mg Q8H LIANE Administration Sodium Chloride 10 ml 06/01/19 09:00 06/02/19 08:38 Flush - Normal Saline IVF 10 ml Q12HR LIANE Administration - Exam General Appearance: awake alert Eye: anicteric sclera ENT: normocephalic atraumatic Neck: supple, symmetric, no JVD Neck - other findings: Trach in place Heart: RRR Respiratory: no wheezes, no ronchi, normal chest expansion Respiratory - other findings: fair air entry bilaterally Gastrointestinal: soft, non-tender, non-distended, normal bowel sounds Extremities: no cyanosis Extremities - other findings: trace to mild bilateral leg edema Neurological: cranial nerve grossly intact, no focal deficits Neurological - other findings: ambulant with a walker Psychiatric: A&O x 3 Hosp A/P (1) COPD exacerbation Code(s): J44.1 - CHRONIC OBSTRUCTIVE PULMONARY DISEASE W (ACUTE) EXACERBATION Status: Acute (2) Dysphagia Code(s): R13.10 - DYSPHAGIA, UNSPECIFIED Status: Acute (3) Acute on chronic diastolic (congestive) heart failure Code(s): I50.33 - ACUTE ON CHRONIC DIASTOLIC (CONGESTIVE) HEART FAILURE Status : Acute (4) CKD (chronic kidney disease), stage III Status: Chronic (5) HTN (hypertension) Code(s): I10 - ESSENTIAL (PRIMARY) HYPERTENSION Status: Chronic Qualifiers: (6) Hypothyroidism Code(s): E03.9 - HYPOTHYROIDISM, UNSPECIFIED Status: Chronic Qualifiers: (7) WALI (obstructive sleep apnea) Code(s): G47.33 - OBSTRUCTIVE SLEEP APNEA (ADULT) (PEDIATRIC) Status: Chronic (8) Obesity (BMI 30-39.9) Code(s): E66.9 - OBESITY, UNSPECIFIED Status: Chronic (9) Tracheostomy status Code(s): Z93.0 - TRACHEOSTOMY STATUS Status: Chronic (10) Venous stasis dermatitis of both lower extremities Code(s): I87.2 - VENOUS INSUFFICIENCY (CHRONIC) (PERIPHERAL) Status: Chronic (11) Paroxysmal atrial fibrillation Code(s): I48.0 - PAROXYSMAL ATRIAL FIBRILLATION Status: Acute (12) CAD (coronary artery disease) Code(s): I25.10 - ATHSCL HEART DISEASE OF [place] CORONARY ARTERY W/O ANG PCTRS Status: Chronic - Plan Continue antibiotic, bronchodilators, steroid and diuretics. Monitor renal function and electrolytes Await sputum culture Dysphagic diet to continue Continue anticoagulation, antiarrhytmic and antihypertensives For discharge tomorrow
[2019-06-02] MEDS: Atorvastatin Calcium 10 MG TAB PO SCH (20:36)
[2019-06-03] MEDS: Propafenone HCl 150 MG TAB PO SCH ×3 (01:00→17:39)
[2019-06-03] MEDS: Furosemide 40 MG/4 ML VIAL SLOW IVP SCH (05:16)
[2019-06-03] MEDS: Levothyroxine Sodium 25 MCG TAB PO SCH (05:16)
[2019-06-03] MEDS: Polyethylene Glycol 3350 17 GM Packet PO SCH (09:16)
[2019-06-03] MEDS: predniSONE 20 MG TAB PO SCH (09:32)
[2019-06-03] MEDS: Apixaban 5 MG TAB PO SCH (09:32)
[2019-06-03] MEDS: Montelukast Sodium 10 mg Tablet PO SCH (09:32)
[2019-06-03] MEDS: Aspirin 81 mg Enteric Coated Tablet PO SCH (09:33)
[2019-06-03 09:52] LABS: Anion Gap 16 mmol/L (10-20); BUN (Urea Nitrogen) 32 mg/dL (8.4-25.7); Calc. Creatinine Clearance 62 mL/min (70-130); Calcium 9.9 mg/dL (7.8-10.44); Carbon Dioxide 27 mmol/L (23-31); Chloride 100 mmol/L (98-107); Estimated GFR-MDRD 46; Glucose 93 mg/dL (83-110); Phosphorus 3.4 mg/dL (2.3-4.7); Potassium 3.5 mmol/L (3.5-5.1); Sodium 139 mmol/L (136-145)
[2019-06-03 16:01] VITALS: BP 111/61; TEMP 98
--- NOTE | 2019-06-03 17:29 | PRG ---
DATE OF SERVICE: 06/03/2019 SUBJECTIVE: Justin Bailey had no complaints today. OBJECTIVE: VITAL SIGNS: He is afebrile, heart rate 74, respiratory rate is 20, and oximetry is 91 to 94. NECK: He had his trach capped when I was in the room. I changed out his tracheostomy tube and put new one with a smooth inner cannula in and put a cap on it, so he can talk. He says he has been wearing his trach with a cap. I have again explained to him as I have in the past that if he is short of breath, he needs to leave his tracheostomy without a cap and humidity in place. He should definitely sleep with his tracheostomy open. His waits in the room for me to reemphasize all of this, but she is always in the past done a great job of caring for his issues. LUNGS: He had no wheezes on exam. HEART: Regular rhythm. ABDOMEN: Soft. ASSESSMENT AND PLAN: In my opinion, he is stable. He has significant swallowing dysfunction and will not on his own stick to his diet. Hopefully, his can convince him to use pureed food and thickened liquids. Job ID: [id number]
--- NOTE | 2019-06-05 19:42 | DIS ---
DATE OF ADMISSION: 05/31/2019 DATE OF DISCHARGE: 06/03/2019 PRIMARY CARE PROVIDER: Finesse Black MD DISCHARGE DIAGNOSES: 1. Acute respiratory insufficiency present on admission. 2. Acute on chronic diastolic heart failure. 3. Chronic obstructive pulmonary disease exacerbation. 4. Dysphagia. 5. Chronic kidney disease, stage 3. 6. Hypertension. 7. Hypothyroidism. 8. Obstructive sleep apnea, status post permanent tracheostomy. 9. Obesity with BMI of 30 to 39.9. 10. Tracheostomy status. 11. Chronic venous stasis dermatitis of both lower extremities. 12. Paroxysmal atrial fibrillation. 13. Coronary artery disease. 14. Physical deconditioning. CONSULTS: Pulmonary and Critical Care. HOSPITAL COURSE: An 83-year-old male with known history of obstructive sleep apnea, status post permanent tracheostomy, chronic diastolic heart failure, COPD and others, admitted with worsening cough and shortness of breath associated with sputum production and increased bilateral leg edema. Impression of acute respiratory insufficiency was made due to COPD and CHF exacerbation. The patient was treated with antibiotics, diuretics, oxygen supplementation, and steroids as well as bronchodilators with improvement. The patient was also found to have dysphagia following swallow evaluation was put on dysphagic diet. Pulmonary also saw the patient and changed out his tracheostomy to another one that has a smooth cannula with a cuff so that he could verbalize. The patient was however explicitly instructed to open up the cuff when he is short of breath and in fact sleep with the cuff open at night. The patient remained stable and was subsequently discharged home. PHYSICAL EXAMINATION: VITAL SIGNS: Temperature 98.0, pulse 74, respiratory rate 20, SpO2 of 91% on room air, blood pressure is 111/61. GENERAL: Obese male, in no distress. Afebrile. Anicteric. Acyanotic. HEENT: Normocephalic, atraumatic. Oral mucosa is moist. NECK: Tracheostomy in place. RESPIRATORY: Good air entry bilaterally with no obvious crackle or rhonchi or use of accessory muscles. CARDIOVASCULAR: Regular rhythm and rate. Normal heart sounds one and two. GI: Obese, soft, nontender, nondistended with normal bowel sounds. EXTREMITIES: Trace to mild bilateral leg edema with chronic venous stasis changes. NEUROLOGIC: Conscious, alert, oriented x3 with appropriate mental status. No obvious focal deficit appreciated. The patient walks, ambulates with a walker. DISCHARGE CONDITION: Improved. DISCHARGE DISPOSITION: Home with home health. DISCHARGE MEDICATIONS: 1. Acetaminophen 650 mg p.o. q.4 p.r.n. 2. Lipitor 10 mg p.o. daily at bedtime. 3. Furosemide 40 mg p.o. b.i.d. 4. Lorazepam 1 mg p.o. p.r.n. 5. Montelukast 10 mg p.o. daily. 6. Protonix 40 mg p.o. daily. 7. MiraLAX 17 g p.o. daily. 8. Mucinex 1200 mg p.o. b.i.d. 9. Eliquis 5 mg p.o. b.i.d. 10. Aspirin 81 mg p.o. daily. 11. Cardizem CD 120 mg p.o. daily. 12. DuoNeb 3 mL nebulization q.2 hours p.r.n. for shortness of breath. 13. Levofloxacin 750 mg every 48 hours for 5 doses. 14. p.o. daily. 15. Propafenone 225 mg p.o. q.8 hours. 16. Spironolactone 25 mg p.o. daily. Discharge took more than 38 minutes. Job ID: [id number]
== END 2019-06-03 18:15 | disposition home health service (06) | DRG 291 ==
LOC: ERS 08:06 → 2SW 13:01 → OBSVTOIN 14:25 → 2NO 17:59
PROVIDERS: ADMIT Internal Medicine Nephrology; ATTEND Internal Medicine Nephrology
PROC: 0B21XFZ Change Tracheostomy Device in Trachea, External Approach (ICD-10-PCS; principal; 2019-06-03)
DX: I13.0 Hypertensive heart and chronic kidney disease with heart failure and stage 1 through stage 4 chronic kidney disease, or unspecified chronic kidney disease (principal); I50.33 Acute on chronic diastolic (congestive) heart failure; J96.21 Acute and chronic respiratory failure with hypoxia; J44.1 Chronic obstructive pulmonary disease with (acute) exacerbation; J44.0 Chronic obstructive pulmonary disease with (acute) lower respiratory infection; I42.9 Cardiomyopathy, unspecified; E78.5 Hyperlipidemia, unspecified; E03.9 Hypothyroidism, unspecified; M19.90 Unspecified osteoarthritis, unspecified site; E66.9 Obesity, unspecified; I25.10 Atherosclerotic heart disease of native coronary artery without angina pectoris; I34.0 Nonrheumatic mitral (valve) insufficiency; G47.33 Obstructive sleep apnea (adult) (pediatric); I48.0 Paroxysmal atrial fibrillation; E11.22 Type 2 diabetes mellitus with diabetic chronic kidney disease; J20.9 Acute bronchitis, unspecified; N18.3 Chronic kidney disease, stage 3 (moderate); I87.2 Venous insufficiency (chronic) (peripheral); Z68.33 Body mass index [BMI] 33.0-33.9, adult; Z93.0 Tracheostomy status; Z90.49 Acquired absence of other specified parts of digestive tract; Z79.01 Long term (current) use of anticoagulants; Z95.5 Presence of coronary angioplasty implant and graft; Z88.8 Allergy status to other drugs, medicaments and biological substances; Z79.52 Long term (current) use of systemic steroids; Z79.899 Other long term (current) drug therapy; Z99.89 Dependence on other enabling machines and devices; R13.12 Dysphagia, oropharyngeal phase
CPT/HCPCS: 36415; 36416; 71045; 74230; 80048; 80053; 83605; 83735; 83880; 84100; 84484; 85025; 87040; 87070; 87205; 87633; 93005; 94640; J1940; J1956; J7512; J7620

== ENCOUNTER 2019-09-14 12:12 | Observation (INO) | payer MEDICARE, BC ==
[2019-09-14 13:07] LABS: #Lymphocytes 0.8 thou/uL (1.20-3.40); #Monocytes 0.2 thou/uL (0.11-0.59); #Neutrophils 4.7 thou/uL (1.40-6.50); %Eosinophils 0.6 % (0.0-10.0); %Lymphocytes 13.3 % (21.0-51.0); %Neutrophils 83.2 % (42.0-75.0); Mean Corpuscular HGB CONC 33.3 g/dL (32.0-36.0); Mean Corpuscular Hemoglobin 30.5 pg (27.0-31.0); Mean Corpuscular Volume 91.5 fL (78.0-98.0); Mean Platelet Volume 8.7 fL (7.4-10.4); Platelet Count 143 thou/uL (130-400); RBC Distribution Width 13.2 % (11.5-14.5); Red Blood Cell (RBC) Count 4.27 mill/uL (4.70-6.10); White Blood Cell (WBC) Count 5.6 thou/uL (4.8-10.8)
[2019-09-14 13:17] LABS: Actual Bicarbonate (HCO3a) 30.1 mEq/L (22-28); Analyzer IN Cardio ER; Base Excess (BEa) 5.1 mEq/L (-2.0 to +3.0); CO2 Tension 45.5 mmHg (35.0-45.0); Calcium, Ionized 1.14 mmol/L (1.12-1.30); Carboxyhemoglobin (COHb) 0.7 gm% (0.0-3.0); Hemoglobin (Hb) 13.3 g/dL (14.0-18.0); O2 Tension (PaO2) 105.4 mmHg (> 60.0); Potassium - ABG Lab 4.17 mmol/L (3.70-5.30); pH, Arterial 7.44 (7.35-7.45)
[2019-09-14] MEDS ORDERED: methylPREDNISolone Sod Succ/PF 125 MG/2 ML VIAL ONE (13:18)
[2019-09-14 13:29] LABS: ALT (SGPT) 10 U/L (8-55); AST (SGOT) 18 U/L (5-34); Albumin 3.7 g/dL (3.4-4.8); Alkaline Phosphatase 129 U/L (40-110); Anion Gap 13 mmol/L (10-20); BUN (Urea Nitrogen) 23 mg/dL (8.4-25.7); Bilirubin, Total 0.6 mg/dL (0.2-1.2); Calc. Creatinine Clearance 0 mL/min (70-130); Calcium 8.6 mg/dL (7.8-10.44); Carbon Dioxide 29 mmol/L (23-31); Chloride 97 mmol/L (98-107); Estimated GFR-MDRD 61; Globulin 2.3 g/dL (2.4-3.5); Glucose 99 mg/dL (83-110); Potassium 4.4 mmol/L (3.5-5.1); Sodium 135 mmol/L (136-145)
--- NOTE | 2019-09-14 13:29 | RAD ---
PORTABLE CHEST 1 VIEW: DATE: 09/14/2019. TIME: 1:20 PM. HISTORY: Dyspnea. COMPARISON: 07/31/2018. FINDINGS: Tracheostomy tube remains in place. The heart size is normal. No lobar consolidation, pneumothorace s, or pleural effusions are seen. IMPRESSION: No acute process. POS: [facility]
[2019-09-14 13:38] LABS: ALV-art Gradient 65.885 (0-20); Puncture Site LRA
[2019-09-14] MEDS ORDERED: Azithromycin 500 MG VIAL ONE (16:23)
[2019-09-14] MEDS ORDERED: cefTRIAXone\\ROCEPHIN 2 GM VIAL ONE (16:23)
[2019-09-14] MEDS ORDERED: Albuterol Sulfate 2.5 mg/3 ml Neb ONE (16:32)
[2019-09-14] MEDS ORDERED: Ondansetron ODT 4 MG TAB SL PRN (19:38)
[2019-09-14] MEDS ORDERED: Acetaminophen 325 MG TAB PO PRN ×2 (19:38→23:02)
[2019-09-14] MEDS ORDERED: Ondansetron PF 4 MG/2 ML Vial IVP PRN (19:38)
[2019-09-14 21:42] VITALS: BMI 31.3
[2019-09-14] MEDS ORDERED: Lorazepam 0.5 MG TAB PO PRN (22:59)
[2019-09-14] MEDS ORDERED: Apixaban 5 MG TAB PO SCH (23:00)
[2019-09-14] MEDS ORDERED: Senokot S 8.6-50 MG TAB PO PRN (23:02)
[2019-09-14] MEDS ORDERED: Calcium Carbonate 500 MG ChewTAB PO PRN (23:02)
[2019-09-14] MEDS ORDERED: Propafenone HCl 150 MG TAB PO SCH (23:15)
--- NOTE | 2019-09-14 23:42 | HP ---
PRIMARY CARE PHYSICIAN: Dr. Black. PRIMARY CARTON FILLING MACHINE OPERATOR: Dr. Metzger. CHIEF COMPLAINT: Shortness of breath. HISTORY OF PRESENT ILLNESS: The patient is an 83-year-old male with COPD, chronic respiratory failure, on home oxygen, obstructive sleep apnea, status post tracheostomy, presented to the emergency room with above complaints. Over the last 2 to 3 days, the patient developed gradual worsening shortness of breath along with chest tightness and wheezing. He also had fever with intermittent chills. He felt generally weak and fatigued. He was coughing up thick phlegm. His had recent flu-like illness. He denies any orthopnea or lower extremity swelling. No dysuria, hematuria, urgency, nausea, vomiting, diarrhea reported. PAST MEDICAL HISTORY: 1. Chronic hypoxic respiratory failure, on home oxygen at night. 2. Chronic obstructive pulmonary disease. 3. Chronic diastolic heart failure. 4. Swallow dysfunction, on modified diet. 5. CKD, stage 3. 6. Hypertension. 7. Hypothyroidism. 8. Obstructive sleep apnea, status post tracheostomy. 9. Obesity with a BMI of 31.3. 10. Chronic venous stasis dermatitis. 11. Paroxysmal atrial fibrillation. 12. Coronary artery disease. 13. Physical deconditioning. PAST SURGICAL HISTORY: 1. Tracheostomy. 2. Coronary stent. 3. Gallbladder resection. ALLERGIES: THE PATIENT IS ALLERGIC TO TAMIFLU. SOCIAL HISTORY: The patient currently lives at home with his family. No alcohol, tobacco, or drug use reported. He is full code and makes his own decision with the help of his spouse. FAMILY HISTORY: Negative for heart disease. REVIEW OF SYSTEMS: All other review of systems were reviewed and were found negative. PHYSICAL EXAMINATION: VITAL SIGNS: Temperature 98.4, blood pressure 93/45, pulse rate of 59, respirations of 18, O2 saturation 97% on room air. GENERAL: An 83-year-old male, in no apparent distress. HEENT: Head atraumatic and normocephalic. Sclerae anicteric. Moist mucous membrane. No oral lesion. NECK: Supple. Tracheostomy noted. No carotid bruits. LUNGS: Showed expiratory wheezing with scattered rhonchi. No rales. No significant accessory muscle use. HEART: S1, S2 present. Regular rate and rhythm, 2/6 systolic murmur over the mitral area. ABDOMEN: Soft, nontender. Bowel sounds present. EXTREMITIES: 1+ edema in bilateral lower extremities. No calf tenderness. SKIN: Warm and dry. LYMPH NODES: No palpable lymph nodes in the neck. PERIPHERAL VASCULAR: Radial pulses palpable bilaterally. MUSCULOSKELETAL: No joint swelling tenderness. LABORATORY DATA: Lab findings; CBC showed WBC 5.6 with hemoglobin 13, hematocrit 39.1, platelet 143. ABG showed pH 7.44 with pCO2 45.5, PO2 of 105, bicarbonate of 30 on 32% FiO2. Chemistry showed sodium 135, potassium 4.4, chloride 97, bicarb 29, BUN 23, and creatinine 1.15. BNP was 106. Troponin was negative. Lactic acid was negative. IMAGING STUDIES: Chest x-ray by my review was negative for infiltrate or edema. EKG by my review showed sinus rhythm with first-degree AV block. MEDICATIONS: Administered in the emergency room; ceftriaxone, azithromycin, Solu-Medrol, IV fluids with nebulizer treatment. IMPRESSION: 1. Chronic obstructive pulmonary disease exacerbation/acute bronchitis. Pneumonia less likely. 2. Chronic diastolic heart failure. 3. Chronic hypoxic respiratory failure, on home oxygen. 4. Swallow dysfunction. 5. Hypertension. 6. Obstructive sleep apnea, status post tracheostomy. 7. Obesity with a BMI of 31. 8. Chronic venous stasis dermatitis. 9. Coronary artery disease. 10. Hypertension. 11. Paroxysmal atrial fibrillation. 12. Hyponatremia. 13. Anemia suspected due to nutritional deficiency. PLAN: The patient will be monitored on the medical floor. We will continue steroids with oral antibiotic, nebulizer treatment. The patient was advised to follow up with Dr. Metzger as outpatient next week. We will resume home medications once verified. The patient understands the plan of care. Primary care physician advised to follow. Job ID: [id number]
[2019-09-15] MEDS ORDERED: Levothyroxine Sodium 25 MCG TAB PO SCH (06:00)
[2019-09-15] MEDS ORDERED: Spironolactone 25 MG TAB PO SCH ×2 (08:00→09:00)
[2019-09-15] MEDS: predniSONE 20 MG TAB PO SCH ×2 (08:41→17:47)
[2019-09-15] MEDS ORDERED: Apixaban 5 MG TAB PO SCH (09:00)
[2019-09-15] MEDS ORDERED: Propafenone HCl 150 MG TAB PO SCH (09:00)
[2019-09-15] MEDS ORDERED: guaiFENesin ER 600 MG TAB PO SCH ×4 (09:00→21:00)
[2019-09-15] MEDS ORDERED: PROPAFENONE HCL 225 MG PO SCH (09:00)
[2019-09-15] MEDS ORDERED: Furosemide 40 MG TAB PO SCH ×2 (09:00)
[2019-09-15] MEDS ORDERED: Cefdinir 300 MG CAP PO SCH (09:00)
[2019-09-15] MEDS ORDERED: Aspirin 81 mg Enteric Coated Tablet PO SCH (09:00)
[2019-09-15] MEDS ORDERED: Polyethylene Glycol 3350 17 GM Packet PO SCH (09:00)
[2019-09-15] MEDS ORDERED: Doxycycline 100 MG CAP PO SCH ×2 (09:15→21:00)
[2019-09-15] MEDS: Propafenone HCl 150 MG TAB PO SCH ×2 (10:56→17:48)
[2019-09-15 14:17] VITALS: BP 109/63; TEMP 97.9
--- NOTE | 2019-09-15 15:02 | RAD ---
Modified barium swallow HISTORY: Dysphagia. Feeding difficulties. FINDINGS: Exam was performed by speech pathology with multiple consistencies. Fluoroscopy time 1.2 mi nutes. Video review is available and demonstrates good bolus formation and retropulsion. Mild to moderate ea rly spill with all consistencies. With thinner consistencies, there was extensive alton aspiration. Less severe aspiration with the thicker consistencies. Good clearance upon secondary swallowing. Severity of penetration/aspiration was not significantly decreased when the tracheostomy lumen was bl ocked. There was slight improvement upon flexion of the neck when swallowing. The esophagus below the level of hypopharynx wasn't evaluated. Please see separate detailed report fr om speech pathology.
[2019-09-15] MEDS ORDERED: Atorvastatin Calcium 10 MG TAB PO SCH (21:00)
[2019-09-15] MEDS ORDERED: Montelukast Sodium 10 mg Tablet PO SCH (21:00)
--- NOTE | 2019-09-15 21:11 | DIS ---
DATE OF ADMISSION: 09/14/2019 DATE OF DISCHARGE: 09/15/2019 DISCHARGE DISPOSITION: Home. FOLLOWUP: 1. Follow up with primary care physician, Dr. Black in 1 week. 2. Follow up with primary gospel worker, Dr. Metzger in 1 to 2 weeks. ALLERGIES: THE PATIENT IS ALLERGIC TO TAMIFLU. DISCHARGE MEDICATIONS: 1. Prednisone taper. 2. Doxycycline 100 mg twice daily for next 5 days. The patient was seen and examined on the day of discharge. Denies any new complaints. No chest pain, shortness of breath, or palpitations reported. BRIEF HOSPITAL COURSE: The patient is an 83-year-old male with COPD; chronic respiratory failure, on home oxygen; obstructive sleep apnea, status post tracheostomy, presented to the emergency room with shortness of breath along with increased sputum production. His recently had upper respiratory tract infection. Please refer to the history and physical for further details. The patient was admitted to the hospital with a diagnosis of COPD exacerbation/acute bronchitis. His chest x-ray was negative for infiltrate. He showed good improvement with nebulizer treatment along with antibiotic and steroids. He was also evaluated by Speech Therapy due to chronic swallow dysfunction. He appears stable for discharge. FINAL DIAGNOSES: 1. Chronic obstructive pulmonary disease exacerbation/acute bronchitis, pneumonia ruled out. 2. Chronic diastolic heart failure. 3. Chronic hypoxic respiratory failure, on home oxygen. 4. Swallow dysfunction on modified diet. 5. Hypertension. 6. Obstructive sleep apnea, status post tracheostomy. 7. Obesity with a BMI of 31. 8. Chronic venous stasis dermatitis. 9. Coronary artery disease. 10. Paroxysmal atrial fibrillation, on anticoagulation. 11. Hyponatremia. 12. Anemia suspected due to nutritional deficiency. Job ID: [id number]
== END 2019-09-15 18:54 | disposition home or self-care (01) ==
LOC: ERS 12:12 → T4-B 17:19
PROVIDERS: ADMIT Internal Medicine; ATTEND Internal Medicine
DX: J96.11 Chronic respiratory failure with hypoxia (principal); J20.9 Acute bronchitis, unspecified; J44.0 Chronic obstructive pulmonary disease with (acute) lower respiratory infection; I13.0 Hypertensive heart and chronic kidney disease with heart failure and stage 1 through stage 4 chronic kidney disease, or unspecified chronic kidney disease; N18.3 Chronic kidney disease, stage 3 (moderate); I50.32 Chronic diastolic (congestive) heart failure; E03.9 Hypothyroidism, unspecified; G47.33 Obstructive sleep apnea (adult) (pediatric); E66.9 Obesity, unspecified; I48.0 Paroxysmal atrial fibrillation; I25.10 Atherosclerotic heart disease of native coronary artery without angina pectoris; D64.9 Anemia, unspecified; R53.81 Other malaise; Z68.31 Body mass index [BMI] 31.0-31.9, adult; Z88.8 Allergy status to other drugs, medicaments and biological substances; Z79.01 Long term (current) use of anticoagulants; Z79.82 Long term (current) use of aspirin; Z79.899 Other long term (current) drug therapy; Z95.5 Presence of coronary angioplasty implant and graft
CPT/HCPCS: 71045; 74230; 80053; 82805; 83605; 83880; 84484; 85025; 93005; 94640 ×4; 94760; 96361; 96365; 96367; 96375; 97139; 99285; G0378 ×3; 36415; J0456; J0696; J2930; J7512; J7611; J7620

== ENCOUNTER 2021-03-05 13:53 | Inpatient (IN) | payer MEDICARE ==
[2021-03-06] MEDS ORDERED: Ondansetron PF 4 MG/2 ML Vial IVP PRN (04:46)
[2021-03-06] MEDS ORDERED: HumaLOG 300 UNITS/3 ML VIAL SC PRN ×2 (04:48)
[2021-03-06] MEDS ORDERED: Dextrose 50% Abboject 50 ML SYRINGE SLOW IVP PRN (04:48)
[2021-03-06] MEDS ORDERED: Dextrose 5% in Water 1,000 ML IV PRN (04:48)
[2021-03-06] MEDS: Albuterol 200 PUFF (6.7GM INHALER) INH PRN ×3 (05:22→22:01)
[2021-03-06] MEDS: Levothyroxine Sodium 25 MCG TAB PO SCH (05:22)
[2021-03-06] MEDS: methylPREDNISolone Sod Succ/PF 125 MG/2 ML VIAL IVP SCH ×4 (05:23→23:48)
[2021-03-06] MEDS: Propafenone HCl 150 MG TAB PO SCH ×3 (05:23→21:59)
[2021-03-06 05:31] LABS: #Monocytes 0.6 thou/uL (0.11-0.59); #Neutrophils 3.2 thou/uL (1.40-6.50); %Basophils 0.2 % (0.0-1.0); %Eosinophils 0.1 % (0.0-10.0); %Lymphocytes 20.7 % (21.0-51.0); %Monocytes 12.7 % (0.0-10.0); %Neutrophils 66.4 % (42.0-75.0); Hemoglobin 13.3 g/dL (14.0-18.0); Mean Corpuscular Hemoglobin 29.6 pg (27.0-31.0); Mean Corpuscular Volume 89.8 fL (78.0-98.0); Mean Platelet Volume 7.7 fL (7.4-10.4); Platelet Count 141 thou/uL (130-400); RBC Distribution Width 13.7 % (11.5-14.5); Red Blood Cell (RBC) Count 4.48 mill/uL (4.70-6.10); White Blood Cell (WBC) Count 4.9 thou/uL (4.8-10.8)
[2021-03-06 05:51] LABS: ALT (SGPT) 13 U/L (8-55); AST (SGOT) 23 U/L (5-34); Albumin 3.3 g/dL (3.4-4.8); Alkaline Phosphatase 136 U/L (40-110); Anion Gap 11 mmol/L (10-20); BUN (Urea Nitrogen) 19 mg/dL (8.4-25.7); Bilirubin, Total 0.4 mg/dL (0.2-1.2); Calc. Creatinine Clearance 85 mL/min (70-130); Calcium 9.3 mg/dL (7.8-10.44); Carbon Dioxide 34 mmol/L (23-31); Chloride 94 mmol/L (98-107); Globulin 3.1 g/dL (2.4-3.5); Glucose 104 mg/dL (83-110); Potassium 3.3 mmol/L (3.5-5.1); Protein, Total 6.4 g/dL (5.8-8.1); Sodium 136 mmol/L (136-145)
[2021-03-06] MEDS ORDERED: REMDESIVIR 200 MG in Sodium Chloride 0.9% 250 ML 210 ML IV SCH (06:30)
[2021-03-06] MEDS ORDERED: Potassium Chloride 20 MEQ in Premix Bag 1 BAG IVPB SCH (07:45)
[2021-03-06 08:10] LABS: Magnesium 2.3 mg/dL (1.6-2.6)
[2021-03-06] MEDS ORDERED: Cefepime 1 GM in Sodium Chloride 0.9% 100 ML IVPB SCH (09:00)
[2021-03-06] MEDS: Cholecalciferol 1,000 UNITS (25 MCG) TAB PO SCH (09:01)
[2021-03-06] MEDS: Enoxaparin Sodium 40 MG/0.4 ML SYRINGE SC SCH (09:01)
[2021-03-06] MEDS: Zinc Sulfate 220 MG CAP PO SCH (09:01)
[2021-03-06] MEDS: Ascorbic Acid 500 mg Chewable Tablet PO SCH (09:01)
[2021-03-06] MEDS: Famotidine 20 MG TAB PO SCH ×2 (09:38→21:58)
[2021-03-06] MEDS: CEFEPIME HCL IN DEXTROSE 5 % 1 GM in Premix Bag 1 BAG IVPB SCH ×2 (11:33→22:00)
[2021-03-06] MEDS: Acetaminophen 325 MG TAB PO PRN (11:51)
[2021-03-06] MEDS: Ipratropium/Albuterol Sulfate 4 GM AER IH SCH ×2 (14:00→20:00)
[2021-03-06] MEDS ORDERED: Lorazepam 2 MG/ML VIAL SLOW IVP PRN (20:41)
[2021-03-07] MEDS: Ipratropium/Albuterol Sulfate 4 GM AER IH SCH ×4 (01:10→18:08)
[2021-03-07] MEDS: Propafenone HCl 150 MG TAB PO SCH ×3 (05:54→21:48)
[2021-03-07] MEDS: Levothyroxine Sodium 25 MCG TAB PO SCH (05:54)
[2021-03-07] MEDS: methylPREDNISolone Sod Succ/PF 125 MG/2 ML VIAL IVP SCH ×3 (05:55→18:01)
[2021-03-07] MEDS: Albuterol 200 PUFF (6.7GM INHALER) INH PRN (05:55)
[2021-03-07] MEDS ORDERED: REMDESIVIR 100 MG in Sodium Chloride 0.9% 250 ML 230 ML IV SCH (06:30)
[2021-03-07 07:03] LABS: #Monocytes 0.3 thou/uL (0.11-0.59); #Neutrophils 4.9 thou/uL (1.40-6.50); %Basophils 0.3 % (0.0-1.0); %Eosinophils 0.2 % (0.0-10.0); %Lymphocytes 16.4 % (21.0-51.0); %Monocytes 4.2 % (0.0-10.0); %Neutrophils 78.9 % (42.0-75.0); Hemoglobin 13.2 g/dL (14.0-18.0); Mean Corpuscular Hemoglobin 29.2 pg (27.0-31.0); Mean Corpuscular Volume 91.1 fL (78.0-98.0); Mean Platelet Volume 7.8 fL (7.4-10.4); Platelet Count 153 thou/uL (130-400); RBC Distribution Width 13.7 % (11.5-14.5); Red Blood Cell (RBC) Count 4.54 mill/uL (4.70-6.10); White Blood Cell (WBC) Count 6.2 thou/uL (4.8-10.8)
[2021-03-07 07:24] LABS: ALT (SGPT) 16 U/L (8-55); AST (SGOT) 38 U/L (5-34); Albumin 3.1 g/dL (3.4-4.8); Alkaline Phosphatase 118 U/L (40-110); Anion Gap 12 mmol/L (10-20); BUN (Urea Nitrogen) 18 mg/dL (8.4-25.7); Bilirubin, Total 0.3 mg/dL (0.2-1.2); Calc. Creatinine Clearance 84 mL/min (70-130); Calcium 9.2 mg/dL (7.8-10.44); Carbon Dioxide 34 mmol/L (23-31); Chloride 96 mmol/L (98-107); Globulin 3.2 g/dL (2.4-3.5); Glucose 123 mg/dL (83-110); Magnesium 2.4 mg/dL (1.6-2.6); Potassium 3.5 mmol/L (3.5-5.1); Protein, Total 6.3 g/dL (5.8-8.1); Sodium 138 mmol/L (136-145)
[2021-03-07] MEDS: Ascorbic Acid 500 mg Chewable Tablet PO SCH (09:22)
[2021-03-07] MEDS: CEFEPIME HCL IN DEXTROSE 5 % 1 GM in Premix Bag 1 BAG IVPB SCH ×2 (09:23→21:48)
[2021-03-07] MEDS: Zinc Sulfate 220 MG CAP PO SCH (09:24)
[2021-03-07] MEDS: Cholecalciferol 1,000 UNITS (25 MCG) TAB PO SCH (09:24)
[2021-03-07] MEDS: Famotidine 20 MG TAB PO SCH (09:24)
[2021-03-07] MEDS: Enoxaparin Sodium 40 MG/0.4 ML SYRINGE SC SCH (09:25)
[2021-03-07] MEDS: guaiFENesin ER 600 MG TAB PO SCH (21:39)
[2021-03-07] MEDS: Acetaminophen 325 MG TAB PO PRN (21:40)
[2021-03-07] MEDS: Betamethasone 0.1% Cream 15 GM TUBE TOP SCH (21:42)
[2021-03-07] MEDS: Apixaban 5 MG TAB PO SCH (21:42)
[2021-03-07] MEDS ORDERED: Lorazepam 0.5 MG TAB PO PRN (22:36)
[2021-03-08] MEDS: Ipratropium/Albuterol Sulfate 4 GM AER IH SCH ×4 (01:06→18:11)
[2021-03-08] MEDS: Levothyroxine Sodium 25 MCG TAB PO SCH (05:05)
[2021-03-08] MEDS: Albuterol 200 PUFF (6.7GM INHALER) INH PRN ×2 (05:05→22:45)
[2021-03-08] MEDS: Propafenone HCl 150 MG TAB PO SCH ×3 (05:05→21:09)
[2021-03-08] MEDS: Acetaminophen 325 MG TAB PO PRN ×2 (05:22→20:37)
[2021-03-08 05:24] LABS: #Monocytes 0.6 thou/uL (0.11-0.59); #Neutrophils 10.6 thou/uL (1.40-6.50); %Eosinophils 0.1 % (0.0-10.0); %Lymphocytes 8.4 % (21.0-51.0); %Monocytes 5.1 % (0.0-10.0); %Neutrophils 86.4 % (42.0-75.0); Hemoglobin 14.1 g/dL (14.0-18.0); Mean Corpuscular HGB CONC 33.1 g/dL (32.0-36.0); Mean Corpuscular Volume 90.6 fL (78.0-98.0); Platelet Count 166 thou/uL (130-400); RBC Distribution Width 13.9 % (11.5-14.5); Red Blood Cell (RBC) Count 4.69 mill/uL (4.70-6.10); White Blood Cell (WBC) Count 12.3 thou/uL (4.8-10.8)
[2021-03-08 05:57] LABS: ALT (SGPT) 17 U/L (8-55); AST (SGOT) 39 U/L (5-34); Albumin 3.2 g/dL (3.4-4.8); Alkaline Phosphatase 116 U/L (40-110); BUN (Urea Nitrogen) 19 mg/dL (8.4-25.7); Bilirubin, Total 0.4 mg/dL (0.2-1.2); Calc. Creatinine Clearance 94 mL/min (70-130); Calcium 9.2 mg/dL (7.8-10.44); Globulin 3.1 g/dL (2.4-3.5); Glucose 113 mg/dL (83-110); Magnesium 2.4 mg/dL (1.6-2.6); Protein, Total 6.3 g/dL (5.8-8.1)
[2021-03-08 06:06] LABS: Anion Gap 16 mmol/L (10-20); Carbon Dioxide 33 mmol/L (23-31); Chloride 94 mmol/L (98-107); Potassium 3.9 mmol/L (3.5-5.1); Sodium 139 mmol/L (136-145)
[2021-03-08] MEDS: Saccharomyces boulardii 250 MG CAP PO SCH (08:22)
[2021-03-08] MEDS: guaiFENesin ER 600 MG TAB PO SCH ×2 (08:22→20:37)
[2021-03-08] MEDS: CEFEPIME HCL IN DEXTROSE 5 % 1 GM in Premix Bag 1 BAG IVPB SCH ×2 (08:22→21:46)
[2021-03-08] MEDS: Zinc Sulfate 220 MG CAP PO SCH (08:22)
[2021-03-08] MEDS: Betamethasone 0.1% Cream 15 GM TUBE TOP SCH ×2 (08:23→21:09)
[2021-03-08] MEDS: Montelukast Sodium 10 mg Tablet PO SCH (08:23)
[2021-03-08] MEDS: predniSONE 20 MG TAB PO SCH ×2 (08:23→17:25)
[2021-03-08] MEDS: Apixaban 5 MG TAB PO SCH ×2 (08:23→20:37)
[2021-03-08] MEDS: Cholecalciferol 1,000 UNITS (25 MCG) TAB PO SCH (08:23)
[2021-03-08] MEDS: Ascorbic Acid 500 mg Chewable Tablet PO SCH (08:23)
[2021-03-08] MEDS ORDERED: Apixaban 5 MG TAB PO SCH (09:00)
[2021-03-08] MEDS: Doxycycline 100 MG CAP PO SCH ×2 (13:22→21:45)
[2021-03-08] MEDS: Lorazepam 0.5 MG TAB PO PRN (20:37)
[2021-03-09] MEDS: Ipratropium/Albuterol Sulfate 4 GM AER IH SCH ×4 (01:48→18:46)
[2021-03-09] MEDS: Propafenone HCl 150 MG TAB PO SCH ×3 (06:20→20:59)
[2021-03-09] MEDS: Levothyroxine Sodium 25 MCG TAB PO SCH (06:48)
[2021-03-09 07:48] LABS: ALT (SGPT) 17 U/L (8-55); AST (SGOT) 30 U/L (5-34); Albumin 3.1 g/dL (3.4-4.8); Alkaline Phosphatase 101 U/L (40-110); BUN (Urea Nitrogen) 17 mg/dL (8.4-25.7); Bilirubin, Total 0.5 mg/dL (0.2-1.2); Calc. Creatinine Clearance 99 mL/min (70-130); Calcium 9.4 mg/dL (7.8-10.44); Glucose 94 mg/dL (83-110); Magnesium 2.3 mg/dL (1.6-2.6); Protein, Total 6.1 g/dL (5.8-8.1)
[2021-03-09 07:57] LABS: Anion Gap 15 mmol/L (10-20); Carbon Dioxide 34 mmol/L (23-31); Chloride 92 mmol/L (98-107); Potassium 3.9 mmol/L (3.5-5.1); Sodium 137 mmol/L (136-145)
[2021-03-09] MEDS: Albuterol 200 PUFF (6.7GM INHALER) INH PRN (09:10)
[2021-03-09] MEDS: CEFEPIME HCL IN DEXTROSE 5 % 1 GM in Premix Bag 1 BAG IVPB SCH ×2 (09:11→21:01)
[2021-03-09] MEDS: Apixaban 5 MG TAB PO SCH ×2 (09:12→21:02)
[2021-03-09] MEDS: Ascorbic Acid 500 mg Chewable Tablet PO SCH (09:12)
[2021-03-09] MEDS: Doxycycline 100 MG CAP PO SCH ×2 (09:12→21:02)
[2021-03-09] MEDS: Saccharomyces boulardii 250 MG CAP PO SCH (09:12)
[2021-03-09] MEDS: Montelukast Sodium 10 mg Tablet PO SCH (09:12)
[2021-03-09] MEDS: predniSONE 20 MG TAB PO SCH ×2 (09:13→16:11)
[2021-03-09] MEDS: Lorazepam 0.5 MG TAB PO PRN ×2 (09:13→21:01)
[2021-03-09] MEDS: guaiFENesin ER 600 MG TAB PO SCH ×2 (09:13→21:01)
[2021-03-09] MEDS: Cholecalciferol 1,000 UNITS (25 MCG) TAB PO SCH (09:13)
[2021-03-09] MEDS: Acetaminophen 325 MG TAB PO PRN ×3 (09:14→23:05)
[2021-03-09] MEDS: Betamethasone 0.1% Cream 15 GM TUBE TOP SCH ×2 (09:41→21:01)
[2021-03-09 10:14] LABS: #Basophils 0.1 thou/uL (0.0-0.2); #Lymphocytes 1.4 thou/uL (1.20-3.40); #Monocytes 0.7 thou/uL (0.11-0.59); #Neutrophils 8.5 thou/uL (1.40-6.50); %Basophils 0.9 % (0.0-1.0); %Eosinophils 0.2 % (0.0-10.0); %Lymphocytes 12.7 % (21.0-51.0); %Monocytes 6.4 % (0.0-10.0); %Neutrophils 79.7 % (42.0-75.0); Anisocytosis SLIGHT = 6-15 cells (100X) (0-5/hpf); Hemoglobin 13.5 g/dL (14.0-18.0); MDiff Complete? YES; Mean Corpuscular HGB CONC 29.9 g/dL (32.0-36.0); Mean Corpuscular Hemoglobin 27.3 pg (27.0-31.0); Mean Corpuscular Volume 91.4 fL (78.0-98.0); Mean Platelet Volume 8.2 fL (7.4-10.4); Platelet Count 184 thou/uL (130-400); Poikilocytosis SLIGHT = 6-15 cells (100X) (0-5/hpf); Red Blood Cell (RBC) Count 4.95 mill/uL (4.70-6.10); White Blood Cell (WBC) Count 10.6 thou/uL (4.8-10.8)
[2021-03-10] MEDS: Ipratropium/Albuterol Sulfate 4 GM AER IH SCH ×4 (00:43→17:58)
[2021-03-10] MEDS: Propafenone HCl 150 MG TAB PO SCH ×3 (05:18→21:07)
[2021-03-10] MEDS: Levothyroxine Sodium 25 MCG TAB PO SCH (05:18)
[2021-03-10 07:06] LABS: BUN (Urea Nitrogen) 16 mg/dL (8.4-25.7); CRP (Inflammatory) 10.82 mg/dL (= or < 0.5); Calc. Creatinine Clearance 99 mL/min (70-130); Calcium 9.1 mg/dL (7.8-10.44); Glucose 125 mg/dL (83-110)
[2021-03-10 07:16] LABS: Anion Gap 15 mmol/L (10-20); Carbon Dioxide 33 mmol/L (23-31); Chloride 92 mmol/L (98-107); Potassium 3.8 mmol/L (3.5-5.1); Sodium 136 mmol/L (136-145)
[2021-03-10] MEDS: Doxycycline 100 MG CAP PO SCH ×2 (08:16→21:07)
[2021-03-10] MEDS: Saccharomyces boulardii 250 MG CAP PO SCH (08:16)
[2021-03-10] MEDS: guaiFENesin ER 600 MG TAB PO SCH ×2 (08:16→21:07)
[2021-03-10] MEDS: Ascorbic Acid 500 mg Chewable Tablet PO SCH (08:17)
[2021-03-10] MEDS: Lorazepam 0.5 MG TAB PO PRN ×2 (08:17→21:07)
[2021-03-10] MEDS: Montelukast Sodium 10 mg Tablet PO SCH (08:17)
[2021-03-10] MEDS: Cholecalciferol 1,000 UNITS (25 MCG) TAB PO SCH (08:17)
[2021-03-10] MEDS: predniSONE 20 MG TAB PO SCH ×2 (08:17→17:22)
[2021-03-10] MEDS: Apixaban 5 MG TAB PO SCH ×2 (08:17→21:07)
[2021-03-10] MEDS: CEFEPIME HCL IN DEXTROSE 5 % 1 GM in Premix Bag 1 BAG IVPB SCH ×2 (08:18→21:08)
[2021-03-10] MEDS: Acetaminophen 325 MG TAB PO PRN (08:18)
[2021-03-10] MEDS: Betamethasone 0.1% Cream 15 GM TUBE TOP SCH ×2 (08:20→21:06)
[2021-03-10] MEDS: Multivit, Therapeutic 1 TAB PO SCH (17:21)
[2021-03-11] MEDS: Ipratropium/Albuterol Sulfate 4 GM AER IH SCH ×4 (01:38→20:56)
[2021-03-11] MEDS: Propafenone HCl 150 MG TAB PO SCH ×3 (05:11→21:59)
[2021-03-11] MEDS: Levothyroxine Sodium 25 MCG TAB PO SCH (05:11)
[2021-03-11 06:58] LABS: #Basophils 0.1 thou/uL (0.0-0.2); #Lymphocytes 0.9 thou/uL (1.20-3.40); #Monocytes 0.5 thou/uL (0.11-0.59); #Neutrophils 13.1 thou/uL (1.40-6.50); %Basophils 0.4 % (0.0-1.0); %Eosinophils 0.3 % (0.0-10.0); %Lymphocytes 6.3 % (21.0-51.0); %Monocytes 3.6 % (0.0-10.0); %Neutrophils 89.4 % (42.0-75.0); Hemoglobin 14.7 g/dL (14.0-18.0); Mean Corpuscular HGB CONC 31.5 g/dL (32.0-36.0); Mean Corpuscular Hemoglobin 29.1 pg (27.0-31.0); Mean Corpuscular Volume 92.3 fL (78.0-98.0); Mean Platelet Volume 7.9 fL (7.4-10.4); Platelet Count 139 thou/uL (130-400); Red Blood Cell (RBC) Count 5.06 mill/uL (4.70-6.10); White Blood Cell (WBC) Count 14.7 thou/uL (4.8-10.8)
[2021-03-11 07:20] LABS: ALT (SGPT) 16 U/L (8-55); AST (SGOT) 17 U/L (5-34); Albumin 2.7 g/dL (3.4-4.8); Alkaline Phosphatase 81 U/L (40-110); Anion Gap 12 mmol/L (10-20); BUN (Urea Nitrogen) 16 mg/dL (8.4-25.7); Bilirubin, Total 0.6 mg/dL (0.2-1.2); CRP (Inflammatory) 22.78 mg/dL (= or < 0.5); Calc. Creatinine Clearance 97 mL/min (70-130); Calcium 9.1 mg/dL (7.8-10.44); Carbon Dioxide 33 mmol/L (23-31); Chloride 95 mmol/L (98-107); Globulin 3.2 g/dL (2.4-3.5); Glucose 121 mg/dL (83-110); Potassium 4.5 mmol/L (3.5-5.1); Protein, Total 5.9 g/dL (5.8-8.1); Sodium 135 mmol/L (136-145)
[2021-03-11] MEDS: predniSONE 20 MG TAB PO SCH ×2 (08:40→15:44)
[2021-03-11] MEDS: Saccharomyces boulardii 250 MG CAP PO SCH (08:40)
[2021-03-11] MEDS: Multivit, Therapeutic 1 TAB PO SCH (08:40)
[2021-03-11] MEDS: Ascorbic Acid 500 mg Chewable Tablet PO SCH (08:40)
[2021-03-11] MEDS: guaiFENesin ER 600 MG TAB PO SCH ×2 (08:40→21:58)
[2021-03-11] MEDS: Montelukast Sodium 10 mg Tablet PO SCH (08:40)
[2021-03-11] MEDS: Apixaban 5 MG TAB PO SCH ×2 (08:41→21:58)
[2021-03-11] MEDS: Lorazepam 0.5 MG TAB PO PRN ×2 (08:41→15:44)
[2021-03-11] MEDS: Doxycycline 100 MG CAP PO SCH ×2 (08:41→21:58)
[2021-03-11] MEDS: Betamethasone 0.1% Cream 15 GM TUBE TOP SCH ×2 (08:41→21:30)
[2021-03-11] MEDS: Cholecalciferol 1,000 UNITS (25 MCG) TAB PO SCH (08:42)
[2021-03-11] MEDS ORDERED: Cefdinir 300 MG CAP PO SCH (09:00)
[2021-03-11 18:09] LABS: Actual Bicarbonate (HCO3a) 40.8 mEq/L (22-28); Calcium, Ionized (arterial) 1.24 mmol/L (1.12-1.30); Carboxyhemoglobin (COHb) 1.6 gm% (0.0-3.0); Hemoglobin (Hb) 13.7 g/dL (14.0-18.0); Potassium - ABG Lab 4.26 mmol/L (3.70-5.30); pH, Arterial 7.31 (7.35-7.45)
[2021-03-11 18:13] LABS: CO2 Tension 82.4 mmHg (35.0-45.0)
[2021-03-11 18:14] LABS: Puncture Site RRA
[2021-03-11] MEDS ORDERED: Ventilator Sedation Protocol 1 EACH FS ONE (19:38)
[2021-03-11] MEDS ORDERED: Sodium Chloride 0.9% 500 ML IV SCH (19:45)
[2021-03-11] MEDS ORDERED: Fentanyl BOLUS 250 ML IVPB PRN (20:00)
[2021-03-11] MEDS ORDERED: Fentanyl CADD 100 ML IV SCH (20:00)
[2021-03-11] MEDS ORDERED: Propofol 1,000 MG/100 ML VIAL IV PRN (20:00)
[2021-03-11] MEDS ORDERED: Morphine 2 MG/ML VIAL SLOW IVP PRN (20:00)
[2021-03-11] MEDS ORDERED: Propofol BOLUS 1,000 MG/100 ML VIAL IV PRN (20:00)
[2021-03-11] MEDS: Cefepime 1 GM in Sodium Chloride 0.9% 100 ML IVPB SCH (21:30)
[2021-03-11] MEDS: methylPREDNISolone Sod Succ/PF 125 MG/2 ML VIAL IVP SCH (21:30)
[2021-03-11 21:43] LABS: Actual Bicarbonate (HCO3a) 38.4 mEq/L (22-28); CO2 Tension 56.9 mmHg (35.0-45.0); Calcium, Ionized (arterial) 1.21 mmol/L (1.12-1.30); Carboxyhemoglobin (COHb) 1.5 gm% (0.0-3.0); Hemoglobin (Hb) 13.7 g/dL (14.0-18.0); O2 Tension (PaO2), arterial 76.8 mmHg (> 60.0); Potassium - ABG Lab 4.45 mmol/L (3.70-5.30); pH, Arterial 7.45 (7.35-7.45)
[2021-03-11 21:44] LABS: Puncture Site RRA
[2021-03-11 21:45] LABS: ALV-art Gradient 279.875 mmHg (0-20)
[2021-03-12] MEDS: methylPREDNISolone Sod Succ/PF 125 MG/2 ML VIAL IVP SCH ×4 (04:22→20:10)
[2021-03-12 05:47] LABS: #Lymphocytes 0.6 thou/uL (1.20-3.40); #Monocytes 0.4 thou/uL (0.11-0.59); #Neutrophils 5.1 thou/uL (1.40-6.50); %Eosinophils 0.1 % (0.0-10.0); %Monocytes 6.4 % (0.0-10.0); %Neutrophils 84.5 % (42.0-75.0); Hemoglobin 12.8 g/dL (14.0-18.0); Mean Corpuscular HGB CONC 32.1 g/dL (32.0-36.0); Mean Corpuscular Hemoglobin 29.5 pg (27.0-31.0); Mean Corpuscular Volume 91.8 fL (78.0-98.0); Mean Platelet Volume 8.2 fL (7.4-10.4); Platelet Count 165 thou/uL (130-400); RBC Distribution Width 13.9 % (11.5-14.5); Red Blood Cell (RBC) Count 4.33 mill/uL (4.70-6.10); White Blood Cell (WBC) Count 6.1 thou/uL (4.8-10.8)
[2021-03-12 06:11] LABS: ALT (SGPT) 13 U/L (8-55); AST (SGOT) 12 U/L (5-34); Albumin 2.6 g/dL (3.4-4.8); Alkaline Phosphatase 70 U/L (40-110); Anion Gap 14 mmol/L (10-20); BUN (Urea Nitrogen) 22 mg/dL (8.4-25.7); Bilirubin, Total 0.7 mg/dL (0.2-1.2); Calc. Creatinine Clearance 83 mL/min (70-130); Calcium 9.4 mg/dL (7.8-10.44); Carbon Dioxide 34 mmol/L (23-31); Chloride 96 mmol/L (98-107); Globulin 3.1 g/dL (2.4-3.5); Glucose 112 mg/dL (83-110); Magnesium 2.4 mg/dL (1.6-2.6); Potassium 4.2 mmol/L (3.5-5.1); Protein, Total 5.7 g/dL (5.8-8.1); Sodium 140 mmol/L (136-145)
[2021-03-12] MEDS: Ipratropium/Albuterol Sulfate 4 GM AER IH SCH ×2 (06:38→09:30)
[2021-03-12] MEDS: Levothyroxine Sodium 25 MCG TAB PO SCH (06:44)
[2021-03-12] MEDS: Propafenone HCl 150 MG TAB PO SCH ×3 (06:45→21:27)
[2021-03-12] MEDS: Cefepime 1 GM in Sodium Chloride 0.9% 100 ML IVPB SCH ×2 (07:55→20:11)
[2021-03-12] MEDS: Pantoprazole 40 MG VIAL IVP SCH (07:55)
[2021-03-12] MEDS: Albuterol Sulfate 2.5 mg/3 ml Neb NEB SCH ×4 (09:28→11:22)
[2021-03-12] MEDS: Saccharomyces boulardii 250 MG CAP PO SCH (09:35)
[2021-03-12] MEDS: Montelukast Sodium 10 mg Tablet PO SCH (09:35)
[2021-03-12] MEDS: guaiFENesin ER 600 MG TAB PO SCH ×2 (09:36→20:11)
[2021-03-12] MEDS: Cholecalciferol 1,000 UNITS (25 MCG) TAB PO SCH (09:36)
[2021-03-12] MEDS: Multivit, Therapeutic 1 TAB PO SCH (09:36)
[2021-03-12] MEDS: Ascorbic Acid 500 mg Chewable Tablet PO SCH (09:38)
[2021-03-12] MEDS: Doxycycline 100 MG CAP PO SCH ×2 (09:40→20:11)
[2021-03-12] MEDS: Apixaban 5 MG TAB PO SCH ×2 (09:40→20:11)
[2021-03-12] MEDS: Betamethasone 0.1% Cream 15 GM TUBE TOP SCH ×2 (14:04→20:11)
[2021-03-12] MEDS: Lorazepam 2 MG/ML VIAL SLOW IVP PRN ×2 (14:45→18:43)
[2021-03-12] MEDS ORDERED: Electrolyte Replacement Protocol 1 EACH IVPB SCH (17:26)
[2021-03-12] MEDS: Dextrose 5 % And 0.9 % NaCl 1,000 ML IV SCH (18:08)
[2021-03-13] MEDS: methylPREDNISolone Sod Succ/PF 125 MG/2 ML VIAL IVP SCH ×4 (01:09→20:31)
[2021-03-13 04:08] LABS: Anion Gap 10 mmol/L (10-20); BUN (Urea Nitrogen) 32 mg/dL (8.4-25.7); CRP (Inflammatory) 8.55 mg/dL (= or < 0.5); Calc. Creatinine Clearance 84 mL/min (70-130); Carbon Dioxide 34 mmol/L (23-31); Chloride 99 mmol/L (98-107); Glucose 137 mg/dL (83-110); Potassium 3.8 mmol/L (3.5-5.1); Sodium 139 mmol/L (136-145)
[2021-03-13] MEDS: Levothyroxine Sodium 25 MCG TAB PO SCH (05:03)
[2021-03-13] MEDS: Propafenone HCl 150 MG TAB PO SCH ×3 (05:03→21:04)
[2021-03-13 05:10] LABS: Band 16 % (5-11); Hemoglobin 12.1 g/dL (14.0-18.0); Lymphocytes 10 % (21-51); MDiff Complete? YES; Mean Corpuscular HGB CONC 33.5 g/dL (32.0-36.0); Mean Corpuscular Volume 89.4 fL (78.0-98.0); Mean Platelet Volume 7.7 fL (7.4-10.4); Monocytes 4 % (0-10); Neutrophil 70 % (42-75); Platelet Count 185 thou/uL (130-400); RBC Distribution Width 14.1 % (11.5-14.5); Red Blood Cell (RBC) Count 4.03 mill/uL (4.70-6.10); White Blood Cell (WBC) Count 5.9 thou/uL (4.8-10.8)
[2021-03-13] MEDS: Cefepime 1 GM in Sodium Chloride 0.9% 100 ML IVPB SCH ×2 (09:33→20:33)
[2021-03-13] MEDS: Apixaban 5 MG TAB PO SCH ×2 (09:34→20:37)
[2021-03-13] MEDS: Ascorbic Acid 500 mg Chewable Tablet PO SCH (09:34)
[2021-03-13] MEDS: Montelukast Sodium 10 mg Tablet PO SCH (09:34)
[2021-03-13] MEDS: Saccharomyces boulardii 250 MG CAP PO SCH (09:34)
[2021-03-13] MEDS: guaiFENesin ER 600 MG TAB PO SCH ×2 (09:34→20:35)
[2021-03-13] MEDS: Cholecalciferol 1,000 UNITS (25 MCG) TAB PO SCH (09:34)
[2021-03-13] MEDS: Multivit, Therapeutic 1 TAB PO SCH (09:34)
[2021-03-13] MEDS: Doxycycline 100 MG CAP PO SCH ×2 (09:34→20:37)
[2021-03-13] MEDS: Betamethasone 0.1% Cream 15 GM TUBE TOP SCH ×2 (09:35→22:00)
[2021-03-13] MEDS: Pantoprazole 40 MG VIAL IVP SCH (09:36)
[2021-03-13] MEDS: Dextrose 5 % And 0.9 % NaCl 1,000 ML IV SCH (14:08)
[2021-03-13] MEDS ORDERED: Lorazepam 2 MG/ML VIAL SLOW IVP PRN (20:34)
[2021-03-13] MEDS ORDERED: DC Sedation Protocol FS ONE (20:34)
[2021-03-13] MEDS: GUAIFENESIN SF SOLN 200 MG/10 ML UDCUP PO SCH (21:11)
[2021-03-13] MEDS: Scopolamine 1.5 mg/72 hour Patch TD SCH (21:12)
[2021-03-14] MEDS: methylPREDNISolone Sod Succ/PF 125 MG/2 ML VIAL IVP SCH ×5 (02:32→21:38)
[2021-03-14 04:11] LABS: Anion Gap 9 mmol/L (10-20); BUN (Urea Nitrogen) 30 mg/dL (8.4-25.7); Calc. Creatinine Clearance 91 mL/min (70-130); Calcium 8.8 mg/dL (7.8-10.44); Carbon Dioxide 33 mmol/L (23-31); Chloride 101 mmol/L (98-107); Glucose 125 mg/dL (83-110); Potassium 3.5 mmol/L (3.5-5.1); Sodium 139 mmol/L (136-145)
[2021-03-14 04:23] LABS: Band 2 % (5-11); Hemoglobin 11.6 g/dL (14.0-18.0); Hypochromia SLIGHT = 6-15 cells (100X) (0-5/hpf); Lymphocytes 7 % (21-51); MDiff Complete? YES; Mean Corpuscular HGB CONC 33.9 g/dL (32.0-36.0); Mean Corpuscular Hemoglobin 30.3 pg (27.0-31.0); Mean Corpuscular Volume 89.5 fL (78.0-98.0); Mean Platelet Volume 7.9 fL (7.4-10.4); Monocytes 2 % (0-10); Neutrophil 89 % (42-75); Platelet Count 190 thou/uL (130-400); Platelet Morphology Comment Appears Adequate; RBC Distribution Width 14.1 % (11.5-14.5); Red Blood Cell (RBC) Count 3.84 mill/uL (4.70-6.10); White Blood Cell (WBC) Count 6.3 thou/uL (4.8-10.8)
[2021-03-14] MEDS: Levothyroxine Sodium 25 MCG TAB PO SCH (05:24)
[2021-03-14] MEDS: Propafenone HCl 150 MG TAB PO SCH ×3 (05:24→21:48)
[2021-03-14] MEDS ORDERED: Potassium Chloride 20 MEQ TAB PO SCH (06:45)
[2021-03-14] MEDS: Cefepime 1 GM in Sodium Chloride 0.9% 100 ML IVPB SCH ×2 (08:09→21:47)
[2021-03-14] MEDS: Saccharomyces boulardii 250 MG CAP PO SCH (08:10)
[2021-03-14] MEDS: Cholecalciferol 1,000 UNITS (25 MCG) TAB PO SCH (08:10)
[2021-03-14] MEDS: Ascorbic Acid 500 mg Chewable Tablet PO SCH (08:10)
[2021-03-14] MEDS: Multivit, Therapeutic 1 TAB PO SCH (08:10)
[2021-03-14] MEDS: guaiFENesin ER 600 MG TAB PO SCH ×2 (08:10→21:48)
[2021-03-14] MEDS: Montelukast Sodium 10 mg Tablet PO SCH (08:11)
[2021-03-14] MEDS: Pantoprazole 40 MG VIAL IVP SCH (08:12)
[2021-03-14] MEDS: Betamethasone 0.1% Cream 15 GM TUBE TOP SCH ×2 (08:16→21:46)
[2021-03-14] MEDS: GUAIFENESIN SF SOLN 200 MG/10 ML UDCUP PO SCH ×4 (08:18→21:47)
[2021-03-14] MEDS: Apixaban 5 MG TAB PO SCH ×2 (08:19→21:45)
[2021-03-14] MEDS: Doxycycline 100 MG CAP PO SCH ×2 (08:19→21:47)
[2021-03-14] MEDS: Dextrose 5 % And 0.9 % NaCl 1,000 ML IV SCH (09:16)
[2021-03-14 14:54] LABS: Potassium 4.3 mmol/L (3.5-5.1)
[2021-03-15] MEDS: methylPREDNISolone Sod Succ/PF 125 MG/2 ML VIAL IVP SCH ×4 (02:43→20:52)
[2021-03-15 05:02] LABS: Band 4 % (5-11); Hemoglobin 11.4 g/dL (14.0-18.0); Lymphocytes 7 % (21-51); MDiff Complete? YES; Mean Corpuscular Hemoglobin 29.5 pg (27.0-31.0); Mean Corpuscular Volume 89.5 fL (78.0-98.0); Mean Platelet Volume 7.9 fL (7.4-10.4); Monocytes 1 % (0-10); Neutrophil 88 % (42-75); Platelet Count 196 thou/uL (130-400); Platelet Morphology Comment Appears Adequate; Red Blood Cell (RBC) Count 3.87 mill/uL (4.70-6.10)
[2021-03-15 05:19] LABS: Anion Gap 5 mmol/L (10-20); BUN (Urea Nitrogen) 23 mg/dL (8.4-25.7); Calc. Creatinine Clearance 105 mL/min (70-130); Calcium 8.5 mg/dL (7.8-10.44); Carbon Dioxide 33 mmol/L (23-31); Chloride 105 mmol/L (98-107); Glucose 129 mg/dL (83-110); Potassium 4.1 mmol/L (3.5-5.1); Sodium 139 mmol/L (136-145)
[2021-03-15] MEDS: Dextrose 5 % And 0.9 % NaCl 1,000 ML IV SCH (06:14)
[2021-03-15] MEDS: Levothyroxine Sodium 25 MCG TAB PO SCH (06:14)
[2021-03-15] MEDS: Propafenone HCl 150 MG TAB PO SCH ×3 (06:15→20:57)
[2021-03-15] MEDS: Cefepime 1 GM in Sodium Chloride 0.9% 100 ML IVPB SCH ×2 (07:31→20:54)
[2021-03-15] MEDS: guaiFENesin ER 600 MG TAB PO SCH ×2 (07:31→20:56)
[2021-03-15] MEDS: Doxycycline 100 MG CAP PO SCH ×2 (07:31→20:56)
[2021-03-15] MEDS: Ascorbic Acid 500 mg Chewable Tablet PO SCH (07:31)
[2021-03-15] MEDS: Multivit, Therapeutic 1 TAB PO SCH (07:32)
[2021-03-15] MEDS: Lorazepam 0.5 MG TAB PO PRN ×2 (07:32→10:06)
[2021-03-15] MEDS: Apixaban 5 MG TAB PO SCH ×2 (07:32→20:57)
[2021-03-15] MEDS: Cholecalciferol 1,000 UNITS (25 MCG) TAB PO SCH (07:32)
[2021-03-15] MEDS: Saccharomyces boulardii 250 MG CAP PO SCH (07:32)
[2021-03-15] MEDS: Montelukast Sodium 10 mg Tablet PO SCH (07:32)
[2021-03-15] MEDS: GUAIFENESIN SF SOLN 200 MG/10 ML UDCUP PO SCH ×4 (07:33→20:56)
[2021-03-15] MEDS: Betamethasone 0.1% Cream 15 GM TUBE TOP SCH ×2 (07:33→20:53)
[2021-03-15 07:37] LABS: Actual Bicarbonate (HCO3a) 29.6 mEq/L (22-28); Base Excess (BEa) 6.2 mEq/L (-2.0 to +3.0); CO2 Tension 38.5 mmHg (35.0-45.0); Carboxyhemoglobin (COHb) 0.6 gm% (0.0-3.0); O2 Tension (PaO2), arterial 65.8 mmHg (> 60.0); Potassium - ABG Lab 4.18 mmol/L (3.70-5.30)
[2021-03-15 07:40] LABS: ALV-art Gradient 99.975 mmHg (0-20); Puncture Site LRA
[2021-03-15] MEDS: Lorazepam 2 MG/ML VIAL SLOW IVP PRN (14:52)
[2021-03-16] MEDS: Dextrose 5 % And 0.9 % NaCl 1,000 ML IV SCH ×2 (01:46→21:32)
[2021-03-16] MEDS: methylPREDNISolone Sod Succ/PF 125 MG/2 ML VIAL IVP SCH ×2 (01:47→07:24)
[2021-03-16 04:56] LABS: Band 1 % (5-11); Hemoglobin 11.9 g/dL (14.0-18.0); Lymphocytes 8 % (21-51); MDiff Complete? YES; Mean Corpuscular HGB CONC 32.8 g/dL (32.0-36.0); Mean Corpuscular Hemoglobin 29.5 pg (27.0-31.0); Mean Corpuscular Volume 90.1 fL (78.0-98.0); Mean Platelet Volume 7.8 fL (7.4-10.4); Monocytes 5 % (0-10); Neutrophil 86 % (42-75); Platelet Count 203 thou/uL (130-400); Platelet Morphology Comment Appears Adequate; RBC Distribution Width 14.1 % (11.5-14.5); Red Blood Cell (RBC) Count 4.02 mill/uL (4.70-6.10); White Blood Cell (WBC) Count 6.9 thou/uL (4.8-10.8)
[2021-03-16 04:58] LABS: Anion Gap 7 mmol/L (10-20); BUN (Urea Nitrogen) 21 mg/dL (8.4-25.7); Calc. Creatinine Clearance 115 mL/min (70-130); Calcium 8.6 mg/dL (7.8-10.44); Carbon Dioxide 30 mmol/L (23-31); Chloride 107 mmol/L (98-107); Glucose 123 mg/dL (83-110); Potassium 4.3 mmol/L (3.5-5.1); Sodium 140 mmol/L (136-145)
[2021-03-16] MEDS: Levothyroxine Sodium 25 MCG TAB PO SCH (05:35)
[2021-03-16] MEDS: Propafenone HCl 150 MG TAB PO SCH ×3 (05:36→21:31)
[2021-03-16] MEDS: Cefepime 1 GM in Sodium Chloride 0.9% 100 ML IVPB SCH (07:22)
[2021-03-16] MEDS: Montelukast Sodium 10 mg Tablet PO SCH (07:22)
[2021-03-16] MEDS: Ascorbic Acid 500 mg Chewable Tablet PO SCH (07:23)
[2021-03-16] MEDS: Cholecalciferol 1,000 UNITS (25 MCG) TAB PO SCH (07:23)
[2021-03-16] MEDS: Doxycycline 100 MG CAP PO SCH ×2 (07:23→21:28)
[2021-03-16] MEDS: Saccharomyces boulardii 250 MG CAP PO SCH (07:23)
[2021-03-16] MEDS: guaiFENesin ER 600 MG TAB PO SCH ×2 (07:23→21:30)
[2021-03-16] MEDS: GUAIFENESIN SF SOLN 200 MG/10 ML UDCUP PO SCH ×4 (07:24→21:29)
[2021-03-16] MEDS: Lorazepam 2 MG/ML VIAL SLOW IVP PRN ×2 (07:24→13:40)
[2021-03-16] MEDS: Apixaban 5 MG TAB PO SCH ×2 (07:24→21:27)
[2021-03-16] MEDS: Multivit, Therapeutic 1 TAB PO SCH (07:24)
[2021-03-16] MEDS: Betamethasone 0.1% Cream 15 GM TUBE TOP SCH ×2 (07:25→21:27)
[2021-03-16] MEDS: methylPREDNISolone Sod Succ 40 MG VIAL IVP SCH (20:26)
[2021-03-16] MEDS: Scopolamine 1.5 mg/72 hour Patch TD SCH (21:30)
[2021-03-17] MEDS: Propafenone HCl 150 MG TAB PO SCH ×3 (05:02→21:18)
[2021-03-17] MEDS: Levothyroxine Sodium 25 MCG TAB PO SCH (05:02)
[2021-03-17 05:04] LABS: Anion Gap 5 mmol/L (10-20); BUN (Urea Nitrogen) 20 mg/dL (8.4-25.7); Calc. Creatinine Clearance 115 mL/min (70-130); Calcium 8.5 mg/dL (7.8-10.44); Carbon Dioxide 31 mmol/L (23-31); Chloride 107 mmol/L (98-107); Glucose 116 mg/dL (83-110); Potassium 4.4 mmol/L (3.5-5.1); Sodium 139 mmol/L (136-145)
[2021-03-17 05:27] LABS: Band 1 % (5-11); Hemoglobin 12.3 g/dL (14.0-18.0); Lymphocytes 6 % (21-51); MDiff Complete? YES; Mean Corpuscular HGB CONC 33.1 g/dL (32.0-36.0); Mean Corpuscular Volume 90.7 fL (78.0-98.0); Monocytes 6 % (0-10); Neutrophil 87 % (42-75); Platelet Count 212 thou/uL (130-400); Platelet Morphology Comment Appears Adequate; RBC Distribution Width 14.3 % (11.5-14.5); RBC Morphology Normal; Red Blood Cell (RBC) Count 4.08 mill/uL (4.70-6.10); White Blood Cell (WBC) Count 9.3 thou/uL (4.8-10.8)
[2021-03-17] MEDS: Montelukast Sodium 10 mg Tablet PO SCH (07:59)
[2021-03-17] MEDS: Ascorbic Acid 500 mg Chewable Tablet PO SCH (07:59)
[2021-03-17] MEDS: Doxycycline 100 MG CAP PO SCH ×2 (07:59→20:37)
[2021-03-17] MEDS: guaiFENesin ER 600 MG TAB PO SCH ×2 (08:00→20:37)
[2021-03-17] MEDS: Multivit, Therapeutic 1 TAB PO SCH (08:00)
[2021-03-17] MEDS: GUAIFENESIN SF SOLN 200 MG/10 ML UDCUP PO SCH ×4 (08:00→20:37)
[2021-03-17] MEDS: Apixaban 5 MG TAB PO SCH ×2 (08:01→20:37)
[2021-03-17] MEDS: Betamethasone 0.1% Cream 15 GM TUBE TOP SCH ×2 (08:01→20:37)
[2021-03-17] MEDS: Saccharomyces boulardii 250 MG CAP PO SCH (08:01)
[2021-03-17] MEDS: Cholecalciferol 1,000 UNITS (25 MCG) TAB PO SCH (08:01)
[2021-03-17] MEDS: Lorazepam 2 MG/ML VIAL SLOW IVP PRN ×2 (08:01→14:22)
[2021-03-17] MEDS: methylPREDNISolone Sod Succ 40 MG VIAL IVP SCH ×2 (08:01→20:36)
[2021-03-17] MEDS: Dextrose 5 % And 0.9 % NaCl 1,000 ML IV SCH (16:36)
[2021-03-18 04:36] LABS: Band 1 % (5-11); Hemoglobin 12.1 g/dL (14.0-18.0); Hypochromia SLIGHT = 6-15 cells (100X) (0-5/hpf); Lymphocytes 8 % (21-51); MDiff Complete? YES; Mean Corpuscular HGB CONC 32.8 g/dL (32.0-36.0); Mean Corpuscular Hemoglobin 29.7 pg (27.0-31.0); Mean Corpuscular Volume 90.7 fL (78.0-98.0); Mean Platelet Volume 7.5 fL (7.4-10.4); Monocytes 9 % (0-10); Neutrophil 82 % (42-75); Platelet Count 199 thou/uL (130-400); Platelet Morphology Comment Appears Adequate; RBC Distribution Width 14.3 % (11.5-14.5); Red Blood Cell (RBC) Count 4.07 mill/uL (4.70-6.10); White Blood Cell (WBC) Count 8.4 thou/uL (4.8-10.8)
[2021-03-18 04:47] LABS: Anion Gap 7 mmol/L (10-20); BUN (Urea Nitrogen) 16 mg/dL (8.4-25.7); Calc. Creatinine Clearance 118 mL/min (70-130); Calcium 8.2 mg/dL (7.8-10.44); Carbon Dioxide 29 mmol/L (23-31); Chloride 107 mmol/L (98-107); Glucose 117 mg/dL (83-110); Potassium 4.6 mmol/L (3.5-5.1); Sodium 138 mmol/L (136-145)
[2021-03-18] MEDS: Levothyroxine Sodium 25 MCG TAB PO SCH (05:14)
[2021-03-18] MEDS: Propafenone HCl 150 MG TAB PO SCH ×4 (05:14→21:53)
[2021-03-18] MEDS: Betamethasone 0.1% Cream 15 GM TUBE TOP SCH ×2 (09:52→21:52)
[2021-03-18] MEDS: methylPREDNISolone Sod Succ 40 MG VIAL IVP SCH ×2 (09:52→19:34)
[2021-03-18] MEDS: Cholecalciferol 1,000 UNITS (25 MCG) TAB PO SCH (13:08)
[2021-03-18] MEDS: Ascorbic Acid 500 mg Chewable Tablet PO SCH (13:08)
[2021-03-18] MEDS: Multivit, Therapeutic 1 TAB PO SCH (13:08)
[2021-03-18] MEDS: Saccharomyces boulardii 250 MG CAP PO SCH (13:08)
[2021-03-18] MEDS: Montelukast Sodium 10 mg Tablet PO SCH (13:09)
[2021-03-18] MEDS: GUAIFENESIN SF SOLN 200 MG/10 ML UDCUP PO SCH ×6 (13:11→22:41)
[2021-03-18] MEDS: Doxycycline 100 MG CAP PO SCH ×2 (13:12→21:52)
[2021-03-18] MEDS: Apixaban 5 MG TAB PO SCH ×2 (13:13→21:51)
[2021-03-18] MEDS: guaiFENesin ER 600 MG TAB PO SCH ×3 (13:28→22:42)
[2021-03-18] MEDS: Dextrose 5 % And 0.9 % NaCl 1,000 ML IV SCH (13:56)
[2021-03-19] MEDS: Dextrose 5 % And 0.9 % NaCl 1,000 ML IV SCH (05:10)
[2021-03-19 05:17] LABS: Anion Gap 6 mmol/L (10-20); BUN (Urea Nitrogen) 14 mg/dL (8.4-25.7); Calc. Creatinine Clearance 136 mL/min (70-130); Calcium 8.1 mg/dL (7.8-10.44); Carbon Dioxide 29 mmol/L (23-31); Chloride 104 mmol/L (98-107); Glucose 107 mg/dL (83-110); Potassium 4.4 mmol/L (3.5-5.1); Sodium 135 mmol/L (136-145)
[2021-03-19 05:18] LABS: Band 2 % (5-11); Hemoglobin 12.1 g/dL (14.0-18.0); Lymphocytes 12 % (21-51); MDiff Complete? YES; Mean Corpuscular HGB CONC 32.3 g/dL (32.0-36.0); Mean Corpuscular Hemoglobin 29.4 pg (27.0-31.0); Mean Corpuscular Volume 91.1 fL (78.0-98.0); Monocytes 2 % (0-10); Neutrophil 80 % (42-75); Platelet Count 196 thou/uL (130-400); Platelet Morphology Comment Appears Adequate; RBC Distribution Width 14.3 % (11.5-14.5); RBC Morphology Normal; Reactive Lymphocytes 4 % (0-10); Red Blood Cell (RBC) Count 4.11 mill/uL (4.70-6.10); White Blood Cell (WBC) Count 7.1 thou/uL (4.8-10.8)
[2021-03-19] MEDS: Levothyroxine Sodium 25 MCG TAB PO SCH (07:18)
[2021-03-19] MEDS: Propafenone HCl 150 MG TAB PO SCH ×3 (07:18→21:26)
[2021-03-19] MEDS: Ascorbic Acid 500 mg Chewable Tablet PO SCH (09:44)
[2021-03-19] MEDS: Multivit, Therapeutic 1 TAB PO SCH (09:44)
[2021-03-19] MEDS: Cholecalciferol 1,000 UNITS (25 MCG) TAB PO SCH (09:44)
[2021-03-19] MEDS: Saccharomyces boulardii 250 MG CAP PO SCH (09:45)
[2021-03-19] MEDS: Doxycycline 100 MG CAP PO SCH ×2 (09:45→21:25)
[2021-03-19] MEDS: GUAIFENESIN SF SOLN 200 MG/10 ML UDCUP PO SCH ×4 (09:45→21:25)
[2021-03-19] MEDS: guaiFENesin ER 600 MG TAB PO SCH ×2 (09:45→21:25)
[2021-03-19] MEDS: Betamethasone 0.1% Cream 15 GM TUBE TOP SCH ×2 (09:46→21:24)
[2021-03-19] MEDS: Apixaban 5 MG TAB PO SCH ×2 (09:46→21:24)
[2021-03-19] MEDS: methylPREDNISolone Sod Succ 40 MG VIAL IVP SCH ×2 (09:46→21:24)
[2021-03-19] MEDS: Montelukast Sodium 10 mg Tablet PO SCH (09:50)
[2021-03-19] MEDS: Scopolamine 1.5 mg/72 hour Patch TD SCH (21:25)
[2021-03-20] MEDS: Dextrose 5 % And 0.9 % NaCl 1,000 ML IV SCH ×2 (01:24→20:20)
[2021-03-20] MEDS: Lorazepam 2 MG/ML VIAL SLOW IVP PRN ×3 (01:43→21:39)
[2021-03-20 04:55] LABS: Band 2 % (5-11); Hemoglobin 12.5 g/dL (14.0-18.0); Hypochromia SLIGHT = 6-15 cells (100X) (0-5/hpf); MDiff Complete? YES; Mean Corpuscular HGB CONC 30.5 g/dL (32.0-36.0); Mean Corpuscular Hemoglobin 27.7 pg (27.0-31.0); Mean Corpuscular Volume 90.9 fL (78.0-98.0); Neutrophil 98 % (42-75); Platelet Count 195 thou/uL (130-400); Platelet Morphology Comment Appears Adequate; RBC Distribution Width 14.6 % (11.5-14.5); Red Blood Cell (RBC) Count 4.49 mill/uL (4.70-6.10); White Blood Cell (WBC) Count 7.5 thou/uL (4.8-10.8)
[2021-03-20 04:59] LABS: Anion Gap 7 mmol/L (10-20); BUN (Urea Nitrogen) 13 mg/dL (8.4-25.7); Calc. Creatinine Clearance 129 mL/min (70-130); Carbon Dioxide 30 mmol/L (23-31); Chloride 103 mmol/L (98-107); Glucose 102 mg/dL (83-110); Potassium 4.3 mmol/L (3.5-5.1); Sodium 136 mmol/L (136-145)
[2021-03-20] MEDS: Levothyroxine Sodium 25 MCG TAB PO SCH (06:03)
[2021-03-20] MEDS: Propafenone HCl 150 MG TAB PO SCH ×2 (06:04→14:47)
[2021-03-20] MEDS: Ascorbic Acid 500 mg Chewable Tablet PO SCH (09:00)
[2021-03-20] MEDS: methylPREDNISolone Sod Succ 40 MG VIAL IVP SCH ×2 (09:00→20:17)
[2021-03-20] MEDS: Betamethasone 0.1% Cream 15 GM TUBE TOP SCH ×2 (09:01→21:00)
[2021-03-20] MEDS: Multivit, Therapeutic 1 TAB PO SCH (09:04)
[2021-03-20] MEDS: Montelukast Sodium 10 mg Tablet PO SCH (09:04)
[2021-03-20] MEDS: guaiFENesin ER 600 MG TAB PO SCH ×2 (09:04→20:17)
[2021-03-20] MEDS: Saccharomyces boulardii 250 MG CAP PO SCH (09:05)
[2021-03-20] MEDS: Doxycycline 100 MG CAP PO SCH ×2 (09:11→20:16)
[2021-03-20] MEDS: Cholecalciferol 1,000 UNITS (25 MCG) TAB PO SCH (09:11)
[2021-03-20] MEDS: GUAIFENESIN SF SOLN 200 MG/10 ML UDCUP PO SCH ×4 (09:11→20:16)
[2021-03-20] MEDS: Apixaban 5 MG TAB PO SCH ×2 (09:11→20:16)
[2021-03-20 13:04] VITALS: BMI 32.7
[2021-03-21] MEDS: Albuterol 200 PUFF (6.7GM INHALER) INH PRN (00:48)
[2021-03-21] MEDS: Propafenone HCl 150 MG TAB PO SCH ×4 (01:43→21:38)
[2021-03-21] MEDS: Lorazepam 2 MG/ML VIAL SLOW IVP PRN (04:01)
[2021-03-21 04:52] LABS: Hemoglobin 13.5 g/dL (14.0-18.0); Mean Corpuscular HGB CONC 31.7 g/dL (32.0-36.0); Mean Corpuscular Hemoglobin 29.1 pg (27.0-31.0); Mean Corpuscular Volume 91.8 fL (78.0-98.0); Mean Platelet Volume 8.4 fL (7.4-10.4); Platelet Count 210 thou/uL (130-400); RBC Distribution Width 14.6 % (11.5-14.5); Red Blood Cell (RBC) Count 4.65 mill/uL (4.70-6.10); White Blood Cell (WBC) Count 8.5 thou/uL (4.8-10.8)
[2021-03-21 04:54] LABS: Anion Gap 9 mmol/L (10-20); BUN (Urea Nitrogen) 10 mg/dL (8.4-25.7); Calc. Creatinine Clearance 122 mL/min (70-130); Calcium 8.4 mg/dL (7.8-10.44); Carbon Dioxide 30 mmol/L (23-31); Chloride 103 mmol/L (98-107); Glucose 103 mg/dL (83-110); Potassium 4.3 mmol/L (3.5-5.1); Sodium 138 mmol/L (136-145)
[2021-03-21 05:10] LABS: Lymphocytes 11 % (21-51); MDiff Complete? YES; Monocytes 7 % (0-10); Neutrophil 82 % (42-75)
[2021-03-21] MEDS: Levothyroxine Sodium 25 MCG TAB PO SCH (05:57)
[2021-03-21] MEDS: Apixaban 5 MG TAB PO SCH (09:04)
[2021-03-21] MEDS: Ascorbic Acid 500 mg Chewable Tablet PO SCH (09:04)
[2021-03-21] MEDS: methylPREDNISolone Sod Succ 40 MG VIAL IVP SCH ×2 (09:04→20:04)
[2021-03-21] MEDS: Cholecalciferol 1,000 UNITS (25 MCG) TAB PO SCH (09:05)
[2021-03-21] MEDS: Betamethasone 0.1% Cream 15 GM TUBE TOP SCH ×2 (09:05→20:05)
[2021-03-21] MEDS: GUAIFENESIN SF SOLN 200 MG/10 ML UDCUP PO SCH ×4 (09:06→20:04)
[2021-03-21] MEDS: Montelukast Sodium 10 mg Tablet PO SCH (09:06)
[2021-03-21] MEDS: Multivit, Therapeutic 1 TAB PO SCH (09:06)
[2021-03-21] MEDS: guaiFENesin ER 600 MG TAB PO SCH ×2 (09:06→20:04)
[2021-03-21] MEDS: Saccharomyces boulardii 250 MG CAP PO SCH (09:07)
[2021-03-22] MEDS: Dextrose 5 % And 0.9 % NaCl 1,000 ML IV SCH ×3 (00:14→20:47)
[2021-03-22 04:28] LABS: Anion Gap 11 mmol/L (10-20); BUN (Urea Nitrogen) 10 mg/dL (8.4-25.7); Calc. Creatinine Clearance 125 mL/min (70-130); Calcium 8.6 mg/dL (7.8-10.44); Carbon Dioxide 27 mmol/L (23-31); Chloride 105 mmol/L (98-107); Glucose 106 mg/dL (83-110); Potassium 4.8 mmol/L (3.5-5.1); Sodium 138 mmol/L (136-145)
[2021-03-22 05:05] LABS: Hypochromia SLIGHT = 6-15 cells (100X) (0-5/hpf); Lymphocytes 7 % (21-51); MDiff Complete? YES; Mean Corpuscular HGB CONC 31.4 g/dL (32.0-36.0); Mean Corpuscular Hemoglobin 28.6 pg (27.0-31.0); Mean Corpuscular Volume 91.1 fL (78.0-98.0); Mean Platelet Volume 8.3 fL (7.4-10.4); Monocytes 3 % (0-10); Neutrophil 90 % (42-75); Platelet Count 182 thou/uL (130-400); Platelet Morphology Comment Appears Adequate; RBC Distribution Width 14.9 % (11.5-14.5); Red Blood Cell (RBC) Count 4.89 mill/uL (4.70-6.10)
[2021-03-22] MEDS: Propafenone HCl 150 MG TAB PO SCH ×3 (06:06→21:00)
[2021-03-22] MEDS: Levothyroxine Sodium 25 MCG TAB PO SCH (06:06)
[2021-03-22] MEDS: GUAIFENESIN SF SOLN 200 MG/10 ML UDCUP PO SCH ×4 (08:51→20:48)
[2021-03-22] MEDS: Cholecalciferol 1,000 UNITS (25 MCG) TAB PO SCH (08:52)
[2021-03-22] MEDS: Montelukast Sodium 10 mg Tablet PO SCH (08:52)
[2021-03-22] MEDS: Multivit, Therapeutic 1 TAB PO SCH (08:52)
[2021-03-22] MEDS: Ascorbic Acid 500 mg Chewable Tablet PO SCH (08:52)
[2021-03-22] MEDS: Saccharomyces boulardii 250 MG CAP PO SCH (08:52)
[2021-03-22] MEDS: methylPREDNISolone Sod Succ 40 MG VIAL IVP SCH ×2 (08:53→20:48)
[2021-03-22] MEDS: guaiFENesin ER 600 MG TAB PO SCH ×2 (08:53→21:00)
[2021-03-22] MEDS: Betamethasone 0.1% Cream 15 GM TUBE TOP SCH ×2 (08:55→21:00)
[2021-03-22] MEDS: Scopolamine 1.5 mg/72 hour Patch TD SCH (20:48)
[2021-03-23 04:41] LABS: Anion Gap 9 mmol/L (10-20); BUN (Urea Nitrogen) 14 mg/dL (8.4-25.7); Calc. Creatinine Clearance 119 mL/min (70-130); Calcium 8.6 mg/dL (7.8-10.44); Carbon Dioxide 29 mmol/L (23-31); Chloride 106 mmol/L (98-107); Glucose 138 mg/dL (83-110); Magnesium 2.2 mg/dL (1.6-2.6); Potassium 4.4 mmol/L (3.5-5.1); Sodium 140 mmol/L (136-145)
[2021-03-23 05:14] LABS: Hemoglobin 12.8 g/dL (14.0-18.0); Mean Corpuscular HGB CONC 32.3 g/dL (32.0-36.0); Mean Corpuscular Hemoglobin 29.3 pg (27.0-31.0); Mean Corpuscular Volume 90.9 fL (78.0-98.0); Mean Platelet Volume 8.1 fL (7.4-10.4); Platelet Count 166 thou/uL (130-400); Red Blood Cell (RBC) Count 4.35 mill/uL (4.70-6.10); White Blood Cell (WBC) Count 8.2 thou/uL (4.8-10.8)
[2021-03-23 05:15] LABS: Band 3 % (5-11); Lymphocytes 2 % (21-51); MDiff Complete? YES; Monocytes 1 % (0-10); Neutrophil 94 % (42-75)
[2021-03-23] MEDS: Propafenone HCl 150 MG TAB PO SCH ×3 (05:37→21:26)
[2021-03-23] MEDS: Levothyroxine Sodium 25 MCG TAB PO SCH (05:37)
[2021-03-23] MEDS: Dextrose 5 % And 0.9 % NaCl 1,000 ML IV SCH (06:00)
[2021-03-23] MEDS ORDERED: Albuterol Sulfate 1.25 MG/3 ML NEB ONE (08:01)
[2021-03-23] MEDS ORDERED: PROPOFOL 200 MG/20 ML VIAL ONE (08:25)
[2021-03-23] MEDS ORDERED: Lidocaine 1% PF 5 ML VIAL ONE (08:25)
[2021-03-23] MEDS ORDERED: Ondansetron PF 4 MG/2 ML Vial ONE (08:52)
[2021-03-23] MEDS: methylPREDNISolone Sod Succ 40 MG VIAL IVP SCH ×2 (08:54→21:27)
[2021-03-23] MEDS ORDERED: Promethazine HCl 25 MG/ML VIAL IM PRN (08:54)
[2021-03-23] MEDS ORDERED: Promethazine HCl 25 MG/ML VIAL IVPB PRN (08:54)
[2021-03-23] MEDS ORDERED: Ondansetron HCl/PF 4 MG/2 ML Vial IVP PRN (08:54)
[2021-03-23] MEDS ORDERED: Fluconazole In NaCl,Iso-Osm 400 MG in Premix Bag 1 BAG IVPB SCH (09:10)
[2021-03-23] MEDS: Cholecalciferol 1,000 UNITS (25 MCG) TAB PO SCH (09:36)
[2021-03-23] MEDS: Ascorbic Acid 500 mg Chewable Tablet PO SCH (09:36)
[2021-03-23] MEDS: Montelukast Sodium 10 mg Tablet PO SCH (09:37)
[2021-03-23] MEDS: Multivit, Therapeutic 1 TAB PO SCH (09:37)
[2021-03-23] MEDS: Saccharomyces boulardii 250 MG CAP PO SCH (09:37)
[2021-03-23] MEDS: GUAIFENESIN SF SOLN 200 MG/10 ML UDCUP PO SCH ×4 (09:37→21:27)
[2021-03-23] MEDS: guaiFENesin ER 600 MG TAB PO SCH ×2 (09:37→21:27)
[2021-03-23] MEDS: Betamethasone 0.1% Cream 15 GM TUBE TOP SCH ×2 (09:40→21:28)
[2021-03-23 16:13] VITALS: BP 111/68
[2021-03-24 04:19] LABS: Hemoglobin 12.6 g/dL (14.0-18.0); Mean Corpuscular Hemoglobin 29.3 pg (27.0-31.0); Mean Corpuscular Volume 91.6 fL (78.0-98.0); Mean Platelet Volume 8.5 fL (7.4-10.4); Platelet Count 146 thou/uL (130-400); Red Blood Cell (RBC) Count 4.28 mill/uL (4.70-6.10); White Blood Cell (WBC) Count 8.6 thou/uL (4.8-10.8)
[2021-03-24 04:25] LABS: Anion Gap 11 mmol/L (10-20); BUN (Urea Nitrogen) 15 mg/dL (8.4-25.7); Calc. Creatinine Clearance 116 mL/min (70-130); Calcium 8.3 mg/dL (7.8-10.44); Carbon Dioxide 29 mmol/L (23-31); Chloride 105 mmol/L (98-107); Glucose 121 mg/dL (83-110); Potassium 4.7 mmol/L (3.5-5.1); Sodium 140 mmol/L (136-145)
[2021-03-24 05:05] LABS: Band 2 % (5-11); Lymphocytes 4 % (21-51); MDiff Complete? YES; Monocytes 1 % (0-10); Neutrophil 93 % (42-75)
[2021-03-24] MEDS: Propafenone HCl 150 MG TAB PO SCH (06:15)
[2021-03-24] MEDS: Levothyroxine Sodium 25 MCG TAB PO SCH (06:16)
[2021-03-24] MEDS ORDERED: Fluconazole In NaCl,Iso-Osm 200 MG in Premix Bag 1 BAG IVPB SCH (09:00)
[2021-03-24] MEDS ORDERED: Apixaban 5 MG TAB PO SCH ×2 (09:00)
[2021-03-24] MEDS: Saccharomyces boulardii 250 MG CAP PO SCH (10:48)
[2021-03-24] MEDS: methylPREDNISolone Sod Succ 40 MG VIAL IVP SCH (10:48)
[2021-03-24] MEDS: GUAIFENESIN SF SOLN 200 MG/10 ML UDCUP PO SCH (10:48)
[2021-03-24] MEDS: Montelukast Sodium 10 mg Tablet PO SCH (10:48)
[2021-03-24] MEDS: Multivit, Therapeutic 1 TAB PO SCH (10:48)
[2021-03-24] MEDS: Cholecalciferol 1,000 UNITS (25 MCG) TAB PO SCH (10:48)
[2021-03-24] MEDS: Betamethasone 0.1% Cream 15 GM TUBE TOP SCH (10:56)
[2021-03-24] MEDS: Dextrose 5 % And 0.9 % NaCl 1,000 ML IV SCH (10:57)
[2021-03-24 11:46] VITALS: TEMP 99.1
[2021-03-24] MEDS: Ascorbic Acid 500 mg Chewable Tablet PO SCH (12:01)
[2021-03-24] MEDS: guaiFENesin ER 600 MG TAB PO SCH (12:01)
[2021-03-24] MEDS ORDERED: Bisacodyl 10 MG SUPP PR SCH (13:15)
== END 2021-03-24 15:08 | disposition swing bed (61) | DRG 207 ==
LOC: T4-B 03-06 00:21 → CCU 03-11 20:19 → IMCU/EMU 03-22 02:12
PROVIDERS: ADMIT Internal Medicine; ATTEND Family Medicine
PROC: XW033E5 Introduction of Remdesivir Anti-infective into Peripheral Vein, Percutaneous Approach, New Technology Group 5 (ICD-10-PCS; principal; 2021-03-06)
PROC: 8E0ZXY6 Isolation (ICD-10-PCS; 2021-03-06)
PROC: 5A1955Z Respiratory Ventilation, Greater than 96 Consecutive Hours (ICD-10-PCS; 2021-03-11)
PROC: 0DH63UZ Insertion of Feeding Device into Stomach, Percutaneous Approach (ICD-10-PCS; 2021-03-23)
DX: U07.1 COVID-19 (principal); J12.82 Pneumonia due to coronavirus disease 2019; J96.21 Acute and chronic respiratory failure with hypoxia; I50.33 Acute on chronic diastolic (congestive) heart failure; G92 Toxic encephalopathy; J44.1 Chronic obstructive pulmonary disease with (acute) exacerbation; J44.0 Chronic obstructive pulmonary disease with (acute) lower respiratory infection; I13.0 Hypertensive heart and chronic kidney disease with heart failure and stage 1 through stage 4 chronic kidney disease, or unspecified chronic kidney disease; N17.9 Acute kidney failure, unspecified; E66.2 Morbid (severe) obesity with alveolar hypoventilation; J98.11 Atelectasis; B37.81 Candidal esophagitis; I48.0 Paroxysmal atrial fibrillation; I25.10 Atherosclerotic heart disease of native coronary artery without angina pectoris; E11.22 Type 2 diabetes mellitus with diabetic chronic kidney disease; N18.30 Chronic kidney disease, stage 3 unspecified; E03.9 Hypothyroidism, unspecified; I87.2 Venous insufficiency (chronic) (peripheral); F17.210 Nicotine dependence, cigarettes, uncomplicated; J20.9 Acute bronchitis, unspecified; D63.1 Anemia in chronic kidney disease; R13.12 Dysphagia, oropharyngeal phase; K59.00 Constipation, unspecified; Z99.81 Dependence on supplemental oxygen; Z93.0 Tracheostomy status; Z88.8 Allergy status to other drugs, medicaments and biological substances; Z79.899 Other long term (current) drug therapy; Z79.890 Hormone replacement therapy; Z79.01 Long term (current) use of anticoagulants; Z68.32 Body mass index [BMI] 32.0-32.9, adult; Z78.1 Physical restraint status
CPT/HCPCS: 36415; 36416; 36600; 71045; 80048; 80053; 82805; 83735; 85007; 85025; 85027; 86140; 87040; 94002; 94003; 94640; C9113; J0690; J0692; J1450; J1650; J2060; J2405; J2704; J2920; J2930; J3480; J3490; J7030; J7042; J7512; J7620

== ENCOUNTER 2022-07-28 10:51 | Inpatient (IN) | payer MEDICARE ==
[2022-07-28 11:31] LABS: #Eosinphils 0.1 thou/uL (0.0-0.7); #Lymphocytes 1.6 thou/uL (1.20-3.40); #Monocytes 0.5 thou/uL (0.11-0.59); %Basophils 0.5 % (0.0-1.0); %Eosinophils 2.3 % (0.0-10.0); %Monocytes 8.9 % (0.0-10.0); %Neutrophils 57.3 % (42.0-75.0); Hemoglobin 12.2 g/dL (14.0-18.0); Mean Corpuscular HGB CONC 32.3 g/dL (32.0-36.0); Mean Corpuscular Hemoglobin 30.5 pg (27.0-31.0); Mean Corpuscular Volume 94.3 fl (78.0-98.0); Mean Platelet Volume 7.9 fL (7.4-10.4); Platelet Count 154 10x3/uL (130-400); RBC Distribution Width 13.2 % (11.5-14.5); Red Blood Cell (RBC) Count 4.02 mill/uL (4.70-6.10); White Blood Cell (WBC) Count 5.2 10x3/uL (4.8-10.8)
[2022-07-28 11:52] LABS: ALT (SGPT) 10 U/L (8-55); AST (SGOT) 17 U/L (5-34); Albumin 3.7 g/dL (3.4-4.8); Alkaline Phosphatase 118 U/L (40-110); Anion Gap 12 mmol/L (10-20); BUN (Urea Nitrogen) 20 mg/dL (8.4-25.7); Bilirubin, Total 0.6 mg/dL (0.2-1.2); Calc. Creatinine Clearance 0 mL/min (70-130); Calcium 9.2 mg/dL (7.8-10.44); Carbon Dioxide 37 mmol/L (23-31); Chloride 93 mmol/L (98-107); Estimated GFR 66; Globulin 2.9 g/dL (2.4-3.5); Glucose 107 mg/dL (83-110); Potassium 3.5 mmol/L (3.5-5.1); Protein, Total 6.6 g/dL (5.8-8.1); Sodium 138 mmol/L (136-145)
[2022-07-28] MEDS ORDERED: Cefepime 2 GM VIAL ONE (12:25)
[2022-07-28] MEDS ORDERED: Vancomycin 1 GM/200 ML (FROZEN) BAG ONE (12:25)
[2022-07-28] MEDS ORDERED: Ondansetron PF 4 MG/2 ML Vial IVP PRN (13:19)
[2022-07-28] MEDS: Ipratropium/Albuterol 3 ML NEB NEB SCH ×3 (13:30→21:54)
[2022-07-28] MEDS ORDERED: Piperacillin/Tazobactam 3.375 GM in Sodium Chloride 0.9% 100 ML IVPB SCH ×2 (15:00→18:00)
[2022-07-28] MEDS ORDERED: Piperacillin/Tazobactam 3.375 GM VIAL ONE ×2 (15:04→19:00)
[2022-07-28] MEDS ORDERED: Ipratropium/Albuterol 3 ML NEB ONE (17:39)
[2022-07-28] MEDS: Piperacillin/Tazobactam 3.375 GM in Sodium Chloride 0.9% 100 ML IVPB SCH (19:10)
[2022-07-28 19:20] LABS: SARS-CoV-2 NAA Rapid Test Not Detected (NotDetected)
[2022-07-28 21:42] VITALS: BMI 34.0
[2022-07-28] MEDS ORDERED: Bisacodyl 10 MG SUPP PR PRN (23:32)
[2022-07-28] MEDS: Apixaban 5 MG TAB PO SCH (23:46)
[2022-07-28] MEDS: Diltiazem HCl SR 60 mg Capsule PO SCH (23:46)
[2022-07-28] MEDS: Polyethylene Glycol 3350 17 GM Packet PO SCH (23:46)
[2022-07-29] MEDS: Ipratropium/Albuterol 3 ML NEB NEB SCH ×6 (00:32→22:21)
[2022-07-29] MEDS: Piperacillin/Tazobactam 3.375 GM in Sodium Chloride 0.9% 100 ML IVPB SCH ×3 (04:00→18:18)
[2022-07-29] MEDS: Levothyroxine Sodium 25 MCG TAB PO SCH (04:40)
[2022-07-29] MEDS ORDERED: Ipratropium/Albuterol 3 ML NEB ONE (04:43)
[2022-07-29] MEDS: Diltiazem HCl SR 60 mg Capsule PO SCH ×2 (08:11→20:28)
[2022-07-29] MEDS: Apixaban 5 MG TAB PO SCH ×2 (08:11→20:28)
[2022-07-29] MEDS: Furosemide 40 MG TAB PO SCH (08:11)
[2022-07-29 08:46] LABS: #Eosinphils 0.1 thou/uL (0.0-0.7); #Lymphocytes 1.5 thou/uL (1.20-3.40); #Monocytes 0.6 thou/uL (0.11-0.59); #Neutrophils 3.4 thou/uL (1.40-6.50); %Basophils 0.1 % (0.0-1.0); %Eosinophils 2.3 % (0.0-10.0); %Lymphocytes 27.1 % (21.0-51.0); %Monocytes 10.1 % (0.0-10.0); %Neutrophils 60.4 % (42.0-75.0); Hemoglobin 12.1 g/dL (14.0-18.0); Mean Corpuscular HGB CONC 32.1 g/dL (32.0-36.0); Mean Corpuscular Hemoglobin 30.1 pg (27.0-31.0); Mean Corpuscular Volume 93.9 fl (78.0-98.0); Mean Platelet Volume 8.5 fL (7.4-10.4); Platelet Count 157 10x3/uL (130-400); RBC Distribution Width 13.4 % (11.5-14.5); Red Blood Cell (RBC) Count 4.02 mill/uL (4.70-6.10); White Blood Cell (WBC) Count 5.6 10x3/uL (4.8-10.8)
[2022-07-29 08:56] LABS: Anion Gap 11 mmol/L (10-20); BUN (Urea Nitrogen) 14 mg/dL (8.4-25.7); Calc. Creatinine Clearance 98 mL/min (70-130); Calcium 8.9 mg/dL (7.8-10.44); Carbon Dioxide 34 mmol/L (23-31); Chloride 97 mmol/L (98-107); Estimated GFR 83; Glucose 88 mg/dL (83-110); Potassium 3.5 mmol/L (3.5-5.1); Sodium 138 mmol/L (136-145)
[2022-07-29] MEDS ORDERED: Ipratropium/Albuterol 3 ML NEB NEB PRN (10:28)
[2022-07-29] MEDS: Propafenone HCl 150 MG TAB PO SCH ×2 (16:37→20:28)
[2022-07-29] MEDS: Senokot S 8.6-50 MG TAB PO SCH (20:27)
[2022-07-29] MEDS: Polyethylene Glycol 3350 17 GM Packet PO SCH (20:28)
[2022-07-29] MEDS: guaiFENesin ER 600 MG TAB PO SCH (20:28)
[2022-07-29] MEDS: Acetaminophen 325 MG TAB PO PRN (20:29)
[2022-07-29] MEDS: Bisacodyl 10 MG SUPP PR SCH (20:30)
[2022-07-30] MEDS: Piperacillin/Tazobactam 3.375 GM in Sodium Chloride 0.9% 100 ML IVPB SCH ×2 (02:11→10:31)
[2022-07-30] MEDS: Ipratropium/Albuterol 3 ML NEB NEB SCH ×6 (02:19→22:02)
[2022-07-30] MEDS: Levothyroxine Sodium 25 MCG TAB PO SCH (05:18)
[2022-07-30] MEDS: Diltiazem HCl SR 60 mg Capsule PO SCH ×2 (08:51→21:31)
[2022-07-30] MEDS: Aspirin 81 mg Enteric Coated Tablet PO SCH (08:51)
[2022-07-30] MEDS: guaiFENesin ER 600 MG TAB PO SCH ×2 (08:51→21:30)
[2022-07-30] MEDS: Montelukast Sodium 10 mg Tablet PO SCH (08:51)
[2022-07-30] MEDS: Furosemide 40 MG TAB PO SCH (08:51)
[2022-07-30] MEDS: Apixaban 5 MG TAB PO SCH ×2 (08:51→21:30)
[2022-07-30] MEDS: Propafenone HCl 150 MG TAB PO SCH ×3 (08:52→21:30)
[2022-07-30] MEDS: Senokot S 8.6-50 MG TAB PO SCH (08:52)
[2022-07-30] MEDS ORDERED: FLU VACC QS2022-23(6MOS UP)/PF 60 MCG/0.5 ML SYRINGE IM ONE (09:00)
[2022-07-30 09:29] LABS: Anion Gap 11 mmol/L (10-20); BUN (Urea Nitrogen) 13 mg/dL (8.4-25.7); Calc. Creatinine Clearance 99 mL/min (70-130); Carbon Dioxide 32 mmol/L (23-31); Chloride 99 mmol/L (98-107); Estimated GFR 84; Glucose 91 mg/dL (83-110); Magnesium 2.6 mg/dL (1.6-2.6); Phosphorus 3.2 mg/dL (2.3-4.7); Potassium 3.8 mmol/L (3.5-5.1); Sodium 138 mmol/L (136-145)
[2022-07-30] MEDS: Polyethylene Glycol 3350 17 GM Packet PO SCH (21:30)
[2022-07-30] MEDS: Bisacodyl 10 MG SUPP PR SCH (21:30)
[2022-07-30] MEDS: Acetaminophen 325 MG TAB PO PRN (21:31)
[2022-07-31] MEDS: Ipratropium/Albuterol 3 ML NEB NEB SCH ×6 (02:07→22:47)
[2022-07-31] MEDS: Levothyroxine Sodium 25 MCG TAB PO SCH (05:19)
[2022-07-31] MEDS: Senokot S 8.6-50 MG TAB PO SCH (08:57)
[2022-07-31] MEDS: Montelukast Sodium 10 mg Tablet PO SCH (08:57)
[2022-07-31] MEDS: guaiFENesin ER 600 MG TAB PO SCH ×2 (08:57→21:21)
[2022-07-31] MEDS: Furosemide 40 MG TAB PO SCH (08:57)
[2022-07-31] MEDS: Propafenone HCl 150 MG TAB PO SCH ×3 (08:57→21:21)
[2022-07-31] MEDS: Diltiazem HCl SR 60 mg Capsule PO SCH ×2 (08:57→21:21)
[2022-07-31] MEDS: Apixaban 5 MG TAB PO SCH ×2 (08:57→21:20)
[2022-07-31] MEDS: Aspirin 81 mg Enteric Coated Tablet PO SCH (08:57)
[2022-07-31] MEDS: Polyethylene Glycol 3350 17 GM Packet PO SCH (21:20)
[2022-07-31] MEDS: Bisacodyl 10 MG SUPP PR SCH (21:22)
[2022-08-01] MEDS: Ipratropium/Albuterol 3 ML NEB NEB SCH ×5 (02:49→18:42)
[2022-08-01] MEDS: Levothyroxine Sodium 25 MCG TAB PO SCH (06:16)
[2022-08-01 06:31] LABS: #Eosinphils 0.1 thou/uL (0.0-0.7); #Lymphocytes 1.7 thou/uL (1.20-3.40); #Monocytes 0.5 thou/uL (0.11-0.59); #Neutrophils 3.4 thou/uL (1.40-6.50); %Basophils 0.3 % (0.0-1.0); %Eosinophils 1.9 % (0.0-10.0); %Lymphocytes 29.4 % (21.0-51.0); %Monocytes 8.6 % (0.0-10.0); %Neutrophils 59.9 % (42.0-75.0); Hemoglobin 12.5 g/dL (14.0-18.0); Mean Corpuscular HGB CONC 33.2 g/dL (32.0-36.0); Mean Corpuscular Hemoglobin 31.1 pg (27.0-31.0); Mean Corpuscular Volume 93.6 fl (78.0-98.0); Mean Platelet Volume 7.6 fL (7.4-10.4); Platelet Count 144 10x3/uL (130-400); RBC Distribution Width 13.2 % (11.5-14.5); Red Blood Cell (RBC) Count 4.03 mill/uL (4.70-6.10); White Blood Cell (WBC) Count 5.7 10x3/uL (4.8-10.8)
[2022-08-01 06:54] LABS: Anion Gap 10 mmol/L (10-20); BUN (Urea Nitrogen) 17 mg/dL (8.4-25.7); Calc. Creatinine Clearance 99 mL/min (70-130); Calcium 9.1 mg/dL (7.8-10.44); Carbon Dioxide 34 mmol/L (23-31); Chloride 100 mmol/L (98-107); Estimated GFR 84; Glucose 91 mg/dL (83-110); Potassium 3.8 mmol/L (3.5-5.1); Sodium 140 mmol/L (136-145)
[2022-08-01] MEDS: Diltiazem HCl SR 60 mg Capsule PO SCH ×2 (09:58→20:38)
[2022-08-01] MEDS: Senokot S 8.6-50 MG TAB PO SCH (09:59)
[2022-08-01] MEDS: guaiFENesin ER 600 MG TAB PO SCH ×2 (09:59→20:38)
[2022-08-01] MEDS: Montelukast Sodium 10 mg Tablet PO SCH (09:59)
[2022-08-01] MEDS: Furosemide 40 MG TAB PO SCH (10:00)
[2022-08-01] MEDS: Aspirin 81 mg Enteric Coated Tablet PO SCH (10:00)
[2022-08-01] MEDS: Propafenone HCl 150 MG TAB PO SCH ×3 (10:00→20:38)
[2022-08-01] MEDS: Apixaban 5 MG TAB PO SCH ×2 (10:01→20:38)
[2022-08-01] MEDS: Acetaminophen 325 MG TAB PO PRN (20:38)
[2022-08-01] MEDS: Polyethylene Glycol 3350 17 GM Packet PO SCH (20:39)
[2022-08-01] MEDS: Bisacodyl 10 MG SUPP PR SCH (20:54)
[2022-08-02] MEDS: Ipratropium/Albuterol 3 ML NEB NEB SCH ×6 (00:02→18:56)
[2022-08-02] MEDS: Levothyroxine Sodium 25 MCG TAB PO SCH (05:33)
[2022-08-02] MEDS: Diltiazem HCl SR 60 mg Capsule PO SCH ×2 (08:28→20:37)
[2022-08-02] MEDS: Senokot S 8.6-50 MG TAB PO SCH (08:28)
[2022-08-02] MEDS: guaiFENesin ER 600 MG TAB PO SCH ×2 (08:28→20:37)
[2022-08-02] MEDS: Propafenone HCl 150 MG TAB PO SCH ×3 (08:28→20:37)
[2022-08-02] MEDS: Montelukast Sodium 10 mg Tablet PO SCH (08:29)
[2022-08-02] MEDS: Apixaban 5 MG TAB PO SCH ×2 (08:29→20:37)
[2022-08-02] MEDS: Furosemide 40 MG TAB PO SCH (08:29)
[2022-08-02] MEDS: Aspirin 81 mg Enteric Coated Tablet PO SCH (08:29)
[2022-08-02] MEDS: Polyethylene Glycol 3350 17 GM Packet PO SCH (20:37)
[2022-08-02] MEDS: Bisacodyl 10 MG SUPP PR SCH (20:37)
[2022-08-03] MEDS: Ipratropium/Albuterol 3 ML NEB NEB SCH ×6 (00:03→18:37)
[2022-08-03] MEDS: Levothyroxine Sodium 25 MCG TAB PO SCH (06:16)
[2022-08-03 06:41] LABS: #Eosinphils 0.1 thou/uL (0.0-0.7); #Lymphocytes 1.6 thou/uL (1.20-3.40); #Monocytes 0.5 thou/uL (0.11-0.59); %Basophils 0.2 % (0.0-1.0); %Eosinophils 2.7 % (0.0-10.0); %Lymphocytes 30.7 % (21.0-51.0); %Monocytes 9.3 % (0.0-10.0); %Neutrophils 57.2 % (42.0-75.0); Hemoglobin 12.2 g/dL (14.0-18.0); Mean Corpuscular HGB CONC 32.1 g/dL (32.0-36.0); Mean Corpuscular Hemoglobin 30.5 pg (27.0-31.0); Mean Corpuscular Volume 94.9 fl (78.0-98.0); Mean Platelet Volume 7.7 fL (7.4-10.4); Platelet Count 164 10x3/uL (130-400); RBC Distribution Width 13.2 % (11.5-14.5); Red Blood Cell (RBC) Count 3.99 mill/uL (4.70-6.10); White Blood Cell (WBC) Count 5.2 10x3/uL (4.8-10.8)
[2022-08-03 07:10] LABS: Anion Gap 10 mmol/L (10-20); BUN (Urea Nitrogen) 16 mg/dL (8.4-25.7); Calc. Creatinine Clearance 106 mL/min (70-130); Carbon Dioxide 31 mmol/L (23-31); Chloride 100 mmol/L (98-107); Estimated GFR 85; Glucose 90 mg/dL (83-110); Magnesium 2.3 mg/dL (1.6-2.6); Phosphorus 3.1 mg/dL (2.3-4.7); Sodium 137 mmol/L (136-145)
[2022-08-03] MEDS: Senokot S 8.6-50 MG TAB PO SCH (08:43)
[2022-08-03] MEDS: Aspirin 81 mg Enteric Coated Tablet PO SCH (08:44)
[2022-08-03] MEDS: Diltiazem HCl SR 60 mg Capsule PO SCH ×2 (08:44→20:38)
[2022-08-03] MEDS: guaiFENesin ER 600 MG TAB PO SCH ×2 (08:44→20:38)
[2022-08-03] MEDS: Montelukast Sodium 10 mg Tablet PO SCH (08:44)
[2022-08-03] MEDS: Furosemide 40 MG TAB PO SCH (08:44)
[2022-08-03] MEDS: Apixaban 5 MG TAB PO SCH ×2 (08:44→20:38)
[2022-08-03] MEDS: Propafenone HCl 150 MG TAB PO SCH ×3 (08:45→20:38)
[2022-08-03] MEDS: Polyethylene Glycol 3350 17 GM Packet PO SCH (20:38)
[2022-08-03] MEDS: Bisacodyl 10 MG SUPP PR SCH (20:38)
[2022-08-03] MEDS: Acetaminophen 325 MG TAB PO PRN (22:26)
[2022-08-04] MEDS: Ipratropium/Albuterol 3 ML NEB NEB SCH ×4 (00:01→10:47)
[2022-08-04] MEDS: Levothyroxine Sodium 25 MCG TAB PO SCH (05:15)
[2022-08-04 07:20] LABS: #Eosinphils 0.1 thou/uL (0.0-0.7); #Lymphocytes 1.8 thou/uL (1.20-3.40); #Monocytes 0.5 thou/uL (0.11-0.59); #Neutrophils 2.3 thou/uL (1.40-6.50); %Eosinophils 3.1 % (0.0-10.0); %Lymphocytes 38.1 % (21.0-51.0); %Monocytes 10.1 % (0.0-10.0); %Neutrophils 48.7 % (42.0-75.0); Hemoglobin 12.2 g/dL (14.0-18.0); Mean Corpuscular Hemoglobin 30.2 pg (27.0-31.0); Mean Corpuscular Volume 94.4 fl (78.0-98.0); Mean Platelet Volume 8.1 fL (7.4-10.4); Platelet Count 159 10x3/uL (130-400); RBC Distribution Width 13.4 % (11.5-14.5); Red Blood Cell (RBC) Count 4.05 mill/uL (4.70-6.10); White Blood Cell (WBC) Count 4.8 10x3/uL (4.8-10.8)
[2022-08-04 07:33] LABS: Anion Gap 10 mmol/L (10-20); BUN (Urea Nitrogen) 16 mg/dL (8.4-25.7); Calc. Creatinine Clearance 99 mL/min (70-130); Carbon Dioxide 33 mmol/L (23-31); Chloride 100 mmol/L (98-107); Estimated GFR 84; Glucose 90 mg/dL (83-110); Potassium 3.9 mmol/L (3.5-5.1); Sodium 139 mmol/L (136-145)
[2022-08-04] MEDS: Furosemide 40 MG TAB PO SCH (08:06)
[2022-08-04] MEDS: Aspirin 81 mg Enteric Coated Tablet PO SCH (08:06)
[2022-08-04] MEDS: guaiFENesin ER 600 MG TAB PO SCH (08:06)
[2022-08-04] MEDS: Apixaban 5 MG TAB PO SCH (08:06)
[2022-08-04] MEDS: Diltiazem HCl SR 60 mg Capsule PO SCH (08:06)
[2022-08-04] MEDS: Senokot S 8.6-50 MG TAB PO SCH (08:06)
[2022-08-04] MEDS: Montelukast Sodium 10 mg Tablet PO SCH (08:06)
[2022-08-04] MEDS: Propafenone HCl 150 MG TAB PO SCH (08:13)
[2022-08-04 08:33] VITALS: BP 143/85; TEMP 97.8
[2022-08-04] MEDS ORDERED: Aspirin 81 mg Enteric Coated Tablet ONE (08:51)
== END 2022-08-04 14:07 | DRG 177 ==
LOC: ERS 10:51 → ERHOLD 13:23 → T4-B 20:39
PROVIDERS: ADMIT Internal Medicine; ATTEND Internal Medicine
DX: J69.0 Pneumonitis due to inhalation of food and vomit (principal); J96.21 Acute and chronic respiratory failure with hypoxia; J96.22 Acute and chronic respiratory failure with hypercapnia; J44.1 Chronic obstructive pulmonary disease with (acute) exacerbation; I50.32 Chronic diastolic (congestive) heart failure; Z20.822 Contact with and (suspected) exposure to COVID-19; I25.10 Atherosclerotic heart disease of native coronary artery without angina pectoris; E11.22 Type 2 diabetes mellitus with diabetic chronic kidney disease; G47.33 Obstructive sleep apnea (adult) (pediatric); E03.9 Hypothyroidism, unspecified; I48.0 Paroxysmal atrial fibrillation; K59.00 Constipation, unspecified; N18.2 Chronic kidney disease, stage 2 (mild); R13.10 Dysphagia, unspecified; E66.9 Obesity, unspecified; Z68.34 Body mass index [BMI] 34.0-34.9, adult; Z28.21 Immunization not carried out because of patient refusal; Z93.0 Tracheostomy status; Z99.81 Dependence on supplemental oxygen; Z88.3 Allergy status to other anti-infective agents; Z79.899 Other long term (current) drug therapy; Z79.01 Long term (current) use of anticoagulants; Z79.890 Hormone replacement therapy; Z95.5 Presence of coronary angioplasty implant and graft; Z90.49 Acquired absence of other specified parts of digestive tract
CPT/HCPCS: 36415; 36416; 71045; 80048; 80053; 83735; 83880; 84100; 84145; 84484; 85025; 93005; 94640; 94760; 96365; 96375; J0692; J2543; J3370-JW; J3490; J7620; U0002

== ENCOUNTER 2023-02-25 22:45 | Inpatient (IN) | payer MEDICARE ==
[2023-02-25] MEDS ORDERED: Dexamethasone 10 MG/ML VIAL ONE (23:19)
[2023-02-25] MEDS ORDERED: Magnesium 2 GM/50 ML BAG (IN WATER) ONE (23:19)
[2023-02-25] MEDS ORDERED: Ipratropium/Albuterol 3 ML NEB ONE (23:34)
[2023-02-25 23:45] LABS: #Eosinphils 0.1 thou/uL (0.0-0.7); #Monocytes 0.6 thou/uL (0.11-0.59); #Neutrophils 3.4 thou/uL (1.40-6.50); %Basophils 0.3 % (0.0-1.0); %Eosinophils 1.6 % (0.0-10.0); %Lymphocytes 32.5 % (21.0-51.0); %Monocytes 10.2 % (0.0-10.0); %Neutrophils 55.1 % (42.0-75.0); Hematocrit 36.6 % (42.0-52.0); Hemoglobin 11.8 g/dL (14.0-18.0); Mean Corpuscular HGB CONC 32.2 g/dL (32.0-36.0); Mean Corpuscular Hemoglobin 28.3 pg (27.0-31.0); Mean Corpuscular Volume 87.8 fl (78.0-98.0); Platelet Count 193 10x3/uL (130-400); RBC Distribution Width 15.3 % (11.5-14.5); Red Blood Cell (RBC) Count 4.17 mill/uL (4.70-6.10); White Blood Cell (WBC) Count 6.2 10x3/uL (4.8-10.8)
[2023-02-26 00:06] LABS: Actual Bicarbonate (HCO3a) 37.7 mEq/L (22-28); Analyzer IN Cardio ER; Base Excess (BEa) 10.6 mEq/L (-2.0 to +3.0); Carboxyhemoglobin (COHb) 0.4 gm% (0.0-3.0); Hematocrit-ABG 36 % (42.0-52.0); Hemoglobin (Hb) 12.4 g/dL (14.0-18.0); O2 Tension (PaO2), arterial 77.3 mmHg (> 60.0); pH, Arterial 7.398 (7.35-7.45)
[2023-02-26 00:10] LABS: ALT (SGPT) 7 U/L (8-55); AST (SGOT) 16 U/L (5-34); Albumin 3.4 g/dL (3.4-4.8); Alkaline Phosphatase 113 U/L (40-110); Anion Gap 14 mmol/L (10-20); BUN (Urea Nitrogen) 24 mg/dL (8.4-25.7); Bilirubin, Total 0.4 mg/dL (0.2-1.2); Calc. Creatinine Clearance 0 mL/min (70-130); Calcium 9.3 mg/dL (7.8-10.44); Carbon Dioxide 36 mmol/L (23-31); Chloride 90 mmol/L (98-107); Estimated GFR 55; Globulin 3.2 g/dL (2.4-3.5); Glucose 102 mg/dL (83-110); Lipase 14 U/L (8-78); Potassium 3.5 mmol/L (3.5-5.1); Protein, Total 6.6 g/dL (5.8-8.1); Sodium 136 mmol/L (136-145)
[2023-02-26 00:12] LABS: Troponin I Less than 0.010 ng/mL (< 0.028)
[2023-02-26] MEDS ORDERED: LevoFLOXacin 750 mg/D5W 150 ml Premix Bag ONE (00:30)
[2023-02-26] MEDS ORDERED: Ipratropium/Albuterol 3 ML NEB NEB PRN (03:32)
[2023-02-26] MEDS ORDERED: Ipratropium/Albuterol 3 ML NEB ONE (04:36)
[2023-02-26] MEDS: Ipratropium/Albuterol 3 ML NEB NEB SCH ×5 (04:44→21:49)
[2023-02-26] MEDS ORDERED: Ondansetron PF 4 MG/2 ML Vial IVP PRN (06:04)
[2023-02-26] MEDS ORDERED: Ondansetron ODT 4 MG TAB PO PRN (06:04)
[2023-02-26] MEDS ORDERED: Acetaminophen 650 MG Suppository PR PRN (06:04)
[2023-02-26] MEDS ORDERED: Acetaminophen 325 MG TAB PO PRN (06:04)
[2023-02-26 06:26] LABS: Bacteria/HPF None Seen HPF (None Seen); Bilirubin Negative (Negative); Blood, Urine Negative (Negative); CAUTI Indications for Culture Alt mental st,lethar; Clarity Clear (Clear); Glucose, Urine (Dipstick) Normal (Negative); Ketone, Urine Negative (Negative); Leukocyte Negative Leu/uL (Negative); Nitrite Negative (Negative); Protein, Urine (Dipstick) Negative (Neg-Trace); RBC/HPF 0-3 HPF (0-3); Squamous Epithelial 0-3 HPF (0-3); Urobilinogen Normal mg/dL (Less than 2); WBC/HPF 0-3 HPF (0-3)
[2023-02-26 06:27] LABS: Urine Culture Reflex No No
[2023-02-26 06:50] LABS: #Monocytes 0.1 thou/uL (0.11-0.59); #Neutrophils 2.8 thou/uL (1.40-6.50); %Basophils 0.3 % (0.0-1.0); %Lymphocytes 18.2 % (21.0-51.0); %Monocytes 1.4 % (0.0-10.0); %Neutrophils 79.5 % (42.0-75.0); Hematocrit 37.8 % (42.0-52.0); Hemoglobin 12.2 g/dL (14.0-18.0); Mean Corpuscular HGB CONC 32.3 g/dL (32.0-36.0); Mean Corpuscular Hemoglobin 28.6 pg (27.0-31.0); Mean Corpuscular Volume 88.5 fl (78.0-98.0); Platelet Count 186 10x3/uL (130-400); RBC Distribution Width 15.3 % (11.5-14.5); Red Blood Cell (RBC) Count 4.27 mill/uL (4.70-6.10); White Blood Cell (WBC) Count 3.5 10x3/uL (4.8-10.8)
[2023-02-26 07:16] LABS: Anion Gap 11 mmol/L (10-20); BUN (Urea Nitrogen) 20 mg/dL (8.4-25.7); Calc. Creatinine Clearance 75 mL/min (70-130); Carbon Dioxide 35 mmol/L (23-31); Chloride 94 mmol/L (98-107); Estimated GFR 62; Glucose 139 mg/dL (83-110); Potassium 3.8 mmol/L (3.5-5.1); Sodium 136 mmol/L (136-145)
[2023-02-26] MEDS ORDERED: methylPREDNISolone Sod Succ 40 MG VIAL IVP SCH (09:00)
[2023-02-26] MEDS ORDERED: Lorazepam 1 MG TAB PO PRN (09:51)
[2023-02-26] MEDS: methylPREDNISolone Sod Succ 40 MG VIAL IVP SCH ×3 (12:41→23:25)
[2023-02-26] MEDS: Propafenone HCl 150 MG TAB PO SCH ×2 (15:35→20:24)
[2023-02-26] MEDS: cefTRIAXone\\ROCEPHIN 1 GM in Sodium Chloride 0.9% 100 ML IVPB SCH (20:23)
[2023-02-26] MEDS: Potassium Chloride 10 MEQ TAB PO SCH (20:24)
[2023-02-26] MEDS: Apixaban 5 MG TAB PO SCH (20:24)
[2023-02-26] MEDS: guaiFENesin ER 600 MG TAB PO SCH (20:25)
[2023-02-26] MEDS: Nystatin Powder 15 GM BOT TOP SCH (21:03)
[2023-02-27] MEDS: Ipratropium/Albuterol 3 ML NEB NEB SCH ×6 (02:09→22:13)
[2023-02-27 04:12] LABS: #Monocytes 0.2 thou/uL (0.11-0.59); #Neutrophils 6.2 thou/uL (1.40-6.50); %Basophils 0.1 % (0.0-1.0); %Lymphocytes 11.7 % (21.0-51.0); %Monocytes 2.5 % (0.0-10.0); %Neutrophils 85.3 % (42.0-75.0); Hematocrit 34.5 % (42.0-52.0); Hemoglobin 11.2 g/dL (14.0-18.0); Mean Corpuscular HGB CONC 32.5 g/dL (32.0-36.0); Mean Corpuscular Hemoglobin 28.4 pg (27.0-31.0); Mean Corpuscular Volume 87.6 fl (78.0-98.0); Mean Platelet Volume 10.8 fL (7.4-10.4); Platelet Count 184 10x3/uL (130-400); RBC Distribution Width 15.1 % (11.5-14.5); Red Blood Cell (RBC) Count 3.94 mill/uL (4.70-6.10); White Blood Cell (WBC) Count 7.2 10x3/uL (4.8-10.8)
[2023-02-27 04:33] LABS: Anion Gap 11 mmol/L (10-20); BUN (Urea Nitrogen) 20 mg/dL (8.4-25.7); Calc. Creatinine Clearance 94 mL/min (70-130); Calcium 9.2 mg/dL (7.8-10.44); Carbon Dioxide 31 mmol/L (23-31); Chloride 98 mmol/L (98-107); Estimated GFR 81; Glucose 136 mg/dL (83-110); Potassium 3.4 mmol/L (3.5-5.1); Sodium 137 mmol/L (136-145)
[2023-02-27] MEDS: Levothyroxine Sodium 25 MCG TAB PO SCH (05:12)
[2023-02-27] MEDS: methylPREDNISolone Sod Succ 40 MG VIAL IVP SCH ×3 (05:12→17:48)
[2023-02-27 05:19] VITALS: BMI 35.2
[2023-02-27] MEDS: Propafenone HCl 150 MG TAB PO SCH ×4 (09:44→20:38)
[2023-02-27] MEDS: Aspirin 81 mg Enteric Coated Tablet PO SCH (09:44)
[2023-02-27] MEDS: Apixaban 5 MG TAB PO SCH ×2 (09:45→20:27)
[2023-02-27] MEDS: Montelukast Sodium 10 mg Tablet PO SCH (09:45)
[2023-02-27] MEDS: guaiFENesin ER 600 MG TAB PO SCH ×2 (09:45→20:39)
[2023-02-27] MEDS: Furosemide 40 MG TAB PO SCH (09:45)
[2023-02-27] MEDS: Nystatin Powder 15 GM BOT TOP SCH ×2 (09:45→20:37)
[2023-02-27] MEDS: Potassium Chloride 10 MEQ TAB PO SCH ×2 (09:45→20:38)
[2023-02-27] MEDS: cefTRIAXone\\ROCEPHIN 1 GM in Sodium Chloride 0.9% 100 ML IVPB SCH (20:27)
[2023-02-28] MEDS: methylPREDNISolone Sod Succ 40 MG VIAL IVP SCH ×2 (02:05→12:22)
[2023-02-28] MEDS: Ipratropium/Albuterol 3 ML NEB NEB SCH ×6 (02:15→22:11)
[2023-02-28 06:11] LABS: Anion Gap 19 mmol/L (10-20); BUN (Urea Nitrogen) 21 mg/dL (8.4-25.7); Calc. Creatinine Clearance 108 mL/min (70-130); Calcium 8.9 mg/dL (7.8-10.44); Carbon Dioxide 28 mmol/L (23-31); Chloride 95 mmol/L (98-107); Estimated GFR 86; Glucose 115 mg/dL (83-110); Potassium 3.8 mmol/L (3.5-5.1); Sodium 138 mmol/L (136-145)
[2023-02-28] MEDS: Levothyroxine Sodium 25 MCG TAB PO SCH (06:25)
[2023-02-28] MEDS: Furosemide 40 MG TAB PO SCH (09:22)
[2023-02-28] MEDS: Potassium Chloride 10 MEQ TAB PO SCH ×2 (09:22→20:32)
[2023-02-28] MEDS: Aspirin 81 mg Enteric Coated Tablet PO SCH (09:23)
[2023-02-28] MEDS: Apixaban 5 MG TAB PO SCH ×2 (09:23→20:32)
[2023-02-28] MEDS: Nystatin Powder 15 GM BOT TOP SCH ×2 (09:23→20:32)
[2023-02-28] MEDS: Montelukast Sodium 10 mg Tablet PO SCH (09:23)
[2023-02-28] MEDS: Propafenone HCl 150 MG TAB PO SCH ×3 (09:23→20:33)
[2023-02-28] MEDS: guaiFENesin ER 600 MG TAB PO SCH ×2 (09:23→20:32)
[2023-02-28] MEDS: cefTRIAXone\\ROCEPHIN 1 GM in Sodium Chloride 0.9% 100 ML IVPB SCH (20:31)
[2023-03-01] MEDS: methylPREDNISolone Sod Succ 40 MG VIAL IVP SCH ×2 (00:07→12:45)
[2023-03-01] MEDS: Ipratropium/Albuterol 3 ML NEB NEB SCH ×4 (02:12→13:48)
[2023-03-01] MEDS: Levothyroxine Sodium 25 MCG TAB PO SCH (06:46)
[2023-03-01 09:36] LABS: CO2 Tension 62.6 mmHg (35.0-45.0)
[2023-03-01] MEDS: Propafenone HCl 150 MG TAB PO SCH (10:38)
[2023-03-01] MEDS: Aspirin 81 mg Enteric Coated Tablet PO SCH (10:38)
[2023-03-01] MEDS: Montelukast Sodium 10 mg Tablet PO SCH (10:39)
[2023-03-01] MEDS: guaiFENesin ER 600 MG TAB PO SCH (10:39)
[2023-03-01] MEDS: Nystatin Powder 15 GM BOT TOP SCH (10:39)
[2023-03-01] MEDS: Furosemide 40 MG TAB PO SCH (10:39)
[2023-03-01] MEDS: Apixaban 5 MG TAB PO SCH (10:39)
[2023-03-01] MEDS: Potassium Chloride 10 MEQ TAB PO SCH (10:39)
[2023-03-01 11:27] VITALS: TEMP 97.8
[2023-03-01 13:25] VITALS: BP 139/95
== END 2023-03-01 16:09 | disposition swing bed (61) | DRG 189 ==
LOC: ERS 22:45 → ERHOLD 02-26 01:18 → IMCU/EMU 02-26 07:09
PROVIDERS: ADMIT Student in an Organized Health Care Education/Training Program; ATTEND Family Medicine
PROC: 4A133R1 Monitoring of Arterial Saturation, Peripheral, Percutaneous Approach (ICD-10-PCS; principal; 2023-02-25)
PROC: 5A0945A Assistance with Respiratory Ventilation, 24-96 Consecutive Hours, High Flow/Velocity Cannula (ICD-10-PCS; 2023-02-26)
DX: J96.21 Acute and chronic respiratory failure with hypoxia (principal); I50.32 Chronic diastolic (congestive) heart failure; J44.1 Chronic obstructive pulmonary disease with (acute) exacerbation; I42.9 Cardiomyopathy, unspecified; I25.10 Atherosclerotic heart disease of native coronary artery without angina pectoris; I48.91 Unspecified atrial fibrillation; E03.9 Hypothyroidism, unspecified; I87.2 Venous insufficiency (chronic) (peripheral); N18.30 Chronic kidney disease, stage 3 unspecified; R53.81 Other malaise; E66.9 Obesity, unspecified; F41.9 Anxiety disorder, unspecified; Z88.8 Allergy status to other drugs, medicaments and biological substances; Z95.5 Presence of coronary angioplasty implant and graft; Z99.81 Dependence on supplemental oxygen; Z79.890 Hormone replacement therapy; Z79.899 Other long term (current) drug therapy; Z90.49 Acquired absence of other specified parts of digestive tract; Z93.0 Tracheostomy status; Z68.34 Body mass index [BMI] 34.0-34.9, adult
CPT/HCPCS: 36415; 71045; 80048; 80053; 81001; 82805; 83605; 83690; 83880; 84484; 85025; 87040; 93005; 94640; 96365; 96367; 96375; 97139; J0696; J1100; J1650; J1956; J2920; J3475; J3490; J7620

== ENCOUNTER 2023-06-22 08:24 | Outpatient (CLI) | payer MEDICARE | END 2023-06-22 08:25 | disposition home or self-care (01) | LOC: RAD 08:24 | PROVIDERS: ATTEND Internal Medicine Critical Care Medicine | DX: R06.00 Dyspnea, unspecified (principal) | CPT/HCPCS: 71046 ==